=== PATIENT | female | born 1940 | race Caucasian/White ===

== ENCOUNTER 2022-12-03 09:06 | Outpatient (REF) | payer MEDICARE, SELFPAY ==
[2022-12-03 11:11] LABS: MANUAL DIFF FLAG NO
[2022-12-03 11:24] LABS: Basophils Absolute Auto 0.1 X10*3/uL (0.0-0.2); Basophils Percent Auto 0.6 % (0-2); Eosinophils Absolute Auto 0.3 X10*3/uL (0.0-0.4); Eosinophils Percent Auto 3.2 % (0-4); Hematocrit 42.7 % (37.0-47.0); Hemoglobin 14.6 g/dl (12.0-16.0); Imm Gran Abs Auto 0.03 X10*3/uL (0.00-0.03); Imm Gran Pct Auto 0.4 % (0.0-0.4); Lymphocytes Absolute Auto 2.6 X10*3/uL (1.2-4.9); Lymphocytes Percent Auto 30.4 % (20-40); Mean Corpuscular HGB Conc 34.2 g/dl (31.0-35.0); Mean Corpuscular Hemoglobin 33.6 pg (27.0-33.0); Mean Corpuscular Volume 98.2 fL (80.0-98.0); Mean Platelet Volume 11.5 fL (9.4-12.3); Monocytes Absolute Auto 0.9 X10*3/uL (0.1-1.2); NRBC Pct Auto 0.4 /100WBC (0.0-0.2); Neutrophils Absolute Auto 4.7 x10*3/uL (2.0-8.3); Neutrophils Percent Auto 55.4 % (45-73); Platelet Count 241 X10*3/uL (160-400); Red Blood Count 4.35 X10*6/uL (4.20-5.50); Red Cell Distribution Width 12.7 % (11.0-16.0); White Blood Count 8.5 X10*3/uL (4.8-10.8)
[2022-12-03 11:33] LABS: Estimated Average Glucose 91 mg/dL; Hemoglobin A1c % 4.8 %
[2022-12-03 11:43] LABS: Alanine Aminotransferase 23 U/L (0-31); Albumin Level 4.2 g/dL (3.5-5.0); Alkaline Phosphatase 76 U/L (39-117); Anion Gap 13 (12-20); Aspartate Amino Transferase 24 U/L (5-31); Bilirubin Total 0.9 mg/dL (0.0-1.0); Blood Urea Nitrogen 9 mg/dL (9-16); Calcium 9.7 mg/dL (8.4-10.2); Carbon Dioxide 29 mmol/L (22-29); Chloride 105 mmol/L (96-108); Cholesterol 187 mg/dL; Estimated Glomerular Filt Rate > 60; Glucose Random 94 mg/dL (60-115); HDL Cholesterol 58 mg/dL; LDL Cholesterol Calculated 105 mg/dl; Potassium 4.5 mmol/L (3.3-5.1); Sodium 142 mmol/L (135-145); Total Protein 6.9 g/dL (6.5-8.0); Triglycerides 123 mg/dL
== END 2022-12-03 09:07 | disposition home or self-care (01) ==
LOC: HO.MANLDS 09:06
PROVIDERS: Visit Provider Physician Assistant
DX: I10 Essential (primary) hypertension (principal)
CPT/HCPCS: 36415; 80053; 80061; 83036; 85025

== ENCOUNTER 2022-12-17 13:47 | Outpatient (REF) | payer MEDICARE, SELFPAY ==
--- NOTE | 2022-12-17 14:32 | HM_ITS ---
Conclusion: 1. Baseline rhythm predominantly is sinus rhythm with average heart of 73 beats per minute 2. No significant pauses noted 3. Intermittent episodes of paroxysmal atrial fibrillation, 3.52% total burden with longest episode lasting 5 minutes and 17 seconds 4. Total of 50,129 PACs accounting for 15.8% total beats account for very frequent PACs 5. Total of 8559 PVCs accounting for 2.7% total beats account for frequent PVCs 6. No significant pauses 7. No patient reported events MTDD
== END 2022-12-17 13:48 | disposition home or self-care (01) ==
LOC: HO.US 13:47
PROVIDERS: PCP Internal Medicine; Visit Provider Physician Assistant
DX: I48.91 Unspecified atrial fibrillation (principal)
CPT/HCPCS: 93242

== ENCOUNTER 2022-12-22 13:10 | Outpatient (REF) | payer MEDICARE, SELFPAY ==
--- NOTE | ~2022-12-22 | US_ITS ---
EXAMINATION: US PELVIS LIMITED (BLADDER) CLINICAL INFORMATION: History of swelling, new urinary changes. COMPARISON: None TECHNIQUE: Real-time imaging of the bladder. FINDINGS: BLADDER: Well distended and normal. Bilateral ureteral jets are demonstrated. Prevoid bladder volume is 147 mL. Postvoid bladder volume is 6 mL. US/US bladder IMPRESSION: Unremarkable urinary bladder.
== END 2022-12-22 13:11 | disposition home or self-care (01) ==
LOC: HO.US 13:10
PROVIDERS: PCP Internal Medicine; Visit Provider Physician Assistant
DX: R39.89 Other symptoms and signs involving the genitourinary system (principal)
CPT/HCPCS: 76857

== ENCOUNTER 2025-09-08 14:47 | Inpatient (IN) | payer MEDICARE, SELFPAY ==
[2025-09-08] VITALS (8 sets, daily range): BP systolic 90–156; BP diastolic 52–77; PULSE 77–123; RESP 11–21; TEMP 36.3–37.2; O2SAT 93–98; BMI 27.7
--- NOTE | ~2025-09-08 | CT_ITS ---
EXAMINATION: CT CERVICAL SPINE WITHOUT CONTRAST CLINICAL INFORMATION: Altered mental status. C-spine clearance. COMPARISON: None available. TECHNIQUE: Spiral CT imaging of the cervical spine performed in axial plane without contrast. Multiplanar reformatted images were constructed from the axial data set. This CT examination was performed using dose optimization techniques as appropriate, variously including the following: *Automated exposure control *Adjustment of mA and/or kV according to patient size (this includes techniques or standardized protocols for targeted exams where dose is matched to indication/reason for exam; i.e. extremities or head) *Use of iterative reconstruction technique FINDINGS: CORONAL ALIGNMENT: -Normal. SAGITTAL ALIGNMENT: -Normal lordosis. -There is a 2 mm degenerative retrolisthesis C3 on C4. -No additional subluxation. C1-C2 AND CRANIOCERVICAL JUNCTION: -Intact and normally aligned. There are mild to moderate degenerative changes in the anterior atlantoaxial joint. VERTEBRAL BODIES AND FACETS: -There are no fractures, compression deformities, or suspicious bone lesions. There is no evidence of traumatic malalignment. -Facets are normally aligned bilaterally with multilevel hypertrophic degenerative changes. DISCS: -Severe disc degeneration is present at C3-4 and C6-7. There is otherwise moderate disc degeneration. CENTRAL CANAL: -No evidence of high-grade central canal narrowing or large disc herniation allowing for modality limitations. -There may be moderate stenosis at C3-4, C4-5, and C5-6. PREVERTEBRAL AND PARAVERTEBRAL SOFT TISSUES: -There is no prevertebral or paravertebral soft tissue swelling or edema. No abnormal fluid collection. -Is mild carotid bulb calcification bilaterally. -Thyroid has a grossly normal appearance. LUNG APICES: -Clear bilaterally. No pneumothorax. CT/CT cervical spine wo IV con IMPRESSION: 1. No CT evidence of acute cervical spine fracture or injury. 2. Moderate to advanced multilevel cervical spondylosis. Electronically signed by: Alex Ochoa MD 09/08/2025 04:13 PM EDT
--- NOTE | ~2025-09-08 | CT_ITS ---
CLINICAL HISTORY: Sepsis CT abdomen and pelvis with contrast Comparison: None provided Findings: LIMITED CHEST: See separate CT chest. LIVER: No focal liver lesion. BILIARY: Cholelithiasis. PANCREAS: No mass or ductal dilatation. SPLEEN: No splenomegaly. KIDNEYS: No hydronephrosis or radiopaque stone. Small hypoattenuating lesions, too small to characterize however may represent cysts. ADRENALS: No nodule. VASCULAR: No aneurysm. RETROPERITONEUM: Mildly prominent retroperitoneal lymph nodes BOWEL/MESENTERY: No evidence of obstruction. No free fluid or air. Colonic diverticulosis. Normal appendix. ABDOMINAL WALL: No mass or significant abnormality. URINARY BLADDER: No focal wall thickening. PELVIC NODES: Enlarged right external iliac chain and right inguinal lymphadenopathy measuring up to 2.4 cm. PELVIC ORGANS: Hysterectomy. BONES: No acute fracture. Lucent lesion in the right femoral intertrochanteric region. OTHER: Negative. IMPRESSION: Enlarged right external iliac chain and inguinal lymphadenopathy measuring up to 2.4 cm. Correlate with any history of malignancy. Cholelithiasis without CT evidence of acute cholecystitis. This document has been electronically signed by: Chiquita Cm MD on 09/08/2025 20:26:28
--- NOTE | ~2025-09-08 | XR_ITS ---
EXAMINATION: XR CHEST CLINICAL INFORMATION: AMS COMPARISON: None available. TECHNIQUE: 2 views of the chest were obtained. FINDINGS: FINDINGS: Overlying monitoring leads The lungs are symmetrically expanded. Rotated positioning. Hazy opacity in the medial right lung base. No pulmonary edema. No pneumothorax. No pleural effusions. Cardiac size is within normal limits, evaluation limited by positioning. No acute osseous abnormalities. XR/XR chest 2V IMPRESSION: Right basilar hazy opacity could reflect atelectasis/infiltrate.. Electronically signed by: Mayito Avendaño MD 09/08/2025 03:50 PM EDT
--- NOTE | ~2025-09-08 | CT_ITS ---
EXAMINATION: CT HEAD WITHOUT CONTRAST CLINICAL INFORMATION: Altered mental status. COMPARISON: None available. TECHNIQUE: Contiguous axial imaging was performed from the skull base to vertex without intravenous administration of contrast. This CT examination was performed using dose optimization techniques as appropriate, variously including the following: *Automated exposure control *Adjustment of mA and/or kV according to patient size (this includes techniques or standardized protocols for targeted exams where dose is matched to indication/reason for exam; i.e. extremities or head) *Use of iterative reconstruction technique FINDINGS: There is no evidence of intracranial hemorrhage or extra-axial fluid collection. There is no mass effect, or edema. No CT evidence of acute territorial infarct. Ventricles, sulci, and cisterns are mildly diffusely prominent, in keeping with age appropriate involutional changes. No hydrocephalus. No midline shift. Negative hyperdense MCA sign. Negative insular ribbon sign. Patchy periventricular and deep white matter hypoattenuation is consistent with mild to moderate small vessel ischemic changes. 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 Partial empty sella. Atheromatous calcification of the bilateral carotid siphons and V4 segments vertebral arteries bilaterally. Globes and orbital contents image normally. No extracranial soft tissue abnormalities. There is cerumen impaction in both EACs. The paranasal sinuses, mastoid air cells, and tympanic cavities are normally aerated. No suspicious bony abnormalities. There are no acute fractures evident. Degenerative changes in the right greater than left TM joints. CT/CT head/brain wo IV con IMPRESSION: 1. No acute intracranial abnormality. 2. Chronic changes as described. 3. Cerumen impaction in both EACs. Electronically signed by: Alex Ochoa MD 09/08/2025 04:06 PM EDT
--- NOTE | ~2025-09-08 | US_ITS ---
EXAMINATION: US ABDOMEN LIMITED CLINICAL INFORMATION: Choledocholithiasis. COMPARISON: None available. TECHNIQUE: Real-time imaging of the gallbladder FINDINGS: GALLBLADDER: The gallbladder is physiologically distended. There is a stone in the gallbladder neck measuring 1.4 x 0.7 x 1.3 cm. The gallbladder wall does not appear thickened or edematous. No pericholecystic fluid. COMMON BILE DUCT: Not well visualized. The visualized common bile duct is normal in caliber measuring 0.5 cm in diameter. Common bile duct stone is appreciated. US/US abdomen limited IMPRESSION: Gallstone in the neck of the gallbladder. No gallbladder changes to suggest acute cholecystitis. The common bile duct is not well visualized but does not appear dilated. Electronically signed by: Lidia Calles MD 09/08/2025 05:32 PM EDT
--- NOTE | ~2025-09-08 | CT_ITS ---
CLINICAL HISTORY: Sepsis CT chest with contrast Comparison: None provided Findings: NECK BASE: Limited views of the thyroid are unremarkable. LUNGS/PLEURA: Mild bibasilar atelectasis. PULM VASCULAR: Small filling defect in the left anterior segmental pulmonary arterial branch (Series 8, image 54). MEDIASTINUM: No masses or lymphadenopathy. CARDIAC: No pericardial effusion. No cardiomegaly. AORTA: No aneurysm. CHEST WALL: No masses or axillary lymphadenopathy. LIMITED ABDOMEN: See separate CT abdomen pelvis. BONES: No acute fracture. Mild pectus excavatum deformity. IMPRESSION: 1. Small left segmental pulmonary arterial embolism. 2. No consolidation or pneumonia. This document has been electronically signed by: Chiquita Cm MD on 09/08/2025 20:31:56
--- NOTE | 2025-09-08 14:56 | ECG_ITS ---
Test Reason : ams Blood Pressure : */* mmHG Vent. Rate : 94 BPM Atrial Rate : 94 BPM P-R Int : 156 ms QRS Dur : 82 ms QT Int : 374 ms P-R-T Axes : 43 -19 98 degrees QTcB Int : 467 ms Sinus rhythm with occasional , and consecutive Premature ventricular complexes and Fusion complexes Left ventricular hypertrophy with repolarization abnormality ( R in aVL , Ankur product , Romhilt-Lara ) Abnormal ECG When compared with ECG of 15-Dec-2006 08:21, Fusion complexes are now Present Premature ventricular complexes are now Present QT has lengthened Referred By: Lai Pedersen Electronically Signed By: AUSTEN LEWIS MD
[2025-09-08 15:09] LABS: Glucose, Whole Blood 101 mg/dL (60-115)
--- NOTE | 2025-09-08 15:14 | ED.GENADULT ---
HPI - General Adult General Chief complaint: Altered Mental Status Stated complaint: AMS,HYPOTENSIVE 94/50,SEPSIS ALERT PER EMS Time Seen by Provider: 09/08/25 14:59 History of Present Illness ED Provider: Dr. Elam HPI narrative: 84 y/o F patient; PMH atrial fibrillation on Eliquis, anemia, GERD, dementia, thrombocytopenia, hx PE; presents from [facility] with report of altered mental status. The patient's son provides the history. Reportedly patient was found in the day room today bent over and reporting she was uncomfortable. Her blood pressure was low. Her son states at the end of Jul she was diagnosed with the atrial fibrillation and two small PEs started on Eliquis. At the time she was also diagnosed with what sounds like choledocholithiasis treated with ERCP. Cholecystectomy was deferred as repeat US showed improvement in patient's US imaging. Transport paperwork notes nausea and vomiting with uncontrolled pain . Pain was reported by patient as all over body . Confirms patient is DNR/DNI. Related Data Home Medications ?Medication ?Instructions ?Recorded ?Confirmed acetaminophen 325 mg tablet 650 mg PO Q6H PRN Fever Or Pain 09/08/25 09/08/25 apixaban 5 mg tablet (Eliquis) 5 mg PO BID 09/08/25 09/08/25 bisacodyl 10 mg rectal suppository 10 mg AZ DAILY PRN Constipation 09/08/25 09/08/25 diclofenac sodium 1 % topical gel 2 g topical TID 09/08/25 09/08/25 magnesium hydroxide 400 mg/5 mL 30 ml PO DAILY PRN Constipation 09/08/25 09/08/25 oral suspension (Milk of Magnesia) metoprolol succinate 25 mg 25 mg PO DAILY 09/08/25 09/08/25 tablet,extended release 24 hr nystatin 100,000 unit/mL oral 5 ml PO QID 09/08/25 09/08/25 suspension sennosides 8.6 mg tablet (senna) 17.2 mg PO BEDTIME 09/08/25 09/08/25 sodium phosphates 19 gram-7 118 ml [place] DAILY PRN Constipation 09/08/25 09/08/25 gram/118 mL enema (Fleet Enema) Allergies Allergy/AdvReac Type Severity Reaction Status Date / Time No Known Allergies Allergy Verified 09/08/25 14:54 Review of Systems Review of Systems: Yes Unobtainable due to mental status [facility] Past Medical History Attestation statement: The following information was validated with the patient. Source: old records reviewed Medical History (Updated 09/08/25 @ 20:31 by Macey Elam MD) Lactate blood increase Social History Social History Smoked in Last 30 Days: No Use of substances other than those prescribed or required for medical reasons: No Advance Directives: Yes Advance Directives Information Provided: No Advance Directives on File: No Do you have a plan to hurt others: No Plan Physical Exam ED Vital Signs: Vital Signs - 24 hr 09/08/25 14:49 09/08/25 14:58 09/08/25 17:09 Temperature 97.4 F Pulse Rate 89 89 114 H Respiratory Rate 18 18 12 Blood Pressure 111/52 L 111/52 L 148/71 H Pulse Oximetry 93 93 94 Oxygen Delivery Method Room Air Room Air Room Air 09/08/25 17:31 09/08/25 18:31 09/08/25 18:48 Temperature Pulse Rate 79 114 H 123 H Respiratory Rate 16 14 21 H Blood Pressure 142/63 H 139/71 132/63 Pulse Oximetry 96 93 93 Oxygen Delivery Method Room Air Room Air Room Air 09/08/25 19:52 Temperature 97.8 F Pulse Rate 114 H Respiratory Rate 11 L Blood Pressure 156/77 H Pulse Oximetry 94 Oxygen Delivery Method Room Air BMI result Body Mass Index 27.7 Patient is afebrile (rectally) and hemodynamically stable. Const General: cooperative and no acute distress [facility] Head: Yes normal to inspection and Yes atraumatic Eyes General: appearance normal, both eyes and all related structures Pupils: Equal, round and reactive pupils present EOM: EOMs intact bilaterally Neck Neck: Yes normal visual inspection, Yes full ROM, Yes supple and No tender Chest Chest palpation & inspection: normal inspection of the chest and normal palpation of entire chest wall Resp Effort & Inspection: normal respiratory effort, able to speak in complete sentences and no cough Auscultation: clear to auscultation bilaterally Cardio Rate: regular rate Rhythm: regular rhythm Peripheral pulses: Peripheral pulses 2+ throughout GI Inspection: Yes normal to inspection, No Abdominal wall edema and No distended Palpation (GI): Soft to palpation, not firm, nontender, no guarding and not rigid Auscultation: normal bowel sounds Back/Spine/Pelvis Back: No back tenderness Neuro Cranial nerves: Yes Equal, round and reactive pupils present Course Course Course Narrative: Patient is afebrile (rectally) and hemodynamically stable. Requested records from [facility] Hospital admission. Will start with screening EKG and labs. Will also obtain CXR, CT Head/Neck, and US RUQ. Provided 1L IVF. Reevaluation(s) Reevaluation #1: CXR with right basilar hazy opacity atelectasis versus infiltrate. Patient is without cough/congestion. No hypoxia. CT Head and Neck is negative for acute abnormalities. Labs reviewed. New leukocytosis 18.2. No significant anemia. Anion gap 21. Added 2nd L IVF for sepsis protocol. Ordered LA and blood cultures. Added Zosyn for intra-abdominal coverage. COVID/Flu/RSV negative. LA 5.9. US notable for gallstone in the neck of the gallbladder. I consulted surgery and GI. Surgery requested CT Abdomen/Pelvis which was ordered and pending. Added a CT Chest as well to better visualize right hazy opacity seen on CXR as suspicion for pneumonia is lower at this time. [facility] records reviewed. Patient actually had ascending cholangitis and ERCP with sphinecterotomy. UA reviewed. Obtained via purewick. WBC = squamous cells. No evidence of cystitis. Repeat LA 3.6. CT Abdomen/Pelvis with known cholelithiasis. CT Chest with known small left sided segmental PE. No pneumonia or focal infiltrate. Plan: Admit to hospital Condition: Stable Medications Administered Discontinued Medications Generic Name Dose Route Start Last Admin Trade Name Freq PRN Reason Stop Dose Admin Sodium Chloride 1,000 mls @ 999 mls/hr 09/08/25 15:30 09/08/25 18:25 Ns IV 09/08/25 16:30 Infused .Q1H1M KATHY Infusion Sodium Chloride 1,000 mls @ 999 mls/hr 09/08/25 16:30 09/08/25 18:25 Ns IV 09/08/25 17:30 Infused .Q1H1M KATHY Infusion Piperacillin Sod/Tazobactam 100 mls @ 200 mls/hr 09/08/25 16:27 09/08/25 17:37 Sod 4.5 gm/ Sodium Chloride IV 09/08/25 16:56 Infused ONCE ONE Infusion Iohexol 100 ml 09/08/25 19:12 09/08/25 19:12 Iohexol 350 Mg/Ml 100 Ml Infus..Btl IV 09/08/25 19:13 85 ml ONCE ONE Administration Medical Decision Making Lab Data 09/08/25 16:10 09/08/25 16:10 Labs: Lab Results 09/08/25 09/08/25 09/08/25 Range/Units 15:01 16:10 16:56 WBC 18.2 H (4.8-10.8) X10*3/uL RBC 3.42 L (4.20-5.50) X10*6/uL Hgb 12.1 (12.0-16.0) g/dl Hct 37.5 (37.0-47.0) % MCV 109.6 H (80.0-98.0) fL MCH 35.4 H (27.0-33.0) pg MCHC 32.3 (31.0-35.0) g/dl RDW 15.6 (11.0-16.0) % Plt Count 203 (160-400) X10*3/uL MPV 11.3 (9.4-12.3) fL Immature Gran % (Auto) 0.6 H (0.0-0.4) % Neut % (Auto) 72.9 (45-73) % Lymph % (Auto) 17.5 L (20-40) % [place] % (Auto) 8.8 (2-11) % Eos % (Auto) 0.0 (0-4) % Baso % (Auto) 0.2 (0-2) % Lymph # (Auto) 3.2 (1.2-4.9) X10*3/uL [place] # (Auto) 1.6 H (0.1-1.2) X10*3/uL Eos # (Auto) 0.0 (0.0-0.4) X10*3/uL Baso # (Auto) 0.0 (0.0-0.2) X10*3/uL Abs Immat Gran (auto) 0.11 H (0.00-0.03) X10*3/uL Absolute Neuts (auto) 13.3 H (2.0-8.3) x10*3/uL Absolute Nucleated RBC 0.020 H (0.0-0.012) X10*3/uL Nucleated RBC % (auto) 0.1 (0.0-0.2) /100WBC Smear Tech's Comments VERIFIED Sodium 145 (135-145) mmol/L Potassium 4.7 (3.3-5.1) mmol/L Chloride 110 H (96-108) mmol/L Carbon Dioxide 19 L (22-29) mmol/L Anion Gap 21 H (12-20) BUN 21 H (9-16) mg/dL Creatinine 0.87 (0.5-1.4) mg/dL Estim Creat Clear Calc 48.9 Estimated GFR > 60 POC Glucose 101 (60-115) mg/dL Random Glucose 115 (60-115) mg/dL Lactic Acid 5.9 H* (0.5-2.0) mmol/L Lactic Acid F/U @ 2Hr (0.5-2.0) mmol/L Calcium 9.1 D (8.4-10.2) mg/dL Total Bilirubin 2.0 H (0.0-1.0) mg/dL AST 59 H (5-31) U/L ALT 22 (0-31) U/L Alkaline Phosphatase 145 H (39-117) U/L Total Creatine Kinase 13 L (26-140) U/L Total Protein 6.6 (6.5-8.0) g/dL Albumin 3.3 L (3.5-5.0) g/dL Lipase 17 (8-78) U/L Urine Color Urine Appearance Urine pH (5.0-9.0) Ur Specific [place] (1.005-1.025) Urine Protein (Neg-Trace) mg/dL Urine Glucose (UA) (Negative) mg/dL Urine Ketones (Negative) mg/dL Urine Blood (Negative) Urine Nitrite (Negative) Ur Leukocyte Esterase (Negative) Urine RBC (0-2) /HPF Urine WBC (0-5) /HPF Ur Squamous Epith Cells (0-2) /HPF Other Crystals Urine Bacteria (None Seen) Hyaline Casts (0-2) /LPF Influenza Type A (PCR) NEGATIVE (Negative) Influenza Type B (PCR) NEGATIVE (Negative) RSV RNA Qual (PCR) NEGATIVE (Negative) SARS-CoV-2 RNA (RT-PCR) NEGATIVE (Negative) 09/08/25 09/08/25 Range/Units 18:40 19:28 WBC (4.8-10.8) X10*3/uL RBC (4.20-5.50) X10*6/uL Hgb (12.0-16.0) g/dl Hct (37.0-47.0) % MCV (80.0-98.0) fL MCH (27.0-33.0) pg MCHC (31.0-35.0) g/dl RDW (11.0-16.0) % Plt Count (160-400) X10*3/uL MPV (9.4-12.3) fL Immature Gran % (Auto) (0.0-0.4) % Neut % (Auto) (45-73) % Lymph % (Auto) (20-40) % [place] % (Auto) (2-11) % Eos % (Auto) (0-4) % Baso % (Auto) (0-2) % Lymph # (Auto) (1.2-4.9) X10*3/uL [place] # (Auto) (0.1-1.2) X10*3/uL Eos # (Auto) (0.0-0.4) X10*3/uL Baso # (Auto) (0.0-0.2) X10*3/uL Abs Immat Gran (auto) (0.00-0.03) X10*3/uL Absolute Neuts (auto) (2.0-8.3) x10*3/uL Absolute Nucleated RBC (0.0-0.012) X10*3/uL Nucleated RBC % (auto) (0.0-0.2) /100WBC Smear Tech's Comments Sodium (135-145) mmol/L Potassium (3.3-5.1) mmol/L Chloride (96-108) mmol/L Carbon Dioxide (22-29) mmol/L Anion Gap (12-20) BUN (9-16) mg/dL Creatinine (0.5-1.4) mg/dL Estim Creat Clear Calc Estimated GFR POC Glucose (60-115) mg/dL Random Glucose (60-115) mg/dL Lactic Acid (0.5-2.0) mmol/L Lactic Acid F/U @ 2Hr 3.6 H* (0.5-2.0) mmol/L Calcium (8.4-10.2) mg/dL Total Bilirubin (0.0-1.0) mg/dL AST (5-31) U/L ALT (0-31) U/L Alkaline Phosphatase (39-117) U/L Total Creatine Kinase (26-140) U/L Total Protein (6.5-8.0) g/dL Albumin (3.5-5.0) g/dL Lipase (8-78) U/L Urine Color Yellow Urine Appearance Clear Urine pH 6.5 (5.0-9.0) Ur Specific [place] 1.015 (1.005-1.025) Urine Protein Trace (Neg-Trace) mg/dL Urine Glucose (UA) Negative (Negative) mg/dL Urine Ketones Trace (Negative) mg/dL Urine Blood Trace H (Negative) Urine Nitrite Negative (Negative) Ur Leukocyte Esterase Moderate (2+) H (Negative) Urine RBC 3-5 H (0-2) /HPF Urine WBC 6-10 H (0-5) /HPF Ur Squamous Epith Cells 6-10 (0-2) /HPF Other Crystals Present Urine Bacteria 1+ (None Seen) Hyaline Casts 3-5 (0-2) /LPF Influenza Type A (PCR) (Negative) Influenza Type B (PCR) (Negative) RSV RNA Qual (PCR) (Negative) SARS-CoV-2 RNA (RT-PCR) (Negative) Independent Interpretation I performed an independent interpretation of an: EKG Interpretation: EKG independently interpreted by myself as NSR 94BPM with occasional PVCs. Radiology Impression Discussion of test interpretation with radiology: I have reviewed the radiologist's reading. Radiologist Impression: EXAMINATION: XR CHEST CLINICAL INFORMATION: AMS COMPARISON: None available. TECHNIQUE: 2 views of the chest were obtained. FINDINGS: FINDINGS: Overlying monitoring leads The lungs are symmetrically expanded. Rotated positioning. Hazy opacity in the medial right lung base. No pulmonary edema. No pneumothorax. No pleural effusions. Cardiac size is within normal limits, evaluation limited by positioning. No acute osseous abnormalities. XR/XR chest 2V IMPRESSION: Right basilar hazy opacity could reflect atelectasis/infiltrate.. Electronically signed by: Mayito Avendaño MD 09/08/2025 03:50 PM EDT RP EXAMINATION: CT HEAD WITHOUT CONTRAST CLINICAL INFORMATION: Altered mental status. COMPARISON: None available. TECHNIQUE: Contiguous axial imaging was performed from the skull base to vertex without intravenous administration of contrast. This CT examination was performed using dose optimization techniques as appropriate, variously including the following: *Automated exposure control *Adjustment of mA and/or kV according to patient size (this includes techniques or standardized protocols for targeted exams where dose is matched to indication/reason for exam; i.e. extremities or head) *Use of iterative reconstruction technique FINDINGS: There is no evidence of intracranial hemorrhage or extra-axial fluid collection. There is no mass effect, or edema. No CT evidence of acute territorial infarct. Ventricles, sulci, and cisterns are mildly diffusely prominent, in keeping with age appropriate involutional changes. No hydrocephalus. No midline shift. Negative hyperdense MCA sign. Negative insular ribbon sign. Patchy periventricular and deep white matter hypoattenuation is consistent with mild to moderate small vessel ischemic changes. 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 Partial empty sella. Atheromatous calcification of the bilateral carotid siphons and V4 segments vertebral arteries bilaterally. Globes and orbital contents image normally. No extracranial soft tissue abnormalities. There is cerumen impaction in both EACs. The paranasal sinuses, mastoid air cells, and tympanic cavities are normally aerated. No suspicious bony abnormalities. There are no acute fractures evident. Degenerative changes in the right greater than left TM joints. CT/CT head/brain wo IV con IMPRESSION: 1. No acute intracranial abnormality. 2. Chronic changes as described. 3. Cerumen impaction in both EACs. Electronically signed by: Alex Ochoa MD 09/08/2025 04:06 PM EDT EXAMINATION: CT CERVICAL SPINE WITHOUT CONTRAST CLINICAL INFORMATION: Altered mental status. C-spine clearance. COMPARISON: None available. TECHNIQUE: Spiral CT imaging of the cervical spine performed in axial plane without contrast. Multiplanar reformatted images were constructed from the axial data set. This CT examination was performed using dose optimization techniques as appropriate, variously including the following: *Automated exposure control *Adjustment of mA and/or kV according to patient size (this includes techniques or standardized protocols for targeted exams where dose is matched to indication/reason for exam; i.e. extremities or head) *Use of iterative reconstruction technique FINDINGS: CORONAL ALIGNMENT: -Normal. SAGITTAL ALIGNMENT: -Normal lordosis. -There is a 2 mm degenerative retrolisthesis C3 on C4. -No additional subluxation. C1-C2 AND CRANIOCERVICAL JUNCTION: -Intact and normally aligned. There are mild to moderate degenerative changes in the anterior atlantoaxial joint. VERTEBRAL BODIES AND FACETS: -There are no fractures, compression deformities, or suspicious bone lesions. There is no evidence of traumatic malalignment. -Facets are normally aligned bilaterally with multilevel hypertrophic degenerative changes. DISCS: -Severe disc degeneration is present at C3-4 and C6-7. There is otherwise moderate disc degeneration. CENTRAL CANAL: -No evidence of high-grade central canal narrowing or large disc herniation allowing for modality limitations. -There may be moderate stenosis at C3-4, C4-5, and C5-6. PREVERTEBRAL AND PARAVERTEBRAL SOFT TISSUES: -There is no prevertebral or paravertebral soft tissue swelling or edema. No abnormal fluid collection. -Is mild carotid bulb calcification bilaterally. -Thyroid has a grossly normal appearance. LUNG APICES: -Clear bilaterally. No pneumothorax. CT/CT cervical spine wo IV con IMPRESSION: 1. No CT evidence of acute cervical spine fracture or injury. 2. Moderate to advanced multilevel cervical spondylosis. Electronically signed by: Alex Ochoa MD 09/08/2025 04:13 PM EDT EXAMINATION: US ABDOMEN LIMITED CLINICAL INFORMATION: Choledocholithiasis. COMPARISON: None available. TECHNIQUE: Real-time imaging of the gallbladder FINDINGS: GALLBLADDER: The gallbladder is physiologically distended. There is a stone in the gallbladder neck measuring 1.4 x 0.7 x 1.3 cm. The gallbladder wall does not appear thickened or edematous. No pericholecystic fluid. COMMON BILE DUCT: Not well visualized. The visualized common bile duct is normal in caliber measuring 0.5 cm in diameter. Common bile duct stone is appreciated. US/US abdomen limited IMPRESSION: Gallstone in the neck of the gallbladder. No gallbladder changes to suggest acute cholecystitis. The common bile duct is not well visualized but does not appear dilated. Electronically signed by: Lidia Calles MD 09/08/2025 05:32 PM EDT RP CLINICAL HISTORY: Sepsis CT abdomen and pelvis with contrast Comparison: None provided Findings: LIMITED CHEST: See separate CT chest. LIVER: No focal liver lesion. BILIARY: Cholelithiasis. PANCREAS: No mass or ductal dilatation. SPLEEN: No splenomegaly. KIDNEYS: No hydronephrosis or radiopaque stone. Small hypoattenuating lesions, too small to characterize however may represent cysts. ADRENALS: No nodule. VASCULAR: No aneurysm. RETROPERITONEUM: Mildly prominent retroperitoneal lymph nodes BOWEL/MESENTERY: No evidence of obstruction. No free fluid or air. Colonic diverticulosis. Normal appendix. ABDOMINAL WALL: No mass or significant abnormality. URINARY BLADDER: No focal wall thickening. PELVIC NODES: Enlarged right external iliac chain and right inguinal lymphadenopathy measuring up to 2.4 cm. PELVIC ORGANS: Hysterectomy. BONES: No acute fracture. Lucent lesion in the right femoral intertrochanteric region. OTHER: Negative. IMPRESSION: Enlarged right external iliac chain and inguinal lymphadenopathy measuring up to 2.4 cm. Correlate with any history of malignancy. Cholelithiasis without CT evidence of acute cholecystitis. This document has been electronically signed by: Chiquita Cm MD on 09/08/2025 20:26:28 CLINICAL HISTORY: Sepsis CT chest with contrast Comparison: None provided Findings: NECK BASE: Limited views of the thyroid are unremarkable. LUNGS/PLEURA: Mild bibasilar atelectasis. PULM VASCULAR: Small filling defect in the left anterior segmental pulmonary arterial branch (Series 8, image 54). MEDIASTINUM: No masses or lymphadenopathy. CARDIAC: No pericardial effusion. No cardiomegaly. AORTA: No aneurysm. CHEST WALL: No masses or axillary lymphadenopathy. LIMITED ABDOMEN: See separate CT abdomen pelvis. BONES: No acute fracture. Mild pectus excavatum deformity. IMPRESSION: 1. Small left segmental pulmonary arterial embolism. 2. No consolidation or pneumonia. This document has been electronically signed by: Chiquita Cm MD on 09/08/2025 20:31:56 Discharge Plan Discharge Clinical Impression: Sepsis, Cholelithiasis, AMS (altered mental status) Patient Disposition: Admitted As Inpatient Print Language: [place]an
--- NOTE | 2025-09-08 15:31 | PC.NURSE ---
84 F from SNF via EMS for AMS, hypotension. Pt A+OX1 to self, confused. Pt was there for gall stones and infection. RR even and unlabored, denies CP or SOB. Pt is calm, cooperative. RR even and unlabored. Equal strength bilat. Pt responsive to verbal stimuli but confused to date/time/situation/location. Pt denies any pain.
[2025-09-08 16:16] LABS: Hematocrit 37.5 % (37.0-47.0); Hemoglobin 12.1 g/dl (12.0-16.0); Imm Gran Abs Auto 0.11 X10*3/uL (0.00-0.03); Imm Gran Pct Auto 0.6 % (0.0-0.4); Lymphocytes Absolute Auto 3.2 X10*3/uL (1.2-4.9); MANUAL DIFF FLAG SCAN; Mean Corpuscular HGB Conc 32.3 g/dl (31.0-35.0); Mean Corpuscular Hemoglobin 35.4 pg (27.0-33.0); Mean Corpuscular Volume 109.6 fL (80.0-98.0); NRBC Abs Auto 0.020 X10*3/uL (0.0-0.012); NRBC Pct Auto 0.1 /100WBC (0.0-0.2); Platelet Count 203 X10*3/uL (160-400); Red Blood Count 3.42 X10*6/uL (4.20-5.50); SCAN SMEAR FLAG 1; White Blood Count 18.2 X10*3/uL (4.8-10.8)
[2025-09-08 16:34] LABS: Lipase 17 U/L (8-78)
[2025-09-08 16:35] LABS: Alanine Aminotransferase 22 U/L (0-31); Albumin Level 3.3 g/dL (3.5-5.0); Anion Gap 21 (12-20); Aspartate Amino Transferase 59 U/L (5-31); Blood Urea Nitrogen 21 mg/dL (9-16); Calcium 9.1 mg/dL (8.4-10.2); Carbon Dioxide 19 mmol/L (22-29); Chloride 110 mmol/L (96-108); Creatinine Clr Calc Pharmacy 48.9; Estimated Glomerular Filt Rate > 60; Potassium 4.7 mmol/L (3.3-5.1); Sodium 145 mmol/L (135-145); Total Protein 6.6 g/dL (6.5-8.0)
--- NOTE | 2025-09-08 16:48 | PC.NURSE ---
tech getting 2nd set of cultures, waiting to start abx
[2025-09-08 16:52] LABS: Resp Syncy Virus RNA Qual PCR NEGATIVE (Negative); SARS COV2 PCR INHOUSE NEGATIVE (Negative)
--- NOTE | 2025-09-08 16:56 | PC.NURSE ---
tech unable to get 2nd set of cultures at this time, another tech is going to attempt 2nd blood culture draw.
[2025-09-08 17:32] LABS: Alkaline Phosphatase 145 U/L (39-117)
--- NOTE | 2025-09-08 18:24 | P.CONGS_ITS ---
History of Present Illness Consult details Consult date: 09/08/25 Narrative: [age] year old female with dementia, who was in [facility], brought to the ED today because of what the son described as low blood pressure and an overall sense of being ?uncomfortable She actually was in [facility] last July, because of what appeared to be common bile duct obstruction. She had an ERCP done at that time to clear the common bile duct. According to her son, Parminder, she was considered for cholecystectomy but she had multiple problems then including new onset atrial fibrillation as well as PEs. She was therefore started on anticoagulation. She was discharged to the rehab institution The son, Parminder, also says that the patient has worsening dementia. She seems to have had some excessive weakness as well. He says that the patient does not seem to have had good oral intake anymore even at the rehab institution. The son also says that the patient has not complained of any abdominal pain today. There is no reported vomiting or diarrhea. The patient seems to be able to walk very short distances with a walker although spends more time in bed or on a chair now. Review of Systems 2 Review of Systems: Source is the son Parminder; the patient has some dementia although answers simple questions Yes Unobtainable due to mental status Constitutional: Constitutional: Denies chills, Denies fever(s), Reports poor appetite and Reports weakness Cardiovascular: Cardiovascular: Denies chest pain Respiratory: Respiratory: Denies cough Gastrointestinal: Gastrointestinal: Denies abdominal pain and Denies vomiting Neurologic: Reports weakness Comments: Some dementia, seems to be progressive recently PMFSH Past Medical History Medical History Lactate blood increase Social History Social History Housing: Residential Do you presently have visiting nurse or other home services: Yes Patient Tobacco Use Status: Former Tobacco user Advance Directives Date on File: 09/09/25 service: No Meds Allergies Allergy/AdvReac Type Severity Reaction Status Date / Time No Known Allergies Allergy Verified 09/08/25 14:54 Home Medications ?Medication ?Instructions ?Recorded ?Confirmed ?Last Taken ?Type acetaminophen 325 mg tablet 650 mg PO Q6H PRN Fever Or Pain 09/08/25 09/08/25 Unknown History apixaban 5 mg tablet (Eliquis) 5 mg PO BID 09/08/25 Unknown History bisacodyl 10 mg rectal suppository 10 mg MN DAILY PRN Constipation 09/08/25 09/08/25 Unknown History diclofenac sodium 1 % topical gel 2 g topical TID 08/3009/08/25 Unknown History magnesium hydroxide 400 mg/5 mL 30 ml PO DAILY PRN Con stipation 09/08/25 09/08/25 Unknown History oral suspension (Milk of MagnRedLasso) metoprolol succinate 25 mg 25 mg PO DAILY 09/08/2509/23 Unknown History tablet,extended release 24 hr nystatin 100,000 unit/mL oral 5 ml PO QID 09/08/2509/23 Unknown History suspension sennosides 8.6 mg tablet (senna) 17.2 mg PO BEDTIME 09/08/25 Unknown History sodium phosphates 19 gram-7 118 ml MN DAILY PRN Consti pation 09/08/25 09/08/25 Unknown History gram/118 mL enema (Fleet Enema) Physical Exam 2 Vital Signs: Vital Signs: Last Vital Signs Temp 97.4 F 09/08/25 14:58 Pulse 79 09/08/25 17:31 Resp 16 09/08/25 17:31 BP 142/63 H 09/08/25 17:31 Pulse Ox 96 09/08/25 17:31 O2 Del Method Room Air 09/08/25 17:31 BMI result Body Mass Index 27.7 Const: Other: Answers simple questions, does not appear to be in any pain, frail looking General: comfortable and no acute distress Resp: Effort & Inspection: normal respiratory effort Cardio: Rate: regular rate GI: Other: No Overton's sign Inspection: No distended Palpation (GI): Soft to palpation, not firm, nontender and no guarding Extrem: General: Yes no calf tenderness Results Labs 09/12/25 06:41 09/12/25 06:41 Labs: Abnormal lab results 09/08/25 09/08/25 Range/Units 16:10 16:56 WBC 18.2 H (4.8-10.8) X10*3/uL RBC 3.42 L (4.20-5.50) X10*6/uL MCV 109.6 H (80.0-98.0) fL MCH 35.4 H (27.0-33.0) pg Immature Gran % (Auto) 0.6 H (0.0-0.4) % Lymph % (Auto) 17.5 L (20-40) % [place] # (Auto) 1.6 H (0.1-1.2) X10*3/uL Abs Immat Gran (auto) 0.11 H (0.00-0.03) X10*3/uL Absolute Neuts (auto) 13.3 H (2.0-8.3) x10*3/uL Absolute Nucleated RBC 0.020 H (0.0-0.012) X10*3/uL Chloride 110 H (96-108) mmol/L Carbon Dioxide 19 L (22-29) mmol/L Anion Gap 21 H (12-20) BUN 21 H (9-16) mg/dL Lactic Acid 5.9 H* (0.5-2.0) mmol/L Total Bilirubin 2.0 H (0.0-1.0) mg/dL AST 59 H (5-31) U/L Alkaline Phosphatase 145 H (39-117) U/L Total Creatine Kinase 13 L (26-140) U/L Albumin 3.3 L (3.5-5.0) g/dL Short CBC 09/08/25 Range/Units 16:10 WBC 18.2 H (4.8-10.8) X10*3/uL Hgb 12.1 (12.0-16.0) g/dl Hct 37.5 (37.0-47.0) % Plt Count 203 (160-400) X10*3/uL BMP 09/08/25 16:10 Sodium 145 Potassium 4.7 Chloride 110 H Carbon Dioxide 19 L BUN 21 H Creatinine 0.87 Calcium 9.1 D Cardiac Enzymes 09/08/25 Range/Units 16:10 Total Creatine Kinase 13 L (26-140) U/L Liver Function 09/08/25 Range/Units 16:10 Total Bilirubin 2.0 H (0.0-1.0) mg/dL AST 59 H (5-31) U/L ALT 22 (0-31) U/L Alkaline Phosphatase 145 H (39-117) U/L Albumin 3.3 L (3.5-5.0) g/dL All other labs normal. Assessment and Plan (1) Lactate blood increase: Status: Acute Plan The patient was brought to the ER from [facility] because of what was described as hypotension and some change in mental status. She has multiple medical problems including dementia, recently diagnosed atrial fibrillation, on anticoagulation, PEs. She had an elevated lactate on admission so an abdominal ultrasound was done which showed a gallstone on the neck the gallbladder. However, there is no suggestion of cholecystitis. Furthermore, the patient does not have any tenderness to examination. The son says that she did not complain of any abdominal pain today Her bilirubin is 2.0 although this seems to have been stable since she had ERCP for choledocholithiasis last month in [facility] I am uncertain as to the etiology of her elevated lactate but her imaging does not suggest cholecystitis. She should be aggressively hydrated as the son says that she has had poor oral intake for several weeks now. She is hemodynamically stable and despite her elevated lactate, appears comfortable and is not toxic looking. I agree with starting her on antibiotics for now. I have recommended a CAT scan of the abdomen and pelvis. We will follow along while she is in the hospital because of her gallstones. I have discussed the above with the ER physician, hospitalist service, as well the son at bedside. Procedures Date of Service Date of Service: 09/12/25
[2025-09-08 18:50] LABS: Appearance Urine Clear; Glucose Urine UA Negative (Negative); PH 6.5 (5.0-9.0); Specific Gravity - Urine 1.015 (1.005-1.025); UMIC TRIGGER UACC YES
[2025-09-08 18:58] LABS: Reflex Lactate? Lactic Acid Added
[2025-09-08 19:09] LABS: Other Crystals Urine Present; UACC Culture Trigger YES
[2025-09-08] MEDS: iohexoL 350 MG/ML 100 ML INFUS..BTL IV (19:12)
--- NOTE | 2025-09-08 19:13 | PHA.MEDREC ---
Addendum entered by Venkat Younger RPh 09/08/25 20:52: MED REC REVIEWED BY [facility] ED Original Note: Pharmacy Consult ? Medication Reconciliation Pharmacy has completed the medication reconciliation. Utilized list from Danyel Sahu to confirm med list.
--- NOTE | 2025-09-08 19:29 | PC.NURSE ---
this rn assumed care of pt, pt resting in stretcher, no acute distress noted. tech at bedside drawing labs. son at bedside
--- NOTE | 2025-09-08 19:44 | PC.NURSE ---
pt hard stick, multiple attempts made to obtain lactic lab. MD Elam aware
--- NOTE | 2025-09-08 19:44 | MHC.EDTECH ---
Previous shift tech attempted to draw blood,patient is a hard stick. This tech attempted again and was now able to obtained it. Will have another tech try to obtain blood sample.
[2025-09-08 20:16] LABS: ~Lactic Acid-LAB USE ONLY 3.6 mmol/L (0.5-2.0)
--- NOTE | 2025-09-08 21:16 | PM.IMHP ---
History of Present Illness Date of Service: 09/08/25 Attending physician on admission: Juvencio Izquierdo Chief Complaint: AMS, hypotension Patient is an 84-year-old female with a past medical history significant for paroxysmal AFib on Eliquis, anemia, GERD, dementia, thrombocytopenia and history of PE, who presented to the ED due to altered mental status and hypotension from an SNF. The patient is unable to provide a history due to altered mental status, she is can not provide a history but is alert and awake. It was reported that she was found in the room at the nursing facility bent over complaining of abdominal discomfort. The patient denies any abdominal pain initially but then does report suprapubic pain. She had also reported nausea and vomiting initially however now stating that she has intermittent nausea which is very mild and has not had any vomiting. It is reported that she has had poor p.o. intake. She was recently hospitalized at [facility] for ascending cholangitis with an ERCP and sphincterotomy. She was also diagnosed with new onset AFib and 2 small PEs. The patient was seen with a family member bedside who does not contribute any additional history. Patient was consulted by General surgery in the ED who reviewed abdominal imaging and suggested no acute cholecystitis at this time. LFTs are elevated however at baseline from recent hospitalization. A thorough workup was completed in the ED which showed a mildly positive UA, lactic acidosis which improved with IV fluids and enlarged right external iliac chain and inguinal lymphadenopathy, cholelithiasis without acute cholecystitis. Patient to be admitted to hospitalist service, IV antibiotics recommended by General surgery who will follow. REPLACED BY [facility] Medical History Lactate blood increase Social History Housing: Group Home Do you presently have visiting nurse or other home services: Yes Patient Tobacco Use Status: Former Tobacco user Smoked in Last 30 Days: No Use of substances other than those prescribed or required for medical reasons: No Have you been hit, kicked, punched, or otherwise hurt by someone within the past year? If so, by whom?: No Do you feel safe in your current relationship?: Yes Is there a partner from a previous relationship who is making you feel unsafe now?: No Advance Directives: Yes Advance Directives Information Provided: No Advance Directives on File: No Advance Directives Date on File: 09/09/25 Do you have a plan to hurt others: No Plan Recently lost weight without trying: Yes How much weight loss: 2-13 pounds Eating poorly because of decreased appetite: Yes Nutrition screen score: 4 Nutrition Risks: No Nutritional Risk Patient : No : No Poor oral hygiene: No Meds Allergies Allergy/AdvReac Type Severity Reaction Status Date / Time No Known Allergies Allergy Verified 09/08/25 14:54 Home Medications ?Medication ?Instructions ?Recorded ?Confirmed ?Last Taken ?Type acetaminophen 325 mg tablet 650 mg PO Q6H PRN Fever Or Pain 09/08/25 09/08/25 Unknown History apixaban 5 mg tablet (Eliquis) 5 mg PO BID 09/08/25 09/08/25 Unknown History bisacodyl 10 mg rectal suppository 10 mg WI DAILY PRN Constipation 09/08/25 09/08/25 Unknown History diclofenac sodium 1 % topical gel 2 g topical TID 09/08/25 09/08/25 Unknown History magnesium hydroxide 400 mg/5 mL 30 ml PO DAILY PRN Constipation 09/08/25 09/08/25 Unknown History oral suspension (Milk of Magnesia) metoprolol succinate 25 mg 25 mg PO DAILY 09/08/25 09/08/25 Unknown History tablet,extended release 24 hr nystatin 100,000 unit/mL oral 5 ml PO QID 09/08/25 09/08/25 Unknown History suspension sennosides 8.6 mg tablet (senna) 17.2 mg PO BEDTIME 09/08/25 09/08/25 Unknown History sodium phosphates 19 gram-7 118 ml WI DAILY PRN Constipation 09/08/25 09/08/25 Unknown History gram/118 mL enema (Fleet Enema) Physical Exam Vital Signs and Narrative: Vital Signs: Last Vital Signs Temp 97.8 F 09/08/25 19:52 Pulse 114 H 09/08/25 19:52 Resp 11 L 09/08/25 19:52 BP 156/77 H 09/08/25 19:52 Pulse Ox 94 09/08/25 19:52 O2 Del Method Room Air 09/08/25 19:52 BMI result Body Mass Index 27.7 General: Alert, oriented to person but not place or time, no acute distress Resp: CTA bilaterally CVS: Tachy, irregularly irregular GI: +BS, tender lower abdomen, suprapubic region, no distention Skin: Warm, dry. dry mucous membranes Neuro: Cranial nerves II-XII grossly intact bilaterally. Motor grossly intact bilaterally Extremities: No pitting edema Psych: Confused Results Labs 09/08/25 16:10 09/08/25 16:10 Labs: Laboratory Results - last 24 hr 09/08/25 09/08/25 09/08/25 15:01 16:10 16:56 MCV 109.6 H MCH 35.4 H MCHC 32.3 RDW 15.6 Plt Count 203 MPV 11.3 Immature Gran % (Auto) 0.6 H Neut % (Auto) 72.9 Lymph % (Auto) 17.5 L [place] % (Auto) 8.8 Eos % (Auto) 0.0 Baso % (Auto) 0.2 Lymph # (Auto) 3.2 [place] # (Auto) 1.6 H Eos # (Auto) 0.0 Baso # (Auto) 0.0 Abs Immat Gran (auto) 0.11 H Absolute Neuts (auto) 13.3 H Absolute Nucleated RBC 0.020 H Nucleated RBC % (auto) 0.1 Smear Tech's Comments VERIFIED Anion Gap 21 H Estim Creat Clear Calc 48.9 Estimated GFR > 60 POC Glucose 101 Random Glucose 115 Lactic Acid 5.9 H* Lactic Acid F/U @ 2Hr Calcium 9.1 D Total Bilirubin 2.0 H AST 59 H ALT 22 Alkaline Phosphatase 145 H Total Creatine Kinase 13 L Total Protein 6.6 Albumin 3.3 L Lipase 17 Urine Color Urine Appearance Urine pH Ur Specific [place] Urine Protein Urine Glucose (UA) Urine Ketones Urine Blood Urine Nitrite Ur Leukocyte Esterase Urine RBC Urine WBC Ur Squamous Epith Cells Other Crystals Urine Bacteria Hyaline Casts Influenza Type A (PCR) NEGATIVE Influenza Type B (PCR) NEGATIVE RSV RNA Qual (PCR) NEGATIVE SARS-CoV-2 RNA (RT-PCR) NEGATIVE 09/08/25 09/08/25 18:40 19:28 MCV MCH MCHC RDW Plt Count MPV Immature Gran % (Auto) Neut % (Auto) Lymph % (Auto) [place] % (Auto) Eos % (Auto) Baso % (Auto) Lymph # (Auto) [place] # (Auto) Eos # (Auto) Baso # (Auto) Abs Immat Gran (auto) Absolute Neuts (auto) Absolute Nucleated RBC Nucleated RBC % (auto) Smear Tech's Comments Anion Gap Estim Creat Clear Calc Estimated GFR POC Glucose Random Glucose Lactic Acid Lactic Acid F/U @ 2Hr 3.6 H* Calcium Total Bilirubin AST ALT Alkaline Phosphatase Total Creatine Kinase Total Protein Albumin Lipase Urine Color Yellow Urine Appearance Clear Urine pH 6.5 Ur Specific [place] 1.015 Urine Protein Trace Urine Glucose (UA) Negative Urine Ketones Trace Urine Blood Trace H Urine Nitrite Negative Ur Leukocyte Esterase Moderate (2+) H Urine RBC 3-5 H Urine WBC 6-10 H Ur Squamous Epith Cells 6-10 Other Crystals Present Urine Bacteria 1+ Hyaline Casts 3-5 Influenza Type A (PCR) Influenza Type B (PCR) RSV RNA Qual (PCR) SARS-CoV-2 RNA (RT-PCR) Imaging Radiologist's Impressions: Impressions Cervical Spine CT 09/08/25 15:39 IMPRESSION: 1. No CT evidence of acute cervical spine fracture or injury. 2. Moderate to advanced multilevel cervical spondylosis. Electronically signed by: Alex Ochoa MD 09/08/2025 04:[address] 09/08/25 15:39 IMPRESSION: 1. No acute intracranial abnormality. 2. Chronic changes as described. 3. Cerumen impaction in both EACs. Electronically signed by: Alex Ochoa MD 09/08/2025 04:06 PM EDT Chest X-Ray 09/08/25 15:40 IMPRESSION: Right basilar hazy opacity could reflect atelectasis/infiltrate.. Electronically signed by: Mayito Avendaño MD 09/08/2025 03:50 PM EDT Abdomen Ultrasound 09/08/25 16:25 IMPRESSION: Gallstone in the neck of the gallbladder. No gallbladder changes to suggest acute cholecystitis. The common bile duct is not well visualized but does not appear dilated. Electronically signed by: Lidia Calles MD 09/08/2025 05:32 PM EDT Assessment and Plan (1) Systemic inflammatory response syndrome (SIRS) associated with organ dysfunction: Status: Acute (2) AMS (altered mental status): Status: Acute (3) UTI (urinary tract infection): Status: Acute (4) Lactic acidosis: Status: Acute (5) Cholelithiasis: Status: Acute (6) Pulmonary embolism: Status: Acute Plan Patient is an 84-year-old female with a past medical history significant for paroxysmal AFib on Eliquis, anemia, GERD, dementia, thrombocytopenia and history of PE, who presented to the ED due to altered mental status and hypotension from an SNF. SIRS +, mildly positive UA, lymphadenopathy on A/P CT, general surgery following due to cholelithiasis and recent admission at [facility] for cholangitis. SIRS with associated organ dysfunction, AMS and UTI - zosyn pending urine culture - blood cultures pending - BP stable, follow lactic acid - monitor CBC and CMP acute lactic acidosis, likely from SIRS and lack of PO intake - IVF - trend lactic Cholelithiasis without acute cholecystitis, recent admission at [facility] for acute cholangitis s/p ERCP and sphincterotomy - general surgery following. GI consult - Zosyn - monitor LFTs, currently at baseline Hyperchloremic metabolic acidosis, dehydration likely contributing - IV fluids - monitor BMP known pulmonary embolism on CTA, not hypoxic - eliquis Paroxysmal AFib - Eliquis and metoprolol DNR/DNI, MOLST form reviewed with patient's son VTE prophylaxis: Eliquis Patient SIRS+ with associated organ dysfunction, altered mental status and UTI, requiring admission for at least 2 midnight stay for IV antibiotics, further evaluation and monitoring. Quality Stroke Does the patient have a stroke diagnosis?: No VTE Prior VTE?: No VTE Risk Level:: Medical - moderate - high VTE Device Contraindication: Treatment Not Indicated VTE Drug Contraindication: N/A - Med Ordered
[2025-09-08 21:57] LABS: Reflex Lactate? 2 Y
[2025-09-08 22:40] LABS: ~Lactic Acid-LAB USE ONLY 2.2 mmol/L (0.5-2.0)
[2025-09-08] MEDS: Lactated Ringers 1,000 ML 80 ML IVCONT (22:45)
--- NOTE | 2025-09-08 22:45 | PC.NURSE ---
pt medicated per mar,tolerated whole well with water. maintenance fluids administering at this time
[2025-09-08 22:48] LABS: Cancel Lactic Acid Canceled
[2025-09-09] VITALS (7 sets, daily range): BP systolic 106–155; BP diastolic 56–68; PULSE 69–137; RESP 16–18; TEMP 36.4–37.1; O2SAT 95–97; BMI 27.7
--- NOTE | 2025-09-09 00:06 | PC.NURSE ---
pt placed in hospital bed for comfort at this time
--- NOTE | 2025-09-09 05:59 | HO.SKINPHOTO ---
Location: Category: Stage: Length: Width: Depth: cm Location: Category: Stage: Length: Width: Depth: cm Location: Category: Stage: Length: Width: Depth: cm Location: Category: Stage: Length: Width: Depth: cm Location: Category: Stage: Length: Width: Depth: cm Location: Category: Stage: Length: Width: Depth: cm
[2025-09-09 08:46] LABS: MANUAL DIFF FLAG NO
[2025-09-09 08:53] LABS: Hematocrit 36.2 % (37.0-47.0); Hemoglobin 11.3 g/dl (12.0-16.0); Imm Gran Abs Auto 0.05 X10*3/uL (0.00-0.03); Imm Gran Pct Auto 0.4 % (0.0-0.4); Lymphocytes Absolute Auto 3.8 X10*3/uL (1.2-4.9); Mean Corpuscular HGB Conc 31.2 g/dl (31.0-35.0); Mean Corpuscular Hemoglobin 34.2 pg (27.0-33.0); Mean Corpuscular Volume 109.7 fL (80.0-98.0); NRBC Abs Auto 0.000 X10*3/uL (0.0-0.012); NRBC Pct Auto 0.0 /100WBC (0.0-0.2); Platelet Count 151 X10*3/uL (160-400); Red Blood Count 3.30 X10*6/uL (4.20-5.50); White Blood Count 11.6 X10*3/uL (4.8-10.8)
[2025-09-09] MEDS: 0.9 % Sodium Chloride Flush 3 ML SYRINGE IVFLUSH ×2 (09:06→20:46)
[2025-09-09] MEDS: Metoprolol Succinate ER 25 MG TAB.ER.24H PO (09:07)
[2025-09-09 09:16] LABS: Alanine Aminotransferase 20 U/L (0-31); Albumin Level 2.8 g/dL (3.5-5.0); Alkaline Phosphatase 122 U/L (39-117); Anion Gap 18 (12-20); Aspartate Amino Transferase 50 U/L (5-31); Blood Urea Nitrogen 17 mg/dL (9-16); Calcium 8.2 mg/dL (8.4-10.2); Carbon Dioxide 20 mmol/L (22-29); Chloride 111 mmol/L (96-108); Creatinine Clr Calc Pharmacy 73.4; Estimated Glomerular Filt Rate > 60; Potassium 3.8 mmol/L (3.3-5.1); Sodium 145 mmol/L (135-145); Total Protein 5.8 g/dL (6.5-8.0)
--- NOTE | 2025-09-09 09:29 | PM.PNGS ---
Subjective Subjective Date of Service: 09/10/25 Interval history: No events overnight Patient denies abdominal pain No nausea or vomiting or other GI complaints Physical Exam Vital Signs: Vital Signs: Last Vital Signs Temp 98.6 F 09/09/25 07:05 Pulse 71 09/09/25 07:05 Resp 18 09/09/25 07:05 BP 155/65 H 09/09/25 07:05 Pulse Ox 96 09/09/25 07:05 O2 Del Method Room Air 09/09/25 07:05 BMI result Body Mass Index 27.7 Const: Other: Answers simple questions General: comfortable and no acute distress Resp: Effort & Inspection: normal respiratory effort Cardio: Rate: regular rate GI: Palpation (GI): Soft to palpation, not firm, nontender and no guarding Objective Data Active Medications Acetaminophen (Acetaminophen 325 Mg Tablet) 650 mg PO Q6H PRN PRN Reason: Pain, Mild 1-3,fever,headache Apixaban (Apixaban 5 Mg Tablet) 5 mg PO BID [facility] Last Admin: 09/09/25 09:07 Dose: 5 mg Documented By: LEANDER Calcium Carbonate (Calcium Carbonate 750 Mg Tab.Chew) 750 mg PO Q4H PRN PRN Reason: Heartburn Lactated Ringer's (Lr) 1,000 mls @ 80 mls/hr IVCONT .[id number] [facility] Last Admin: 09/08/25 22:45 Dose: 80 mls/hr Documented By: COREY Magnesium Hydroxide (Milk Of Magnesia 30 Ml Oral.Susp) 30 ml PO DAILY PRN PRN Reason: Constipation Melatonin (Melatonin 3 Mg Tablet) 6 mg PO BEDTIME PRN PRN Reason: Insomnia Metoprolol Succinate (Metoprolol Succinate Er 25 Mg Tab.Er.24h) 25 mg PO DAILY [facility]; Protocol Last Admin: 09/09/25 09:07 Dose: 25 mg Documented By: LEANDER Ondansetron HCl (Ondansetron Hcl 4 Mg/2 Ml Vial) 4 mg IVPUSH Q8H PRN PRN Reason: Nausea and Vomiting Last Admin: 09/09/25 09:24 Dose: 4 mg Documented By: LEANDER Oxycodone HCl (Oxycodone Hcl Immed Release 5 Mg Tablet) 5 mg PO Q6H PRN PRN Reason: Pain, Severe (Pain Scale 7-10) Senna (Sennosides 8.6 Mg Tablet) 17.2 mg PO BEDTIME [facility] Last Admin: 09/08/25 22:44 Dose: 17.2 mg Documented By: COREY Sodium Biphosphate/Sodium Phosphate (Sodium Phosphate,[place]-Dibasic 133 Ml Enema) 118 ml [place] DAILY PRN PRN Reason: Constipation Sodium Chloride (0.9 % Sodium Chloride Flush 3 Ml Syringe) 3 ml IVFLUSH QSHIFT [facility] Last Admin: 09/09/25 09:06 Dose: 3 ml Documented By: LEANDER Tramadol HCl (Tramadol Hcl 50 Mg Tablet) 50 mg PO Q6H PRN PRN Reason: Pain, Moderate(Pain Scale 4-6) Labs 09/10/25 05:41 09/10/25 05:41 Labs: Laboratory Results - last 24 hr 09/08/25 09/08/25 09/08/25 15:01 16:10 16:56 MCV 109.6 H MCH 35.4 H MCHC 32.3 RDW 15.6 Plt Count 203 MPV 11.3 Immature Gran % (Auto) 0.6 H Neut % (Auto) 72.9 Lymph % (Auto) 17.5 L [place] % (Auto) 8.8 Eos % (Auto) 0.0 Baso % (Auto) 0.2 Lymph # (Auto) 3.2 [place] # (Auto) 1.6 H Eos # (Auto) 0.0 Baso # (Auto) 0.0 Abs Immat Gran (auto) 0.11 H Absolute Neuts (auto) 13.3 H Absolute Nucleated RBC 0.020 H Nucleated RBC % (auto) 0.1 Smear Tech's Comments VERIFIED Anion Gap 21 H Estim Creat Clear Calc 48.9 Estimated GFR > 60 POC Glucose 101 Random Glucose 115 Lactic Acid 5.9 H* Lactic Acid F/U @ 2Hr Lactic Acid F/U @ 4Hr Calcium 9.1 D Total Bilirubin 2.0 H AST 59 H ALT 22 Alkaline Phosphatase 145 H Total Creatine Kinase 13 L Total Protein 6.6 Albumin 3.3 L Lipase 17 Urine Color Urine Appearance Urine pH Ur Specific [place] Urine Protein Urine Glucose (UA) Urine Ketones Urine Blood Urine Nitrite Ur Leukocyte Esterase Urine RBC Urine WBC Ur Squamous Epith Cells Other Crystals Urine Bacteria Hyaline Casts Influenza Type A (PCR) NEGATIVE Influenza Type B (PCR) NEGATIVE RSV RNA Qual (PCR) NEGATIVE SARS-CoV-2 RNA (RT-PCR) NEGATIVE 09/08/25 09/08/25 09/08/25 18:40 19:28 22:12 MCV MCH MCHC RDW Plt Count MPV Immature Gran % (Auto) Neut % (Auto) Lymph % (Auto) [place] % (Auto) Eos % (Auto) Baso % (Auto) Lymph # (Auto) [place] # (Auto) Eos # (Auto) Baso # (Auto) Abs Immat Gran (auto) Absolute Neuts (auto) Absolute Nucleated RBC Nucleated RBC % (auto) Smear Tech's Comments Anion Gap Estim Creat Clear Calc Estimated GFR POC Glucose Random Glucose Lactic Acid Lactic Acid F/U @ 2Hr 3.6 H* Lactic Acid F/U @ 4Hr 2.2 H* Calcium Total Bilirubin AST ALT Alkaline Phosphatase Total Creatine Kinase Total Protein Albumin Lipase Urine Color Yellow Urine Appearance Clear Urine pH 6.5 Ur Specific [place] 1.015 Urine Protein Trace Urine Glucose (UA) Negative Urine Ketones Trace Urine Blood Trace H Urine Nitrite Negative Ur Leukocyte Esterase Moderate (2+) H Urine RBC 3-5 H Urine WBC 6-10 H Ur Squamous Epith Cells 6-10 Other Crystals Present Urine Bacteria 1+ Hyaline Casts 3-5 Influenza Type A (PCR) Influenza Type B (PCR) RSV RNA Qual (PCR) SARS-CoV-2 RNA (RT-PCR) 09/09/25 08:37 MCV 109.7 H MCH 34.2 H MCHC 31.2 RDW 15.6 Plt Count 151 L D MPV 11.3 Immature Gran % (Auto) 0.4 Neut % (Auto) 53.4 Lymph % (Auto) 32.6 [place] % (Auto) 12.9 H Eos % (Auto) 0.3 Baso % (Auto) 0.4 Lymph # (Auto) 3.8 [place] # (Auto) 1.5 H Eos # (Auto) 0.0 Baso # (Auto) 0.1 Abs Immat Gran (auto) 0.05 H Absolute Neuts (auto) 6.2 Absolute Nucleated RBC 0.000 Nucleated RBC % (auto) 0.0 Smear Tech's Comments Anion Gap 18 Estim Creat Clear Calc 73.4 Estimated GFR > 60 POC Glucose Random Glucose 73 Lactic Acid Lactic Acid F/U @ 2Hr Lactic Acid F/U @ 4Hr Calcium 8.2 L D Total Bilirubin 1.2 H AST 50 H ALT 20 Alkaline Phosphatase 122 H Total Creatine Kinase Total Protein 5.8 L Albumin 2.8 L Lipase Urine Color Urine Appearance Urine pH Ur Specific [place] Urine Protein Urine Glucose (UA) Urine Ketones Urine Blood Urine Nitrite Ur Leukocyte Esterase Urine RBC Urine WBC Ur Squamous Epith Cells Other Crystals Urine Bacteria Hyaline Casts Influenza Type A (PCR) Influenza Type B (PCR) RSV RNA Qual (PCR) SARS-CoV-2 RNA (RT-PCR) Procedures Date of Service Date of Service: 09/10/25 Progress Note: A&P Assessment and plan (1) Cholelithiasis: Status: Acute Assessment and Plan: No evidence of acute cholecystitis She denies any abdominal pain sign no tenderness or Overton's sign Being treated for UTI Has recent PE and AFib, on Eliquis Continue current medical care No surgical intervention planned at this time Time Spent With Patient Time: Total time managing care of this patient today ____ minutes. Quality Stroke Does the patient have a stroke diagnosis?: No VTE Prior VTE?: No VTE Risk Level:: Medical - moderate - high VTE Device Contraindication: Treatment Not Indicated VTE Drug Contraindication: N/A - Med Ordered
--- NOTE | 2025-09-09 10:54 | P.PNIM_ITS ---
Subjective Subjective Date of Service: 09/09/25 Interval History: abd discomfort Physical Exam 2 Exam: Exam: General: AO X 2, no acute distress Resp: CTA bilateral, no accessory muscles used CVS: S1,S2,RRR GI: soft, ?ruq mildly tender, non distended Neuro: motor grossly intact, alert Vital Signs: Vital Signs: Last Vital Signs Temp 98.6 F 09/09/25 07:05 Pulse 71 09/09/25 07:05 Resp 18 09/09/25 07:05 BP 155/65 H 09/09/25 07:05 Pulse Ox 96 09/09/25 07:05 O2 Del Method Room Air 09/09/25 07:05 BMI result Body Mass Index 27.7 Objective Data Active Medications Acetaminophen (Acetaminophen 325 Mg Tablet) 650 mg PO Q6H PRN PRN Reason: Pain, Mild 1-3,fever,headache Apixaban (Apixaban 5 Mg Tablet) 5 mg PO BID [facility] Last Admin: 09/09/25 09:07 Dose: 5 mg Documented By: LEANDER Calcium Carbonate (Calcium Carbonate 750 Mg Tab.Chew) 750 mg PO Q4H PRN PRN Reason: Heartburn Lactated Ringer's (Lr) 1,000 mls @ 80 mls/hr IVCONT .[id number] [facility] Last Admin: 09/08/25 22:45 Dose: 80 mls/hr Documented By: COREY Magnesium Hydroxide (Milk Of Magnesia 30 Ml Oral.Susp) 30 ml PO DAILY PRN PRN Reason: Constipation Melatonin (Melatonin 3 Mg Tablet) 6 mg PO BEDTIME PRN PRN Reason: Insomnia Metoprolol Succinate (Metoprolol Succinate Er 25 Mg Tab.Er.24h) 25 mg PO DAILY [facility]; Protocol Last Admin: 09/09/25 09:07 Dose: 25 mg Documented By: LEANDER Ondansetron HCl (Ondansetron Hcl 4 Mg/2 Ml Vial) 4 mg IVPUSH Q8H PRN PRN Reason: Nausea and Vomiting Last Admin: 09/09/25 09:24 Dose: 4 mg Documented By: LEANDER Oxycodone HCl (Oxycodone Hcl Immed Release 5 Mg Tablet) 5 mg PO Q6H PRN PRN Reason: Pain, Severe (Pain Scale 7-10) Senna (Sennosides 8.6 Mg Tablet) 17.2 mg PO BEDTIME [facility] Last Admin: 09/08/25 22:44 Dose: 17.2 mg Documented By: COREY Sodium Biphosphate/Sodium Phosphate (Sodium Phosphate,[place]-Dibasic 133 Ml Enema) 118 ml [place] DAILY PRN PRN Reason: Constipation Sodium Chloride (0.9 % Sodium Chloride Flush 3 Ml Syringe) 3 ml IVFLUSH QSHIFT [facility] Last Admin: 09/09/25 09:06 Dose: 3 ml Documented By: LEANDER Tramadol HCl (Tramadol Hcl 50 Mg Tablet) 50 mg PO Q6H PRN PRN Reason: Pain, Moderate(Pain Scale 4-6) Labs 09/09/25 08:37 09/09/25 08:37 Labs: Laboratory Results - last 24 hr 09/08/25 09/08/25 09/08/25 15:01 16:10 16:56 MCV 109.6 H MCH 35.4 H MCHC 32.3 RDW 15.6 Plt Count 203 MPV 11.3 Immature Gran % (Auto) 0.6 H Neut % (Auto) 72.9 Lymph % (Auto) 17.5 L [place] % (Auto) 8.8 Eos % (Auto) 0.0 Baso % (Auto) 0.2 Lymph # (Auto) 3.2 [place] # (Auto) 1.6 H Eos # (Auto) 0.0 Baso # (Auto) 0.0 Abs Immat Gran (auto) 0.11 H Absolute Neuts (auto) 13.3 H Absolute Nucleated RBC 0.020 H Nucleated RBC % (auto) 0.1 Smear Tech's Comments VERIFIED Anion Gap 21 H Estim Creat Clear Calc 48.9 Estimated GFR > 60 POC Glucose 101 Random Glucose 115 Lactic Acid 5.9 H* Lactic Acid F/U @ 2Hr Lactic Acid F/U @ 4Hr Calcium 9.1 D Total Bilirubin 2.0 H AST 59 H ALT 22 Alkaline Phosphatase 145 H Total Creatine Kinase 13 L Total Protein 6.6 Albumin 3.3 L Lipase 17 Urine Color Urine Appearance Urine pH Ur Specific [place] Urine Protein Urine Glucose (UA) Urine Ketones Urine Blood Urine Nitrite Ur Leukocyte Esterase Urine RBC Urine WBC Ur Squamous Epith Cells Other Crystals Urine Bacteria Hyaline Casts Influenza Type A (PCR) NEGATIVE Influenza Type B (PCR) NEGATIVE RSV RNA Qual (PCR) NEGATIVE SARS-CoV-2 RNA (RT-PCR) NEGATIVE 10/10/25 10/10/25 10/10/25 18:40 19:28 22:12 MCV MCH MCHC RDW Plt Count MPV Immature Gran % (Auto) Neut % (Auto) Lymph % (Auto) [place] % (Auto) Eos % (Auto) Baso % (Auto) Lymph # (Auto) [place] # (Auto) Eos # (Auto) Baso # (Auto) Abs Immat Gran (auto) Absolute Neuts (auto) Absolute Nucleated RBC Nucleated RBC % (auto) Smear Tech's Comments Anion Gap Estim Creat Clear Calc Estimated GFR POC Glucose Random Glucose Lactic Acid Lactic Acid F/U @ 2Hr 3.6 H* Lactic Acid F/U @ 4Hr 2.2 H* Calcium Total Bilirubin AST ALT Alkaline Phosphatase Total Creatine Kinase Total Protein Albumin Lipase Urine Color Yellow Urine Appearance Clear Urine pH 6.5 Ur Specific [place] 1.015 Urine Protein Trace Urine Glucose (UA) Negative Urine Ketones Trace Urine Blood Trace H Urine Nitrite Negative Ur Leukocyte Esterase Moderate (2+) H Urine RBC 3-5 H Urine WBC 6-10 H Ur Squamous Epith Cells 6-10 Other Crystals Present Urine Bacteria 1+ Hyaline Casts 3-5 Influenza Type A (PCR) Influenza Type B (PCR) RSV RNA Qual (PCR) SARS-CoV-2 RNA (RT-PCR) 09/09/25 08:37 MCV 109.7 H MCH 34.2 H MCHC 31.2 RDW 15.6 Plt Count 151 L D MPV 11.3 Immature Gran % (Auto) 0.4 Neut % (Auto) 53.4 Lymph % (Auto) 32.6 [place] % (Auto) 12.9 H Eos % (Auto) 0.3 Baso % (Auto) 0.4 Lymph # (Auto) 3.8 [place] # (Auto) 1.5 H Eos # (Auto) 0.0 Baso # (Auto) 0.1 Abs Immat Gran (auto) 0.05 H Absolute Neuts (auto) 6.2 Absolute Nucleated RBC 0.000 Nucleated RBC % (auto) 0.0 Smear Tech's Comments Anion Gap 18 Estim Creat Clear Calc 73.4 Estimated GFR > 60 POC Glucose Random Glucose 73 Lactic Acid Lactic Acid F/U @ 2Hr Lactic Acid F/U @ 4Hr Calcium 8.2 L D Total Bilirubin 1.2 H AST 50 H ALT 20 Alkaline Phosphatase 122 H Total Creatine Kinase Total Protein 5.8 L Albumin 2.8 L Lipase Urine Color Urine Appearance Urine pH Ur Specific [place] Urine Protein Urine Glucose (UA) Urine Ketones Urine Blood Urine Nitrite Ur Leukocyte Esterase Urine RBC Urine WBC Ur Squamous Epith Cells Other Crystals Urine Bacteria Hyaline Casts Influenza Type A (PCR) Influenza Type B (PCR) RSV RNA Qual (PCR) SARS-CoV-2 RNA (RT-PCR) Assessment and Plan (1) Lactic acidosis: Status: Acute Plan 84F PMH pafib, alzheimers dementia, history of PE, presented with hypotension SIRS and acute metabolic encephalopathy improving, continue empiric rocephin for possible uti biliary stones no obvious cholecystitis follow up gi acute lactic acidosis possibly due to above vs hypotension history of PE eliquis pafib eliquis, lopressor dnr/dni reason for continued hospitalization: abd pain, leukocystosis Quality Stroke Does the patient have a stroke diagnosis?: No VTE Prior VTE?: No VTE Risk Level:: Medical - moderate - high VTE Device Contraindication: Treatment Not Indicated VTE Drug Contraindication: N/A - Med Ordered
[2025-09-09] MEDS: Lactated Ringers 1,000 ML 80 ML IVCONT (14:48)
--- NOTE | 2025-09-09 16:22 | MHC.CM.PN ---
CM SPOKE TO PTS SON, DICK [phone] HE REPORTS THE PT LIVES WITH HIM AND HE ASSISTS HER WITH CARE PRN HE SAYS PT STILL OWNS HER OWN HOME, BUT HIS DAUGHTER AND FRIEND LIVE THERE CURRENTLY HE SAYS SHE USES A [employer], TRANSPORT CHAIR, MED ALERT, AND HE JUST BOUGHT A HOSPITAL BED COPY OF HCP REQUESTED PCP: JOSIE SIEGEL IMM DELIVERED DCP: PT WAS AT [facility] SHE WILL LIKELY NEED TO RETURN TO [facility] TRANSPORT
--- NOTE | 2025-09-09 21:32 | CONS_ITS ---
DATE OF SERVICE: 09/09/2025 REFERRING PHYSICIAN: ISAMAR Meza REASON FOR CONSULTATION: Gallstones. HISTORY OF PRESENT ILLNESS: The patient is a pleasant 84-year-old woman with a history of dementia who was admitted to the hospital on September 08. She has dementia and is unable to provide history. The history is obtained from the chart and her son who was present in the room with her. She reportedly has a history of gallstones and was hospitalized approximately 3 weeks ago with common bile duct stones, for which she underwent ERCP and sphincterotomy. Those records are not available, but will be obtained. During that hospitalization, there is a report of atrial fibrillation and pulmonary embolism and she did not undergo cholecystectomy. She was evaluated in the emergency department here yesterday from the [facility] has been staying with reports of abdominal pain and altered mental status. Evaluation in the emergency department included laboratory testing showing a white count of 18.2 with mild elevations of liver function tests that are reportedly close to her baseline. Abdominal ultrasound and CT scanning were obtained showing a gallstone in the neck of the gallbladder with no evidence of acute cholecystitis. Common bile duct was reportedly not dilated on ultrasound. CT scanning of the abdomen and pelvis showed cholelithiasis without any evidence of CT cholecystitis. The common bile duct was not commented on in the CT report. Today, the patient reports no abdominal pain. She is resting comfortably in bed. She has had some nausea. PAST MEDICAL HISTORY: 1. Gallstones as above. 2. Atrial fibrillation. 3. Anemia. 4. Gastroesophageal reflux disease. 5. Dementia. 6. Thrombocytopenia. CURRENT MEDICATIONS: List is reviewed in the chart. ALLERGIES: THERE ARE NONE REPORTED. FAMILY HISTORY: This is reviewed in the electronic medical record and is noncontributory. SOCIAL HISTORY: There is no reported tobacco, alcohol, or substance abuse. REVIEW OF SYSTEMS: Not obtainable due to the patient's underlying dementia. PHYSICAL EXAMINATION: GENERAL: Shows a pleasant female, lying comfortably in bed. VITAL SIGNS: Reviewed in the electronic medical record and are stable. SKIN: Anicteric. HEENT: Shows no scleral icterus. NECK: Without lymphadenopathy or thyromegaly. LUNGS: Clear. HEART: Shows regular rate and rhythm. S1, S2. No murmur. ABDOMEN: Soft without focal masses or tenderness. Bowel sounds are present. No organomegaly is noted. EXTREMITIES: Without edema. LABORATORY DATA AND IMAGING STUDIES: Reviewed. IMPRESSION: Gallstones. She has been seen in consultation by General Surgery. She does not appear to have any evidence of biliary obstruction based on the imaging today. We will obtain her records and review them. Thanks for asking me to see her. I will follow her in the hospital with you. MD JOSEPH Fung/RAFAEL / [phone]
[2025-09-10 03:24] VITALS: BP 101/58; PULSE 71; RESP 18; TEMP 36.6; O2SAT 95
[2025-09-10] MEDS: Lactated Ringers 1,000 ML 80 ML IVCONT ×2 (03:36→20:59)
[2025-09-10 05:57] LABS: Hematocrit 30.7 % (37.0-47.0); Hemoglobin 10.0 g/dl (12.0-16.0); Imm Gran Abs Auto 0.04 X10*3/uL (0.00-0.03); Imm Gran Pct Auto 0.5 % (0.0-0.4); Lymphocytes Absolute Auto 3.0 X10*3/uL (1.2-4.9); MANUAL DIFF FLAG SCAN; Mean Corpuscular HGB Conc 32.6 g/dl (31.0-35.0); Mean Corpuscular Hemoglobin 35.3 pg (27.0-33.0); Mean Corpuscular Volume 108.5 fL (80.0-98.0); NRBC Abs Auto 0.000 X10*3/uL (0.0-0.012); NRBC Pct Auto 0.0 /100WBC (0.0-0.2); Platelet Count 149 X10*3/uL (160-400); Red Blood Count 2.83 X10*6/uL (4.20-5.50); SCAN SMEAR FLAG 1; White Blood Count 8.1 X10*3/uL (4.8-10.8)
[2025-09-10 06:26] LABS: Alanine Aminotransferase 17 U/L (0-31); Albumin Level 2.6 g/dL (3.5-5.0); Alkaline Phosphatase 103 U/L (39-117); Anion Gap 14 (12-20); Aspartate Amino Transferase 45 U/L (5-31); Blood Urea Nitrogen 13 mg/dL (9-16); Calcium 8.0 mg/dL (8.4-10.2); Carbon Dioxide 23 mmol/L (22-29); Chloride 111 mmol/L (96-108); Creatinine Clr Calc Pharmacy 88.7; Estimated Glomerular Filt Rate > 60; Potassium 2.9 mmol/L (3.3-5.1); Sodium 145 mmol/L (135-145); Total Protein 5.1 g/dL (6.5-8.0)
[2025-09-10] MEDS: Potassium Chloride Packet 20 MEQ PACKET 40 MEQ PO (07:05)
[2025-09-10 07:11] VITALS: BP 106/59; PULSE 94; RESP 14; TEMP 36.6; O2SAT 95
[2025-09-10] MEDS: Potassium Chloride/H20 10 MEQ/100 ML PIGGYBACK 100 MEQ IV ×4 (08:16→20:58)
[2025-09-10] MEDS: Metoprolol Succinate ER 25 MG TAB.ER.24H PO (08:16)
--- NOTE | 2025-09-10 09:47 | P.PNIM_ITS ---
Subjective Subjective Date of Service: 09/10/25 Interval History: abd discomfort Physical Exam 2 Exam: Exam: General: AO X 2, no acute distress Resp: CTA bilateral, no accessory muscles used CVS: S1,S2,RRR GI: soft, ?ruq mildly tender, non distended Neuro: motor grossly intact, alert Vital Signs: Vital Signs: Last Vital Signs Temp 97.9 F 09/10/25 07:11 Pulse 94 09/10/25 07:11 Resp 14 09/10/25 07:11 BP 106/59 L 09/10/25 07:11 Pulse Ox 95 09/10/25 07:11 O2 Del Method Room Air 09/10/25 07:11 BMI result Body Mass Index 27.7 Objective Data Active Medications Acetaminophen (Acetaminophen 325 Mg Tablet) 650 mg PO Q6H PRN PRN Reason: Pain, Mild 1-3,fever,headache Apixaban (Apixaban 5 Mg Tablet) 5 mg PO BID [facility] Last Admin: 09/10/25 08:16 Dose: 5 mg Documented By: LEANDER Calcium Carbonate (Calcium Carbonate 750 Mg Tab.Chew) 750 mg PO Q4H PRN PRN Reason: Heartburn Ceftriaxone Sodium (Ceftriaxone Sodium 1 Gm Vial) 1 gm IVPUSH Q24H [facility] Last Admin: 09/09/25 14:47 Dose: 1 gm Documented By: LEANDER Lactated Ringer's (Lr) 1,000 mls @ 80 mls/hr IVCONT .[id number] [facility] Last Admin: 09/10/25 03:36 Dose: 80 mls/hr Documented By: JESSICA Potassium Chloride (Potassium Chloride/H20) 10 meq in 100 mls @ 100 mls/hr IV Q1H [facility] Stop: 09/10/25 11:44 Last Admin: 09/10/25 08:16 Dose: 100 mls/hr Documented By: LEANDER Magnesium Hydroxide (Milk Of Magnesia 30 Ml Oral.Susp) 30 ml PO DAILY PRN PRN Reason: Constipation Melatonin (Melatonin 3 Mg Tablet) 6 mg PO BEDTIME PRN PRN Reason: Insomnia Last Admin: 09/09/25 20:35 Dose: 6 mg Documented By: JESSICA Metoprolol Succinate (Metoprolol Succinate Er 25 Mg Tab.Er.24h) 25 mg PO DAILY [facility]; Protocol Last Admin: 09/10/25 08:16 Dose: 25 mg Documented By: LEANDER Ondansetron HCl (Ondansetron Hcl 4 Mg/2 Ml Vial) 4 mg IVPUSH Q8H PRN PRN Reason: Nausea and Vomiting Last Admin: 09/09/25 20:39 Dose: 4 mg Documented By: JESSICA Oxycodone HCl (Oxycodone Hcl Immed Release 5 Mg Tablet) 5 mg PO Q6H PRN PRN Reason: Pain, Severe (Pain Scale 7-10) Senna (Sennosides 8.6 Mg Tablet) 17.2 mg PO BEDTIME [facility] Last Admin: 09/09/25 20:39 Dose: 17.2 mg Documented By: JESSICA Sodium Biphosphate/Sodium Phosphate (Sodium Phosphate,[place]-Dibasic 133 Ml Enema) [address] DAILY PRN PRN Reason: Constipation Sodium Chloride (0.9 % Sodium Chloride Flush 3 Ml Syringe) 3 ml IVFLUSH QSHIFT [facility] Last Admin: 09/09/25 20:46 Dose: 3 ml Documented By: EJSSICA Tramadol HCl (Tramadol Hcl 50 Mg Tablet) 50 mg PO Q6H PRN PRN Reason: Pain, Moderate(Pain Scale 4-6) Labs 09/10/25 05:41 09/10/25 05:41 Labs: Laboratory Results - last 24 hr 09/10/25 05:41 MCV 108.5 H MCH 35.3 H MCHC 32.6 RDW 15.5 Plt Count 149 L MPV 10.9 Immature Gran % (Auto) 0.5 H Neut % (Auto) 48.1 Lymph % (Auto) 36.6 [place] % (Auto) 12.2 H Eos % (Auto) 2.0 Baso % (Auto) 0.6 Lymph # (Auto) 3.0 [place] # (Auto) 1.0 Eos # (Auto) 0.2 Baso # (Auto) 0.1 Abs Immat Gran (auto) 0.04 H Absolute Neuts (auto) 3.9 Absolute Nucleated RBC 0.000 Nucleated RBC % (auto) 0.0 Smear Tech's Comments VERIFIED Anion Gap 14 Estim Creat Clear Calc 88.7 Estimated GFR > 60 Random Glucose 77 Calcium 8.0 L Total Bilirubin 1.0 AST 45 H ALT 17 Alkaline Phosphatase 103 Total Protein 5.1 L Albumin 2.6 L Microbiology Microbiology Results: Microbiology 09/08/25 17:44 Blood Culture - Preliminary Blood - Venous No growth after 24 hours. 09/08/25 16:56 Blood Culture - Preliminary Blood - Venous No growth after 24 hours. 09/08/25 19:09 Urine Culture - Preliminary Urine clean catch - Clean Catch Midstream Culture too young to evaluate. 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
--- NOTE | 2025-09-10 10:05 | P.PNGS_ITS ---
Subjective Subjective Date of Service: 09/10/25 Interval history: Feels well this morning Denies any abdominal pain No nausea or vomiting No fever Physical Exam 2 Vital Signs: Vital Signs: Last Vital Signs Temp 97.9 F 09/10/25 07:11 Pulse 94 09/10/25 07:11 Resp 14 09/10/25 07:11 BP 106/59 L 09/10/25 07:11 Pulse Ox 95 09/10/25 07:11 O2 Del Method Room Air 09/10/25 07:11 BMI result Body Mass Index 27.7 Const: General: comfortable and no acute distress Resp: Effort & Inspection: normal respiratory effort Cardio: Rate: regular rate GI: Palpation (GI): Soft to palpation, not firm, nontender and no guarding Objective Data Active Medications Acetaminophen (Acetaminophen 325 Mg Tablet) 650 mg PO Q6H PRN PRN Reason: Pain, Mild 1-3,fever,headache Apixaban (Apixaban 5 Mg Tablet) 5 mg PO BID [facility] Last Admin: 09/10/25 08:16 Dose: 5 mg Documented By: LEANDER Calcium Carbonate (Calcium Carbonate 750 Mg Tab.Chew) 750 mg PO Q4H PRN PRN Reason: Heartburn Ceftriaxone Sodium (Ceftriaxone Sodium 1 Gm Vial) 1 gm IVPUSH Q24H [facility] Last Admin: 09/09/25 14:47 Dose: 1 gm Documented By: LEANDER Lactated Ringer's (Lr) 1,000 mls @ 80 mls/hr IVCONT .[id number] [facility] Last Admin: 09/10/25 03:36 Dose: 80 mls/hr Documented By: JESSICA Potassium Chloride (Potassium Chloride/H20) 10 meq in 100 mls @ 100 mls/hr IV Q1H [facility] Stop: 09/10/25 11:44 Last Admin: 09/10/25 09:56 Dose: 100 mls/hr Documented By: LEANDER Magnesium Hydroxide (Milk Of Magnesia 30 Ml Oral.Susp) 30 ml PO DAILY PRN PRN Reason: Constipation Melatonin (Melatonin 3 Mg Tablet) 6 mg PO BEDTIME PRN PRN Reason: Insomnia Last Admin: 09/09/25 20:35 Dose: 6 mg Documented By: JESSICA Metoprolol Succinate (Metoprolol Succinate Er 25 Mg Tab.Er.24h) 25 mg PO DAILY [facility]; Protocol Last Admin: 09/10/25 08:16 Dose: 25 mg Documented By: LEANDER Ondansetron HCl (Ondansetron Hcl 4 Mg/2 Ml Vial) 4 mg IVPUSH Q8H PRN PRN Reason: Nausea and Vomiting Last Admin: 09/09/25 20:39 Dose: 4 mg Documented By: JESSICA Oxycodone HCl (Oxycodone Hcl Immed Release 5 Mg Tablet) 5 mg PO Q6H PRN PRN Reason: Pain, Severe (Pain Scale 7-10) Senna (Sennosides 8.6 Mg Tablet) 17.2 mg PO BEDTIME [facility] Last Admin: 09/09/25 20:39 Dose: 17.2 mg Documented By: JESSICA Sodium Biphosphate/Sodium Phosphate (Sodium Phosphate,[place]-Dibasic 133 Ml Enema) 118 ml [place] DAILY PRN PRN Reason: Constipation Sodium Chloride (0.9 % Sodium Chloride Flush 3 Ml Syringe) 3 ml IVFLUSH QSHIFT [facility] Last Admin: 09/10/25 09:57 Dose: Not Given Documented By: LEANDER Non-Admin Reason: IV Running Tramadol HCl (Tramadol Hcl 50 Mg Tablet) 50 mg PO Q6H PRN PRN Reason: Pain, Moderate(Pain Scale 4-6) Labs 09/10/25 05:41 09/10/25 05:41 Labs: Laboratory Results - last 24 hr 09/10/25 05:41 MCV 108.5 H MCH 35.3 H MCHC 32.6 RDW 15.5 Plt Count 149 L MPV 10.9 Immature Gran % (Auto) 0.5 H Neut % (Auto) 48.1 Lymph % (Auto) 36.6 [place] % (Auto) 12.2 H Eos % (Auto) 2.0 Baso % (Auto) 0.6 Lymph # (Auto) 3.0 [place] # (Auto) 1.0 Eos # (Auto) 0.2 Baso # (Auto) 0.1 Abs Immat Gran (auto) 0.04 H Absolute Neuts (auto) 3.9 Absolute Nucleated RBC 0.000 Nucleated RBC % (auto) 0.0 Smear Tech's Comments VERIFIED Anion Gap 14 Estim Creat Clear Calc 88.7 Estimated GFR > 60 Random Glucose 77 Calcium 8.0 L Total Bilirubin 1.0 AST 45 H ALT 17 Alkaline Phosphatase 103 Total Protein 5.1 L Albumin 2.6 L Microbiology Microbiology Results: Microbiology 09/08/25 19:09 Urine Culture - Final Urine clean catch - Clean Catch Midstream 09/08/25 17:44 Blood Culture - Preliminary Blood - Venous No growth after 24 hours. 09/08/25 16:56 Blood Culture - Preliminary Blood - Venous No growth after 24 hours. Procedures Date of Service Date of Service: 09/10/25 Progress Note: A&P Assessment and plan (1) Lactic acidosis: Status: Acute Assessment and Plan: Patient does not have acute cholecystitis clinically and radiographically No signs of CBD obstruction According to son, patient did not complain of any abdominal pain Etiology of elevated lactate unlikely to be the gallbladder WBC normal Abdomen is soft, benign and nontender Okay to slowly advance diet as tolerated Rest of care as per the hospitalist service Patient with multiple medical problems including AFib and PE Time Spent With Patient Time: Total time managing care of this patient today ____ minutes. Quality Stroke Does the patient have a stroke diagnosis?: No VTE Prior VTE?: No VTE Risk Level:: Medical - moderate - high VTE Device Contraindication: Treatment Not Indicated VTE Drug Contraindication: N/A - Med Ordered
[2025-09-10 11:37] VITALS: BP 107/55; PULSE 80; RESP 14; TEMP 36.7; O2SAT 95
--- NOTE | 2025-09-10 13:11 | PC.NURSE ---
Bilateral IV's are not working at this time. ICU called to see if someone can put in an U/S IV, spoke with Zhen BARBER, he will attempt to find someone and let me know.
[2025-09-10 15:23] VITALS: BP 101/57; PULSE 94; RESP 14; TEMP 36.9; O2SAT 97
[2025-09-10 19:31] VITALS: BP 117/61; PULSE 117; RESP 18; TEMP 36; O2SAT 96
[2025-09-10] MEDS: 0.9 % Sodium Chloride Flush 3 ML SYRINGE IVFLUSH (20:59)
[2025-09-10 23:29] VITALS: BP 145/68; PULSE 77; RESP 18; TEMP 36; O2SAT 96
[2025-09-11 03:26] VITALS: BP 157/70; PULSE 82; RESP 18; TEMP 36.1; O2SAT 96
[2025-09-11 06:26] LABS: Hematocrit 33.2 % (37.0-47.0); Hemoglobin 10.4 g/dl (12.0-16.0); Imm Gran Abs Auto 0.09 X10*3/uL (0.00-0.03); Imm Gran Pct Auto 1.0 % (0.0-0.4); Lymphocytes Absolute Auto 3.3 X10*3/uL (1.2-4.9); MANUAL DIFF FLAG SCAN; Mean Corpuscular HGB Conc 31.3 g/dl (31.0-35.0); Mean Corpuscular Hemoglobin 34.9 pg (27.0-33.0); NRBC Abs Auto 0.020 X10*3/uL (0.0-0.012); NRBC Pct Auto 0.2 /100WBC (0.0-0.2); Platelet Count 162 X10*3/uL (160-400); Red Blood Count 2.98 X10*6/uL (4.20-5.50); SCAN SMEAR FLAG 1; White Blood Count 9.0 X10*3/uL (4.8-10.8)
[2025-09-11 06:27] LABS: Mean Corpuscular Volume 111.4 fL (80.0-98.0)
[2025-09-11 06:48] LABS: Alanine Aminotransferase 14 U/L (0-31); Albumin Level 2.6 g/dL (3.5-5.0); Alkaline Phosphatase 112 U/L (39-117); Anion Gap 14 (12-20); Aspartate Amino Transferase 42 U/L (5-31); Blood Urea Nitrogen 13 mg/dL (9-16); Calcium 8.1 mg/dL (8.4-10.2); Carbon Dioxide 23 mmol/L (22-29); Chloride 113 mmol/L (96-108); Creatinine Clr Calc Pharmacy 86.9; Estimated Glomerular Filt Rate > 60; Magnesium 1.5 mg/dL (1.6-2.6); Potassium 4.2 mmol/L (3.3-5.1); Sodium 146 mmol/L (135-145); Total Protein 5.3 g/dL (6.5-8.0)
[2025-09-11 07:08] VITALS: BP 145/66; PULSE 82; RESP 16; TEMP 36.3; O2SAT 97
[2025-09-11] MEDS: Magnesium Sulfate/H2O 2 GM/50 ML PIGGYBACK IV (08:25)
[2025-09-11] MEDS: 0.9 % Sodium Chloride Flush 3 ML SYRINGE IVFLUSH (10:12)
[2025-09-11 10:16] VITALS: BP 145/66; PULSE 82
[2025-09-11] MEDS: Metoprolol Succinate ER 25 MG TAB.ER.24H PO (10:16)
[2025-09-11] MEDS: Lactated Ringers 1,000 ML 80 ML IVCONT ×2 (10:17→20:58)
--- NOTE | 2025-09-11 10:18 | HO.PM.IMPN ---
Subjective Subjective Date of Service: 09/11/25 Interval History: abd discomfort, nausea Physical Exam Vital Signs: Vital Signs: Last Vital Signs Temp 97.4 F 09/11/25 07:08 Pulse 82 09/11/25 10:16 Resp 16 09/11/25 07:08 BP 145/66 H 09/11/25 10:16 Pulse Ox 97 09/11/25 07:08 O2 Del Method Room Air 09/11/25 07:08 BMI result Body Mass Index 27.7 Const: General: comfortable and no acute distress Resp: Effort & Inspection: normal respiratory effort Cardio: Rate: regular rate GI: Palpation (GI): Soft to palpation, not firm, nontender and no guarding Objective Data Active Medications Acetaminophen (Acetaminophen 325 Mg Tablet) 650 mg PO Q6H PRN PRN Reason: Pain, Mild 1-3,fever,headache Apixaban (Apixaban 5 Mg Tablet) 5 mg PO BID [facility] Last Admin: 09/11/25 10:12 Dose: 5 mg Documented By: SHAHEEN Calcium Carbonate (Calcium Carbonate 750 Mg Tab.Chew) 750 mg PO Q4H PRN PRN Reason: Heartburn Ceftriaxone Sodium (Ceftriaxone Sodium 1 Gm Vial) 1 gm IVPUSH Q24H [facility] Last Admin: 09/10/25 18:18 Dose: 1 gm Documented By: LEANDER Lactated Ringer's (Lr) 1,000 mls @ 80 mls/hr IVCONT .[id number] [facility] Last Admin: 09/11/25 10:17 Dose: 80 mls/hr Documented By: SHAHEEN Magnesium Hydroxide (Milk Of Magnesia 30 Ml Oral.Susp) 30 ml PO DAILY PRN PRN Reason: Constipation Melatonin (Melatonin 3 Mg Tablet) 6 mg PO BEDTIME PRN PRN Reason: Insomnia Last Admin: 09/09/25 20:35 Dose: 6 mg Documented By: JESSICA Metoprolol Succinate (Metoprolol Succinate Er 25 Mg Tab.Er.24h) 25 mg PO DAILY [facility]; Protocol Last Admin: 09/11/25 10:16 Dose: 25 mg Documented By: SHAHEEN Ondansetron HCl (Ondansetron Hcl 4 Mg/2 Ml Vial) 4 mg IVPUSH Q8H PRN PRN Reason: Nausea and Vomiting Last Admin: 09/09/25 20:39 Dose: 4 mg Documented By: JESSICA Oxycodone HCl (Oxycodone Hcl Immed Release 5 Mg Tablet) 5 mg PO Q6H PRN PRN Reason: Pain, Severe (Pain Scale 7-10) Senna (Sennosides 8.6 Mg Tablet) 17.2 mg PO BEDTIME [facility] Last Admin: 09/10/25 20:59 Dose: 17.2 mg Documented By: PAULA Sodium Biphosphate/Sodium Phosphate (Sodium Phosphate,[place]-Dibasic 133 Ml Enema) 118 ml [place] DAILY PRN PRN Reason: Constipation Sodium Chloride (0.9 % Sodium Chloride Flush 3 Ml Syringe) 3 ml IVFLUSH QSHIFT [facility] Last Admin: 09/11/25 10:12 Dose: 3 ml Documented By: SHAHEEN Tramadol HCl (Tramadol Hcl 50 Mg Tablet) 50 mg PO Q6H PRN PRN Reason: Pain, Moderate(Pain Scale 4-6) Labs 09/11/25 06:09 09/11/25 06:09 Labs: Laboratory Results - last 24 hr 09/11/25 06:09 MCV 111.4 H MCH 34.9 H MCHC 31.3 RDW 15.7 Plt Count 162 MPV 11.2 Immature Gran % (Auto) 1.0 H Neut % (Auto) 47.1 Lymph % (Auto) 36.3 [place] % (Auto) 11.6 H Eos % (Auto) 3.4 Baso % (Auto) 0.6 Lymph # (Auto) 3.3 [place] # (Auto) 1.0 Eos # (Auto) 0.3 Baso # (Auto) 0.1 Abs Immat Gran (auto) 0.09 H Absolute Neuts (auto) 4.2 Absolute Nucleated RBC 0.020 H Nucleated RBC % (auto) 0.2 Smear Tech's Comments VERIFIED Anion Gap 14 Estim Creat Clear Calc 86.9 Estimated GFR > 60 Random Glucose 78 Calcium 8.1 L Magnesium 1.5 L Total Bilirubin 1.1 H Direct Bilirubin 0.6 H AST 42 H ALT 14 Alkaline Phosphatase 112 Total Protein 5.3 L Albumin 2.6 L Microbiology Microbiology Results: Microbiology 09/08/25 17:44 Blood Culture - Preliminary Blood - Venous No growth after 48 hours. 09/08/25 16:56 Blood Culture - Preliminary Blood - Venous No growth after 48 hours. 09/08/25 19:09 Urine Culture - Final Urine clean catch - Clean Catch Midstream Assessment and Plan (1) Lactic acidosis: Status: Acute Plan 84F PMH pafib, alzheimers dementia, history of PE, presented with hypotension SIRS and acute metabolic encephalopathy improving, continue empiric rocephin for possible uti, urine culture mixed dorothy biliary stones, ?mirizzi no obvious cholecystitis, no current signs of obstruction surgery appreciated - conservative managment follow up gi dysphagia ic engineer eval acute lactic acidosis possibly due to above vs hypotension resolved history of PE eliquis pafib eliquis, lopressor dnr/dni reason for continued hospitalization: cultures, still with nasuea Quality Stroke Does the patient have a stroke diagnosis?: No VTE Prior VTE?: No VTE Risk Level:: Medical - moderate - high VTE Device Contraindication: Treatment Not Indicated VTE Drug Contraindication: N/A - Med Ordered
[2025-09-11 11:10] VITALS: BP 154/64; PULSE 76; RESP 18; TEMP 36.3; O2SAT 96
--- NOTE | 2025-09-11 13:10 | MHC.SL.SWA ---
Speech Pathologist Impression: WFL Dysphasia Diet Status:No Change Liquid Consistency and Strategies for Safe Swallow: Liquid Intake Recommendation: Thin Solid Food Consistency: Dietary Recommendations: Regular Oral Medication Intake: Whole with Liquid Please contact the pharmacy regarding appropriate crushable or liquid drug formulations that are available whenever modified delivery is recommended. Supervision While Eating and Drinking for Safe Swallow: Direct Supervision (1:1) Recommendation for Speech: Inpatient Speech Therapy Comment: CRADLE PLACER to f/u 1x to monitor tolerance. Frequency/Duration: Date Range for Service Req: Timeline to reassess: Restaurant Hospitality Manager Clinican/Clinical Fellow: No Supervisory Statement: I have reviewed and agree with the student/clinical fellow's documentation: N/A Speech Language Pathologist: Perri Pool M.A., CCC-CRADLE PLACER
[2025-09-11 13:53] VITALS: BMI 27.7
--- NOTE | 2025-09-11 13:58 | MHC.CLN ---
NUTRITION DIET RX: REGULAR. SKIN WITH MULTIPLE OPEN AREAS TO BUTTOCKS/COCCYX. ADDING ENSURE MAX BID TO PROMOTE WOUND HEALING. SUPPLEMENT PROVIDES 300 KCALS, 60 G PROTEIN. FOLLOW FOR PO INTAKE AND WOUND HEALING. SEE CLINICAL NUTRITION ASSESSMENT 09/11/25.
[2025-09-11 15:25] VITALS: BP 162/77; PULSE 74; RESP 14; TEMP 36.7; O2SAT 95
[2025-09-11 19:18] VITALS: BP 164/74; PULSE 79; RESP 16; TEMP 36.2; O2SAT 95
[2025-09-12] VITALS (9 sets, daily range): BP systolic 145–192; BP diastolic 61–89; PULSE 71–82; RESP 16–18; TEMP 36.1–36.8; O2SAT 93–97
[2025-09-12 07:36] LABS: Hematocrit 31.4 % (37.0-47.0); Hemoglobin 10.2 g/dl (12.0-16.0); Mean Corpuscular HGB Conc 32.5 g/dl (31.0-35.0); Mean Corpuscular Hemoglobin 34.8 pg (27.0-33.0); Mean Corpuscular Volume 107.2 fL (80.0-98.0); NRBC Abs Auto 0.020 X10*3/uL (0.0-0.012); NRBC Pct Auto 0.2 /100WBC (0.0-0.2); Platelet Count 153 X10*3/uL (160-400); Red Blood Count 2.93 X10*6/uL (4.20-5.50); White Blood Count 8.7 X10*3/uL (4.8-10.8)
[2025-09-12 07:53] LABS: Alanine Aminotransferase 12 U/L (0-31); Albumin Level 2.6 g/dL (3.5-5.0); Alkaline Phosphatase 105 U/L (39-117); Anion Gap 13 (12-20); Aspartate Amino Transferase 46 U/L (5-31); Blood Urea Nitrogen 10 mg/dL (9-16); Calcium 7.9 mg/dL (8.4-10.2); Carbon Dioxide 25 mmol/L (22-29); Chloride 109 mmol/L (96-108); Creatinine Clr Calc Pharmacy 112.0; Estimated Glomerular Filt Rate > 60; Magnesium 1.7 mg/dL (1.6-2.6); Potassium 3.4 mmol/L (3.3-5.1); Sodium 144 mmol/L (135-145); Total Protein 5.3 g/dL (6.5-8.0)
[2025-09-12] MEDS: Metoprolol Succinate ER 25 MG TAB.ER.24H PO (09:12)
[2025-09-12] MEDS: 0.9 % Sodium Chloride Flush 3 ML SYRINGE IVFLUSH ×3 (09:14→21:32)
--- NOTE | 2025-09-12 10:45 | P.PNIM_ITS ---
Subjective Subjective Date of Service: 09/12/25 Interval History: still nasuous, feeling ill with poor po intake Physical Exam 2 Exam: Exam: General: AO X 3, frail and ill-appearing Resp: CTA bilateral, no accessory muscles used CVS: S1,S2,RRR GI: soft, mildly tender to deep palpation, non distended Neuro: motor grossly intact, alert Psych: appropriate affect, appropriate insight Vital Signs: Vital Signs: Last Vital Signs Temp 97.8 F 09/12/25 07:50 Pulse 78 09/12/25 09:12 Resp 18 09/12/25 07:50 BP 158/76 H 09/12/25 09:19 Pulse Ox 94 09/12/25 07:50 O2 Del Method Room Air 09/12/25 07:50 BMI result Body Mass Index 27.7 Objective Data Active Medications Acetaminophen (Acetaminophen 325 Mg Tablet) 650 mg PO Q6H PRN PRN Reason: Pain, Mild 1-3,fever,headache Apixaban (Apixaban 5 Mg Tablet) 5 mg PO BID [facility] Last Admin: 09/12/25 09:14 Dose: 5 mg Documented By: JOSLYN Calcium Carbonate (Calcium Carbonate 750 Mg Tab.Chew) 750 mg PO Q4H PRN PRN Reason: Heartburn Ceftriaxone Sodium (Ceftriaxone Sodium 1 Gm Vial) 1 gm IVPUSH Q24H [facility] Last Admin: 09/11/25 11:56 Dose: 1 gm Documented By: SHAHEEN Magnesium Hydroxide (Milk Of Magnesia 30 Ml Oral.Susp) 30 ml PO DAILY PRN PRN Reason: Constipation Melatonin (Melatonin 3 Mg Tablet) 6 mg PO BEDTIME PRN PRN Reason: Insomnia Last Admin: 09/09/25 20:35 Dose: 6 mg Documented By: JESSICA Metoprolol Succinate (Metoprolol Succinate Er 25 Mg Tab.Er.24h) 25 mg PO DAILY [facility]; Protocol Last Admin: 09/12/25 09:12 Dose: 25 mg Documented By: JOSLYN Ondansetron HCl (Ondansetron Hcl 4 Mg/2 Ml Vial) 4 mg IVPUSH Q8H PRN PRN Reason: Nausea and Vomiting Last Admin: 09/09/25 20:39 Dose: 4 mg Documented By: JESSICA Oxycodone HCl (Oxycodone Hcl Immed Release 5 Mg Tablet) 5 mg PO Q6H PRN PRN Reason: Pain, Severe (Pain Scale 7-10) Senna (Sennosides 8.6 Mg Tablet) 17.2 mg PO BEDTIME [facility] Last Admin: 09/11/25 20:56 Dose: 17.2 mg Documented By: SHANIKA Sodium Biphosphate/Sodium Phosphate (Sodium Phosphate,[place]-Dibasic 133 Ml Enema) 118 ml [place] DAILY PRN PRN Reason: Constipation Sodium Chloride (0.9 % Sodium Chloride Flush 3 Ml Syringe) 3 ml IVFLUSH QSHIFT [facility] Last Admin: 09/12/25 09:14 Dose: 3 ml Documented By: JOSLYN Tramadol HCl (Tramadol Hcl 50 Mg Tablet) 50 mg PO Q6H PRN PRN Reason: Pain, Moderate(Pain Scale 4-6) Labs 09/12/25 06:41 09/12/25 06:41 Labs: Laboratory Results - last 24 hr 09/11/25 09/12/25 06:09 06:41 MCV 107.2 H MCH 34.8 H MCHC 32.5 RDW 15.3 Plt Count 153 L MPV 11.3 Absolute Nucleated RBC 0.020 H Nucleated RBC % (auto) 0.2 Smear Path Review SEE NOTE Anion Gap 13 Estim Creat Clear Calc 112.0 Estimated GFR > 60 Random Glucose 78 Calcium 7.9 L Magnesium 1.7 Total Bilirubin 1.1 H Direct Bilirubin 0.6 H AST 46 H ALT 12 Alkaline Phosphatase 105 Total Protein 5.3 L Albumin 2.6 L Assessment and Plan (1) Lactic acidosis: Status: Acute Plan 84F PMH pafib, alzheimers dementia, history of PE, presented with hypotension SIRS and acute metabolic encephalopathy Sirs resolved, encephalopathy resolved, continue empiric rocephin for possible uti, urine culture mixed dorothy biliary stones, ?mirizzi with moderate protein calorie malnutrition and failure to thrive no obvious cholecystitis, no current signs of obstruction surgery appreciated - conservative managment follow up gi dysphagia market researcher eval - regular with thins acute lactic acidosis possibly due to above vs hypotension resolved history of PE eliquis pafib eliquis, lopressor dnr/dni reason for continued hospitalization: still with nasuea not taking adequate p.o. Quality Stroke Does the patient have a stroke diagnosis?: No VTE Prior VTE?: No VTE Risk Level:: Medical - moderate - high VTE Device Contraindication: Treatment Not Indicated VTE Drug Contraindication: N/A - Med Ordered
--- NOTE | 2025-09-12 11:30 | MHC.CM.PN ---
PER PHYSICIAN ROUNDS, PATIENT NOT YET TOLERATING PO. PLAN IS FOR TRIAL AND DC TO [facility] ONCE STABLE [facility]. CM FOLLOWING.
--- NOTE | 2025-09-12 18:22 | MHC.SL.SWA ---
Speech Pathologist Impression: Risk of Aspiration Due to: Dysphasia Diet Status: Continue on Regular Diet with thin liquids, pills whole with liquid. Assist patient with making selections from this menu that will be better tolerated and more manageable. Patient requires assistance with tray set up and periodic check ins to assure she is progressing with her meal. Liquid Consistency and Strategies for Safe Swallow: Liquid Intake Recommendation: Thin Liquid Intake Strategies: Solid Food Consistency: Dietary Recommendations: Regular Additional Modifications to Solid Foods: Oral Medication Intake: Whole with Liquid Please contact the pharmacy regarding appropriate crushable or liquid drug formulations that are available whenever modified delivery is recommended. Compensatory Strategies and Precautions to be Taken for Safe Swallow: Supervision While Eating and Drinking for Safe Swallow: Direct Supervision (1:1) Foods to Avoid: Swallowing Recommended Treatments: Recommendation for Speech: Inpatient Speech Therapy Comment: Patient seen at lunch today. Patient had ordered for herself a chicken Golden Salad from the regular menu, which she was willing to try, initially. Patient had been checked at breakfast, at that time she had refused food and was nauseous. Patient needed some assistance with dressing the salad, then she had difficulty managing getting lettuce on fork and to her mouth. Patient, with small amount of lettuce consumed, then became nauseous, and spat the lettuce back up. COURT RECORDING MONITOR assisted by reducing the size of the salad, cutting chicken pieces to bite size, and reintroduced this smaller, manageable portion to patient. Patient then took one bite of the the chicken, managed this without nausea, but then stated she was too tired to eat more. Patient did accept eating some diced peaches which were also on tray. Patient was advised to select simpler, easier to manage foods, such as soups and pastas. Patient would benefit from GI consulting on appropriate foods for her. Patient requires assistance at meals, primarily tray set up, and periodic check ins to assure she is progressing with her meal. COURT RECORDING MONITOR to continue to assure patient has access and is managing the recommended regular diet and thin liquids. Frequency/Duration: Date Range for Service Req: Timeline to reassess: Switchboard Mechanic Clinican/Clinical Fellow: No Supervisory Statement: I have reviewed and agree with the student/clinical fellow's documentation: N/A Speech Language Pathologist: Madeline Simms M.A., CCC-COURT RECORDING MONITOR
[2025-09-13 02:59] VITALS: BP 141/67; PULSE 74; RESP 18; TEMP 36.8; O2SAT 95
[2025-09-13 07:28] LABS: Hematocrit 30.4 % (37.0-47.0); Hemoglobin 10.2 g/dl (12.0-16.0); Mean Corpuscular HGB Conc 33.6 g/dl (31.0-35.0); Mean Corpuscular Hemoglobin 34.5 pg (27.0-33.0); Mean Corpuscular Volume 102.7 fL (80.0-98.0); NRBC Abs Auto 0.020 X10*3/uL (0.0-0.012); NRBC Pct Auto 0.2 /100WBC (0.0-0.2); Platelet Count 160 X10*3/uL (160-400); Red Blood Count 2.96 X10*6/uL (4.20-5.50); White Blood Count 8.5 X10*3/uL (4.8-10.8)
[2025-09-13 07:48] VITALS: BP 134/61; PULSE 82; RESP 18; TEMP 36.5; O2SAT 94
[2025-09-13 07:54] LABS: Alanine Aminotransferase 16 U/L (0-31); Albumin Level 2.6 g/dL (3.5-5.0); Alkaline Phosphatase 104 U/L (39-117); Aspartate Amino Transferase 43 U/L (5-31); Blood Urea Nitrogen 6 mg/dL (9-16); Calcium 7.6 mg/dL (8.4-10.2); Creatinine Clr Calc Pharmacy 118.2; Estimated Glomerular Filt Rate > 60; Total Protein 5.0 g/dL (6.5-8.0)
[2025-09-13 08:03] LABS: Anion Gap 14 (12-20); Carbon Dioxide 25 mmol/L (22-29); Chloride 103 mmol/L (96-108); Magnesium 1.4 mg/dL (1.6-2.6); Potassium 2.7 mmol/L (3.3-5.1); Sodium 139 mmol/L (135-145)
--- NOTE | 2025-09-13 08:59 | MHC.CM.PN ---
[facility] UPD[facility] IN [facility]. IF PLAN TRANSITIONS TO LTC, THEY DO NOT HAVE ANY BEDS. CM FOLLOWING
--- NOTE | 2025-09-13 09:33 | MHC.CLN ---
F/U PO INTAKE 0% DIET RX: REGULAR RECEIVING ENSURE MAX BID TO PROMOTE WOUND HEALING SUPPLEMENT PROVIDES 300 KCALS, 60 G PROTEIN MD REQUESTING PPN REVIEWED LABS-PT AT RISK FOR RE-FEEDING RECOMMEND PPN AT 50ML/HR TO PROVIDE 612KCALS, 120G DEXTROSE, 51G PROTEIN REPLETE LYTES NEEDED
[2025-09-13] MEDS: 0.9 % Sodium Chloride Flush 3 ML SYRINGE IVFLUSH ×2 (09:51→19:56)
[2025-09-13] MEDS: Metoprolol Succinate ER 25 MG TAB.ER.24H PO (09:51)
[2025-09-13] MEDS: Potassium Chloride/H20 10 MEQ/100 ML PIGGYBACK 100 MEQ IV ×4 (09:59→14:08)
[2025-09-13 10:00] VITALS: BMI 27.7
[2025-09-13 10:04] LABS: Triglycerides 97 mg/dL (<150)
[2025-09-13] MEDS: Magnesium Sulfate/H2O 2 GM/50 ML PIGGYBACK IV (10:07)
[2025-09-13 11:47] VITALS: BP 137/65; PULSE 83; RESP 18; TEMP 36.4; O2SAT 93
[2025-09-13 16:00] VITALS: BP 122/69; PULSE 85; RESP 18; TEMP 36.5; O2SAT 96
--- NOTE | 2025-09-13 17:13 | P.PNIM_ITS ---
Subjective Subjective Date of Service: 09/13/25 Interval History: dec po inatke Review of Systems Review of Systems: Yes all other systems are reviewed and are negative Physical Exam 2 Exam: Exam: General: AO X 3, frail and ill-appearing Resp: CTA bilateral, no accessory muscles used CVS: S1,S2,RRR GI: soft, mildly tender to deep palpation, non distended Neuro: motor grossly intact, alert Psych: appropriate affect, appropriate insight Vital Signs: Vital Signs: Last Vital Signs Temp 97.7 F 09/13/25 16:00 Pulse 85 09/13/25 16:00 Resp 18 09/13/25 16:00 BP 122/69 09/13/25 16:00 Pulse Ox 96 09/13/25 16:00 O2 Del Method Room Air 09/13/25 16:00 BMI result Body Mass Index 27.7 Objective Data Active Medications Acetaminophen (Acetaminophen 325 Mg Tablet) 650 mg PO Q6H PRN PRN Reason: Pain, Mild 1-3,fever,headache Apixaban (Apixaban 5 Mg Tablet) 5 mg PO BID [facility] Last Admin: 09/13/25 09:51 Dose: 5 mg Documented By: JOSE FRANCISCO Calcium Carbonate (Calcium Carbonate 750 Mg Tab.Chew) 750 mg PO Q4H PRN PRN Reason: Heartburn Ceftriaxone Sodium (Ceftriaxone Sodium 1 Gm Vial) 1 gm IVPUSH Q24H [facility] Last Admin: 09/13/25 11:52 Dose: 1 gm Documented By: JOSE FRANCISCO Nutrition (Parenteral) (Parenteral Nutrition) 1,200 mls @ 50 mls/hr IV .Q24H [facility]; Protocol Stop: 09/14/25 20:59 Magnesium Hydroxide (Milk Of Magnesia 30 Ml Oral.Susp) 30 ml PO DAILY PRN PRN Reason: Constipation Melatonin (Melatonin 3 Mg Tablet) 6 mg PO BEDTIME PRN PRN Reason: Insomnia Last Admin: 09/09/25 20:35 Dose: 6 mg Documented By: JESSICA Metoprolol Succinate (Metoprolol Succinate Er 25 Mg Tab.Er.24h) 25 mg PO DAILY [facility]; Protocol Last Admin: 09/13/25 09:51 Dose: 25 mg Documented By: JOSE FRANCISCO Ondansetron HCl (Ondansetron Hcl 4 Mg/2 Ml Vial) 4 mg IVPUSH Q8H PRN PRN Reason: Nausea and Vomiting Last Admin: 09/09/25 20:39 Dose: 4 mg Documented By: JESSICA Oxycodone HCl (Oxycodone Hcl Immed Release 5 Mg Tablet) 5 mg PO Q6H PRN PRN Reason: Pain, Severe (Pain Scale 7-10) Pharmacy Consult (Consult Rx Parenteral Nutrition Ordering) 1 each [place] DAILY PRN PRN Reason: Consult order Senna (Sennosides 8.6 Mg Tablet) 17.2 mg PO BEDTIME [facility] Last Admin: 09/12/25 21:32 Dose: 17.2 mg Documented By: AURORA Sodium Biphosphate/Sodium Phosphate (Sodium Phosphate,[place]-Dibasic 133 Ml Enema) 118 ml [place] DAILY PRN PRN Reason: Constipation Sodium Chloride (0.9 % Sodium Chloride Flush 3 Ml Syringe) 3 ml IVFLUSH QSHIFT [facility] Last Admin: 09/13/25 15:11 Dose: Not Given Documented By: ANGEL Non-Admin Reason: IV Running Tramadol HCl (Tramadol Hcl 50 Mg Tablet) 50 mg PO Q6H PRN PRN Reason: Pain, Moderate(Pain Scale 4-6) Labs 09/13/25 07:07 09/13/25 07:07 Labs: Laboratory Results - last 24 hr 09/13/25 07:07 MCV 102.7 H MCH 34.5 H MCHC 33.6 RDW 14.8 Plt Count 160 MPV 10.7 Absolute Nucleated RBC 0.020 H Nucleated RBC % (auto) 0.2 Anion Gap 14 Estim Creat Clear Calc 118.2 Estimated GFR > 60 Random Glucose 76 Calcium 7.6 L Phosphorus 2.0 L Magnesium 1.4 L* Total Bilirubin 1.1 H Direct Bilirubin 0.6 H AST 43 H ALT 16 Alkaline Phosphatase 104 Total Protein 5.0 L Albumin 2.6 L Triglycerides 97 Assessment and Plan (1) Lactic acidosis: Status: Acute Plan 84F PMH pafib, alzheimers dementia, history of PE, presented with hypotension SIRS and acute metabolic encephalopathy Sirs resolved, encephalopathy resolved, continue empiric rocephin for possible uti, urine culture mixed dorothy biliary stones, ?mirizzi with moderate protein calorie malnutrition and failure to thrive no obvious cholecystitis, no current signs of obstruction surgery appreciated - conservative managment, will add ppn follow up gi- if unable to take po ,ma need alternative feeding dysphagia desk operator eval - regular with thins acute lactic acidosis possibly due to above vs hypotension resolved history of PE eliquis pafib eliquis, lopressor dnr/dni reason for continued hospitalization: still with nasuea not taking adequate p.o. Quality Stroke Does the patient have a stroke diagnosis?: No VTE Prior VTE?: No VTE Risk Level:: Medical - moderate - high VTE Device Contraindication: Treatment Not Indicated VTE Drug Contraindication: N/A - Med Ordered
[2025-09-13] MEDS: Parenteral Nutrition 1,200 ML 50 ML IV (19:48)
[2025-09-13 20:00] VITALS: BP 133/77; PULSE 78; RESP 18; TEMP 37.5; O2SAT 94
[2025-09-13 23:45] VITALS: BP 128/62; PULSE 73; RESP 16; TEMP 36.4; O2SAT 97
[2025-09-14 04:00] VITALS: BP 147/71; PULSE 68; RESP 16; TEMP 36.6; O2SAT 94
[2025-09-14 07:07] VITALS: BP 136/60; PULSE 69; RESP 18; TEMP 36.7; O2SAT 94
[2025-09-14 07:42] LABS: Magnesium 1.8 mg/dL (1.6-2.6)
[2025-09-14 10:22] LABS: Anion Gap 11 (12-20); Blood Urea Nitrogen 10 mg/dL (9-16); Calcium 7.9 mg/dL (8.4-10.2); Carbon Dioxide 26 mmol/L (22-29); Chloride 103 mmol/L (96-108); Creatinine Clr Calc Pharmacy 106.4; Estimated Glomerular Filt Rate > 60; Potassium 3.3 mmol/L (3.3-5.1); Sodium 137 mmol/L (135-145)
--- NOTE | 2025-09-14 11:09 | MHC.CLN ---
F/U PO INTAKE REMAINS 0% DIET RX: REGULAR RECEIVING ENSURE MAX BID TO PROMOTE WOUND HEALING SUPPLEMENT PROVIDES 300 KCALS, 60 G PROTEIN PPN STARTED YESTERDAY REVIEWED LABS-PT AT RISK FOR MILD RE-FEEDING DISCUSSED WITH PHARMACY RECOMMEND INCREASING PPN AT 60ML/HR TO PROVIDE 734KCALS, 144G DEXTROSE, 61G PROTEIN REPLETE LYTES NEEDED
[2025-09-14 11:15] VITALS: BP 147/68; PULSE 76; RESP 18; TEMP 36.9; O2SAT 96
[2025-09-14] MEDS: Metoprolol Succinate ER 25 MG TAB.ER.24H PO (11:15)
[2025-09-14] MEDS: 0.9 % Sodium Chloride Flush 3 ML SYRINGE IVFLUSH ×3 (11:18→20:16)
--- NOTE | 2025-09-14 12:29 | P.PNGI_ITS ---
Subjective Subjective Date of Service: 09/14/25 Interval History: no complaints of pain Critical Care Time (minutes): 0 Physical Exam 2 Vital Signs: Vital Signs: Last Vital Signs Temp 98.4 F 09/14/25 11:15 Pulse 76 09/14/25 11:15 Resp 18 09/14/25 11:15 BP 147/68 H 09/14/25 11:15 Pulse Ox 96 09/14/25 11:15 O2 Del Method Room Air 09/14/25 11:15 BMI result Body Mass Index 27.7 GI: Other: abdomen is soft and nontender Objective Data Labs 09/13/25 07:07 09/14/25 09:46 Labs: Laboratory Results - last 24 hr 09/14/25 09/14/25 09/14/25 07:06 09:46 09:50 Hold Purple Top SEE NOTE Sodium 137 Potassium 3.3 D Chloride 103 Carbon Dioxide 26 Anion Gap 11 L BUN 10 Creatinine 0.40 L Estim Creat Clear Calc 106.4 Estimated GFR > 60 Random Glucose 119 H Calcium 7.9 L Phosphorus 2.3 L Magnesium 1.8 Hold Yellow Top See Note Microbiology Microbiology Results: Microbiology 09/08/25 17:44 Blood - Venous Blood Culture - Final No growth after 5 days. 09/08/25 16:56 Blood - Venous Blood Culture - Final No growth after 5 days. 09/08/25 19:09 Urine clean catch - Clean Catch Midstream Urine Culture - Final Procedures Date of Service Date of Service: 09/14/25 Progress Note: A&P Assessment and plan (1) Cholelithiasis: Status: Acute Assessment and Plan: reviewed [facility] records and speech path recommendations discussed with family encouraged po intake. Time Spent With Patient Time: Total time managing care of this patient today ____ minutes. Quality Stroke Does the patient have a stroke diagnosis?: No VTE Prior VTE?: No VTE Risk Level:: Medical - moderate - high VTE Device Contraindication: Treatment Not Indicated VTE Drug Contraindication: N/A - Med Ordered
--- NOTE | 2025-09-14 14:13 | MHC.SL.SWA ---
Speech Pathologist Impression: Risk of Aspiration Due to: Dysphasia Diet Status: Continue on Regular Diet with thin liquids, pills whole with liquid. Patient needs assistance with the SET UP of tray, making sure patient has all items opened and available, meal is dressed with additional condiments or sauces, food is accessible (e.g. patient may need assistance cutting up larger pieces of meat). Patient also benefits from at least some initial supervision of meal to assure that she is progressing, not engaging in avoidance behaviors (e.g. using sick bag to spit out food), and has no additional needs. Liquid Consistency and Strategies for Safe Swallow: Liquid Intake Recommendation: Thin Liquid Intake Strategies: Unrestricted Solid Food Consistency: Dietary Recommendations: Regular Additional Modifications to Solid Foods: Oral Medication Intake: Whole with Liquid Please contact the pharmacy regarding appropriate crushable or liquid drug formulations that are available whenever modified delivery is recommended. Compensatory Strategies and Precautions to be Taken for Safe Swallow: Sitting Upright (90 deg) Liquids from Cup Liquids from Straw Small Bites and Sips Alternate Liquids/Solids Supervision While Eating and Drinking for Safe Swallow: Direct Supervision (1:1) Foods to Avoid: Elect simple, softer textures from the regular menu Swallowing Recommended Treatments: Compens. Strategy Educat. Recommendation for Speech: Inpatient Speech Therapy Comment: Patient seen at lunch for follow-up assessment, possible downgrade to diet with precut foods. GSR was present at onset setting up tray for patient. FIVE ROLL REFINER BATCH MIXER further set up tray, clearing various items from tray table, including sick bag, to leave only meal tray present. Patient noticed that I had removed sick bag and said Oh, you took that away, did you? Patient had ordered a ham sandwich, which she reported was a favorite lunch. Patient noted there was ample Ham on the sandwich, and removed a piece. After taking a bite, she reported It doesn't taste right FIVE ROLL REFINER BATCH MIXER offered to put mayonnaise on sandwich which came on tray. With this on, patient noted it tasted better. Patient then ate most of the sandwich, eating around the crusts, producing a normal swallow and managing the texture well, and well able to independently eat it. She expressed that she felt it was a lot , but did not complain of nausea during this meal. Patient also ate 2/3 of ice cream that came with meal, then stated she wanted to safe the rest to make chocolate milk. Patient motorically can manage this diet consistency with no difficulty. HOWEVER patient needs assistance with the SET UP of tray, making sure patient has all items opened and available, meal is dressed with additional condiments or sauces, food is accessible (e.g. patient may need assistance cutting up larger pieces of meat). Patient also benefits from at least some initial supervision of meal to assure that she is progressing, not engaging in avoidance behaviors (e.g. using sick bag to spit out food), and has no additional needs. With this level of support patient is likely to be more successful with her meals and food intake. Recommend continue on REGULAR diet with THIN liquids, pills whole with liquid, with accommodations as indicated above. FIVE ROLL REFINER BATCH MIXER to f/u X1 to assure patient's access and progress, and/or to assess for downgrade to a more restrictive diet for reason of accessibility. Frequency/Duration: Date Range for Service Req: Timeline to reassess: Electrode Cleaning Machine Operator Clinican/Clinical Fellow: No Supervisory Statement: I have reviewed and agree with the student/clinical fellow's documentation: N/A Speech Language Pathologist: Madeline Simms M.A., [facility]-[employer] REFIN[employer] BATCH MIXER
[2025-09-14] MEDS: Sodium,Potassium Phosphates POWD.PACK 1 PACKET PO ×3 (14:34→20:04)
[2025-09-14 15:30] VITALS: BP 100/50; PULSE 79; RESP 17; TEMP 36.7; O2SAT 96
--- NOTE | 2025-09-14 16:17 | P.PNIM_ITS ---
Subjective Subjective Date of Service: 09/14/25 Interval History: decpo inatke Review of Systems ate some food today no new symptoms Review of Systems: Yes all other systems are reviewed and are negative Physical Exam 2 Exam: Exam: General: AO X 3, frail and ill-appearing Resp: CTA bilateral, no accessory muscles used CVS: S1,S2,RRR GI: soft, mildly tender to deep palpation, non distended Neuro: motor grossly intact, alert Psych: appropriate affect, appropriate insight Vital Signs: Vital Signs: Last Vital Signs Temp 98.0 F 09/14/25 15:30 Pulse 79 09/14/25 15:30 Resp 17 09/14/25 15:30 BP 100/50 L 09/14/25 15:30 Pulse Ox 96 09/14/25 15:30 O2 Del Method Room Air 09/14/25 15:30 BMI result Body Mass Index 27.7 Objective Data Active Medications Acetaminophen (Acetaminophen 325 Mg Tablet) 650 mg PO Q6H PRN PRN Reason: Pain, Mild 1-3,fever,headache Apixaban (Apixaban 5 Mg Tablet) 5 mg PO BID KATHY Last Admin: 09/14/25 11:18 Dose: 5 mg Documented By: JACLYN Calcium Carbonate (Calcium Carbonate 750 Mg Tab.Chew) 750 mg PO Q4H PRN PRN Reason: Heartburn Ceftriaxone Sodium (Ceftriaxone Sodium 1 Gm Vial) 1 gm IVPUSH Q24H [facility] Last Admin: 09/14/25 11:18 Dose: 1 gm Documented By: JACLYN Nutrition (Parenteral) (Parenteral Nutrition) 1,200 mls @ 50 mls/hr IV .Q24H KATHY; Protocol Stop: 09/14/25 20:59 Last Admin: 09/13/25 19:48 Dose: 50 mls/hr Documented By: SULMA Nutrition (Parenteral) (Parenteral Nutrition) 1,440 mls @ 60 mls/hr IV .Q24H [facility]; Protocol Stop: 09/15/25 20:59 Magnesium Hydroxide (Milk Of Magnesia 30 Ml Oral.Susp) 30 ml PO DAILY PRN PRN Reason: Constipation Melatonin (Melatonin 3 Mg Tablet) 6 mg PO BEDTIME PRN PRN Reason: Insomnia Last Admin: 09/09/25 20:35 Dose: 6 mg Documented By: JESSICA Metoprolol Succinate (Metoprolol Succinate Er 25 Mg Tab.Er.24h) 25 mg PO DAILY [facility]; Protocol Last Admin: 09/14/25 11:15 Dose: 25 mg Documented By: JACLYN Ondansetron HCl (Ondansetron Hcl 4 Mg/2 Ml Vial) 4 mg IVPUSH Q8H PRN PRN Reason: Nausea and Vomiting Last Admin: 09/13/25 20:01 Dose: 4 mg Documented By: SULMA Pharmacy Consult (Consult Rx Parenteral Nutrition Ordering) 1 each MISCELLANE DAILY PRN PRN Reason: Consult order Potassium Phos/Sodium Phos (Sodium,Potassium Phosphates Powd.Pack) 1 packet PO QID [facility] Last Admin: 09/14/25 14:34 Dose: 1 packet Documented By: JACLYN Senna (Sennosides 8.6 Mg Tablet) 17.2 mg PO BEDTIME [facility] Last Admin: 09/13/25 19:52 Dose: 17.2 mg Documented By: SULMA Sodium Biphosphate/Sodium Phosphate (Sodium Phosphate,[place]-Dibasic 133 Ml Enema) 118 ml [place] DAILY PRN PRN Reason: Constipation Sodium Chloride (0.9 % Sodium Chloride Flush 3 Ml Syringe) 3 ml IVFLUSH QSHIFT [facility] Last Admin: 09/14/25 14:35 Dose: 3 ml Documented By: JACLYN Labs 09/13/25 07:07 09/14/25 09:46 Labs: Laboratory Results - last 24 hr 09/14/25 09/14/25 09/14/25 07:06 09:46 09:50 Hold Purple Top SEE NOTE Anion Gap 11 L Estim Creat Clear Calc 106.4 Estimated GFR > 60 Random Glucose 119 H Calcium 7.9 L Phosphorus 2.3 L Magnesium 1.8 Hold Yellow Top See Note Microbiology Microbiology Results: Microbiology 09/08/25 17:44 Blood Culture - Final Blood - Venous No growth after 5 days. 09/08/25 16:56 Blood Culture - Final Blood - Venous No growth after 5 days. Assessment and Plan (1) Lactic acidosis: Status: Acute Plan 84F PMH pafib, alzheimers dementia, history of PE, presented with hypotension SIRS and acute metabolic encephalopathy Sirs resolved, encephalopathy resolved, continue empiric rocephin for possible uti, urine culture mixed dorothy biliary stones, ?mirizzi with moderate protein calorie malnutrition and failure to thrive no obvious cholecystitis, no current signs of obstruction surgery appreciated - conservative managment, will add ppn follow up gi- if unable to take po ,ma need alternative feeding dysphagia nutritionist eval - 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 intake does not improve may need alternative means of feeding, also speech and swallow well. Quality Stroke Does the patient have a stroke diagnosis?: No VTE Prior VTE?: No VTE Risk Level:: Medical - moderate - high VTE Device Contraindication: Treatment Not Indicated VTE Drug Contraindication: N/A - Med Ordered
[2025-09-14 19:28] VITALS: BP 141/62; PULSE 78; RESP 18; TEMP 36.8; O2SAT 94
[2025-09-14] MEDS: Parenteral Nutrition 1,440 ML 60 ML IV (20:03)
[2025-09-15 03:39] VITALS: BP 119/57; PULSE 67; RESP 18; TEMP 36.3; O2SAT 95
[2025-09-15 05:56] LABS: Anion Gap 13 (12-20); Blood Urea Nitrogen 10 mg/dL (9-16); Calcium 8.0 mg/dL (8.4-10.2); Carbon Dioxide 25 mmol/L (22-29); Chloride 104 mmol/L (96-108); Creatinine Clr Calc Pharmacy 103.8; Estimated Glomerular Filt Rate > 60; Magnesium 1.7 mg/dL (1.6-2.6); Potassium 3.5 mmol/L (3.3-5.1); Sodium 138 mmol/L (135-145)
[2025-09-15 06:57] VITALS: BP 134/73; PULSE 72; RESP 17; TEMP 36.6; O2SAT 95
[2025-09-15] MEDS: Sodium,Potassium Phosphates POWD.PACK 1 PACKET PO ×4 (07:57→20:10)
[2025-09-15] MEDS: Metoprolol Succinate ER 25 MG TAB.ER.24H PO (07:57)
[2025-09-15] MEDS: 0.9 % Sodium Chloride Flush 3 ML SYRINGE IVFLUSH ×2 (08:03→23:30)
--- NOTE | 2025-09-15 09:24 | MHC.CLN ---
F/U PO INTAKE 25% AND 50% X 2 MEALS DIET RX: REGULAR-CONSULTING TECHNICAL MANAGER WORKING WITH PT (CONTINUES TO RECOMMEND REGULAR) RECEIVING ENSURE MAX BID TO PROMOTE WOUND HEALING SUPPLEMENT PROVIDES 300 KCALS, 60 G PROTEIN WITH 100% ACCEPTANCE REVIEWED LABS-UNREMARKABLE DISCUSSED WITH PHARMACY RECOMMEND INCREASING PPN TO MAX GOAL RATE TO 90ML/HR WITH 74G LIPIDS TO PROVIDE 1842 TOTAL KCALS (30KCALS/KG), 216G DEXTROSE, 92G PROTEIN (1.5G/KG-WILL PROMOTE WOUND HEALING) REPLETE LYTES NEEDED PT TO CONTINUE PPN AT MAX GOAL RATE THROUGH [address] RD CAN BE REACHED VIA TIGER CONNECT DURING OFF HOURS IF NEEDED CONTINUE TO MONITOR PO INTAKE CLOSELY; GOAL TO REDUCE PPN PO INTAKE IMPROVES
--- NOTE | 2025-09-15 12:34 | MHC.SL.SWA ---
Speech Pathologist Impression: Risk of Aspiration Dysphasia Diet Status: Patient stable on Regular Diet with thin liquids, pills whole with liquid. Patient w/ piece meal deglutition, but good clearing and no overt s/s of aspiration. Patient needs assistance with the SET UP of tray, making sure patient has all items opened and available, meal is dressed with additional condiments or sauces, food is accessible (e.g. patient may need assistance cutting up larger pieces of meat). Patient also benefits from at least some initial supervision of meal to assure that she is progressing, not engaging in avoidance behaviors (e.g. using sick bag to spit out food), and has no additional needs. Liquid Consistency and Strategies for Safe Swallow: Liquid Intake Recommendation: Thin Liquid Intake Strategies: Unrestricted Solid Food Consistency: Dietary Recommendations: Regular Additional Modifications to Solid Foods: Further ST intervention no longer indicated as patient is tolerating unmodified textures. Please re-refer with any changes or further concern. Oral Medication Intake: Whole with Liquid Please contact the pharmacy regarding appropriate crushable or liquid drug formulations that are available whenever modified delivery is recommended. Compensatory Strategies and Precautions to be Taken for Safe Swallow: Sitting Upright (90 deg) Liquids from Cup Liquids from Straw Small Bites and Sips Alternate Liquids/Solids Supervision While Eating and Drinking for Safe Swallow: Direct Supervision (1:1) Foods to Avoid: Elect simple, softer textures from the regular menu Swallowing Recommended Treatments: Compens. Strategy Educat. Recommendation for Speech: D/C Sports Director Clinican/Clinical Fellow: No Supervisory Statement: I have reviewed and agree with the student/clinical fellow's documentation: N/A Speech Language Pathologist: Perri Pool M.A., CCC-HE[employer] TRE[employer]
--- NOTE | 2025-09-15 12:55 | HO.WOUND ---
Wound Consult: Initial 84 yr old female admitted to [facility] [place] on 09/08/25 - See progress notes and H&P for detailed history. Wound consult placed for coccyx. Patient agreeable to assessment and photo documentation. Patient noted to have open wounds to coccyx and bilateral buttocks on admission with photo (see below), in admission photo, coccyx with full thickness wounding covered in yellow slough (unstageable pressure injury present on admission), bilateral buttocks with largely intact appearing purple skin (deep tissue pressure injury present on admission), buttocks now declaring left with partial thickness wounding moist pink bed (stage 2), and right buttock with cluster of wounds, full thickness with largely moist pink/red and scant yellow (stage 3) Coccyx/buttocks 09/09/25 Coccyx/buttocks Etiology: Coccyx unstageable pressure injury present on admission, continues unstageable. Left buttock DTI POA, now declared as stage 2 pressure injury, Right buttock with cluster of wounds, DTI on admission, now stage 3 pressure injury as is full thickness. Measurements: see flowsheets Wound Bed: coccyx- moist yellow adherent slough - left buttock moist pink partial thickness, right buttock full thickness moist pink/red and yellow. skin in between denuded red in the setting of MASD/IAD. Drainage / Odor: scant sanguineous no odor Edges: ? attached Juliano wound: ? No Induration, Fluctuance or Warmth noted Pain: mild with dressing change Goals of Treatment: ? triad to provide an occlusive dressing for autolytic debridment, to allow moist wound healing with absorption of mild exudate, to minimize contamination of urine/stool or bacteria, and to soothe and protect juliano wound skin. cover with foam. Recommendations: 1. Turn and Reposition every 2 hours and as needed for patient comfort. Use pillows or wedges to support off loading positions. 2. Off Load all bony prominences with use of pillows and heel boots if needed. Apply Preventative foams where needed. 3. Monitor for incontinence and moisture control, use barrier creams when needed for prevention and treatment. 4. Provide adequate and supplemental nutrition. 5. Order or Continue low air loss mattress. 6. When applicable maintain blood glucose levels per Providers order. Coccyx, bilateral buttocks: Off Load Pressure with Q2 hr turns and use of pillows - Cleanse with PH balance spray or wipes, pat dry. ?Apply thin layer of Triad to wound bed. Do not remove all of paste between applications as this may cause further skin damage.? Cover with foam dressing to aid in off loading and protection from friction. Change every other day and PRN. Re-consult wound care Nurse for wound deterioration or wound changes.
--- NOTE | 2025-09-15 14:27 | P.PNIM_ITS ---
Subjective Subjective Date of Service: 09/15/25 Interval History: dec po inatke Review of Systems ate some food today no new symptoms Review of Systems: Yes all other systems are reviewed and are negative Physical Exam 2 Exam: Exam: General: AO X 3, frail and ill-appearing Resp: CTA bilateral, no accessory muscles used CVS: S1,S2,RRR GI: soft, mildly tender to deep palpation, non distended Neuro: motor grossly intact, alert Psych: appropriate affect, appropriate insight Vital Signs: Vital Signs: Last Vital Signs Temp 98 F 09/15/25 06:57 Pulse 72 09/15/25 06:57 Resp 17 09/15/25 06:57 BP 134/73 09/15/25 06:57 Pulse Ox 95 09/15/25 06:57 O2 Del Method Room Air 09/15/25 06:57 BMI result Body Mass Index 27.7 Objective Data Active Medications Acetaminophen (Acetaminophen 325 Mg Tablet) 650 mg PO Q6H PRN PRN Reason: Pain, Mild 1-3,fever,headache Apixaban (Apixaban 5 Mg Tablet) 5 mg PO BID KATHY Last Admin: 09/15/25 07:57 Dose: 5 mg Documented By: HOLLY Calcium Carbonate (Calcium Carbonate 750 Mg Tab.Chew) 750 mg PO Q4H PRN PRN Reason: Heartburn Ceftriaxone Sodium (Ceftriaxone Sodium 1 Gm Vial) 1 gm IVPUSH Q24H KATHY Last Admin: 09/15/25 12:17 Dose: 1 gm Documented By: HOLLY Nutrition (Parenteral) (Parenteral Nutrition) 1,440 mls @ 60 mls/hr IV .Q24H KATHY; Protocol Stop: 09/15/25 20:59 Last Admin: 09/14/25 20:03 Dose: 60 mls/hr Documented By: SULMA Nutrition (Parenteral) (Parenteral Nutrition) 2,160 mls @ 90 mls/hr IV .Q24H KATHY; Protocol Stop: 09/16/25 20:59 Magnesium Hydroxide (Milk Of Magnesia 30 Ml Oral.Susp) 30 ml PO DAILY PRN PRN Reason: Constipation Melatonin (Melatonin 3 Mg Tablet) 6 mg PO BEDTIME PRN PRN Reason: Insomnia Last Admin: 09/09/25 20:35 Dose: 6 mg Documented By: JESSICA Metoprolol Succinate (Metoprolol Succinate Er 25 Mg Tab.Er.24h) 25 mg PO DAILY [facility]; Protocol Last Admin: 09/15/25 07:57 Dose: 25 mg Documented By: HOLLY Ondansetron HCl (Ondansetron Hcl 4 Mg/2 Ml Vial) 4 mg IVPUSH Q8H PRN PRN Reason: Nausea and Vomiting Last Admin: 09/13/25 20:01 Dose: 4 mg Documented By: SULMA Pharmacy Consult (Consult Rx Parenteral Nutrition Ordering) 1 each MISCELLANE DAILY PRN PRN Reason: Consult order Potassium Phos/Sodium Phos (Sodium,Potassium Phosphates Powd.Pack) 1 packet PO QID [facility] Last Admin: 09/15/25 12:17 Dose: 1 packet Documented By: HOLLY Senna (Sennosides 8.6 Mg Tablet) 17.2 mg PO BEDTIME [facility] Last Admin: 09/14/25 20:04 Dose: 17.2 mg Documented By: SULMA Sodium Biphosphate/Sodium Phosphate (Sodium Phosphate,[place]-Dibasic 133 Ml Enema) 118 ml [place] DAILY PRN PRN Reason: Constipation Sodium Chloride (0.9 % Sodium Chloride Flush 3 Ml Syringe) 3 ml IVFLUSH QSHIFT [facility] Last Admin: 09/15/25 08:03 Dose: 3 ml Documented By: HOLLY Labs 09/13/25 07:07 09/15/25 05:21 Labs: Laboratory Results - last 24 hr 09/15/25 09/15/25 05:20 05:21 Hold Purple Top SEE NOTE Anion Gap 13 Estim Creat Clear Calc 103.8 Estimated GFR > 60 Random Glucose 94 Calcium 8.0 L Phosphorus 3.4 Magnesium 1.7 Assessment and Plan (1) Lactic acidosis: Status: Acute Plan 84F PMH pafib, alzheimers dementia, history of PE, presented with hypotension SIRS and acute metabolic encephalopathy Sirs resolved, encephalopathy resolved, continue empiric rocephin for possible uti, urine culture mixed dorothy biliary stones, ?mirizzi with moderate protein calorie malnutrition and failure to thrive no obvious cholecystitis, no current signs of obstruction surgery appreciated - conservative managment, will add ppn follow up gi- if unable to take po ,ma need alternative feeding dysphagia paint preparer eval - 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 intake does not improve may need alternative means of feeding, also speech and swallow well. Quality Stroke Does the patient have a stroke diagnosis?: No VTE Prior VTE?: No VTE Risk Level:: Medical - moderate - high VTE Device Contraindication: Treatment Not Indicated VTE Drug Contraindication: N/A - Med Ordered
[2025-09-15 15:53] VITALS: BP 125/60; PULSE 80; RESP 19; TEMP 36.8; O2SAT 94
[2025-09-15 20:00] VITALS: BP 128/70; PULSE 91; RESP 19; TEMP 36.6; O2SAT 95
[2025-09-15] MEDS: Parenteral Nutrition 2,160 ML 90 ML IV (20:17)
[2025-09-16 03:14] VITALS: BP 129/59; PULSE 83; RESP 14; TEMP 36.5; O2SAT 95
[2025-09-16 06:19] LABS: Anion Gap 11 (12-20); Blood Urea Nitrogen 12 mg/dL (9-16); Calcium 8.2 mg/dL (8.4-10.2); Carbon Dioxide 25 mmol/L (22-29); Chloride 104 mmol/L (96-108); Creatinine Clr Calc Pharmacy 109.1; Estimated Glomerular Filt Rate > 60; Magnesium 1.8 mg/dL (1.6-2.6); Potassium 3.9 mmol/L (3.3-5.1); Sodium 136 mmol/L (135-145)
[2025-09-16 07:29] VITALS: BP 117/66; PULSE 97; RESP 16; TEMP 36.4; O2SAT 97
[2025-09-16] MEDS: 0.9 % Sodium Chloride Flush 3 ML SYRINGE IVFLUSH ×2 (08:24→16:40)
[2025-09-16] MEDS: Sodium,Potassium Phosphates POWD.PACK 1 PACKET PO ×4 (08:24→20:46)
[2025-09-16] MEDS: Metoprolol Succinate ER 25 MG TAB.ER.24H PO (08:24)
--- NOTE | 2025-09-16 12:51 | P.PNIM_ITS ---
Subjective Subjective Date of Service: 09/16/25 Interval History: po inatke low ,on tpn Review of Systems encourage for po intake. Review of Systems: Yes all other systems are reviewed and are negative Physical Exam 2 Exam: Exam: General: AO X 3, frail and ill-appearing Resp: CTA bilateral, no accessory muscles used CVS: S1,S2,RRR GI: soft, mildly tender to deep palpation, non distended Neuro: motor grossly intact, alert Psych: appropriate affect, appropriate insight Vital Signs: Vital Signs: Last Vital Signs Temp 97.6 F 09/16/25 07:29 Pulse 97 09/16/25 07:29 Resp 16 09/16/25 07:29 BP 117/66 09/16/25 07:29 Pulse Ox 97 09/16/25 07:29 O2 Del Method Room Air 09/16/25 07:29 BMI result Body Mass Index 27.7 Objective Data Active Medications Acetaminophen (Acetaminophen 325 Mg Tablet) 650 mg PO Q6H PRN PRN Reason: Pain, Mild 1-3,fever,headache Apixaban (Apixaban 5 Mg Tablet) 5 mg PO BID KATHY Last Admin: 09/16/25 08:24 Dose: 5 mg Documented By: TIMMY Calcium Carbonate (Calcium Carbonate 750 Mg Tab.Chew) 750 mg PO Q4H PRN PRN Reason: Heartburn Ceftriaxone Sodium (Ceftriaxone Sodium 1 Gm Vial) 1 gm IVPUSH Q24H [facility] Last Admin: 09/16/25 11:33 Dose: 1 gm Documented By: TIMMY Nutrition (Parenteral) (Parenteral Nutrition) 2,160 mls @ 90 mls/hr IV .Q24H KATHY; Protocol Stop: 09/16/25 20:59 Last Admin: 09/15/25 20:17 Dose: 90 mls/hr Documented By: URIAH Nutrition (Parenteral) (Parenteral Nutrition) 2,160 mls @ 90 mls/hr IV .Q24H [facility]; Protocol Stop: 09/17/25 20:59 Magnesium Hydroxide (Milk Of Magnesia 30 Ml Oral.Susp) 30 ml PO DAILY PRN PRN Reason: Constipation Melatonin (Melatonin 3 Mg Tablet) 6 mg PO BEDTIME PRN PRN Reason: Insomnia Last Admin: 09/15/25 20:12 Dose: 6 mg Documented By: URIAH Metoprolol Succinate (Metoprolol Succinate Er 25 Mg Tab.Er.24h) 25 mg PO DAILY [facility]; Protocol Last Admin: 09/16/25 08:24 Dose: 25 mg Documented By: TIMMY Ondansetron HCl (Ondansetron Hcl 4 Mg/2 Ml Vial) 4 mg IVPUSH Q8H PRN PRN Reason: Nausea and Vomiting Last Admin: 09/13/25 20:01 Dose: 4 mg Documented By: SULMA Pharmacy Consult (Consult Rx Parenteral Nutrition Ordering) 1 each MISCELLANE DAILY PRN PRN Reason: Consult order Potassium Phos/Sodium Phos (Sodium,Potassium Phosphates Powd.Pack) 1 packet PO QID [facility] Last Admin: 09/16/25 08:24 Dose: 1 packet Documented By: TIMMY Senna (Sennosides 8.6 Mg Tablet) 17.2 mg PO BEDTIME [facility] Last Admin: 09/15/25 20:13 Dose: 17.2 mg Documented By: URIAH Sodium Biphosphate/Sodium Phosphate (Sodium Phosphate,[place]-Dibasic 133 Ml Enema) 118 ml IN DAILY PRN PRN Reason: Constipation Sodium Chloride (0.9 % Sodium Chloride Flush 3 Ml Syringe) 3 ml IVFLUSH QSHIFT [facility] Last Admin: 09/16/25 08:24 Dose: 3 ml Documented By: TIMMY Labs 09/13/25 07:07 09/16/25 05:38 Labs: Laboratory Results - last 24 hr 09/16/25 09/16/25 05:37 05:38 Hold Purple Top SEE NOTE Anion Gap 11 L Estim Creat Clear Calc 109.1 Estimated GFR > 60 Random Glucose 100 Calcium 8.2 L Phosphorus 3.4 Magnesium 1.8 Assessment and Plan (1) Lactic acidosis: Status: Acute Plan 84F PMH pafib, alzheimers dementia, history of PE, presented with hypotension SIRS and acute metabolic encephalopathy Sirs resolved, encephalopathy resolved, continue empiric rocephin for possible uti, urine culture mixed dorothy biliary stones, ?mirizzi with moderate protein calorie malnutrition and failure to thrive no obvious cholecystitis, no current signs of obstruction surgery appreciated - conservative managment,on ppn follow up gi- if unable to take po ,ma need alternative feeding dysphagia parking regulation enforcement officer eval - 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 intake does not improve may need alternative means of feeding. Quality Stroke Does the patient have a stroke diagnosis?: No VTE Prior VTE?: No VTE Risk Level:: Medical - moderate - high VTE Device Contraindication: Treatment Not Indicated VTE Drug Contraindication: N/A - Med Ordered
[2025-09-16 15:31] VITALS: BP 117/58; PULSE 98; RESP 18; TEMP 36.1; O2SAT 96
--- NOTE | 2025-09-16 17:58 | PC.NURSE ---
intake improving with supervision and encouragement. Pt ate a yogurt for breakfast. A small bag of chips, 1/4 of a cookie and an ice cream for lunch, and 1/4 of a ham sandwich and a small bag of chips for dinner.
[2025-09-16 20:00] VITALS: BP 126/56; PULSE 102; RESP 16; TEMP 36.4; O2SAT 97
[2025-09-16] MEDS: Parenteral Nutrition 2,160 ML 90 ML IV (20:45)
[2025-09-17 03:26] VITALS: BP 109/76; PULSE 93; RESP 18; TEMP 36.2; O2SAT 97
[2025-09-17 07:33] VITALS: BP 120/61; PULSE 85; RESP 20; TEMP 36.1; O2SAT 96
--- NOTE | 2025-09-17 07:49 | P.PNIM_ITS ---
Subjective Subjective Date of Service: 09/17/25 Interval History: dec po intake Review of Systems still po intake is in 25-50% on tpn Review of Systems: Yes all other systems are reviewed and are negative Physical Exam 2 Exam: Exam: General:calm, frail and ill-appearing Resp: CTA bilateral, no accessory muscles used CVS: S1,S2,RRR GI: soft, mildly tender to deep palpation, non distended Neuro: motor grossly intact, alert Psych: appropriate affect, appropriate insight Vital Signs: Vital Signs: Last Vital Signs Temp 97.0 F 09/17/25 07:33 Pulse 85 09/17/25 07:33 Resp 20 09/17/25 07:33 BP 120/61 09/17/25 07:33 Pulse Ox 96 09/17/25 07:33 O2 Del Method Room Air 09/17/25 07:33 BMI result Body Mass Index 27.7 Objective Data Active Medications Acetaminophen (Acetaminophen 325 Mg Tablet) 650 mg PO Q6H PRN PRN Reason: Pain, Mild 1-3,fever,headache Last Admin: 09/16/25 20:46 Dose: 650 mg Documented By: JEWELS Apixaban (Apixaban 5 Mg Tablet) 5 mg PO BID [facility] Last Admin: 09/16/25 20:46 Dose: 5 mg Documented By: JEWELS Calcium Carbonate (Calcium Carbonate 750 Mg Tab.Chew) 750 mg PO Q4H PRN PRN Reason: Heartburn Ceftriaxone Sodium (Ceftriaxone Sodium 1 Gm Vial) 1 gm IVPUSH Q24H [facility] [place] Last Admin: 09/16/25 11:33 Dose: 1 gm Documented By: LUCIAME Nutrition (Parenteral) (Parenteral Nutrition) 2,160 mls @ 90 mls/hr IV .Q24H [facility]; Protocol Stop: 09/17/25 20:59 Last Admin: 09/16/25 20:45 Dose: 90 mls/hr Documented By: JEWELS Magnesium Hydroxide (Milk Of Magnesia 30 Ml Oral.Susp) 30 ml PO DAILY PRN PRN Reason: Constipation Melatonin (Melatonin 3 Mg Tablet) 6 mg PO BEDTIME PRN PRN Reason: Insomnia Last Admin: 09/16/25 20:46 Dose: 6 mg Documented By: JEWELS Metoprolol Succinate (Metoprolol Succinate Er 25 Mg Tab.Er.24h) 25 mg PO DAILY [facility]; Protocol Last Admin: 09/16/25 08:24 Dose: 25 mg Documented By: TIMMY Ondansetron HCl (Ondansetron Hcl 4 Mg/2 Ml Vial) 4 mg IVPUSH Q8H PRN PRN Reason: Nausea and Vomiting Last Admin: 09/13/25 20:01 Dose: 4 mg Documented By: SULMA Pharmacy Consult (Consult Rx Parenteral Nutrition Ordering) 1 each MISCELLANE DAILY PRN PRN Reason: Consult order Potassium Phos/Sodium Phos (Sodium,Potassium Phosphates Powd.Pack) 1 packet PO QID [facility] Last Admin: 09/16/25 20:46 Dose: 1 packet Documented By: JEWELS Senna (Sennosides 8.6 Mg Tablet) 17.2 mg PO BEDTIME [facility] Last Admin: 09/16/25 20:46 Dose: 17.2 mg Documented By: JEWELS Sodium Biphosphate/Sodium Phosphate (Sodium Phosphate,[place]-Dibasic 133 Ml Enema) 118 ml [place] DAILY PRN PRN Reason: Constipation Sodium Chloride (0.9 % Sodium Chloride Flush 3 Ml Syringe) 3 ml IVFLUSH QSHIFT [facility] Last Admin: 09/16/25 22:28 Dose: Not Given Documented By: JEWELS Non-Admin Reason: Previously Administered Labs 09/13/25 07:07 09/17/25 08:53 Assessment and Plan (1) Lactic acidosis: Status: Acute Plan 84F PMH pafib, alzheimers dementia, history of PE, presented with hypotension SIRS and acute metabolic encephalopathy Sirs resolved, encephalopathy resolved, continue empiric rocephin for possible uti, urine culture mixed dorothy biliary stones, ?mirizzi with moderate protein calorie malnutrition and failure to thrive no obvious cholecystitis, no current signs of obstruction surgery appreciated - conservative managment, completed antibiotics ,on ppn follow up gi- if unable to take po ,ma need alternative feeding 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 intake does not improve may need alternative means of feeding. Quality Stroke Does the patient have a stroke diagnosis?: No VTE Prior VTE?: No VTE Risk Level:: Medical - moderate - high VTE Device Contraindication: Treatment Not Indicated VTE Drug Contraindication: N/A - Med Ordered
[2025-09-17] MEDS: 0.9 % Sodium Chloride Flush 3 ML SYRINGE IVFLUSH ×2 (09:08→16:32)
[2025-09-17] MEDS: Sodium,Potassium Phosphates POWD.PACK 1 PACKET PO ×4 (09:08→20:11)
[2025-09-17] MEDS: Metoprolol Succinate ER 25 MG TAB.ER.24H PO (09:08)
[2025-09-17 10:11] LABS: Anion Gap 13 (12-20); Blood Urea Nitrogen 12 mg/dL (9-16); Calcium 8.6 mg/dL (8.4-10.2); Carbon Dioxide 24 mmol/L (22-29); Chloride 106 mmol/L (96-108); Creatinine Clr Calc Pharmacy 112.0; Estimated Glomerular Filt Rate > 60; Magnesium 2.0 mg/dL (1.6-2.6); Potassium 4.6 mmol/L (3.3-5.1); Sodium 138 mmol/L (135-145)
[2025-09-17 16:12] VITALS: BP 107/51; PULSE 92; RESP 18; TEMP 36.3; O2SAT 96
--- NOTE | 2025-09-17 18:01 | PC.NURSE ---
Pt is still struggling with intake. She refused breakfast and dinner but ate 25% at lunch.
[2025-09-17 20:00] VITALS: BP 128/74; PULSE 59; RESP 19; TEMP 36.2; O2SAT 96
[2025-09-17] MEDS: Parenteral Nutrition 2,160 ML 90 ML IV (21:51)
[2025-09-18 03:32] VITALS: BP 122/57; PULSE 80; RESP 18; TEMP 36.8; O2SAT 94
[2025-09-18 06:12] LABS: Anion Gap 13 (12-20); Blood Urea Nitrogen 16 mg/dL (9-16); Calcium 8.6 mg/dL (8.4-10.2); Carbon Dioxide 21 mmol/L (22-29); Chloride 106 mmol/L (96-108); Creatinine Clr Calc Pharmacy 98.9; Estimated Glomerular Filt Rate > 60; Magnesium 2.1 mg/dL (1.6-2.6); Potassium 5.5 mmol/L (3.3-5.1); Sodium 134 mmol/L (135-145)
[2025-09-18 07:50] VITALS: BP 109/55; PULSE 91; RESP 18; TEMP 36.7; O2SAT 95
[2025-09-18] MEDS: 0.9 % Sodium Chloride Flush 3 ML SYRINGE IVFLUSH (08:38)
[2025-09-18 08:41] VITALS: BP 99/56; PULSE 98
--- NOTE | 2025-09-18 10:08 | MHC.CLN ---
F/U PO INTAKE VARIABLE WITH AVERAGE INTAKE APPROX 25%. DIET RX: REGULAR. RECEIVING ENSURE MAX BID TO PROMOTE WOUND HEALING. SUPPLEMENT PROVIDES 300 KCALS, 60 G PROTEIN WITH 100% ACCEPTANCE. SKIN WITH STAGE 2 AND STAGE 3 CLUSTER OF WOUNDS TO COCCYX. REVIEWED LABS. COMMUNICATED WITH PHARMACY. RECOMMEND PPN AT 90ML/HR WITH 35G LIPIDS TO PROVIDE 1452 TOTAL KCALS (23.6KCALS/KG CMW), 216G DEXTROSE, 92G PROTEIN (1.5G/KG CMW-TO PROMOTE WOUND HEALING). REPLETE LYTES NEEDED. TOTAL CALORIES DECREASED TO REFLECT PO INTAKE. CONTINUE TO MONITOR PO INTAKE CLOSELY; GOAL TO REDUCE PPN PO INTAKE IMPROVES.
--- NOTE | 2025-09-18 13:12 | P.PNIM_ITS ---
Subjective Subjective Date of Service: 09/18/25 Interval History: dec po intake Review of Systems hyperkalemia po intake is still between 25-50% ppn Review of Systems: Yes all other systems are reviewed and are negative Physical Exam 2 Exam: Exam: General:calm, frail and ill-appearing Resp: CTA bilateral, no accessory muscles used CVS: S1,S2,RRR GI: soft, mildly tender to deep palpation, non distended Neuro: motor grossly intact, alert Psych: appropriate affect, appropriate insigh Vital Signs: Vital Signs: Last Vital Signs Temp 98.1 F 09/18/25 07:50 Pulse 98 09/18/25 08:41 Resp 18 09/18/25 07:50 BP 99/56 L 09/18/25 08:41 Pulse Ox 95 09/18/25 07:50 O2 Del Method Room Air 09/18/25 07:50 BMI result Body Mass Index 27.7 Objective Data Active Medications Acetaminophen (Acetaminophen 325 Mg Tablet) 650 mg PO Q6H PRN PRN Reason: Pain, Mild 1-3,fever,headache Last Admin: 09/17/25 09:29 Dose: 650 mg Documented By: TIMMY Apixaban (Apixaban 5 Mg Tablet) 5 mg PO BID [facility] Last Admin: 09/18/25 08:36 Dose: 5 mg Documented By: TIM Calcium Carbonate (Calcium Carbonate 750 Mg Tab.Chew) 750 mg PO Q4H PRN PRN Reason: Heartburn Nutrition (Parenteral) (Parenteral Nutrition) 2,160 mls @ 90 mls/hr IV .Q24H [facility]ATHY; Protocol Stop: 09/18/25 20:59 Last Admin: 09/17/25 21:51 Dose: 90 mls/hr Documented By: RAQUELRISM Nutrition (Parenteral) (Parenteral Nutrition) 2,160 mls @ 90 mls/hr IV .Q24H [facility]; Protocol Stop: 09/19/25 20:59 Magnesium Hydroxide (Milk Of Magnesia 30 Ml Oral.Susp) 30 ml PO DAILY PRN PRN Reason: Constipation Melatonin (Melatonin 3 Mg Tablet) 6 mg PO BEDTIME PRN PRN Reason: Insomnia Last Admin: 09/16/25 20:46 Dose: 6 mg Documented By: JEWELS Metoprolol Succinate (Metoprolol Succinate Er 25 Mg Tab.Er.24h) 25 mg PO DAILY [facility]; Protocol Last Admin: 09/18/25 08:46 Dose: Not Given Documented By: TIM Non-Admin Reason: BP Soft- Dr. Amador duval. Ondansetron HCl (Ondansetron Hcl 4 Mg/2 Ml Vial) 4 mg IVPUSH Q8H PRN PRN Reason: Nausea and Vomiting Last Admin: 09/13/25 20:01 Dose: 4 mg Documented By: SULMA Pharmacy Consult (Consult Rx Parenteral Nutrition Ordering) 1 each MISCELLANE DAILY PRN PRN Reason: Consult order Senna (Sennosides 8.6 Mg Tablet) 17.2 mg PO BEDTIME [facility]ATHY Last Admin: 09/17/25 20:14 Dose: Not Given Documented By: GREGG Non-Admin Reason: loose stools Sodium Biphosphate/Sodium Phosphate (Sodium Phosphate,[place]-Dibasic 133 Ml Enema) 118 ml [place] DAILY PRN PRN Reason: Constipation Sodium Chloride (0.9 % Sodium Chloride Flush 3 Ml Syringe) 3 ml IVFLUSH QSHIFT [facility] Last Admin: 09/18/25 08:38 Dose: 3 ml Documented By: TIM Labs 09/13/25 07:07 09/18/25 05:20 Labs: Laboratory Results - last 24 hr 09/18/25 05:20 Hold Purple Top SEE NOTE Anion Gap 13 Estim Creat Clear Calc 98.9 Estimated GFR > 60 Random Glucose 90 Calcium 8.6 Phosphorus 3.6 Magnesium 2.1 Assessment and Plan (1) Lactic acidosis: Status: Acute Plan 84F PMH pafib, alzheimers dementia, history of PE, presented with hypotension SIRS and acute metabolic encephalopathy Sirs resolved, encephalopathy resolved, continue empiric rocephin for possible uti, urine culture mixed dorothy biliary stones, ?mirizzi with moderate protein calorie malnutrition and failure to thrive no obvious cholecystitis, no current signs of obstruction surgery appreciated - conservative managment, completed antibiotics ,on ppn hyperkalemia -given po loklema follow up gi- if unable to take po ,ma need alternative feeding 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
[2025-09-18 16:26] VITALS: BP 126/60; PULSE 90; RESP 18; TEMP 36.7; O2SAT 95
--- NOTE | 2025-09-18 16:30 | MHC.CM.PN ---
PER MD ROUNDS, PT PO INTAKE IS STILL LOW, MD TO DISCUSS OPTIONS WITH FAMILY DCP IS CURRENTLY TO RETURN TO [facility]
--- NOTE | 2025-09-18 18:36 | HO.WOUND ---
Wound Consult: Follow up 84 yr old female admitted to [facility] [place] on 09/08/25 - See progress notes and H&P for detailed history. Wound consult follow up for coccyx. Patient agreeable to assessment. At the time of my assessment Triad and Foam dressing recently applied and unable to fully observe wound beds. Given recent assessment and appropriate topical treatment defer assessment at this time. Discussed with direct care nurse - no new concerns noted at this time. Chart review and discussion with staff reveals HUONG in place, Q2 hr turns in process and heels elevated. No new topical recommendations needed at this time. 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 Left buttock DTI POA, now declared as stage 2 pressure injury, Right buttock with cluster of wounds, DTI on admission, now stage 3 pressure injury as is full thickness. Goals of Treatment: ? triad to provide an occlusive dressing for autolytic debridment, to allow moist wound healing with absorption of mild exudate, to minimize contamination of urine/stool or bacteria, and to soothe and protect juliano wound skin. cover with foam. Recommendations: 1. Turn and Reposition every 2 hours and as needed for patient comfort. Use pillows or wedges to support off loading positions. 2. Off Load all bony prominences with use of pillows and heel boots if needed. Apply Preventative foams where needed. 3. Monitor for incontinence and moisture control, use barrier creams when needed for prevention and treatment. 4. Provide adequate and supplemental nutrition. 5. Order or Continue low air loss mattress. 6. When applicable maintain blood glucose levels per Providers order. Coccyx, bilateral buttocks: Off Load Pressure with Q2 hr turns and use of pillows - Cleanse with PH balance spray or wipes, pat dry. ?Apply thin layer of Triad to wound bed. Do not remove all of paste between applications as this may cause further skin damage.? Cover with foam dressing to aid in off loading and protection from friction. Change every other day and PRN. Re-consult wound care Nurse for wound deterioration or wound changes.
[2025-09-18 20:00] VITALS: BP 121/58; PULSE 98; RESP 18; TEMP 36.7; O2SAT 96
--- NOTE | 2025-09-18 20:30 | P.PNGI_ITS ---
Subjective Subjective Date of Service: 09/18/25 Interval History: Mrs Page has no complaints Critical Care Time (minutes): 0 Physical Exam 2 Vital Signs: Vital Signs: Last Vital Signs Temp 98.1 F 09/18/25 20:00 Pulse 98 09/18/25 20:00 Resp 18 09/18/25 20:00 BP 121/58 L 09/18/25 20:00 Pulse Ox 96 09/18/25 20:00 O2 Del Method Room Air 09/18/25 20:00 BMI result Body Mass Index 27.7 GI: Other: abdomen is soft and nontender Objective Data Labs 09/13/25 07:07 09/18/25 05:20 Labs: Laboratory Results - last 24 hr 09/18/25 05:20 Hold Purple Top SEE NOTE Sodium 134 L Potassium 5.5 H Chloride 106 Carbon Dioxide 21 L Anion Gap 13 BUN 16 Creatinine 0.43 L Estim Creat Clear Calc 98.9 Estimated GFR > 60 Random Glucose 90 Calcium 8.6 Phosphorus 3.6 Magnesium 2.1 Microbiology Microbiology Results: Microbiology 09/08/25 17:44 Blood - Venous Blood Culture - Final No growth after 5 days. 09/08/25 16:56 Blood - Venous Blood Culture - Final No growth after 5 days. 09/08/25 19:09 Urine clean catch - Clean Catch Midstream Urine Culture - Final Procedures Date of Service Date of Service: 09/18/25 Progress Note: A&P Assessment and plan (1) AMS (altered mental status): Status: Acute Assessment and Plan: g tube Plan g tube placement has been requested by Dr English I discussed this with the pateient and her son,, and they wish to proceed. She will need to be off DOAC meds for 48 hours prior to the procedure. Time Spent With Patient Time: Total time managing care of this patient today ____ minutes. Quality Stroke Does the patient have a stroke diagnosis?: No VTE Prior VTE?: No VTE Risk Level:: Medical - moderate - high VTE Device Contraindication: Treatment Not Indicated VTE Drug Contraindication: N/A - Med Ordered
[2025-09-18] MEDS: Parenteral Nutrition 2,160 ML 90 ML IV (21:34)
[2025-09-19 04:00] VITALS: BP 122/58; PULSE 90; RESP 18; TEMP 36.2; O2SAT 94
[2025-09-19 05:55] LABS: Anion Gap 10 (12-20); Blood Urea Nitrogen 15 mg/dL (9-16); Calcium 8.8 mg/dL (8.4-10.2); Carbon Dioxide 25 mmol/L (22-29); Chloride 106 mmol/L (96-108); Creatinine Clr Calc Pharmacy 112.0; Estimated Glomerular Filt Rate > 60; Magnesium 2.0 mg/dL (1.6-2.6); Potassium 4.3 mmol/L (3.3-5.1); Sodium 137 mmol/L (135-145)
[2025-09-19 07:57] VITALS: BP 136/64; PULSE 95; RESP 17; TEMP 36.1; O2SAT 95
[2025-09-19] MEDS: Metoprolol Succinate ER 25 MG TAB.ER.24H PO (08:07)
--- NOTE | 2025-09-19 09:41 | P.CONAN_ITS ---
Documented by User: Jenelle Otero NP 09/19/25 12:05 HPI - Anesthesia Eval Consult details Narrative: 84 yr old female for upper endoscopy, PEG insertion *DNR/DNI Here from [facility] [place], was admitted to rehab after admission at [facility] 07/2025; per son pt had ERCP while at [facility], no trouble with anesthesia. Afib & PE: per ED/hospitalist notes during current admission, pt diagnosed with afib & PE 07/2025; started on eliquis (currently on hold); chest CT 09/08 showing Small left segmental pulmonary arterial embolism. Spoke to son Parminder 09/19, no known cardiac hx prior to 07/2025 [facility] admission, does not believe pt had echo, not established with cardiology; has not followed up with PCP since [facility] admission due to being at rehab facility. Alzheimer's dementia: pt's son Parminder provides med hx. [facility] Active Problems Active Problems: All Active Problems Pulmonary embolism (Acute) UTI (urinary tract infection) (Acute) Lactic acidosis (Acute) Systemic inflammatory response syndrome (SIRS) associated with organ dysfunction (Acute) AMS (altered mental status) (Acute) Cholelithiasis (Acute) Sepsis (Acute) Lactate blood increase (Acute) Past Medical History Medical History Failure to thrive in adult Lactate blood increase Social History Social History Housing: Residential Do you presently have visiting nurse or other home services: Yes Patient Tobacco Use Status: Former Tobacco user Advance Directives Date on File: 09/09/25 service: No Meds Allergies Allergy/AdvReac Type Severity Reaction Status Date / Time No Known Allergies Allergy Verified 09/08/25 14:54 Active Medications: Current Medications Acetaminophen (Acetaminophen 325 Mg Tablet) 650 mg PO Q6H PRN PRN Reason: Pain, Mild 1-3,fever,headache Last Admin: 09/17/25 09:29 Dose: 650 mg Apixaban (Apixaban 5 Mg Tablet) 5 mg PO BID KATHY On Hold: 09/18/25 15:22 Last Admin: 09/18/25 08:36 Dose: 5 mg Calcium Carbonate (Calcium Carbonate 750 Mg Tab.Chew) 750 mg PO Q4H PRN PRN Reason: Heartburn Nutrition (Parenteral) (Parenteral Nutrition) 2,160 mls @ 90 mls/hr IV .Q24H [facility]; Protocol Stop: 09/19/25 20:59 Last Admin: 09/18/25 21:34 Dose: 90 mls/hr Nutrition (Parenteral) (Parenteral Nutrition) 2,160 mls @ 90 mls/hr IV .Q24H KATHY; Protocol Stop: 09/20/25 20:59 Magnesium Hydroxide (Milk Of Magnesia 30 Ml Oral.Susp) 30 ml PO DAILY PRN PRN Reason: Constipation Melatonin (Melatonin 3 Mg Tablet) 6 mg PO BEDTIME PRN PRN Reason: Insomnia Last Admin: 09/16/25 20:46 Dose: 6 mg Metoprolol Succinate (Metoprolol Succinate Er 25 Mg Tab.Er.24h) 25 mg PO DAILY [facility]; Protocol Last Admin: 09/19/25 08:07 Dose: 25 mg Ondansetron HCl (Ondansetron Hcl 4 Mg/2 Ml Vial) 4 mg IVPUSH Q8H PRN PRN Reason: Nausea and Vomiting Last Admin: 09/13/25 20:01 Dose: 4 mg Pharmacy Consult (Consult Rx Parenteral Nutrition Ordering) 1 each MISCELLANE DAILY PRN PRN Reason: Consult order Senna (Sennosides 8.6 Mg Tablet) 17.2 mg PO BEDTIME [facility] Last Admin: 09/18/25 21:45 Dose: Not Given Sodium Biphosphate/Sodium Phosphate (Sodium Phosphate,[place]-Dibasic 133 Ml Enema) 118 ml NC DAILY PRN PRN Reason: Constipation Sodium Chloride (0.9 % Sodium Chloride Flush 3 Ml Syringe) 3 ml IVFLUSH QSHIFT [facility] Last Admin: 09/19/25 08:06 Dose: Not Given Home Medications ?Medication ?Instructions ?Recorded ?Confirmed ?Last Taken ?Type acetaminophen 325 mg tablet 650 mg PO Q6H PRN Fever Or Pain 09/08/25 09/08/25 Unknown History apixaban 5 mg tablet (Eliquis) 5 mg PO BID 09/08/25 Unknown History bisacodyl 10 mg rectal suppository 10 mg NC DAILY PRN Constipation 09/08/25 09/08/25 Unknown History diclofenac sodium 1 % topical gel 2 g topical TID 08/3009/08/25 Unknown History magnesium hydroxide 400 mg/5 mL 30 ml PO DAILY PRN Con stipation 09/08/25 09/08/25 Unknown History oral suspension (Milk of Magnesia) metoprolol succinate 25 mg 25 mg PO DAILY 09/08/2509/23 Unknown History tablet,extended release 24 hr nystatin 100,000 unit/mL oral 5 ml PO QID 09/08/2509/23 Unknown History suspension sennosides 8.6 mg tablet (senna) 17.2 mg PO BEDTIME 09/08/25 Unknown History sodium phosphates 19 gram-7 118 ml NC DAILY PRN Consti pation 09/08/25 09/08/25 Unknown History gram/118 mL enema (Fleet Enema) Exam Height,Weight and Vital Signs: Height 5 ft 5 in Weight 75.5 kg Last Vital Signs Temp 97.0 F 09/19/25 07:57 Pulse 95 09/19/25 07:57 Resp 17 09/19/25 07:57 BP 136/64 09/19/25 07:57 Pulse Ox 95 09/19/25 07:57 O2 Del Method Room Air 09/19/25 07:57 Pertinent Lab Results Pertinent Lab Results: Laboratory Tests 09/08/25 09/08/25 09/08/25 15:01 16:10 16:56 WBC 18.2 H RBC 3.42 L Hgb 12.1 Hct 37.5 MCV 109.6 H MCH 35.4 H MCHC 32.3 RDW 15.6 Plt Count 203 MPV 11.3 Immature Gran % (Auto) 0.6 H Neut % (Auto) 72.9 Lymph % (Auto) 17.5 L [place] % (Auto) 8.8 Eos % (Auto) 0.0 Baso % (Auto) 0.2 Lymph # (Auto) 3.2 [place] # (Auto) 1.6 H Eos # (Auto) 0.0 Baso # (Auto) 0.0 Abs Immat Gran (auto) 0.11 H Absolute Neuts (auto) 13.3 H Absolute Nucleated RBC 0.020 H Nucleated RBC % (auto) 0.1 Smear Tech's Comments VERIFIED Smear Path Review Hold Purple Top Sodium 145 Potassium 4.7 Chloride 110 H Carbon Dioxide 19 L Anion Gap 21 H BUN 21 H Creatinine 0.87 Estim Creat Clear Calc 48.9 Estimated GFR > 60 POC Glucose 101 Random Glucose 115 Lactic Acid 5.9 H* Lactic Acid F/U @ 2Hr Lactic Acid F/U @ 4Hr Calcium 9.1 D Phosphorus Magnesium Total Bilirubin 2.0 H Direct Bilirubin AST 59 H ALT 22 Alkaline Phosphatase 145 H Total Creatine Kinase 13 L Total Protein 6.6 Albumin 3.3 L Triglycerides Lipase 17 Hold Yellow Top Urine Color Urine Appearance Urine pH Ur Specific [place] Urine Protein Urine Glucose (UA) Urine Ketones Urine Blood Urine Nitrite Ur Leukocyte Esterase Urine RBC Urine WBC Ur Squamous Epith Cells Other Crystals Urine Bacteria Hyaline Casts Influenza Type A (PCR) NEGATIVE Influenza Type B (PCR) NEGATIVE RSV RNA Qual (PCR) NEGATIVE SARS-CoV-2 RNA (RT-PCR) NEGATIVE 09/08/25 09/08/25 09/08/25 18:40 19:28 22:12 WBC RBC Hgb Hct MCV MCH MCHC RDW Plt Count MPV Immature Gran % (Auto) Neut % (Auto) Lymph % (Auto) [place] % (Auto) Eos % (Auto) Baso % (Auto) Lymph # (Auto) [place] # (Auto) Eos # (Auto) Baso # (Auto) Abs Immat Gran (auto) Absolute Neuts (auto) Absolute Nucleated RBC Nucleated RBC % (auto) Smear Tech's Comments Smear Path Review Hold Purple Top Sodium Potassium Chloride Carbon Dioxide Anion Gap BUN Creatinine Estim Creat Clear Calc Estimated GFR POC Glucose Random Glucose Lactic Acid Lactic Acid F/U @ 2Hr 3.6 H* Lactic Acid F/U @ 4Hr 2.2 H* Calcium Phosphorus Magnesium Total Bilirubin Direct Bilirubin AST ALT Alkaline Phosphatase Total Creatine Kinase Total Protein Albumin Triglycerides Lipase Hold Yellow Top Urine Color Yellow Urine Appearance Clear Urine pH 6.5 Ur Specific [place] 1.015 Urine Protein Trace Urine Glucose (UA) Negative Urine Ketones Trace Urine Blood Trace H Urine Nitrite Negative Ur Leukocyte Esterase Moderate (2+) H Urine RBC 3-5 H Urine WBC 6-10 H Ur Squamous Epith Cells 6-10 Other Crystals Present Urine Bacteria 1+ Hyaline Casts 3-5 Influenza Type A (PCR) Influenza Type B (PCR) RSV RNA Qual (PCR) SARS-CoV-2 RNA (RT-PCR) 09/09/25 09/10/25 09/11/25 08:37 05:41 06:09 WBC 11.6 H 8.1 9.0 RBC 3.30 L 2.83 L 2.98 L Hgb 11.3 L 10.0 L 10.4 L Hct 36.2 L 30.7 L 33.2 L MCV 109.7 H 108.5 H 111.4 H MCH 34.2 H 35.3 H 34.9 H MCHC 31.2 32.6 31.3 RDW 15.6 15.5 15.7 Plt Count 151 L D 149 L 162 MPV 11.3 10.9 11.2 Immature Gran % (Auto) 0.4 0.5 H 1.0 H Neut % (Auto) 53.4 48.1 47.1 Lymph % (Auto) 32.6 36.6 36.3 [place] % (Auto) 12.9 H 12.2 H 11.6 H Eos % (Auto) 0.3 2.0 3.4 Baso % (Auto) 0.4 0.6 0.6 Lymph # (Auto) 3.8 3.0 3.3 [place] # (Auto) 1.5 H 1.0 1.0 Eos # (Auto) 0.0 0.2 0.3 Baso # (Auto) 0.1 0.1 0.1 Abs Immat Gran (auto) 0.05 H 0.04 H 0.09 H Absolute Neuts (auto) 6.2 3.9 4.2 Absolute Nucleated RBC 0.000 0.000 0.020 H Nucleated RBC % (auto) 0.0 0.0 0.2 Smear Tech's Comments VERIFIED VERIFIED Smear Path Review SEE NOTE Hold Purple Top Sodium 145 145 146 H Potassium 3.8 2.9 L* D 4.2 D Chloride 111 H 111 H 113 H Carbon Dioxide 20 L 23 23 Anion Gap 18 14 14 BUN 17 H 13 13 Creatinine 0.58 0.48 L 0.49 L Estim Creat Clear Calc 73.4 88.7 86.9 Estimated GFR > 60 > 60 > 60 POC Glucose Random Glucose 73 77 78 Lactic Acid Lactic Acid F/U @ 2Hr Lactic Acid F/U @ 4Hr Calcium 8.2 L D 8.0 L 8.1 L Phosphorus Magnesium 1.5 L Total Bilirubin 1.2 H 1.0 1.1 H Direct Bilirubin 0.6 H AST 50 H 45 H 42 H ALT 20 17 14 Alkaline Phosphatase 122 H 103 112 Total Creatine Kinase Total Protein 5.8 L 5.1 L 5.3 L Albumin 2.8 L 2.6 L 2.6 L Triglycerides Lipase Hold Yellow Top Urine Color Urine Appearance Urine pH Ur Specific [place] Urine Protein Urine Glucose (UA) Urine Ketones Urine Blood Urine Nitrite Ur Leukocyte Esterase Urine RBC Urine WBC Ur Squamous Epith Cells Other Crystals Urine Bacteria Hyaline Casts Influenza Type A (PCR) Influenza Type B (PCR) RSV RNA Qual (PCR) SARS-CoV-2 RNA (RT-PCR) 09/12/25 09/13/25 09/14/25 06:41 07:07 07:06 WBC 8.7 8.5 RBC 2.93 L 2.96 L Hgb 10.2 L 10.2 L Hct 31.4 L 30.4 L MCV 107.2 H 102.7 H MCH 34.8 H 34.5 H MCHC 32.5 33.6 RDW 15.3 14.8 Plt Count 153 L 160 MPV 11.3 10.7 Immature Gran % (Auto) Neut % (Auto) Lymph % (Auto) [place] % (Auto) Eos % (Auto) Baso % (Auto) Lymph # (Auto) [place] # (Auto) Eos # (Auto) Baso # (Auto) Abs Immat Gran (auto) Absolute Neuts (auto) Absolute Nucleated RBC 0.020 H 0.020 H Nucleated RBC % (auto) 0.2 0.2 Smear Tech's Comments Smear Path Review Hold Purple Top Sodium 144 139 Potassium 3.4 2.7 L* D Chloride 109 H 103 Carbon Dioxide 25 25 Anion Gap 13 14 BUN 10 6 L Creatinine 0.38 L 0.36 L Estim Creat Clear Calc 112.0 118.2 Estimated GFR > 60 > 60 POC Glucose Random Glucose 78 76 Lactic Acid Lactic Acid F/U @ 2Hr Lactic Acid F/U @ 4Hr Calcium 7.9 L 7.6 L Phosphorus 2.0 L 2.3 L Magnesium 1.7 1.4 L* 1.8 Total Bilirubin 1.1 H 1.1 H Direct Bilirubin 0.6 H 0.6 H AST 46 H 43 H ALT 12 16 Alkaline Phosphatase 105 104 Total Creatine Kinase Total Protein 5.3 L 5.0 L Albumin 2.6 L 2.6 L Triglycerides 97 Lipase Hold Yellow Top Urine Color Urine Appearance Urine pH Ur Specific [place] Urine Protein Urine Glucose (UA) Urine Ketones Urine Blood Urine Nitrite Ur Leukocyte Esterase Urine RBC Urine WBC Ur Squamous Epith Cells Other Crystals Urine Bacteria Hyaline Casts Influenza Type A (PCR) Influenza Type B (PCR) RSV RNA Qual (PCR) SARS-CoV-2 RNA (RT-PCR) 09/14/25 09/14/25 09/15/25 09:46 09:50 05:20 WBC RBC Hgb Hct MCV MCH MCHC RDW Plt Count MPV Immature Gran % (Auto) Neut % (Auto) Lymph % (Auto) [place] % (Auto) Eos % (Auto) Baso % (Auto) Lymph # (Auto) [place] # (Auto) Eos # (Auto) Baso # (Auto) Abs Immat Gran (auto) Absolute Neuts (auto) Absolute Nucleated RBC Nucleated RBC % (auto) Smear Tech's Comments Smear Path Review Hold Purple Top SEE NOTE SEE NOTE Sodium 137 Potassium 3.3 D Chloride 103 Carbon Dioxide 26 Anion Gap 11 L BUN 10 Creatinine 0.40 L Estim Creat Clear Calc 106.4 Estimated GFR > 60 POC Glucose Random Glucose 119 H Lactic Acid Lactic Acid F/U @ 2Hr Lactic Acid F/U @ 4Hr Calcium 7.9 L Phosphorus Magnesium Total Bilirubin Direct Bilirubin AST ALT Alkaline Phosphatase Total Creatine Kinase Total Protein Albumin Triglycerides Lipase Hold Yellow Top See Note Urine Color Urine Appearance Urine pH Ur Specific [place] Urine Protein Urine Glucose (UA) Urine Ketones Urine Blood Urine Nitrite Ur Leukocyte Esterase Urine RBC Urine WBC Ur Squamous Epith Cells Other Crystals Urine Bacteria Hyaline Casts Influenza Type A (PCR) Influenza Type B (PCR) RSV RNA Qual (PCR) SARS-CoV-2 RNA (RT-PCR) 09/15/25 09/16/25 09/16/25 05:21 05:37 05:38 WBC RBC Hgb Hct MCV MCH MCHC RDW Plt Count MPV Immature Gran % (Auto) Neut % (Auto) Lymph % (Auto) [place] % (Auto) Eos % (Auto) Baso % (Auto) Lymph # (Auto) [place] # (Auto) Eos # (Auto) Baso # (Auto) Abs Immat Gran (auto) Absolute Neuts (auto) Absolute Nucleated RBC Nucleated RBC % (auto) Smear Tech's Comments Smear Path Review Hold Purple Top SEE NOTE Sodium 138 136 Potassium 3.5 3.9 Chloride 104 104 Carbon Dioxide 25 25 Anion Gap 13 11 L BUN 10 12 Creatinine 0.41 L 0.39 L Estim Creat Clear Calc 103.8 109.1 Estimated GFR > 60 > 60 POC Glucose Random Glucose 94 100 Lactic Acid Lactic Acid F/U @ 2Hr Lactic Acid F/U @ 4Hr Calcium 8.0 L 8.2 L Phosphorus 3.4 3.4 Magnesium 1.7 1.8 Total Bilirubin Direct Bilirubin AST ALT Alkaline Phosphatase Total Creatine Kinase Total Protein Albumin Triglycerides Lipase Hold Yellow Top Urine Color Urine Appearance Urine pH Ur Specific [place] Urine Protein Urine Glucose (UA) Urine Ketones Urine Blood Urine Nitrite Ur Leukocyte Esterase Urine RBC Urine WBC Ur Squamous Epith Cells Other Crystals Urine Bacteria Hyaline Casts Influenza Type A (PCR) Influenza Type B (PCR) RSV RNA Qual (PCR) SARS-CoV-2 RNA (RT-PCR) 09/17/25 09/17/25 09/18/25 08:53 08:54 05:20 WBC RBC Hgb Hct MCV MCH MCHC RDW Plt Count MPV Immature Gran % (Auto) Neut % (Auto) Lymph % (Auto) [place] % (Auto) Eos % (Auto) Baso % (Auto) Lymph # (Auto) [place] # (Auto) Eos # (Auto) Baso # (Auto) Abs Immat Gran (auto) Absolute Neuts (auto) Absolute Nucleated RBC Nucleated RBC % (auto) Smear Tech's Comments Smear Path Review Hold Purple Top SEE NOTE SEE NOTE Sodium 138 134 L Potassium 4.6 5.5 H Chloride 106 106 Carbon Dioxide 24 21 L Anion Gap 13 13 BUN 12 16 Creatinine 0.38 L 0.43 L Estim Creat Clear Calc 112.0 98.9 Estimated GFR > 60 > 60 POC Glucose Random Glucose 87 90 Lactic Acid Lactic Acid F/U @ 2Hr Lactic Acid F/U @ 4Hr Calcium 8.6 8.6 Phosphorus 3.7 3.6 Magnesium 2.0 2.1 Total Bilirubin Direct Bilirubin AST ALT Alkaline Phosphatase Total Creatine Kinase Total Protein Albumin Triglycerides Lipase Hold Yellow Top Urine Color Urine Appearance Urine pH Ur Specific [place] Urine Protein Urine Glucose (UA) Urine Ketones Urine Blood Urine Nitrite Ur Leukocyte Esterase Urine RBC Urine WBC Ur Squamous Epith Cells Other Crystals Urine Bacteria Hyaline Casts Influenza Type A (PCR) Influenza Type B (PCR) RSV RNA Qual (PCR) SARS-CoV-2 RNA (RT-PCR) 09/19/25 05:05 WBC RBC Hgb Hct MCV MCH MCHC RDW Plt Count MPV Immature Gran % (Auto) Neut % (Auto) Lymph % (Auto) [place] % (Auto) Eos % (Auto) Baso % (Auto) Lymph # (Auto) [place] # (Auto) Eos # (Auto) Baso # (Auto) Abs Immat Gran (auto) Absolute Neuts (auto) Absolute Nucleated RBC Nucleated RBC % (auto) Smear Tech's Comments Smear Path Review Hold Purple Top SEE NOTE Sodium 137 Potassium 4.3 D Chloride 106 Carbon Dioxide 25 Anion Gap 10 L BUN 15 Creatinine 0.38 L Estim Creat Clear Calc 112.0 Estimated GFR > 60 POC Glucose Random Glucose 93 Lactic Acid Lactic Acid F/U @ 2Hr Lactic Acid F/U @ 4Hr Calcium 8.8 Phosphorus 3.5 Magnesium 2.0 Total Bilirubin Direct Bilirubin AST ALT Alkaline Phosphatase Total Creatine Kinase Total Protein Albumin Triglycerides Lipase Hold Yellow Top Urine Color Urine Appearance Urine pH Ur Specific [place] Urine Protein Urine Glucose (UA) Urine Ketones Urine Blood Urine Nitrite Ur Leukocyte Esterase Urine RBC Urine WBC Ur Squamous Epith Cells Other Crystals Urine Bacteria Hyaline Casts Influenza Type A (PCR) Influenza Type B (PCR) RSV RNA Qual (PCR) SARS-CoV-2 RNA (RT-PCR) Narrative Narrative: EKG 09/08/25 Vent. Rate : 94 BPM Atrial Rate : 94 BPM P-R Int : 156 ms QRS Dur : 82 ms QT Int : 374 ms P-R-T Axes : 43 -19 98 degrees QTcB Int : 467 ms Sinus rhythm with occasional , and consecutive Premature ventricular complexes and Fusion complexes Left ventricular hypertrophy with repolarization abnormality ( R in aVL , [place] product , Romhilt-Lara ) Abnormal ECG When compared with ECG of 15-Dec-2006 08:21, Fusion complexes are now Present Premature ventricular complexes are now Present QT has lengthened Documented by User: Miriam Shah MD 09/20/25 12:34 [facility] Past Medical History Medical History Failure to thrive in adult Lactate blood increase Family History Family history of problems with anesthesia: No Surgical History History of Problems with Anesthesia: No Social History Social History Housing: Residential Do you presently have visiting nurse or other home services: Yes Patient Tobacco Use Status: Former Tobacco user Advance Directives Date on File: 09/09/25 service: No Meds Allergies Allergy/AdvReac Type Severity Reaction Status Date / Time No Known Allergies Allergy Verified 09/08/25 14:54 Home Medications ?Medication ?Instructions ?Recorded ?Confirmed ?Last Taken ?Type acetaminophen 325 mg tablet 650 mg PO Q6H PRN Fever Or Pain 09/08/25 09/08/25 Unknown History apixaban 5 mg tablet (Eliquis) 5 mg PO BID 09/08/25 Unknown History bisacodyl 10 mg rectal suppository 10 mg NC DAILY PRN Constipation 09/08/25 09/08/25 Unknown History diclofenac sodium 1 % topical gel 2 g topical TID 08/3009/08/25 Unknown History magnesium hydroxide 400 mg/5 mL 30 ml PO DAILY PRN Con stipation 09/08/25 09/08/25 Unknown History oral suspension (Milk of Magnesia) metoprolol succinate 25 mg 25 mg PO DAILY 09/08/2509/23 Unknown History tablet,extended release 24 hr nystatin 100,000 unit/mL oral 5 ml PO QID 09/08/2509/23 Unknown History suspension sennosides 8.6 mg tablet (senna) 17.2 mg PO BEDTIME 09/08/25 Unknown History sodium phosphates 19 gram-7 118 ml NC DAILY PRN Consti pation 09/08/25 09/08/25 Unknown History gram/118 mL enema (Fleet Enema) Exam Airway TM Dist: >3cm Neck ROM: Full Heart: rrr Lungs: cta Assessment and Plan Assessment Anesthesia Assessment: Anesthesia Plan Discussed and Chart Reviewed Final Anesthetic Review Family History of Problems with Anesthesia: No History of Problems with Anesthesia: No NPO: Yes ASA Class: III Final Preanesthetic Review: No Changes in Pt Med Stat, Meds/Allgs Chart Reviewed, Consent Obtained/Reviewed and Anes Risks/Benef Reviewed Patient Risk: Intermediate Procedure Risk: Low Anesthetic Plan Anesthetic Plan: MAC: and Agree w/ Assess. and Plan Disposition: Standard PACU
--- NOTE | 2025-09-19 10:53 | MHC.CLN ---
F/U PO INTAKE 25% DIET RX: REGULAR RECEIVING ENSURE MAX BID TO PROMOTE WOUND HEALING SUPPLEMENT PROVIDES 300 KCALS, 60 G PROTEIN WITH 100% ACCEPTANCE PT'S WOUNDS HAVE PROGRESSED AND PENDING PEG TUBE PLACEMENT PER MD REVIEWED LABS COMMUNICATED WITH PHARMACY RECOMMEND PPN AT 90ML/HR WITH 74G LIPIDS TO PROVIDE 1842TOTAL KCALS (30KCALS/KG CMW), 216G DEXTROSE, 92G PROTEIN (1.5G/KG CMW-TO PROMOTE WOUND HEALING) REPLETE LYTES NEEDED CONTINUE TO MONITOR PO INTAKE GOAL TO SWITCH TO TUBE FEEDING ONCE PEG IS PLACED
--- NOTE | 2025-09-19 14:22 | P.PNIM_ITS ---
Subjective Subjective Date of Service: 09/19/25 Interval History: Decreased p.o. intake Review of Systems No new event Review of Systems: Yes all other systems are reviewed and are negative Physical Exam 2 Exam: Exam: General:calm, frail and ill-appearing Resp: CTA bilateral, no accessory muscles used CVS: S1,S2,RRR GI: soft, mildly tender to deep palpation, non distended Neuro: motor grossly intact, alert Vital Signs: Vital Signs: Last Vital Signs Temp 97.0 F 09/19/25 07:57 Pulse 95 09/19/25 07:57 Resp 17 09/19/25 07:57 BP 136/64 09/19/25 07:57 Pulse Ox 95 09/19/25 07:57 O2 Del Method Room Air 09/19/25 07:57 BMI result Body Mass Index 27.7 Objective Data Active Medications Acetaminophen (Acetaminophen 325 Mg Tablet) 650 mg PO Q6H PRN PRN Reason: Pain, Mild 1-3,fever,headache Last Admin: 09/17/25 09:29 Dose: 650 mg Documented By: TIMMY Apixaban (Apixaban 5 Mg Tablet) 5 mg PO BID KATHY On Hold: 09/18/25 15:22 Last Admin: 09/18/25 08:36 Dose: 5 mg Documented By: TIM Calcium Carbonate (Calcium Carbonate 750 Mg Tab.Chew) 750 mg PO Q4H PRN PRN Reason: Heartburn Nutrition (Parenteral) (Parenteral Nutrition) 2,160 mls @ 90 mls/hr IV .Q24H KATHY; Protocol Stop: 09/19/25 20:59 Last Admin: 09/18/25 21:34 Dose: 90 mls/hr Documented By: RAQUELRISKonstantin Nutrition (Parenteral) (Parenteral Nutrition) 2,160 mls @ 90 mls/hr IV .Q24H KATHY; Protocol Stop: 09/20/25 20:59 Magnesium Hydroxide (Milk Of Magnesia 30 Ml Oral.Susp) 30 ml PO DAILY PRN PRN Reason: Constipation Melatonin (Melatonin 3 Mg Tablet) 6 mg PO BEDTIME PRN PRN Reason: Insomnia Last Admin: 09/16/25 20:46 Dose: 6 mg Documented By: JEWELS Metoprolol Succinate (Metoprolol Succinate Er 25 Mg Tab.Er.24h) 25 mg PO DAILY KATHY; Protocol Last Admin: 09/19/25 08:07 Dose: 25 mg Documented By: DEWEY Ondansetron HCl (Ondansetron Hcl 4 Mg/2 Ml Vial) 4 mg IVPUSH Q8H PRN PRN Reason: Nausea and Vomiting Last Admin: 09/13/25 20:01 Dose: 4 mg Documented By: SULMA Pharmacy Consult (Consult Rx Parenteral Nutrition Ordering) 1 each MISCELLANE DAILY PRN PRN Reason: Consult order Senna (Sennosides 8.6 Mg Tablet) 17.2 mg PO BEDTIME [facility]END[facility] TO [facility] Last Admin: 09/18/25 21:45 Dose: Not Given Documented By: RAQUELRISKonstantin Non-Admin Reason: loose stools today Sodium Biphosphate/Sodium Phosphate (Sodium Phosphate,[place]-Dibasic 133 Ml Enema) 118 ml MI DAILY PRN PRN Reason: Constipation Sodium Chloride (0.9 % Sodium Chloride Flush 3 Ml Syringe) 3 ml IVFLUSH QSHIFT PENDING S[facility] TO [facility] Last Admin: 09/19/25 08:06 Dose: Not Given Documented By: DEWEY Non-Admin Reason: IV Running Labs 09/13/25 07:07 09/19/25 05:05 Labs: Laboratory Results - last 24 hr 09/19/25 05:05 Hold Purple Top SEE NOTE Anion Gap 10 L Estim Creat Clear Calc 112.0 Estimated GFR > 60 Random Glucose 93 Calcium 8.8 Phosphorus 3.5 Magnesium 2.0 Assessment and Plan (1) Lactic acidosis: Status: Acute Plan 84F PMH pafib, alzheimers dementia, history of PE, presented with hypotension SIRS and acute metabolic encephalopathy Sirs resolved, encephalopathy resolved, continue empiric rocephin for possible uti, urine culture mixed dorothy biliary stones, ?mirizzi with moderate protein calorie malnutrition and failure to thrive no obvious cholecystitis, no current signs of obstruction surgery appreciated - conservative managment, completed antibiotics ,on ppn,po intake max in 25-50% npo past midnight ,possible peg placement in am, hyperkalemia -given po loklema-resolved . 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
--- NOTE | 2025-09-19 15:19 | P.PNGS_ITS ---
Subjective Subjective Date of Service: 09/19/25 Interval history: Patient with poor oral intake Does not want to eat Peg tube requested therefore Physical Exam 2 Vital Signs: Vital Signs: Last Vital Signs Temp 97.0 F 09/19/25 07:57 Pulse 95 09/19/25 07:57 Resp 17 09/19/25 07:57 BP 136/64 09/19/25 07:57 Pulse Ox 95 09/19/25 07:57 O2 Del Method Room Air 09/19/25 07:57 BMI result Body Mass Index 27.7 Const: General: comfortable and no acute distress Resp: Effort & Inspection: normal respiratory effort Cardio: Rate: regular rate GI: Other: No visible surgical scars Palpation (GI): Soft to palpation, not firm, nontender and no guarding Objective Data Active Medications Acetaminophen (Acetaminophen 325 Mg Tablet) 650 mg PO Q6H PRN PRN Reason: Pain, Mild 1-3,fever,headache Last Admin: 09/17/25 09:29 Dose: 650 mg Documented By: TIMMY Apixaban (Apixaban 5 Mg Tablet) 5 mg PO BID KATHY On Hold: 09/18/25 15:22 Last Admin: 09/18/25 08:36 Dose: 5 mg Documented By: TIM Calcium Carbonate (Calcium Carbonate 750 Mg Tab.Chew) 750 mg PO Q4H PRN PRN Reason: Heartburn Nutrition (Parenteral) (Parenteral Nutrition) 2,160 mls @ 90 mls/hr IV .Q24H KATHY; Protocol Stop: 09/19/25 20:59 Last Admin: 09/18/25 21:34 Dose: 90 mls/hr Documented By: ODRISM Nutrition (Parenteral) (Parenteral Nutrition) 2,160 mls @ 90 mls/hr IV .Q24H KATHY; Protocol Stop: 09/20/25 20:59 Magnesium Hydroxide (Milk Of Magnesia 30 Ml Oral.Susp) 30 ml PO DAILY PRN PRN Reason: Constipation Melatonin (Melatonin 3 Mg Tablet) 6 mg PO BEDTIME PRN PRN Reason: Insomnia Last Admin: 09/16/25 20:46 Dose: 6 mg Documented By: JEWELS Metoprolol Succinate (Metoprolol Succinate Er 25 Mg Tab.Er.24h) 25 mg PO DAILY KATHY; Protocol Last Admin: 09/19/25 08:07 Dose: 25 mg Documented By: DEWEY Ondansetron HCl (Ondansetron Hcl 4 Mg/2 Ml Vial) 4 mg IVPUSH Q8H PRN PRN Reason: Nausea and Vomiting Last Admin: 09/13/25 20:01 Dose: 4 mg Documented By: SULMA Pharmacy Consult (Consult Rx Parenteral Nutrition Ordering) 1 each MISCE[place] DAILY PRN PRN Reason: Consult order Senna (Sennosides 8.6 Mg Tablet) 17.2 mg PO BEDTIME [facility] Last Admin: 09/18/25 21:45 Dose: Not Given Documented By: RAQUELRISKonstantin Non-Admin Reason: loose stools today Sodium Biphosphate/Sodium Phosphate (Sodium Phosphate,[place]-Dibasic 133 Ml Enema) 118 ml [place] DAILY PRN PRN Reason: Constipation Sodium Chloride (0.9 % Sodium Chloride Flush 3 Ml Syringe) 3 ml IVFLUSH QSHIFT [facility] Last Admin: 09/19/25 08:06 Dose: Not Given Documented By: DEWEY Non-Admin Reason: IV Running Labs 09/13/25 07:07 09/19/25 05:05 Labs: Laboratory Results - last 24 hr 09/19/25 05:05 Hold Purple Top SEE NOTE Anion Gap 10 L Estim Creat Clear Calc 112.0 Estimated GFR > 60 Random Glucose 93 Calcium 8.8 Phosphorus 3.5 Magnesium 2.0 Procedures Date of Service Date of Service: 09/19/25 Progress Note: A&P Assessment and plan (1) Failure to thrive in adult: Status: Acute Assessment and Plan: I have been requested to place a PEG tube in view of the patient's poor oral intake and fairly thrive I explained the technique of this procedure to the son Parminder I discussed the risks including but not limited to bleeding, infection, injury to bowel or other organs, tube leak, loss of airway, tube dislodgement, as well as the benefits and alternatives I explained to him what to expect postoperatively He understands this has given verbal consent Patient tentatively on the schedule for tomorrow Hold anticoagulation Time Spent With Patient Time: Total time managing care of this patient today ____ minutes. Quality Stroke Does the patient have a stroke diagnosis?: No VTE Prior VTE?: No VTE Risk Level:: Medical - moderate - high VTE Device Contraindication: Treatment Not Indicated VTE Drug Contraindication: N/A - Med Ordered
[2025-09-19 15:40] VITALS: BP 108/56; PULSE 100; RESP 20; TEMP 36; O2SAT 97
[2025-09-19 19:22] VITALS: BP 105/56; PULSE 98; RESP 14; TEMP 36.4; O2SAT 94
[2025-09-19] MEDS: Parenteral Nutrition 2,160 ML 90 ML IV (21:48)
[2025-09-19] MEDS: 0.9 % Sodium Chloride Flush 3 ML SYRINGE IVFLUSH (21:55)
[2025-09-20] VITALS (7 sets, daily range): BP systolic 98–149; BP diastolic 47–67; PULSE 77–99; RESP 14–20; TEMP 36.3–37.2; O2SAT 93–99
[2025-09-20 05:52] LABS: Hematocrit 29.3 % (37.0-47.0); Hemoglobin 9.6 g/dl (12.0-16.0); Mean Corpuscular HGB Conc 32.8 g/dl (31.0-35.0); Mean Corpuscular Hemoglobin 34.9 pg (27.0-33.0); Mean Corpuscular Volume 106.5 fL (80.0-98.0); NRBC Abs Auto 0.000 X10*3/uL (0.0-0.012); NRBC Pct Auto 0.0 /100WBC (0.0-0.2); Platelet Count 149 X10*3/uL (160-400); Red Blood Count 2.75 X10*6/uL (4.20-5.50); White Blood Count 10.6 X10*3/uL (4.8-10.8)
[2025-09-20 06:04] LABS: Anion Gap 12 (12-20); Blood Urea Nitrogen 20 mg/dL (9-16); Calcium 8.8 mg/dL (8.4-10.2); Carbon Dioxide 24 mmol/L (22-29); Chloride 105 mmol/L (96-108); Creatinine Clr Calc Pharmacy 92.5; Estimated Glomerular Filt Rate > 60; Magnesium 2.0 mg/dL (1.6-2.6); Potassium 4.8 mmol/L (3.3-5.1); Sodium 136 mmol/L (135-145)
--- NOTE | 2025-09-20 08:00 | PM.PNGS ---
Subjective Subjective Date of Service: 09/20/25 Interval history: No new complaints No events overnight Has had poor oral intake Physical Exam Vital Signs: Vital Signs: Last Vital Signs Temp 98.7 F 09/20/25 07:45 Pulse 99 09/20/25 07:45 Resp 18 09/20/25 07:45 BP 135/62 09/20/25 07:45 Pulse Ox 93 09/20/25 07:45 O2 Del Method Room Air 09/20/25 07:45 BMI result Body Mass Index 27.7 Const: General: comfortable and no acute distress Resp: Effort & Inspection: normal respiratory effort GI: Other: No of surgical scars Palpation (GI): Soft to palpation, not firm, nontender and no guarding Objective Data Active Medications Acetaminophen (Acetaminophen 325 Mg Tablet) 650 mg PO Q6H PRN PRN Reason: Pain, Mild 1-3,fever,headache Last Admin: 09/17/25 09:29 Dose: 650 mg Documented By: TIMMY Apixaban (Apixaban 5 Mg Tablet) 5 mg PO BID KATHY On Hold: 09/18/25 15:22 Last Admin: 09/18/25 08:36 Dose: 5 mg Documented By: TIM Calcium Carbonate (Calcium Carbonate 750 Mg Tab.Chew) 750 mg PO Q4H PRN PRN Reason: Heartburn Nutrition (Parenteral) (Parenteral Nutrition) 2,160 mls @ 90 mls/hr IV .Q24H KATHY; Protocol Stop: 09/20/25 20:59 Last Admin: 09/19/25 21:48 Dose: 90 mls/hr Documented By: JOSE Magnesium Hydroxide (Milk Of Magnesia 30 Ml Oral.Susp) 30 ml PO DAILY PRN PRN Reason: Constipation Melatonin (Melatonin 3 Mg Tablet) 6 mg PO BEDTIME PRN PRN Reason: Insomnia Last Admin: 09/16/25 20:46 Dose: 6 mg Documented By: JEWELS Metoprolol Succinate (Metoprolol Succinate Er 25 Mg Tab.Er.24h) 25 mg PO DAILY [facility]; Protocol Last Admin: 09/19/25 08:07 Dose: 25 mg Documented By: DEWEY Ondansetron HCl (Ondansetron Hcl 4 Mg/2 Ml Vial) 4 mg IVPUSH Q8H PRN PRN Reason: Nausea and Vomiting Last Admin: 09/13/25 20:01 Dose: 4 mg Documented By: SULMA Pharmacy Consult (Consult Rx Parenteral Nutrition Ordering) 1 each [place] DAILY PRN PRN Reason: Consult order Senna (Sennosides 8.6 Mg Tablet) 17.2 mg PO BEDTIME [facility] Last Admin: 09/19/25 21:47 Dose: 17.2 mg Documented By: JOSE Sodium Biphosphate/Sodium Phosphate (Sodium Phosphate,[place]-Dibasic 133 Ml Enema) 118 ml [place] DAILY PRN PRN Reason: Constipation Sodium Chloride (0.9 % Sodium Chloride Flush 3 Ml Syringe) 3 ml IVFLUSH QSHIFT [facility] Last Admin: 09/19/25 21:55 Dose: 3 ml Documented By: JOSE Labs 09/20/25 05:12 09/20/25 05:12 Labs: Laboratory Results - last 24 hr 09/20/25 05:12 MCV 106.5 H MCH 34.9 H MCHC 32.8 RDW 16.4 H Plt Count 149 L MPV 12.2 Absolute Nucleated RBC 0.000 Nucleated RBC % (auto) 0.0 Anion Gap 12 Estim Creat Clear Calc 92.5 Estimated GFR > 60 Random Glucose 93 Calcium 8.8 Phosphorus 3.4 Magnesium 2.0 Procedures Date of Service Date of Service: 09/20/25 Progress Note: A&P Assessment and plan (1) Failure to thrive in adult: Status: Acute Assessment and Plan: For PEG tube today Deric has been on hold since Thursday I have reviewed the technique of this procedure with son and explained the risks, benefits, and alternatives He has given consent Time Spent With Patient Time: Total time managing care of this patient today ____ minutes. Quality Stroke Does the patient have a stroke diagnosis?: No VTE Prior VTE?: No VTE Risk Level:: Medical - moderate - high VTE Device Contraindication: Treatment Not Indicated VTE Drug Contraindication: N/A - Med Ordered
[2025-09-20] MEDS: Metoprolol Succinate ER 25 MG TAB.ER.24H PO (08:22)
[2025-09-20] MEDS: 0.9 % Sodium Chloride Flush 3 ML SYRINGE IVFLUSH ×2 (08:24→16:14)
--- NOTE | 2025-09-20 09:38 | P.PNIM_ITS ---
Subjective Subjective Date of Service: 09/20/25 Interval History: Decreased p.o. intake Review of Systems No new event Review of Systems: Yes all other systems are reviewed and are negative Physical Exam 2 Vital Signs: Vital Signs: Last Vital Signs Temp 98.7 F 09/20/25 07:45 Pulse 99 09/20/25 07:45 Resp 18 09/20/25 07:45 BP 135/62 09/20/25 07:45 Pulse Ox 93 09/20/25 07:45 O2 Del Method Room Air 09/20/25 07:45 BMI result Body Mass Index 27.7 Const: General: comfortable and no acute distress Resp: Effort & Inspection: normal respiratory effort GI: Other: No of surgical scars Palpation (GI): Soft to palpation, not firm, nontender and no guarding Objective Data Active Medications Acetaminophen (Acetaminophen 325 Mg Tablet) 650 mg PO Q6H PRN PRN Reason: Pain, Mild 1-3,fever,headache Last Admin: 09/17/25 09:29 Dose: 650 mg Documented By: TIMMY Apixaban (Apixaban 5 Mg Tablet) 5 mg PO BID KATHY On Hold: 09/18/25 15:22 Last Admin: 09/18/25 08:36 Dose: 5 mg Documented By: TIM Calcium Carbonate (Calcium Carbonate 750 Mg Tab.Chew) 750 mg PO Q4H PRN PRN Reason: Heartburn Nutrition (Parenteral) (Parenteral Nutrition) 2,160 mls @ 90 mls/hr IV .Q24H KATHY; Protocol Stop: 09/20/25 20:59 Last Admin: 09/19/25 21:48 Dose: 90 mls/hr Documented By: JOSE Nutrition (Parenteral) (Parenteral Nutrition) 2,160 mls @ 90 mls/hr IV .Q24H KATHY; Protocol Stop: 09/21/25 20:59 Magnesium Hydroxide (Milk Of Magnesia 30 Ml Oral.Susp) 30 ml PO DAILY PRN PRN Reason: Constipation Melatonin (Melatonin 3 Mg Tablet) 6 mg PO BEDTIME PRN PRN Reason: Insomnia Last Admin: 09/16/25 20:46 Dose: 6 mg Documented By: JEWELS Metoprolol Succinate (Metoprolol Succinate Er 25 Mg Tab.Er.24h) 25 mg PO DAILY KATHY; Protocol Last Admin: 09/20/25 08:22 Dose: 25 mg Documented By: MALIHA Ondansetron HCl (Ondansetron Hcl 4 Mg/2 Ml Vial) 4 mg IVPUSH Q8H PRN PRN Reason: Nausea and Vomiting Last Admin: 09/13/25 20:01 Dose: 4 mg Documented By: SULMA Pharmacy Consult (Consult Rx Parenteral Nutrition Ordering) 1 each [place] DAILY PRN PRN Reason: Consult order Senna (Sennosides 8.6 Mg Tablet) 17.2 mg PO BEDTIME [facility] Last Admin: 09/19/25 21:47 Dose: 17.2 mg Documented By: JOSE Sodium Biphosphate/Sodium Phosphate (Sodium Phosphate,[place]-Dibasic 133 Ml Enema) 118 ml [place] DAILY PRN PRN Reason: Constipation Sodium Chloride (0.9 % Sodium Chloride Flush 3 Ml Syringe) 3 ml IVFLUSH QSHIFT [facility] Last Admin: 09/20/25 08:24 Dose: 3 ml Documented By: MALIHA Labs 09/20/25 05:12 09/20/25 05:12 Labs: Laboratory Results - last 24 hr 09/20/25 05:12 MCV 106.5 H MCH 34.9 H MCHC 32.8 RDW 16.4 H Plt Count 149 L MPV 12.2 Absolute Nucleated RBC 0.000 Nucleated RBC % (auto) 0.0 Anion Gap 12 Estim Creat Clear Calc 92.5 Estimated GFR > 60 Random Glucose 93 Calcium 8.8 Phosphorus 3.4 Magnesium 2.0 Assessment and Plan (1) Lactic acidosis: Status: Acute Plan 84F PMH pafib, alzheimers dementia, history of PE, presented with hypotension SIRS and acute metabolic encephalopathy Sirs resolved, encephalopathy resolved, continue empiric rocephin for possible uti, urine culture mixed dorothy moderate protein calorie malnutrition and failure to thrive no obvious cholecystitis, no current signs of obstruction surgery appreciated - conservative managment, completed antibiotics ,on ppn, plan for Gtube today hyperkalemia -given po loklema-resolved . dysphagia cook sauce eval - regular with thins acute lactic acidosis possibly due to above vs hypotension resolved history of PE eliquis (on hold for gtube) pafib eliquis (on hold for gtube), lopressor dnr/dni dvt prophylaxis - resume eliquis postop reason for continued hospitalization: waiting for peg Quality Stroke Does the patient have a stroke diagnosis?: No VTE Prior VTE?: No VTE Risk Level:: Medical - moderate - high VTE Device Contraindication: Treatment Not Indicated VTE Drug Contraindication: N/A - Med Ordered
--- NOTE | 2025-09-20 09:47 | MHC.CLN ---
F/U PATIENT IS NPO FOR UPPER ENDOSCOPY AND PEG PLACEMENT TODAY. NO NEW ORDER FOR PPN, ON HOLD PER PROVIDER. PATIENT WITH INCREASED NUTRITION NEEDS DUE TO WOUNDS. RD FOLLOWING FOR TUBE FEEDING.
--- NOTE | 2025-09-20 13:50 | MHC.CLN ---
NUTRITION PATIENT TO RECEIVE PEG TUBE TODAY. WHEN ABLE, RECOMMEND MAX GOAL RATE TUBE FEEDING JEVITY 1.2 AT 65 ML PER HOUR, FREE WATER FLUSHES 120 ML Q 4 HOURS. PROVIDES 1560 ML FORMULA, 1872 KCALS (30.5 KCALS/KG CMW), 87 G PROTEIN (1.4 G/KG CMW), 1979 ML TOTAL FREE WATER FROM FORMULA AND FLUSH (32.2 ML/KG CMW). START TUBE FEED AT 20 ML PER HOUR, INCREASE 10 ML EVERY 4 HOURS UNTIL MAX GOAL RATE 65 ML PER HOUR IS ACHIEVED. FOLLOW FOR TUBE FEED TOLERANCE AND DIET ADVANCEMENT/PO INTAKE.
--- NOTE | 2025-09-20 15:01 | W.PM.OPN ---
Operative Note Operative Note Date of Service: 09/20/25 Narrative: Preop diagnosis: Failure to thrive, poor oral intake Postop diagnosis: The same Procedure: PEG tube placement Surgeon: Gaston Castelan MD nursing home assistant administrator: ISAMAR Devries The patient is a 84 year old female referred to me for PEG tube placement in view of failure to thrive with poor oral intake. She does have known dementia The consent was given by her son Parminder Mendez. He understood the technique of the planned procedure as well as the risks, benefits, and alternatives. The patient is brought to the operating room and placed in a reclining position on the hospital bed. She was in monitored anesthesia care. A surgical time-out was done. A bite block was in position. The patient received cefazolin 2 g IV preoperatively I inserted the scope through the bite block and advanced this into the oropharynx. The vocal cords were visualized. The esophageal slit was seen posterior to this. The esophageal slit was intubated. The scope was gently advanced with the entire length of the esophagus in the stomach. The stomach was insufflated. Transillumination of the epigastric area was easily seen. Furthermore, indentation on the anterior stomach wall was also easily seen when the index finger was placed on the abdominal wall This area on the epigastric region was prepped and draped. Lidocaine 1% was used for local anesthesia. A small stab incision was made with a blade 11. The bore needle along with the outer plastic sheath was inserted and was visualized in the lumen. The needle was removed. The guidewire was inserted through the cannula . The guidewire was caught with a snare from the scope.. The guidewire was pulled with the scope all the way out of the oral cavity. The PEG tube was looped onto the guidewire. The guidewire was pulled back in from the abdominal wall along with the peg tube until the inner bolster seemed snug on the stomach wall. The scope was reinserted all the way to the stomach. The inner bolster was seen and appeared to be in good position. There was no bleeding The scope was then withdrawn completely . The outer bolster was attached to make this snug on the skin. The procedure was completed The patient tolerated procedure well. There were no immediate complications The patient was then transferred with the recovery room with stable vital signs.
--- NOTE | 2025-09-20 15:59 | MHC.CM.PN ---
PER ROUNDS PT TO HAVE FEEDING TUBE TODAY DC PLAN REMAINS SNF PLACEMENT
[2025-09-21 03:27] VITALS: BP 116/58; PULSE 88; RESP 18; TEMP 36.6; O2SAT 94
[2025-09-21 06:59] LABS: Hematocrit 29.0 % (37.0-47.0); Hemoglobin 9.9 g/dl (12.0-16.0); Mean Corpuscular HGB Conc 34.1 g/dl (31.0-35.0); Mean Corpuscular Hemoglobin 35.7 pg (27.0-33.0); Mean Corpuscular Volume 104.7 fL (80.0-98.0); NRBC Abs Auto 0.000 X10*3/uL (0.0-0.012); NRBC Pct Auto 0.0 /100WBC (0.0-0.2); Platelet Count 147 X10*3/uL (160-400); Red Blood Count 2.77 X10*6/uL (4.20-5.50); White Blood Count 10.9 X10*3/uL (4.8-10.8)
[2025-09-21 07:38] LABS: Alanine Aminotransferase 59 U/L (0-31); Albumin Level 2.7 g/dL (3.5-5.0); Alkaline Phosphatase 202 U/L (39-117); Anion Gap 13 (12-20); Aspartate Amino Transferase 112 U/L (5-31); Blood Urea Nitrogen 16 mg/dL (9-16); Calcium 8.3 mg/dL (8.4-10.2); Carbon Dioxide 22 mmol/L (22-29); Chloride 107 mmol/L (96-108); Creatinine Clr Calc Pharmacy 106.4; Estimated Glomerular Filt Rate > 60; Magnesium 1.8 mg/dL (1.6-2.6); Potassium 4.2 mmol/L (3.3-5.1); Sodium 138 mmol/L (135-145); Total Protein 5.4 g/dL (6.5-8.0)
[2025-09-21 08:00] VITALS: BP 136/64; PULSE 88; RESP 16; TEMP 36.3; O2SAT 94
--- NOTE | 2025-09-21 08:18 | HO.POSTANES ---
Post Anesthesia Evaluation Post Anesthesia Evaluation Date of Service: 09/21/25 Vital Signs: Vital Signs Temp Pulse Resp BP Pulse Ox O2 Del Method O2 Flow Rate 09/21/25 08:00 97.4 F 88 16 136/64 94 Nasal Cannula 2 09/21/25 03:27 97.9 F 88 18 116/58 L 94 Room Air Anesthesia: Monitored Mental Status: Awake Pain Control: Satisfactory Nausea/Vomiting: None Hydration: Adequate Anesthesia-Related Issues: No Anes. Related Issues
--- NOTE | 2025-09-21 09:11 | P.PNIM_ITS ---
Subjective Subjective Date of Service: 09/21/25 Interval History: no complaints Physical Exam 2 Vital Signs: Vital Signs: Last Vital Signs Temp 97.4 F 09/21/25 08:00 Pulse 88 09/21/25 08:00 Resp 16 09/21/25 08:00 BP 136/64 09/21/25 08:00 Pulse Ox 94 09/21/25 08:00 O2 Del Method Room Air 09/21/25 08:00 BMI result Body Mass Index 27.7 Const: General: comfortable and no acute distress Resp: Effort & Inspection: normal respiratory effort GI: Other: No of surgical scars Palpation (GI): Soft to palpation, not firm, nontender and no guarding Objective Data Active Medications Acetaminophen (Acetaminophen 325 Mg Tablet) 650 mg PO Q6H PRN PRN Reason: Pain, Mild 1-3,fever,headache Last Admin: 09/17/25 09:29 Dose: 650 mg Documented By: TIMMY Apixaban (Apixaban 5 Mg Tablet) 5 mg PO BID [facility] Last Admin: 09/18/25 08:36 Dose: 5 mg Documented By: TIM Calcium Carbonate (Calcium Carbonate 750 Mg Tab.Chew) 750 mg PO Q4H PRN PRN Reason: Heartburn Magnesium Hydroxide (Milk Of Magnesia 30 Ml Oral.Susp) 30 ml PO DAILY PRN PRN Reason: Constipation Melatonin (Melatonin 3 Mg Tablet) 6 mg PO BEDTIME PRN PRN Reason: Insomnia Last Admin: 09/16/25 20:46 Dose: 6 mg Documented By: JEWELS Metoprolol Succinate (Metoprolol Succinate Er 25 Mg Tab.Er.24h) 25 mg PO DAILY [facility]; Protocol Last Admin: 09/20/25 08:22 Dose: 25 mg Documented By: MALIHA Morphine Sulfate (Morphine Sulfate 4 Mg/Ml Cartridge) 2 mg IVPUSH Q4H PRN; Protocol PRN Reason: Pain, Severe (Pain Scale 7-10) Ondansetron HCl (Ondansetron Hcl 4 Mg/2 Ml Vial) 4 mg IVPUSH Q8H PRN PRN Reason: Nausea and Vomiting Last Admin: 09/13/25 20:01 Dose: 4 mg Documented By: SULMA Pharmacy Consult (Consult Rx Parenteral Nutrition Ordering) 1 each [place] DAILY PRN PRN Reason: Consult order Senna (Sennosides 8.6 Mg Tablet) 17.2 mg PO BEDTIME [facility] Last Admin: 09/20/25 22:14 Dose: Not Given Documented By: NICOLLE Non-Admin Reason: Patient Refused Sodium Biphosphate/Sodium Phosphate (Sodium Phosphate,[place]-Dibasic 133 Ml Enema) 118 ml [place] DAILY PRN PRN Reason: Constipation Sodium Chloride (0.9 % Sodium Chloride Flush 3 Ml Syringe) 3 ml IVFLUSH QSHIFT [facility] Last Admin: 09/20/25 22:15 Dose: Not Given Documented By: NICOLLE Non-Admin Reason: IV Running Labs 09/21/25 05:52 09/21/25 05:52 Labs: Laboratory Results - last 24 hr 09/21/25 05:52 MCV 104.7 H MCH 35.7 H MCHC 34.1 RDW 16.4 H Plt Count 147 L MPV 11.5 Absolute Nucleated RBC 0.000 Nucleated RBC % (auto) 0.0 Anion Gap 13 Estim Creat Clear Calc 106.4 Estimated GFR > 60 Random Glucose 72 Calcium 8.3 L Phosphorus 2.7 Magnesium 1.8 Total Bilirubin 1.5 H Direct Bilirubin 0.8 H AST 112 H ALT 59 H Alkaline Phosphatase 202 H Total Protein 5.4 L Albumin 2.7 L Assessment and Plan (1) Lactic acidosis: Status: Acute Plan 84F PMH pafib, alzheimers dementia, history of PE, presented with hypotension SIRS and acute metabolic encephalopathy Sirs resolved, encephalopathy resolved, completed empiric rocephin for possible uti, urine culture mixed dorothy moderate protein calorie malnutrition and failure to thrive no obvious cholecystitis, no current signs of obstruction surgery appreciated - conservative managment, completed antibiotics POD 1 gtube 09/20/25 for better nutrition start feeds hyperkalemia -given po loklema-resolved . dysphagia veterinary manager eval - regular with thins acute lactic acidosis possibly due to above vs hypotension resolved history of PE eliquis pafib eliquis , lopressor dnr/dni dvt prophylaxis - eliquis reason for continued hospitalization: starting peg feeds Quality Stroke Does the patient have a stroke diagnosis?: No VTE Prior VTE?: No VTE Risk Level:: Medical - moderate - high VTE Device Contraindication: Treatment Not Indicated VTE Drug Contraindication: N/A - Med Ordered
--- NOTE | 2025-09-21 09:14 | PM.PNGS ---
Subjective Subjective Date of Service: 09/21/25 Interval history: Underwent uneventful PEG tube placement yesterday No events overnight No changes in mental status Physical Exam Vital Signs: Vital Signs: Last Vital Signs Temp 97.4 F 09/21/25 08:00 Pulse 88 09/21/25 08:00 Resp 16 09/21/25 08:00 BP 136/64 09/21/25 08:00 Pulse Ox 94 09/21/25 08:00 O2 Del Method Room Air 09/21/25 08:00 BMI result Body Mass Index 27.7 Const: General: comfortable and no acute distress Resp: Effort & Inspection: normal respiratory effort GI: Other: Peg tube in place Palpation (GI): Soft to palpation, not firm, nontender and no guarding Objective Data Active Medications Acetaminophen (Acetaminophen 325 Mg Tablet) 650 mg PO Q6H PRN PRN Reason: Pain, Mild 1-3,fever,headache Last Admin: 09/17/25 09:29 Dose: 650 mg Documented By: TIMMY Apixaban (Apixaban 5 Mg Tablet) 5 mg PO BID [facility] Last Admin: 09/18/25 08:36 Dose: 5 mg Documented By: TIM Calcium Carbonate (Calcium Carbonate 750 Mg Tab.Chew) 750 mg PO Q4H PRN PRN Reason: Heartburn Magnesium Hydroxide (Milk Of Magnesia 30 Ml Oral.Susp) 30 ml PO DAILY PRN PRN Reason: Constipation Melatonin (Melatonin 3 Mg Tablet) 6 mg PO BEDTIME PRN PRN Reason: Insomnia Last Admin: 09/16/25 20:46 Dose: 6 mg Documented By: JEWELS Metoprolol Succinate (Metoprolol Succinate Er 25 Mg Tab.Er.24h) 25 mg PO DAILY [facility]; Protocol Last Admin: 09/20/25 08:22 Dose: 25 mg Documented By: MALIHA Morphine Sulfate (Morphine Sulfate 4 Mg/Ml Cartridge) 2 mg IVPUSH Q4H PRN; Protocol PRN Reason: Pain, Severe (Pain Scale 7-10) Ondansetron HCl (Ondansetron Hcl 4 Mg/2 Ml Vial) 4 mg IVPUSH Q8H PRN PRN Reason: Nausea and Vomiting Last Admin: 09/13/25 20:01 Dose: 4 mg Documented By: SULMA Pharmacy Consult (Consult Rx Parenteral Nutrition Ordering) 1 each MISCELLANE DAILY PRN PRN Reason: Consult order Senna (Sennosides 8.6 Mg Tablet) 17.2 mg PO BEDTIME [facility] Last Admin: 09/20/25 22:14 Dose: Not Given Documented By: NICOLLE Non-Admin Reason: Patient Refused Sodium Biphosphate/Sodium Phosphate (Sodium Phosphate,[place]-Dibasic 133 Ml Enema) 118 ml [place] DAILY PRN PRN Reason: Constipation Sodium Chloride (0.9 % Sodium Chloride Flush 3 Ml Syringe) 3 ml IVFLUSH QSHIFT [facility] Last Admin: 09/20/25 22:15 Dose: Not Given Documented By: NICOLLE Non-Admin Reason: IV Running Labs 09/21/25 05:52 09/21/25 05:52 Labs: Laboratory Results - last 24 hr 09/21/25 05:52 MCV 104.7 H MCH 35.7 H MCHC 34.1 RDW 16.4 H Plt Count 147 L MPV 11.5 Absolute Nucleated RBC 0.000 Nucleated RBC % (auto) 0.0 Anion Gap 13 Estim Creat Clear Calc 106.4 Estimated GFR > 60 Random Glucose 72 Calcium 8.3 L Phosphorus 2.7 Magnesium 1.8 Total Bilirubin 1.5 H Direct Bilirubin 0.8 H AST 112 H ALT 59 H Alkaline Phosphatase 202 H Total Protein 5.4 L Albumin 2.7 L Procedures Date of Service Date of Service: 09/21/25 Progress Note: A&P Assessment and plan (1) Failure to thrive in adult: Status: Acute Assessment and Plan: Status post PEG tube placement Abdomen is soft and benign Okay to start tube feeds today Keep external bolster snug on abdominal wall Time Spent With Patient Time: Total time managing care of this patient today ____ minutes. Quality Stroke Does the patient have a stroke diagnosis?: No VTE Prior VTE?: No VTE Risk Level:: Medical - moderate - high VTE Device Contraindication: Treatment Not Indicated VTE Drug Contraindication: N/A - Med Ordered
[2025-09-21] MEDS: 0.9 % Sodium Chloride Flush 3 ML SYRINGE IVFLUSH ×3 (09:22→23:36)
--- NOTE | 2025-09-21 09:23 | MHC.CLN ---
F/U PATIENT RECEIVED PEG TUBE 09/20. START TUBE FEEDING TODAY. RECOMMEND MAX GOAL RATE TUBE FEEDING JEVITY 1.2 AT 65 ML PER HOUR, FREE WATER FLUSHES 120 ML Q 4 HOURS. PROVIDES 1560 ML FORMULA, 1872 KCALS (30.5 KCALS/KG CMW), 87 G PROTEIN (1.4 G/KG CMW), 1979 ML TOTAL FREE WATER FROM FORMULA AND FLUSH (32.2 ML/KG CMW). START TUBE FEED AT 20 ML PER HOUR, INCREASE 10 ML EVERY 4 HOURS UNTIL MAX GOAL RATE 65 ML PER HOUR IS ACHIEVED. FOLLOW FOR TUBE FEED TOLERANCE AND DIET ADVANCEMENT/PO INTAKE.
[2025-09-21 09:24] VITALS: BP 135/61; PULSE 88
[2025-09-21] MEDS: Metoprolol Succinate ER 25 MG TAB.ER.24H PO (09:24)
[2025-09-21 16:00] VITALS: BP 120/55; PULSE 87; RESP 20; TEMP 36.5; O2SAT 96
[2025-09-21 20:00] VITALS: BP 112/59; PULSE 94; RESP 18; TEMP 36.7; O2SAT 95
[2025-09-22 03:44] VITALS: BP 129/59; PULSE 105; RESP 18; TEMP 36.9; O2SAT 94
[2025-09-22 05:48] LABS: Hematocrit 28.6 % (37.0-47.0); Hemoglobin 9.7 g/dl (12.0-16.0); Mean Corpuscular HGB Conc 33.9 g/dl (31.0-35.0); Mean Corpuscular Hemoglobin 35.5 pg (27.0-33.0); Mean Corpuscular Volume 104.8 fL (80.0-98.0); NRBC Abs Auto 0.000 X10*3/uL (0.0-0.012); NRBC Pct Auto 0.0 /100WBC (0.0-0.2); Platelet Count 156 X10*3/uL (160-400); Red Blood Count 2.73 X10*6/uL (4.20-5.50); White Blood Count 10.2 X10*3/uL (4.8-10.8)
[2025-09-22 06:10] LABS: Anion Gap 11 (12-20); Blood Urea Nitrogen 14 mg/dL (9-16); Calcium 8.3 mg/dL (8.4-10.2); Carbon Dioxide 22 mmol/L (22-29); Chloride 110 mmol/L (96-108); Creatinine Clr Calc Pharmacy 98.9; Estimated Glomerular Filt Rate > 60; Magnesium 1.8 mg/dL (1.6-2.6); Potassium 4.1 mmol/L (3.3-5.1); Sodium 139 mmol/L (135-145)
[2025-09-22 06:42] LABS: Folate 4.8 ng/mL (> or = 4.0); Vitamin B12 751 pg/mL (200-900)
[2025-09-22 07:42] VITALS: BP 112/57; PULSE 88; RESP 18; TEMP 36.3; O2SAT 94
[2025-09-22] MEDS: 0.9 % Sodium Chloride Flush 3 ML SYRINGE IVFLUSH (08:36)
[2025-09-22] MEDS: Metoprolol Succinate ER 25 MG TAB.ER.24H PO (08:36)
--- NOTE | 2025-09-22 10:16 | PM.DS ---
DS: Providers Provider Date of Service: 09/22/25 Date of admission: 09/08/25 21:08 Date of discharge: 09/22/25 Primary care physician: Anoop Panchal MD Consults: 09/08/25 22:33 Consult to General Surgery Routine Consulting Provider: [facility] General Surgeons Reason for consultation: Cholelithiasis, gallbladder neck stone, recent cholangitis 09/09/25 06:59 Consult to Gastroenterology Routine Consulting Provider: Jun Wilburn Reason for consultation: gallbladder neck stone Has provider been notified: Yes 09/15/25 08:06 Consult to Wound Care Routine Reason for consultation: Redness/we open sites (st2) to coccyx 09/16/25 01:04 Consult to Wound Care Routine Reason for consultation: pressure injuries to Coccyx DS: Diagnosis Discharge Diagnosis (1) Failure to thrive in adult: Status: Acute DS: Summary Hospital Course Hospital Course: from initial hpi: 84-year-old female with a past medical history significant for paroxysmal AFib on Eliquis, anemia, GERD, dementia, thrombocytopenia and history of PE, who presented to the ED due to altered mental status and hypotension from an SNF. The patient is unable to provide a history due to altered mental status, she is can not provide a history but is alert and awake. It was reported that she was found in the room at the nursing facility bent over complaining of abdominal discomfort. The patient denies any abdominal pain initially but then does report suprapubic pain. She had also reported nausea and vomiting initially however now stating that she has intermittent nausea which is very mild and has not had any vomiting. It is reported that she has had poor p.o. intake. She was recently hospitalized at [facility] for ascending cholangitis with an ERCP and sphincterotomy. She was also diagnosed with new onset AFib and 2 small PEs. The patient was seen with a family member bedside who does not contribute any additional history. Patient was consulted by General surgery in the ED who reviewed abdominal imaging and suggested no acute cholecystitis at this time. LFTs are elevated however at baseline from recent hospitalization. A thorough workup was completed in the ED which showed a mildly positive UA, lactic acidosis which improved with IV fluids and enlarged right external iliac chain and inguinal lymphadenopathy, cholelithiasis without acute cholecystitis. Patient to be admitted to hospitalist service, IV antibiotics recommended by General surgery who will follow. hospital course: Patient was admitted for SIRS and acute metabolic encephalopathy which resolved by time of discharge. Was treated empirically with ceftriaxone for possible UTI though urine culture grew mixed dorothy. For moderate protein calorie malnutrition and failure to thrive there was no obvious cholecystitis but did have gallstones on imaging. Surgery felt we should continue with conservative management. Due to poor p.o. intake G-tube inserted was started on feeds and tolerating well. For acute hypokalemia received low, and resolved. For acute lactic acidosis which was due to hypotension resolved. For history of PE was continued on Eliquis. For paroxysmal AFib was continued on Eliquis and Lopressor. Patient will be [facility] to jail facility she is expected require less than 30 days. Time Attestation Discharge Coordination Time (in mins): 38 Quality: Safe Use of Opioids Does Pt have an Active Cancer Diagnosis on the Problem List?: No Quality: Stroke Does the patient have a stroke diagnosis?: No Physical Exam Vital Signs: Vital Signs: Last Vital Signs Temp 97.3 F 09/22/25 07:42 Pulse 88 09/22/25 07:42 Resp 18 09/22/25 07:42 BP 112/57 L 09/22/25 07:42 Pulse Ox 94 09/22/25 07:42 O2 Del Method Room Air 09/22/25 07:42 BMI result Body Mass Index 27.7 Const: General: comfortable and no acute distress Resp: Effort & Inspection: normal respiratory effort GI: Other: Peg tube in place Palpation (GI): Soft to palpation, not firm, nontender and no guarding DS: Data Data Completed and Pending Labs on day of discharge: Laboratory Results - last 24 hr 09/22/25 05:22 WBC 10.2 RBC 2.73 L Hgb 9.7 L Hct 28.6 L MCV 104.8 H MCH 35.5 H MCHC 33.9 RDW 16.4 H Plt Count 156 L MPV 11.4 Absolute Nucleated RBC 0.000 Nucleated RBC % (auto) 0.0 Sodium 139 Potassium 4.1 Chloride 110 H Carbon Dioxide 22 Anion Gap 11 L BUN 14 Creatinine 0.43 L Estim Creat Clear Calc 98.9 Estimated GFR > 60 Random Glucose 96 Calcium 8.3 L Phosphorus 2.8 Magnesium 1.8 Vitamin B12 751 Folate 4.8 Discharge Plan Discharge Anticipated Discharge Date/Time: 09/22/25 10:12 Patient Disposition: Xfer SNF Discharge Diagnosis: ftt Referrals: Anoop Panchal MD [Primary Care Provider, Internal Medicine] - 1 Week Discharge Medications: Continued sennosides [senna] 8.6 mg Tablet 17.2 mg PO BEDTIME Rx Instructions: Hold for loose stool nystatin 100,000 unit/mL Suspension 5 ml PO QID Rx Instructions: swish and swallow END 09/10/25 acetaminophen 325 mg Tablet 650 mg PO Q6H PRN (Reason: Fever Or Pain) magnesium hydroxide [Milk of Magnesia] 400 mg/5 mL Suspension 30 ml PO DAILY PRN (Reason: Constipation) Rx Instructions: If no BM in 3 days bisacodyl 10 mg Suppository 10 mg W[place] DAILY PRN (Reason: Constipation) Rx Instructions: If no result from M.O.M Fleet Enema 19-7 gram/118 mL Enema 118 ml W[place] DAILY PRN (Reason: Constipation) Rx Instructions: If no result from Bisacodyl supp. metoprolol succinate 25 mg Tablet Extended Release 24 Hr 25 mg PO DAILY diclofenac sodium 1 % Gel 2 g TOPICAL TID Rx Instructions: apply to single elbow, wrist or hand; for hand includes palm/fingers/back of hand Eliquis 5 mg Tablet 5 mg PO BID Discharge Orders: Discharge Order (Routine); Ordered 09/22/25 Ordered By: Lai Pedersen Diet: tube feeds + po Activity on Discharge: As tolerated Stand Alone Forms: Patient Portal Discharge page Print Language: Bulgarian Care Plan Goals: recovery Health Concerns: ftt Plan of Treatment: tube feeds plus po Assessment: see above
--- NOTE | 2025-09-22 11:29 | MHC.CM.PN ---
PT GPING TO DEB [facility]CHO[facility]
--- NOTE | 2025-09-22 14:02 | MHC.CLN ---
F/U VISITED PATIENT WHILE FINISHING LUNCH MEAL. ATE 1/2 OF GRILLED CHEESE AND APPROX 25% OF DESSERT. CONTINUES TUBE FEEDING PLUS REGULAR DIET. WILL REDUCE TUBE FEED RATE IN CONSIDERATION OF PO INTAKE. RECOMMEND TUBE FEEDING JEVITY 1.2 AT 50 ML PER HOUR, FREE WATER FLUSHES 120 ML Q 4 HOURS. PROVIDES 1200 ML FORMULA, 1440 KCALS (23.5 KCALS/KG CMW), 67 G PROTEIN (1.1 G/KG CMW), 1688 ML TOTAL FREE WATER FROM FORMULA AND FLUSH (27.5 ML/KG CMW). FOLLOW FOR TUBE FEED TOLERANCE AND PO INTAKE. CONTINUE TO COORDINATE PO INTAKE AND TUBE FEED NEEDS.
[2025-09-22 14:53] VITALS: BP 126/58; PULSE 83; RESP 16; TEMP 37.7; O2SAT 94
[2025-09-22 15:35] VITALS: BP 147/79; PULSE 69; RESP 16; TEMP 36.4; O2SAT 93
== END 2025-09-22 15:36 | disposition skilled nursing facility (03) | DRG 640 ==
LOC: HO.ED 20:31 → HO.EDOVER 21:11 → HO.IMC 09-09 04:04 → HO.S3 09-14 19:35
PROVIDERS: Internal Medicine; Surgery; Admitting Provider Physician Assistant; Emergency Provider Emergency Medicine; PCP Internal Medicine; Visit Provider Internal Medicine
PROC: 0DJ08ZZ Inspection of Upper Intestinal Tract, Via Natural or Artificial Opening Endoscopic (ICD-10-PCS; CPT 43235; principal; 2025-09-20 14:40)
PROC: 0DH63UZ Insertion of Feeding Device into Stomach, Percutaneous Approach (ICD-10-PCS; CPT 43246; 2025-09-20 14:40)
DX: R62.7 Adult failure to thrive (principal); G93.41 Metabolic encephalopathy; E44.0 Moderate protein-calorie malnutrition; E87.21 Acute metabolic acidosis; N39.0 Urinary tract infection, site not specified; K80.20 Calculus of gallbladder without cholecystitis without obstruction; I95.9 Hypotension, unspecified; I48.0 Paroxysmal atrial fibrillation; E87.5 Hyperkalemia; R13.10 Dysphagia, unspecified; Z66 Do not resuscitate; G30.9 Alzheimer's disease, unspecified; F02.80 Dementia in other diseases classified elsewhere, unspecified severity, without behavioral disturbance, psychotic disturbance, mood disturbance, and anxiety; E86.0 Dehydration; Z20.822 Contact with and (suspected) exposure to COVID-19; Z68.27 Body mass index [BMI] 27.0-27.9, adult; Z86.711 Personal history of pulmonary embolism; Z87.891 Personal history of nicotine dependence; Z79.01 Long term (current) use of anticoagulants; Z79.899 Other long term (current) drug therapy
CPT/HCPCS: 36415; 70450; 71046; 71260; 72125; 74177; 76705; 80048; 80053; 80076; 81001; 82248; 82550; 82607; 82746; 82947; 83605; 83690; 83735; 84100; 84478; 85025; 85027; 87040; 87086; 87637; 92526; 92610; 93005; 97162; 97530; 99285; J0616; J0690; J0696; J2003; J2250; J2405; J2543; J3010; J3475; J3480; J7120; Q9967

== ENCOUNTER → 2025-09-08 14:56 | Outpatient (BNV) | payer MEDICARE, SELFPAY | PROVIDERS: Admitting Provider Physician Assistant; Emergency Provider Emergency Medicine; PCP Internal Medicine; Visit Provider Internal Medicine Cardiovascular Disease | DX: I49.3 Ventricular premature depolarization (principal); I51.7 Cardiomegaly | CPT/HCPCS: 93010 ==

== ENCOUNTER → 2025-09-08 15:20 | Outpatient (BNV) | payer MEDICARE, SELFPAY | PROVIDERS: Emergency Provider Emergency Medicine; PCP Internal Medicine; Visit Provider Radiology Diagnostic Ultrasound | DX: R41.82 Altered mental status, unspecified (principal); K80.20 Calculus of gallbladder without cholecystitis without obstruction | CPT/HCPCS: 70450; 72125; 76705 ==

== ENCOUNTER → 2025-09-08 21:08 | Outpatient (BNV) | payer MEDICARE, SELFPAY | PROVIDERS: Admitting Provider Physician Assistant; Emergency Provider Emergency Medicine; PCP Internal Medicine; Visit Provider Surgery | DX: K80.20 Calculus of gallbladder without cholecystitis without obstruction (principal); E87.20 Acidosis, unspecified | CPT/HCPCS: 99232 ==

== ENCOUNTER → 2025-09-08 21:08 | Outpatient (BNV) | payer MEDICARE, SELFPAY | PROVIDERS: Admitting Provider Physician Assistant; Emergency Provider Emergency Medicine; PCP Internal Medicine; Visit Provider Internal Medicine | DX: E87.20 Acidosis, unspecified (principal) | CPT/HCPCS: 99231; 99232 ==

== ENCOUNTER 2025-10-02 11:32 | Outpatient (AMB) | payer MEDICARE, SELFPAY ==
--- NOTE | 2025-10-02 11:34 | A.OFFVIS_ITS ---
Vital Signs 10/02/25 11:39 BMI Reason not done Patient refused/unable BP not taken reason Medical Reason Comment Pt on stretcher Intake Visit Reasons: Cholelithiasis, recent cholangitis *Inpatient ffup Intake Note: This patient presents for [facility] inpatient follow-up for Cholelithiasis, recent cholangitis. Pt's son c/o; this morning pt's nurse told Parminder that she was able to tolerate 25% of her breakfast. DI: 09/08/25: Abd US 09/08/25: Abd/pelvis CT 09/08/25: Chest CT Wood Fence Erector Required: No Accompanied by: Family/Other Allergies No Known Allergies Allergy (Verified 10/02/25 11:40) HPI HPI Cholelithiasis, recent cholangitis *Inpatient ffup: Details: She is here for follow-up after peg tube placement last September 20. She was admitted to the hospital last September 07, 2025 because of hypotension from the alf, along with a an overall sense of discomfort. She underwent workup because of elevated lactate. She had abdominal CAT scan showing a gallstone without cholecystitis. She did not have any significant tenderness She had failure to thrive with poor oral intake so he was referred to me for PEG tube placement which was done last September 20. She is currently in a detention facility.. According to her son Parminder, she is now able to take about 50% of her nutritional requirements by mouth. They are still using her PEG tube and she is tolerating this well. [facility] Medical History (Updated 10/02/25 @ 11:55 by Gaston Castelan MD) Gallstones Failure to thrive in adult Lactate blood increase Social History Housing: Half-Way Do you presently have visiting nurse or other home services: Yes Patient Tobacco Use Status: Former Tobacco user Advance Directives Date on File: 09/09/25 service: No Assessment & Plan Assessment & Plan (1) Failure to thrive in adult: Code(s): R62.7 - Adult failure to thrive Category: Medical Plan: She has a PEG tube in place and she is tolerating PEG tube feeds. She is also has better intake now. I cleaned the area of the PEG tube because of some presence of dried blood and feeds. I did explain to the son that if at some point, the PEG tube is not needed anymore, we can also was pulled this out in the office (2) Gallstones: Code(s): K80.20 - Calculus of gallbladder without cholecystitis without obstruction Category: Medical Plan: She does not have any abdominal pain or tenderness. He has a DNR DNI in effect as well so no surgical intervention is being planned for her gallbladder. The son Supa is in agreement with this. Coding Level of Care Code Est Pt Level 3 (82809) Diagnoses Failure to thrive in adult R62.7 Gallstones K80.20
--- OUTSIDE RECORDS SUMMARY | 2025-10-02 14:41 | XMS_ITS | Encounter Summary ---
Author Organization [facility] Address [address] [place] [address] Phone Care Team Providers Care On Air Talent Name Role Phone Dara Sellers Primary Care Provider [phone]- [phone] Encounter Details Date Type Department Care Team ([facility] st Contact Info) Description 08/16/2025 Procedure Pass [facility] Admitting Dept Virtual Department [address] [place] [address] Social History Tobacco Use Types Packs/Day Years Used Date Smoking Tobacco: Unknown Alcohol Use Standard Drinks/Week Comments Not Currently 0 (1 standard drink = 0.6 oz pur e alcohol) Education Answer Date Recorded Are you interested in more education? Not on kenan e 05/15/2025 Are you concerned about learning? Not on file 05/15/2025 No 05/15/2025 No 05/15/2025 Food Answer Date Recorded Within the past 6 months we worried whether our food would run out before we got money to buy more. Never True 08/16/2025 Within the past 6 months the food we bought just didn't last and we didn't have enough money to get more. Never True Residential Stability Answer Date Recor ded What is your housing situation today? I have rowena sing 08/16/2025 How many times have you move d in the past 12 months? Zero (I did not move) 08/16/2025 Paying for Meds Answer Date Recorded Do you have trouble paying for medicines? No 08/16/2025 Paying Utility Bills Answer Date Record ed Do you have trouble paying your heating or elect ricity bill? No 08/16/2025 Transportation Answer Date Recorded Has the lack of transportati on kept you from medical appointments or from getting medications? No 08/16/2025 Digital Access Answer Date Recorded No 08/16/2025 Yes 08/16/2025 Do you have reliable internet access at home? Ye s 08/16/2025 Do you have a device (e.g., phone, tablet, computer) with a working camera? Yes 08/16/2025 Intimate Partner Violence Answer Date R ecorded Are you denied basic needs s uch as food, clothing, or medical care? No 08/16/2025 In the past 12 months have y ou been in a relationship with a person who hurts, threatens, or tries to control you? No 08/16/2025 Are you denied basic needs s uch as food, clothing, or medical care? No 08/16/2025 In the past 12 months have y ou been in a relationship with a person who hurts, threatens, or tries to control you? No 08/16/2025 Comments Unknown Sex and Gender Information Value Date Recorded Sex Assigned at Not on file Legal Sex Female 11:15 AM EDT Gender Identity Not on file Sexual Orientation Not on file documented as of this encounter Functional Status * Calculated C-SSRS Risk Score (Lifetime/Recent) Answer Date of Assessment Author No Risk Indicated 08/16/2025 5:00 PM EDT Reyna Arce RN * [place] Suicide Severity Rating Scale (Screener/Recent Self-Report) Question Answer Date of Assessment Author 1. Wish to be (Past 1 Month) No 08/16/2025 5:00 PM LANET Carolin Estrada RN 2. Non-Specific Active Suicidal Thoughts (Past 1 Month) No 08/16/2025 5:00 PM LANET Carolin Estrada RN 6. Suicidal Behavior (Lifetime) No 08/16/2025 5:00 PM Carolin Melendez RN documented as of this encounter Plan of Treatment Upcoming Encounters Date Type Department Care Team (Late st Contact Info) Description 10/03/2025 2:15 PM EST Office Visit [facility] General Surgical Care [address] [place] [address] Marlys Riley MD [address] [place] [address], 2nd [place] [address] [email or web address] documented as of this encounter Visit Diagnoses Not on filedocumented in this encounter Care Teams On Air Talent Relationship Specialty Start Date End Date Dara Sellers PA [address] [place] [id number] PCP - General Physician Hot Saw Operator 05/15/25 documented as of this encounter Additional Source Comments The information contained in this document represents components of the legal health record. It is not the complete legal health record.[facility]
--- OUTSIDE RECORDS SUMMARY | 2025-10-02 14:41 | XMS_ITS | Encounter Summary ---
Author Organization [facility] Address [address] [place] [address] Phone Care Team Providers Care Networking Technician Name Role Phone Dara Sellers Primary Care Provider [phone]- [phone] Encounter Details Date Type Department Care Team (Late st Contact Info) Description 08/16/2025 Procedure Pass [facility], Ct Scan - [facility] [address] [place] [address] Social History Tobacco Use Types Packs/Day Years [...] 5:00 PM EDT Reyna Arce RN * [place] Suicide Severity Rating Scale (Screener/Recent Self-Report) Question Answer Date of Assessment Author 1. Wish to be (Past 1 Month) No 08/16/2025 5:00 PM LANET Carolin Estrada RN 2. Non-Specific Active Suicidal Thoughts (Past 1 Month) No 08/16/2025 5:00 PM LANET Carolin Estrada RN 6. Suicidal Behavior (Lifetime) No 08/16/2025 5:00 PM LANET Carolin Estrada RN documented as of this encounter Plan of Treatment Upcoming Encounters Date Type Department Care Team (Late st Contact Info) Description 10/03/2025 2:15 PM EST Office Visit [facility] General Surgical Care [address] [place] [address] Marlys Dodge MD [address] [place] [address], 2nd [place] [address] [email or web address] documented as of this encounter Visit Diagnoses Not on filedocumented in this encounter Care Teams Networking Technician Relationship Specialty Start Date End Date Dara Sellers PA [address] [place] [id number] PCP - General Physician Hands Parter 05/15/25 documented as of this encounter Additional Source Comments The information contained in this document represents components of the legal health record. It is not the complete legal health record.[facility]
--- OUTSIDE RECORDS SUMMARY | 2025-10-02 14:41 | XMS_ITS | Encounter Summary ---
Author Organization [facility] Address [address] [place] [address] Phone Care Team Providers Care Primary Care Nurse Practitioner Name Role Phone Dara Sellers Primary Care Provider [phone]- [phone] Encounter Details Date Type Department Care Team (Late st Contact Info) Description 08/16/2025 Procedure Pass [facility], Ct Scan - [facility] [address] [place] [address] Social History Tobacco Use Types Packs/Day Years [...] 5:00 PM EDT Reyna Arce RN * [place] Suicide Severity Rating Scale (Screener/Recent Self-Report) Question [...] Description 10/03/2025 2:15 PM EST Office Visit [facility] General Surgical Care [address] [place] [address] Marlys Dodge MD [address] [place] [address], 2nd [place] [address] [email or web address] documented as of this encounter Visit Diagnoses Not on filedocumented in this encounter Care Teams Primary Care Nurse Practitioner Relationship Specialty Start Date End Date Dara Sellers PA [address] [place] [id number] PCP - General Physician Skewer Up 05/15/25 documented as of this encounter Additional Source Comments The information contained in this document represents components of the legal health record. It is not the complete legal health record.[facility]
--- OUTSIDE RECORDS SUMMARY | 2025-10-02 14:41 | XMS_ITS | Encounter Summary ---
Author Organization [facility] Address [address] [place] [address] Phone Care Team Providers Care Rice Milling Supervisor Name Role Phone Dara Sellers Primary Care Provider [phone]- [phone] Encounter Details Date Type Department Care Team (Late st Contact Info) Description 08/16/2025 Procedure Pass [facility], Ct Scan - [facility] [address] [place] [address] Social History Tobacco Use Types Packs/Day Years [...] 5:00 PM EDT Reyna Arce RN * [place] Suicide Severity Rating Scale (Screener/Recent Self-Report) Question [...] Description 10/03/2025 2:15 PM EST Office Visit [facility] General Surgical Care [address] [place] [address] Marlys Dodge MD [address] [place] [address], 2nd [place] [address] [email or web address] documented as of this encounter Visit Diagnoses Not on filedocumented in this encounter Care Teams Rice Milling Supervisor Relationship Specialty Start Date End Date Dara Sellers PA [address] [place] [id number] PCP - General Physician Business Development Coordinator 05/15/25 documented as of this encounter Additional Source Comments The information contained in this document represents components of the legal health record. It is not the complete legal health record.[facility]
--- OUTSIDE RECORDS SUMMARY | 2025-10-02 14:41 | XMS_ITS | Encounter Summary ---
Author Organization [facility] Address [address] [place] [address] Phone Care Team Providers Care Charge Operator Name Role Phone Dara Sellers Primary Care Provider Encounter Details Date Type Department Care Team (Latest Contact Info) Description 05/15/2025 Transcribe Orders [address] [address] Dara Sellers PA [address] [place] [address] [address] [place] [address] Hypertension, essential (Primary Dx) Social History Tobacco Use Types Packs/Day Years Used Date Smoking Tobacco: Never Assessed Education Answer Date Recorded Are you interested in more education? Not on kenan e 05/15/2025 Are you concerned about learning? Not on file 05/15/2025 No 05/15/2025 No 05/15/2025 Digital Access Answer Date Recorded No 05/15/2025 No 05/15/2025 Reliable internet access at home? Not on file 05/15/2025 Device with a working camera? Not on file Comments Unknown Sex and Gender Information Value Date Recorded Sex Assigned at Not on file Legal Sex Female 11:15 AM EDT Gender Identity Not on file Sexual Orientation Not on file documented as of this encounter Plan of Treatment Upcoming Encounters Date Type Department Care Team (Late st Contact Info) Description 10/03/2025 2:15 PM EST Office Visit [facility] [place] [facility] General Surgical Care [address] [place] [address] Marlys Dodge MD [address] [facility], 2nd [place] [address] [email or web address] documented as of this encounter Results * Hemoglobin A1c (05/15/2025 11:30 AM EDT) HEMOGLOBIN A1C 4.9 4.3 - 5.8 % [facility] Blood 05/15/2025 11:3 0 AM EDT 05/15/2025 11:31 AM EDT us Dara [facility] BLOOD BKR ORDERABLES Fi nal Result [facility] [address] [place] [address] * (ABNORMAL) CBC and differential (05/15/2025 11:30 AM EDT) WBC 8.13 4.00 - 11.00 K/uL [facility] RBC 4.53 4.00 - 5.20 M/uL [facility] HGB 14.5 12.0 - 16.0 g/dL [facility] HCT 45.0 36.0 - 46.0 % [facility] PLT 256 150 - 450 K/uL [facility] MCV 99.3 80.0 - 100.0 fL [facility] MCH 32.0(H) 27.0 - 31.0 pg [facility] MCHC 32.2 32.0 - 36.0 g/dL [facility] RDW 13.2 11.5 - 14.5 % [facility] MPV 10.6 8.4 - 12.0 fL [facility] NRBC 0.00 0.00 /100 WBCs [facility] ABSOLUTE NRBC 0.00 0.00 K/uL [facility] DIFF METHOD Auto [facility] NEUTS 64.7 48.0 - 76.0 % [facility] LYMPHS 20.5 18.0 - 41.0 % [facility] MONOS 11.7(H) 4.0 - 11.0 % [facility] EOS 2.1 0.0 - 5.0 % [facility] BASOS 0.6 0.0 - 1.5 % [facility] Granulocytes, immature (%) 0.4 0.0 - 0.9 % [facility] ABSOLUTE NEUTS 5.26 1.92 - 7.60 K/uL [facility] ABSOLUTE LYMPHS 1.67 0.72 - 4.10 K/uL [facility] ABSOLUTE MONOS 0.95 0.16 - 1.10 K/uL [facility] ABSOLUTE EOS 0.17 0.00 - 0.50 K/uL [facility] ABSOLUTE BASOS 0.05 0.00 - 0.15 K/uL [facility] Granulocytes, immature 0.03 0.00 - 0.09 K/uL [facility] Blood 05/15/2025 11:3 0 AM EDT 05/15/2025 11:32 AM EDT us Dara [facility] BLOOD BKR ORDERABLES Fi nal Result [facility] [address] [place] [address] * (ABNORMAL) Lipid panel (05/15/2025 11:30 AM EDT) HDL 62 mg/dL [facility] Comment: Interpretation <40 mg/dL: Low HDL cholesterol (major risk factor for CHD) Greater than or equal to 60 mg/dL: High HDL cholesterol ( negative risk factor for CHD) HDL - cholesterol is affected by a number of factors, e.g. smoking, excerise, hormones, sex and age. CHOLESTEROL 160 0 - 240 mg/dL [facility] TRIGLYCERIDES 85 30 - 160 mg/dL [facility] LDL 81 50 - 129 mg/dL [facility] Comment: LDL levels in terms of risk for coronary heart disease: <100 mg/dL: Optimal 100-129 mg/dL: Near or above optimal 130-159 mg/dL: Borderline high 160-189 mg/dL: High >190 mg/dL: Very High CARDIAC RISK RATIO 2.6(L) 3.3 - 4.4 C [facility] Blood 05/15/2025 11:3 0 AM EDT 05/15/2025 11:31 AM EDT us Dara [facility] BLOOD BKR ORDERABLES Fi nal Result [address] [address] * (ABNORMAL) Comprehensive metabolic panel (05/15/2025 11:30 AM EDT) SODIUM 144 133 - 146 mmol/L [facility] POTASSIUM 4.4 3.3 - 5.1 mmol/L [facility] CHLORIDE 107 96 - 108 mmol/L [facility] CO2 28 21 - 35 mmol/L [facility] BUN 16 6 - 19 mg/dL [facility] CREATININE 0.60 0.5 - 1.5 mg/dL [facility] GLUCOSE 104(H) 70 - 99 mg/dL [facility] ALBUMIN 4.0 3.9 - 4.8 g/dL [facility] TOTAL PROTEIN 7.3 6.5 - 8.0 g/dL [facility] CALCIUM 9.1 8.4 - 10.3 mg/dL [facility] ALKALINE PHOSPHATASE 91 39 - 117 U/L [facility] TOTAL BILIRUBIN 0.3 0.0 - 1.2 mg/dL [facility] AST 25 0 - 37 U/L [facility] ALT 20 0 - 40 U/L [facility] GLOBULIN 3.3 1 - 4.8 g/dL [facility] EGFR 88 >59 mL/min/1.7 3m2 [facility] Comment:Estimated glomerular filtration rate calculated using the CKD-EPI refit equation. ANION GAP 13 10 - 20 mmol/L [facility] Blood 05/15/2025 11:3 0 AM EDT 05/15/2025 11:32 AM EDT us Dara [facility] BLOOD BKR ORDERABLES Fi nal Result Performing Organization Address City/[facility]/ZIP Co de Phone Number [address] [address] documented in this encounter Visit Diagnoses Diagnosis Hypertension, essential- Primary Unspecified essential hypertension Choledocholithiasis with acute cholecystitis with obstruction- Primary Elevated LFTs Other abnormal blood chemistry Macrocytic anemia History of pulmonary embolism Personal history of venous thrombosis and embolism Essential hypertension Unspecified essential hypertension documented in this encounter Care Teams Charge Operator Relationship Specialty Start Date End Date Dara Sellers PA [address] [place] [id number] PCP - General Physician Quantitative Manager 05/15/25 documented as of this encounter Additional Source Comments The information contained in this document represents components of the legal health record. It is not the complete legal health record.[facility]
--- OUTSIDE RECORDS SUMMARY | 2025-10-02 14:41 | XMS_ITS | Encounter Summary ---
Author Organization [facility] Address [address] [place] [address] Phone Care Team Providers Care Body Team Member Name Role Phone Dara Sellers Primary Care Provider [phone] Encounter Details Date Type Department Care Team ([facility] st Contact Info) Description 08/16/2025 Procedure Pass [facility] [address] [place] [address] Social History Tobacco Use Types Packs/Day Years Used Date Smoking Tobacco: Unknown Alcohol Use Standard Drinks/Week Comments Not Currently 0 (1 standard drink = 0.6 oz pur e alcohol) Education Answer Date Recorded Are you interested in more education? Not on kenna e 05/15/2025 Are you concerned about learning? [...] 5:00 PM EDT Reyna Arce RN * [place] Suicide Severity Rating Scale (Screener/Recent Self-Report) Question Answer Date of Assessment Author 1. Wish to be (Past 1 Month) No 08/16/2025 5:00 PM EDT Carolin Estrada RN 2. Non-Specific Active Suicidal Thoughts (Past 1 Month) No 08/16/2025 5:00 PM LANET Carolin Estrada RN 6. Suicidal Behavior (Lifetime) No 08/16/2025 5:00 PM LANET Carolin Estrada RN documented as of this encounter Plan of Treatment Upcoming Encounters Date Type Department Care Team (Late st Contact Info) Description 10/03/2025 2:15 PM EST Office Visit [facility] General Surgical Care [address] [place] [address] Marlys Dodge MD [address], [address] [place] [phone] [email or web address] documented as of this encounter Visit Diagnoses Not on filedocumented in this encounter Care Teams Body Team Member Relationship Specialty Start Date End Date Dara Sellers PA [address] [place] [phone] PCP - General Physician Career Advisor 05/15/25 documented as of this encounter Additional Source Comments The information contained in this document represents components of the legal health record. It is not the complete legal health record.[facility]
--- OUTSIDE RECORDS SUMMARY | 2025-10-02 14:41 | XMS_ITS | Encounter Summary ---
Author Organization [facility] Address [address] [place] [address] Phone Care Team Providers Care Drapery Rod Assembler Name Role Phone Dara Sellers Primary Care Provider [phone]- [phone] Encounter Details Date Type Department Care Team (Late st Contact Info) Description 08/16/2025 Procedure Pass [facility] - [facility] [address] [place] [address] Social History Tobacco Use Types Packs/Day Years [...] 5:00 PM EDT Reyna Arce RN * [place] Suicide Severity Rating Scale (Screener/Recent Self-Report) Question [...] Description 10/03/2025 2:15 PM EST Office Visit [facility] General Surgical Care [address] [place] [address] Marlys Dodge MD [address] [place] [address], 2nd [place] [address] [email or web address] documented as of this encounter Visit Diagnoses Not on filedocumented in this encounter Care Teams Drapery Rod Assembler Relationship Specialty Start Date End Date Dara Sellers PA [address] [place] [phone] PCP - General Physician Outpatient Therapist 05/15/25 documented as of this encounter Additional Source Comments The information contained in this document represents components of the legal health record. It is not the complete legal health record.[facility]
--- OUTSIDE RECORDS SUMMARY | 2025-10-02 14:41 | XMS_ITS | Clinical Summary ---
Author Organization [facility] Address [address] [place] [address] Phone Care Team Providers Care Export Packer Name Role Phone Dara Sellers Primary Care Provider [phone] Allergies No known active allergies Medications metoprolol succinate (TOPROL-XL) 25 MG 24 hr tablet Take 25 mg by mouth daily. Active acetaminophen (TYLENOL) 325 mg tablet Take 2 tablets (650 mg total) by mouth every 6 (six) hours as needed for pain (specific location in comments). 08/19/2025 Active apixaban (ELIQUIS) 5 mg tablet Take 2 tablets (10 mg total) by mouth 2 (two) times a day for 6 days, THEN 1 tablet (5 mg total) 2 (two) times a day. 08/19/2025 11/23/20 Active Active Problems Problem Noted Date Diagnosed Date Long-term memory impairment 08/17/2025 Macrocytic anemia 08/17/2025 Acute pulmonary embolism 08/17/2025 Choledocholithiasis with acu te cholecystitis with obstruction 08/17/2025 Abnormal LFTs (liver function tests) 08/17/2025 Thrombocytopenia 08/17/2025 Ascending cholangitis 08/16/2025 Assessment & Plan (08/17/2025 11:32 AM EDT): This is an 84-year-old female with a past medical history of A-fib (no anticoagulation) admitted for cholangitis, multiple PEs with heart strain seen and examined at bedside. Given multiple PEs with heart strain, need for anticoagulation, we would defer operative intervention at this point and recommend IR percutaneous cholecystotomy tube which is now pending. She will need outpatient surgery once improved. General surgery will be available for any questions while inpatient. In total, chart review, exam, discussion with patient and attending physician Dr. Dodge took approximately 35 minutes. Elevated troponin 08/16/2025 Atrial fibrillation with RVR 11/27/2022 Essential hypertension 11/27/2022 Encounters Date Type Department Care Team Description 5 Orders Only [facility] [address] [place] [phone] [facility], Chavo Espinoza MD 5 9:40 PM EDT Ancillary Procedure [address] [address] Alex Conway NP 5 7:08 PM EDT - 5 8:10 PM EDT Surgery [facility] Cardiovascular And Interventional Radiology [address] [place] [address] John Gonsales MD ABDOMINAL LIMITED WITH ULTRASOUND IR 5 Procedure Pass [facility] Cardiovascular [facility] Interventional Radiology [address] [place] [id number] 5 10:15 PM EDT Ancillary Procedure [address] [address] Sofia Cohen PA-C 5 3:16 PM EDT Anesthesia Event [facility] Endoscopy Admitting Dept Virtual Department [address] [place] [address] Nova Ortega MD Strebel, Joseph S, MD 5 1:59 PM EDT - 5 2:59 PM EDT Surgery [facility] Endoscopy Admitting Dept Virtual Department [address] [place] [id number] Dick Eckert MD ENDOSCOPIC RETROGRADE CHOLANGIOPANCREATOGRAPHY 5 8:31 AM EDT - 5 4:30 PM EDT Hospital Encounter [facility] [address] [place] [address] Martinez Shrestha MD Steinberg, MD Clif Frederick, MD Mireille Yo, Marti Mae MD Discharge Disposition: Detention Facility 5 Procedure Pass [facility] Echo Lab [address] [place] [id number] 5 Procedure Pass [address] [address] 5 Procedure Pass [facility] Endoscopy Admitting Dept Virtual Department [address] [place] [id number] 5 Procedure Pass [address] [address] 5 Procedure Pass [address] [address] 5 Procedure Pass [address] [address] 5 Orders Only [facility] [address] [place] [phone] Homehealth, Interface ProviderMD from Last 3 Months Immunizations Immunization Administration Dates Next Due Influenza High-Dose Trivalent Preservative Free IM 08/19/2025 Social History Tobacco Use Types Packs/Day Years Used Date Smoking Tobacco: Unknown Tobacco Cessation:Counseling Given: Not Answered Alcohol Use Standard Drinks/Week Comments Not Currently [...] your housing situation today? I have rowena sepulveda 08/16/2025 How many times have you move [...] on file Sexual Orientation Not on file Last Filed Vital Signs Vital Sign Reading Time Taken Comments Blood Pressure 140/53 08/19/2025 1:21 PM EDT Pulse 85 08/19/2025 1:21 PM EDT Temperature 36.8 C (98.2 F) 08/19/2025 1:21 PM EDT Respiratory Rate 16 08/19/2025 1:21 PM EDT Oxygen Saturation 95% 08/19/2025 1:21 PM EDT Inhaled Oxygen Concentration - - Weight 84.7 kg (186 lb 11.7 oz) 08/19/2025 6:00 AM EDT Height 165.1 cm (5' 5 ) 08/16/2025 4:41 PM EDT Body Mass Index 31.07 08/16/2025 4:41 PM EDT Plan of Treatment Upcoming Encounters Date Type Department Care Team (Late st Contact Info) Description 10/03/2025 2:15 PM EST Office Visit [facility] General Surgical Care [address] [place] [address] Marlys Dodge MD [address] [facility], 2nd [place] [address] [email or web address] Health Maintenance Due Date Last Done Comments Adult Td,Tdap Booster 1940 BLOOD PRESSURE 1940 DEPRESSION SCREENING 1952 PNEUMOCOCCAL VACCINES (50+ years) (1 of 1 - PCV) 1990 ZOSTER VACCINES (1 of 2) 1990 OSTEOPOROSIS SCREENING INITIAL (ONE-TIME) 2005 RSV VACCINE (1 - 1-dose 75+ series) 2015 COVID-19 VACCINE ( - season) 2025 CREATININE LEVEL 08/19/2026 08/19/2025, , 08/17/2025, Additional history exists INFLUENZA VACCINE Completed 08/19/2025 HEPATITIS A VACCINES Aged Out No long er eligible based on patient's age to complete this topic HIB VACCINES Aged Out No longer eligi ble based on patient's age to complete this topic MENINGOCOCCAL VACCINES (ACWY) Aged Out No longer eligible based on patient's age to complete this topic MENINGOCOCCAL VACCINES (B) Aged Out N o longer eligible based on patient's age to complete this topic Medical Devices Not on file Procedures Procedure Name Priority Date/Time Associated Diagnosis Comments IONIZED CALCIUM Routine 08/19/2025 4:54 AM EDT PHOSPHORUS Routine 08/19/2025 4:54 AM EDT MAGNESIUM Routine 08/19/2025 4:54 AM EDT CBC AND DIFFERENTIAL Routine 08/19/2025 4:54 AM EDT COMPREHENSIVE METABOLIC PANE L (CMP) Routine 08/19/2025 4:54 AM EDT C-REACTIVE PROTEIN (CRP) Routine 025 5:35 AM EDT LFTS (HEPATIC PANEL) Routine 08/18/2025 5:35 AM EDT PHOSPHORUS Routine 08/18/2025 5:35 AM EDT MAGNESIUM Routine 08/18/2025 5:35 AM EDT CBC AND DIFFERENTIAL Routine 08/18/2025 5:35 AM EDT BASIC METABOLIC PANEL (BMP) Routine 07/31 5:35 AM EDT US BEDSIDE Routine 08/17/2025 9:38 PM EDT Ascending cholangitis INSERT PERIPHERAL IV Routine 08/17/2025 9:37 PM EDT Ascending cholangitis ABDOMINAL LIMITED WITH ULTRASOUND (IR) Routine 08/17/2025 6:57 PM EDT Choledocholithiasi s with acute cholecystitis with obstruction US LOWER EXTREMITY VEINS DUPLEX COMPLETE (BILATERAL) Routine 08/17/2025 4:00 PM EDT Swelling, limb HC BLOOD TYPING SEROLOGIC ABO Routine 1:54 PM EDT PROCALCITONIN Timed 08/17/2025 1:54 PM EDT LACTIC ACID (LACTATE) Timed 08/17/2025 1:54 PM EDT TROPONIN Timed 08/17/2025 1:54 PM EDT MAGNESIUM Timed 08/17/2025 1:54 PM EDT BASIC METABOLIC PANEL (BMP) Timed 07/31 1:54 PM EDT TTE COMPREHENSIVE Routine 08/17/2025 8:28 AM EDT Acute pulmonary embolism, unspecified pulmonary embolism type, unspecified whether acute cor pulmonale present ABO2F - 2ND TYPE (NEW SAMPLE) Routine 4:51 AM EDT NT-PROBNP Routine 08/17/2025 4:51 AM EDT C-REACTIVE PROTEIN (CRP) Routine 025 4:51 AM EDT PHOSPHORUS Routine 08/17/2025 4:51 AM EDT MAGNESIUM Routine 08/17/2025 4:51 AM EDT COMPREHENSIVE METABOLIC PANE L (CMP) Routine 08/17/2025 4:51 AM EDT CBC AND DIFFERENTIAL Routine 08/17/2025 4:51 AM EDT INSERT PERIPHERAL IV STAT 08/16/2025 10:40 PM EDT Ascending cholangitis US BEDSIDE Routine 08/16/2025 10:12 PM EDT Ascending cholangitis TROPONIN Timed 08/16/2025 9:09 PM EDT PHOSPHORUS Timed 08/16/2025 9:09 PM EDT MAGNESIUM Timed 08/16/2025 9:09 PM EDT BASIC METABOLIC PANEL (BMP) Timed 07/31 9:09 PM EDT CBC AND DIFFERENTIAL Timed 08/16/2025 9:[address] CHEST PULMONARY ANGIOGRAM (ACUTE) Routine 08/16/2025 9:00 PM EDT MRSA PCR SCREEN Routine 08/16/2025 6:48 PM EDT FL FLUOROSCOPY Routine 08/16/2025 4:18 PM EDT AIRWAY PLACEMENT Routine 08/16/2025 3:23 PM EDT ENDOSCOPIC RETROGRADE CHOLANGIOPANCREATOGRAPHY 08/16/2025 3:18 PM EDT ERCP ENDOSCOPY PROCEDURE 08/16/2025 2:44 PM EDT ECG 12-LEAD STAT 08/16/2025 1:47 PM EDT LACTIC ACID (LACTATE) STAT 08/16/2025 12:[address] ABDOMEN/PELVIS WITH CONTRAST Routine 08/16/2025 12:17 PM EDT LACTIC ACID (LACTATE) STAT 08/16/2025 11:22 AM EDT TROPONIN Routine 08/16/2025 10:36 AM EDT NT-PROBNP Routine 08/16/2025 10:36 AM EDT PATHOLOGY REVIEW Routine 08/16/2025 10:36 AM EDT PT-INR STAT 08/16/2025 10:36 AM EDT LACTIC ACID (LACTATE) STAT 08/16/2025 10:36 AM EDT LIPASE STAT 08/16/2025 10:36 AM EDT LFTS (HEPATIC PANEL) STAT 08/16/2025 10:36 AM EDT MAGNESIUM STAT 08/16/2025 10:36 AM EDT BASIC METABOLIC PANEL (BMP) STAT 07/31 10:36 AM EDT CBC AND DIFFERENTIAL STAT 08/16/2025 10:36 AM EDT BLOOD CULTURE, ROUTINE STAT 5 10:36 AM EDT BLOOD CULTURE, ROUTINE STAT 5 10:[address] CERVICAL SPINE WITHOUT CONTRAST Routine 08/16/2025 9:[address] HEAD WITHOUT CONTRAST Routine 025 9:33 AM EDT XR CHEST PORTABLE STAT 08/16/2025 9:07 AM EDT URINE SEDIMENT STAT 08/16/2025 9:04 AM EDT URINALYSIS WITH REFLEX TO URINE CULTURE STAT 08/16/2025 9:04 AM EDT ECG 12-LEAD STAT 08/16/2025 8:48 AM EDT from Last 3 Months Results * (ABNORMAL) Comprehensive metabolic panel (08/19/2025 4:54 AM EDT) Only the most recent of2 resultswithin the time period is included. SODIUM 143 133 - 146 mmol/L [facility] POTASSIUM 3.7 3.3 - 5.1 mmol/L [facility] CHLORIDE 112(H) 96 - 108 mmol/L [facility] CO2 22 21 - 35 mmol/L [facility] BUN 10 6 - 19 mg/dL [facility] CREATININE 0.30(L) 0.5 - 1.5 mg/dL [facility] GLUCOSE 80 70 - 99 mg/dL [facility] ALBUMIN 2.6(L) 3.9 - 4.8 g/dL [facility] TOTAL PROTEIN 5.3(L) 6.5 - 8.0 g/dL [facility] CALCIUM 7.9(L) 8.4 - 10.3 mg/dL [facility] ALKALINE PHOSPHATASE 253(H) 39 - 117 U/L [facility] TOTAL BILIRUBIN 3.0(H) 0.0 - 1.2 mg/dL [facility] AST 35 0 - 37 U/L [facility] ALT 33 0 - 40 U/L [facility] GLOBULIN 2.7 1 - 4.8 g/dL [facility] EGFR 105 >59 mL/min/1.7 3m2 [facility] Comment:Estimated glomerular filtration rate calculated using the CKD-EPI refit equation. ANION GAP 13 10 - 20 mmol/L [facility] Blood 08/19/2025 4:54 AM EDT 08/19/2025 5:21 AM EDT us Sancho Asher [facility] LAB BLOOD BKR ORDERABLES Final Result [address] [address] * (ABNORMAL) CBC and differential (08/19/2025 4:54 AM EDT) Only the most recent of5 resultswithin the time period is included. WBC 10.53 4.00 - 11.00 K/uL [facility] RBC 2.76(L) 4.00 - 5.20 M/uL [facility] HGB 9.5(L) 12.0 - 16.0 g/dL [facility] HCT 29.7(L) 36.0 - 46.0 % [facility] PLT 147(L) 150 - 450 K/uL [facility] MCV 107.6(H) 80.0 - 100.0 [facility] MCH 34.4(H) 27.0 - 31.0 pg [facility] MCHC 32.0 32.0 - 36.0 g/dL [facility] RDW 19.8(H) 11.5 - 14.5 % [facility] MPV 11.8 8.4 - 12.0 [facility] NRBC 0.00 0.00 /100 WBCs [facility] ABSOLUTE NRBC 0.00 0.00 K/uL [facility] DIFF METHOD Auto [facility] NEUTS 55.1 48.0 - 76.0 % [facility] LYMPHS 29.2 18.0 - 41.0 % [facility] Comment: Few Atypical Lymphs MONOS 12.2(H) 4.0 - 11.0 % [facility] EOS 2.5 0.0 - 5.0 % [facility] BASOS 0.3 0.0 - 1.5 % [facility] Granulocytes, immature (%) 0.7 0.0 - 0.9 % [facility] ABSOLUTE NEUTS 5.81 1.92 - 7.60 K/uL [facility] ABSOLUTE LYMPHS 3.08 0.72 - 4.10 K/uL [facility] ABSOLUTE MONOS 1.28(H) 0.16 - 1.10 K/uL [facility] ABSOLUTE EOS 0.26 0.00 - 0.50 K/uL [facility] ABSOLUTE BASOS 0.03 0.00 - 0.15 K/uL [facility] Granulocytes, immature 0.07 0.00 - 0.09 K/uL [facility] Blood 08/19/2025 4:54 AM EDT 08/19/2025 5:21 AM EDT Sancho Asher [facility] LAB BLOOD BKR ORDERABLES Final Result [address] [address] * (ABNORMAL) Phosphorus (08/19/2025 4:54 AM EDT) Only the most recent of4 resultswithin the time period is included. PHOSPHORUS 1.8(L) 2.7 - 4.5 mg/dL [facility] Blood 08/19/2025 4:54 AM EDT 08/19/2025 5:21 AM EDT Sancho Asher [facility] LAB BLOOD BKR ORDERABLES Final Result Performing Organization Address City/[facility]/ZIP Co de Phone Number [address] [address] * Magnesium (08/19/2025 4:54 AM EDT) Only the most recent of6 resultswithin the time period is included. MAGNESIUM 1.7 1.6 - 2.6 mg/dL [facility] Blood 08/19/2025 4:54 AM EDT 08/19/2025 5:21 AM EDT Sancho Moisés Asher [facility] LAB BLOOD BKR ORDERABLES Final Result [address] [address] * (ABNORMAL) Ionized calcium (08/19/2025 4:54 AM EDT) IONIZED CALCIUM 1.11(L) 1.14 - 1.37 mmol/L [facility] Blood 08/19/2025 4:54 AM EDT 08/19/2025 5:21 AM EDT Sancho Asher [facility] LAB BLOOD BKR ORDERABLES Final Result Performing Organization Address City/[facility] Co de Phone Number [address] [address] * (ABNORMAL) LFTs (hepatic panel) (08/18/2025 5:35 AM EDT) Only the most recent of2 resultswithin the time period is included. ALKALINE PHOSPHATASE 290(H) 39 - 117 U/L [facility] TOTAL BILIRUBIN 3.6(H) 0.0 - 1.2 mg/dL [facility] DIRECT BILIRUBIN 2.5(H) 0.0 - 0.2 mg/dL [facility] Bilirubin (Indirect) 1.1 0 - 1.5 mg/dL [facility] AST 62(H) 0 - 37 U/L [facility] ALT 44(H) 0 - 40 U/L [facility] TOTAL PROTEIN 5.5(L) 6.5 - 8.0 g/dL [facility] ALBUMIN 2.6(L) 3.9 - 4.8 g/dL [facility] GLOBULIN 2.9 1 - 4.8 g/dL [facility] A/G Ratio 0.90(L) 1.00 - 4.80 RATIO [facility] Blood 08/18/2025 5:35 AM EDT 08/18/2025 5:49 AM EDT us Jesus Menezes MD LAB BLOOD BKR ORDERABL ES Final Result Performing Organization Address City/[facility] Co de Phone Number [address] [address] * (ABNORMAL) C-Reactive Protein (08/18/2025 5:35 AM EDT) Only the most recent of2 resultswithin the time period is included. Pathologist [facility] C REACTIVE PROTEIN 65.0(H) 0.0 - 4.0 mg/L [facility] Blood 08/18/2025 5:35 AM EDT 08/18/2025 5:49 AM EDT us Jesus Menezes MD LAB BLOOD BKR ORDERABL ES Final Result Performing Organization Address [facility] de Phone Number [address] [address] * (ABNORMAL) Basic metabolic panel (08/18/2025 5:35 AM EDT) Only the most recent of4 resultswithin the time period is included. SODIUM 143 133 - 146 mmol/L [facility] CHLORIDE 110(H) 96 - 108 mmol/L [facility] POTASSIUM 3.4 3.3 - 5.1 mmol/L [facility] CO2 21 21 - 35 mmol/L [facility] BUN 10 6 - 19 mg/dL [facility] CREATININE 0.50 0.5 - 1.5 mg/dL [facility] GLUCOSE 77 70 - 99 mg/dL [facility] CALCIUM 8.0(L) 8.4 - 10.3 mg/dL [facility] EGFR 92 >59 mL/min/1.7 3m2 [facility] Comment:Estimated glomerular filtration rate calculated using the CKD-EPI refit equation. ANION GAP 15 10 - 20 mmol/L [facility] Blood 08/18/2025 5:35 AM EDT 08/18/2025 5:49 AM EDT us Jesus Menezes MD LAB BLOOD BKR ORDERABL ES Final Result [address] [address] * US BEDSIDE (08/17/2025 9:38 PM EDT) Anatomical Region Laterality Modality Ultrasound Narrative 08/17/2025 9:38 PM EDT Alex Conway NP 08/17/2025 9:38 PM Bedside Ultrasound Date/Time: 08/17/2025 9:38 PM Performed by: Alex Conway NP Authorized by: Alex Conway NP Exam Type: Procedural Guidance Procedural Guidance: Indication: Procedural Guidance Bedside Ultrasound was used to perform Peripheral IV Placement. Please see separately documented procedure note to see details of procedure. Accession Number: [id number] us Alex Conway NP IMG POINT OF CARE EXAMS Final Re sult * Insert Peripheral IV Under US Guidance (08/17/2025 9:37 PM EDT) Only the most recent of2 resultswithin the time period is included. Narrative Alex Conway NP - 08/17/2025 9:37 PM EDT Alex Conway NP 08/17/2025 9:38 PM Insert Peripheral IV Under US Guidance Date/Time: 08/17/2025 9:37 PM Performed by: Alex Conway NP Authorized by: Alex Conway NP Indications: Indications: Vascular access Local anesthesia used?: No Procedure details: Preparation: Skin prepped with ChloraPrep Skin prep agent dried: Skin prep agent completely dried prior to procedure Location: Right upper extremity IV size: 20 Ultrasound guidance: dynamic Number of attempts: 1 Successful placement: Yes Post-procedure: Post-procedure: Dressing applied Assessment: Blood return Patient tolerance: Patient tolerated the procedure well with no immediate complications Routine venipuncture: No. Physician/QHP Skill Required: Yes. Rationale: Previous unsuccessful attempts at routine venipuncture. Images: Images saved: Yes us Alex Conway NP IV THERAPY ORDERABLES Final Resu lt * ABDOMINAL LIMITED WITH ULTRASOUND (IR) (08/17/2025 6:57 PM EDT) Anatomical Region Laterality Modality X-Ray Angiograph y Narrative 08/17/2025 7:09 PM EDT History: Sepsis. Choledocholithiasis. Biliary dilation and gallbladder distention. Recent ERCP with sphincterotomy and biliary stenting. White count remains elevated albeit has at least moderately improved. Placement of percutaneous cholecystostomy tube requested. Procedure: Right upper quadrant (Limited abdominal) ultrasound Findings: Ultrasound assessment of the right upper quadrant performed. Gallbladder distention noted to have markedly improved since previous abdominal CT from 08/16/2025. Gallbladder now measures 2.2 cm AP diameter. Echogenic focus within gallbladder at least in part is in keeping with reflux of air. Additionally there is suggestion of a mobile gallstone within the fundus of the gallbladder. Impression: Improved gallbladder distention. Given this, cholecystostomy tube placement not performed. us Sancho Asher SOUND ENGINEER AUDIO CONTROL IMG IR Final Res ult * US Lower Extremity Veins Duplex Complete (Bilateral) (08/17/2025 4:00 PM EDT) [facility] IMG PATENT PROSECUTION PARALEGAL COMMENT Occlusive deep venous thrombosis of one of the paired right posterior tibial vein's at the ankle, and left popliteal vein. [facility] Anatomical Region Laterality Modality Ultrasound 08/17/2025 4:14 PM EDT Impressions 08/17/2025 4:26 PM EDT * Occlusive deep venous thrombosis of one of the paired right posterior tibial vein's at the ankle, and left popliteal vein. A clinically significant result was initiated on 08/17/2025 4:23 PM, Message ID [id number]. Narrative 08/17/2025 4:26 PM EDT US LOWER EXTREMITY VEINS DUPLEX COMPLETE (BILATERAL) Referring clinician's provided indication for this examination in Epic: Swelling of Limb TECHNIQUE: Lower extremity venous ultrasound with color and spectral Doppler. COMPARISON: None FINDINGS: Exam Quality: Technically difficult exam demonstrates: Right lower extremity: Common femoral vein: Normal compressibility and flow characteristics. Femoral vein: Normal compressibility and flow characteristics. Proximal profunda femoral vein: Normal compressibility. Popliteal vein: Normal compressibility and flow characteristics. Posterior tibial veins: One of the paired vein's at the ankle shows no color uptake. Peroneal veins: Normal compressibility. Great saphenous vein: Normal compressibility at the saphenofemoral junction. Left lower extremity: Common femoral vein: Normal compressibility and flow characteristics. Femoral vein: Normal compressibility and flow characteristics. Proximal profunda femoral vein: Normal compressibility. Popliteal vein: Non compressible. Posterior tibial veins: Not visualized Peroneal veins: Not visualized Great saphenous vein: Normal compressibility at the saphenofemoral junction. Procedure Note Nathan Perdomo, AIMEE / System, Provider Not In, PhD - 08/17/2025 US LOWER EXTREMITY VEINS DUPLEX COMPLETE (BILATERAL) Referring clinician's provided indication for this examination in [facility]:Swelling of Limb TECHNIQUE: Lower extremity venous ultrasound with color and spectralDoppler. COMPARISON: None FINDINGS: Exam Quality: Technically difficult exam demonstrates: Right lower extremity: Common femoral vein: Normal compressibility and flow characteristics. Femoral vein: Normal compressibility and flow characteristics. Proximal profunda femoral vein: Normal compressibility. Popliteal vein: Normal compressibility and flow characteristics. Posterior tibial veins: One of the paired vein's at the ankle shows nocolor uptake. Peroneal veins: Normal compressibility. Great saphenous vein: Normal compressibility at the saphenofemoraljunction. Left lower extremity: Common femoral vein: Normal compressibility and flow characteristics. Femoral vein: Normal compressibility and flow characteristics. Proximal profunda femoral vein: Normal compressibility. Popliteal vein: Non compressible. Posterior tibial veins: Not visualized Peroneal veins: Not visualized Great saphenous vein: Normal compressibility at the saphenofemoraljunction. IMPRESSION: * Occlusive deep venous thrombosis of one of the paired right posteriortibial vein's at the ankle, and left popliteal vein. A clinically significant result was initiated on 08/17/2025 4:23 PM,Message ID [id number]. us Sofia Cohen PA-C CV US VASCULAR Edited Result - Final * (ABNORMAL) Procalcitonin (08/17/2025 1:54 PM EDT) Procalcitonin 0.91(H) 0.00 - 0.25 ng/mL [facility] Comment: <=0.25 ng/mL: Bacterial pneumonia is unlikely. <0.5 ng/mL: Low likelihood of systemic bacterial infection / sepsis. Localized infection is possible. 0.5-2.0 ng/mL: Systemic bacterial infection / sepsis is possible, but other conditions can induce PCT levels in this range as well (e.g., pancreatitis,severe trauma, circulatory shock, surgery, dumont, inhalation injury.) >2.0 ng/mL: Systemic bacterial infection / sepsis is likely. Additional information can be found in the [facility] Procalcitonin Guidelines, available at http://handbook.mgb.org/3817/Content/4-138-251 Blood 08/17/2025 1:54 PM EDT 08/17/2025 2:09 PM EDT us Jesus Menezes MD LAB BLOOD BKR ORDERABL ES Final Result [address] [address] * Type and Screen (ABO,Rh,Antibody Screen) (08/17/2025 1:54 PM EDT) ABO/Rh B Positive [facility] Antibody Screen Negative [facility] Expiration Date of Sample 08/20/2025,2 359 [facility] Resulting Agency [facility] Blood 08/17/2025 1:54 PM EDT 08/17/2025 2:09 PM EDT Jesus Menezes MD LAB BLOOD BANK TEST OR DERABLES Final Result Performing Organization Address [facility] de Phone Number [address] [address] * (ABNORMAL) Troponin (08/17/2025 1:54 PM EDT) Only the most recent of3 resultswithin the time period is included. Troponin-T, HS Gen5 56(H) 0 - 9 ng/L [facility] Blood 08/17/2025 1:54 PM EDT 08/17/2025 2:10 PM EDT us Jesus Menezes MD LAB BLOOD BKR ORDERABL ES Final Result Performing Organization Address [facility] Co de Phone Number [address] [address] * Lactate (08/17/2025 1:54 PM EDT) Only the most recent of4 resultswithin the time period is included. [facility] LACTATE 1.80 0.50 - 2.20 mmol/L [facility] Blood 08/17/2025 1:54 PM EDT 08/17/2025 2:08 PM EDT us Jesus Menezes MD LAB BLOOD BKR ORDERABL ES Final Result Performing Organization Address [facility] de Phone Number [address] [address] * TTE COMPREHENSIVE (08/17/2025 8:28 AM EDT) Body Surface Area 1.91 m2 Height 165 cm Weight 83 kg Left Atrium Dimension Anterior-Posterior 40 15 - 40 mm Aortic Valve Mean Gradient 7 mmHg Aortic Valve Time Velocity Integral 328.0 mm Aortic Valve Peak Velocity 1.8 m/s Aortic Valve Peak Gradient 13 mmHg Aortic Sinus Diameter 35 <40 mm Ascending Aorta Diameter 34 <36 mm Inferior Vena Cava Diameter 21 <21 mm Interventricular Septum Thickness 16 6 - 11 mm Left Ventricle Internal Diameter End Diastole 45 37 - 52 mm Left Ventricle Internal Diameter End Systole 26 <35 mm Left Ventricular Outflow Tract Diameter 21.0 mm LVOT VTI REST 230.0 mm Left Ventricular Outflow Tract Velocity 1.1 m/s Left Ventricular Outflow Tract Gradient at Rest 5 mmHg Left Ventricular Posterior Wall Thickness 15 6 - 11 mm Left Ventricle Ea Lateral Wave Speed 13.0 cm/s Left Ventricle Ea Septal Wave Speed 4.3 cm/s Ejection Fraction 74 50 - 75 Percent Left Ventricle A Wave Speed 54.4 cm/s Left Ventricle E Wave Speed 59.6 cm/s Pulmonary Valve Peak Velocity 1.1 m/s Pulmonary Valve Peak Gradient 4 mmHg Right Ventricle Basal Diameter 32 25 - 41 mm Tricuspid Valve Peak Velocity 3.7 m/s Raw LV EF% 67 % MV E/E' Tissue Velocity Lateral 4.58 Relative Wall Thickness 0.67 0.22 - 0.42 Left Ventricle indexed to BSA 151.8 g/m2 MV E/A ratio 1.1 MV E/e' septal 13.86 Left Ventricle E/e' Average 9.2 Aortic Valve Prosthetic Peak Gradient 13 mmHg Aortic Valve Prosthetic Mean Gradient 7 mmHg Aortic Valve Sinus Index by BSA 18 mm/m2 Aorta Sinus Index by Height 2.12 cm/m Aorta Sinus CSA index by Height 5.83 cm2/m Ascending Aorta Index 18 mm/m2 Asc Aorta CSA Index by Height 5.50 cm2/m Right Ventricle to Right Atrium Pressure Gradient 55 mmHg Right Ventricle Peak Systolic Pressure (Assuming RAP 10) 65 mmHg MGB CV ECHO TV RVSP (ASSUMING RAP OF 5) 60 mmHg RVSP (Exclusive of RAP) 55 mmHg Pulmonic Valve Prosthetic Peak Gradient 4 mmHg MGB CV AV DIMENSIONLESS INDEX (PEAK) - STRESS ECHO DOBUT - REST 0.61 Ascending Aorta Index 18 mm Aortic Sinus Index 18 mm Ascending Aorta Diameter 18 mm Aortic Valve Sinus Index 1 18 19 - 27 mm AO ASC DIAM BSA INDEX 17.80 Echo E/Ea 13.86 Left Atrial Volume Index 53 16 - 34 mL/m2 Right Ventricle Peak Systolic Pressure 63 mmHg Right Ventricle TAPSE 20 >=17 mm Right Ventricle Pulse Doppler S Wave 16.0 >=9.5 cm/s Left Atrial Volume 101 mL Left Atrial Volume Index by Height 61 mL/m Right Atrium Pressure Estimated 8 mmHg Anatomical Region Laterality Modality Heart Ultrasound Narrative 08/17/2025 2:49 PM EDT Images from the original result were not included. Moderate LVH with dynamic LV systolic function EF 65%. LV looks even thicker towards the apex could be an apical variant of hypertrophic cardiomyopathy. Mild left atrial enlargement. Mild central mitral regurgitation Normal diastolic function for age. There is evidence of mild LVOT obstruction. Peak velocity was 2.3 m/s mean gradient only 6 mmHg however. Normal RV size and function. Moderate tricuspid regurgitation. Severe pulmonary hypertension estimated at 63 mmHg. Left Ventricle The left ventricle is normal in size. There is moderate concentric hypertrophy. The LV ejection fraction is 74% (calculated via the single dimension method). There are no wall motion abnormalities. The E/A ratio is 1.1. The e' septal wave velocity is 4.3 cm/s. The e' lateral wave velocity is 13.0 cm/s. The average E/e' ratio is 9.2. Right Ventricle The right ventricle is normal in size. The RV basal dimension is 32 mm. There is normal right ventricular systolic function. TAPSE is 20 mm. RV S' wave is 16.0 cm/s. Left Atrium The left atrium is dilated. The left atrial volume index by BSA is 53 mL/m2. Right Atrium The right atrium is normal in size. The IVC is dilated with normal inspiratory collapse. The IVC diameter is 21 mm. Mitral Valve The mitral valve appears normal. There is no mitral stenosis. There is mild mitral regurgitation. Tricuspid Valve The tricuspid valve appears normal. There is no tricuspid stenosis. There is moderate tricuspid regurgitation. The RV systolic pressure was calculated at 63 mmHg (using TR peak velocity of 3.7 m/s and assuming an RA pressure of 8 mmHg). Aortic Valve The aortic valve is tricuspid. There is no aortic stenosis. There is no aortic regurgitation. The visualized portions of the thoracic aorta appear normal in size. Pulmonic Valve The pulmonic valve appears normal. There is no pulmonic stenosis. There is trace pulmonic regurgitation. Pericardium The pericardium appears normal. General Findings The image quality was adequate. Technique(s) used in the evaluation: Color flow Doppler and Spectral Doppler. The predominant rhythm during the study was sinus. Comparison Findings There are no prior studies for comparison. IAS/IVS The interatrial septum appears normal. There is no evidence of patent foramen ovale (PFO). us Sofia Cohen PA-C CV ECHO ORDERABLES Katie l Result * 2nd Type (New Sample) (08/17/2025 4:51 AM EDT) ABO/Rh B Positive [facility] Resulting Agency [facility] 08/17/2025 4:51 AM EDT 08/17/2025 2:12 PM EDT us Jesus Menezes MD LAB BLOOD BANK TEST OR DERABLES Final Result Performing Organization Address City/[facility]/ZIP Co de Phone Number [address] [address] * (ABNORMAL) NT-proBNP (08/17/2025 4:51 AM EDT) Only the most recent of2 resultswithin the time period is included. NT-PROBNP 10,900(H) 0 - 450 pg/mL [facility] 08/17/2025 4:51 AM EDT 08/17/2025 5:11 AM EDT us Sofia Cohen PA-C LAB BLOOD BKR ORDERABLE S Final Result Performing Organization Address [facility]/ZIP Co de Phone Number [address] [address] * US BEDSIDE (08/16/2025 10:12 PM EDT) Anatomical Region Laterality Modality Ultrasound Narrative 08/16/2025 10:12 PM EDT Sofia Cohen PA-C 08/16/2025 10:40 PM Bedside Ultrasound Date/Time: 08/16/2025 10:12 PM Performed by: Sofia Cohen PA-C Authorized by: Sofia Cohen PA-C Exam Type: Procedural Guidance Procedural Guidance: Bedside Ultrasound was used to perform Peripheral IV Placement. Please see separately documented procedure note to see details of procedure. Accession Number: [id number] us Sofia Cohen PA-C IM POINT OF CARE EXAMS Final Result * CT CHEST PULMONARY ANGIOGRAM (ACUTE) (08/16/2025 9:00 PM EDT) Anatomical Region Laterality Modality Chest, Thoracic Vasculature Comp uted Tomography 08/16/2025 9:13 PM EDT Impressions 08/16/2025 9:46 PM EDT 1. Bilateral pulmonary emboli. The most central filling defect is in the distal right main pulmonary artery, branching into the right upper lobar artery and the interlobar artery. Flattening of the interventricular septum and borderline elevated RV: LV ratio raise suspicion for right heart strain. Suggest correlation with echocardiogram. 2. Mosaic attenuation in the upper lobes and middle lobe can be from abnormal perfusion in the setting of pulmonary emboli or from air trapping. 3. A 2 mm left upper lobe pulmonary nodule. 4. Small hiatal hernia. I discussed the critical result with Sofia Cohen today at 21:45. Narrative 08/16/2025 9:[address] CHEST PULMONARY ANGIOGRAM (ACUTE) INDICATION: Pulmonary artery filling defect seen on abdomen and pelvis CT. TECHNIQUE: Multidetector CT pulmonary angiography was performed after administration of intravenous contrast using tailored dose modulation techniques. 3D angiographic postprocessing techniques were acquired in the form of axial maximum intensity projection images (MIPS). COMPARISON: CT abdomen and pelvis from earlier today. Chest radiograph from today. FINDINGS: Pulmonary Angiogram: Contrast opacification of the pulmonary arteries is excellent. There is moderate respiratory motion artifact. There are multiple pulmonary embolism filling defects. On the right, there is a branching filling defect of the distal right main pulmonary artery extending into the right upper lobar artery and the interlobar artery. There is filling defect in the right middle lobar artery. There are additional segmental and subsegmental pulmonary emboli. On the left, the most central filling defect is in the left upper lobe segmental branches. There are subsegmental pulmonary emboli in the left upper and left lower lobes. There is flattening of the interventricular septum. The RV: LV ratio is 1.0. Devices/Tubes/Lines: None. Lungs: There is mosaic attenuation in the upper lobes and middle lobe, which can be from abnormal perfusion in the setting of pulmonary emboli or from air trapping. There is a 2 mm left upper lobe solid nodule (11:382). There is atelectasis in the lower lobes. Pleura: No effusion. No pneumothorax. Mediastinum: There are coronary artery calcifications. There is no pericardial effusion. There is a small hiatal hernia. Lymph Nodes: No bulky adenopathy. Upper Abdomen: New pneumobilia after today's ERCP. Chest Wall: No contusion or mass. Bones: No suspicious focal bone lesion. Procedure Note Ja Gay MD - 08/16/2025 CT CHEST PULMONARY ANGIOGRAM (ACUTE) INDICATION: Pulmonary artery filling defect seen on abdomen and pelvisCT. TECHNIQUE: Multidetector CT pulmonary angiography was performed afteradministration of intravenous contrast using tailored dose modulationtechniques. 3D angiographic postprocessing techniques were acquired in theform of axial maximum intensity projection images (MIPS). COMPARISON: CT abdomen and pelvis from earlier today. Chest radiographfrom today. FINDINGS: Pulmonary Angiogram: Contrast opacification of the pulmonary arteries isexcellent. There is moderate respiratory motion artifact. There aremultiple pulmonary embolism filling defects. On the right, there is a branching filling defect of the distal right mainpulmonary artery extending into the right upper lobar artery and theinterlobar artery. There is filling defect in the right middle lobarartery. There are additional segmental and subsegmental pulmonaryemboli. On the left, the most central filling defect is in the left upper lobesegmental branches. There are subsegmental pulmonary emboli in the leftupper and left lower lobes. There is flattening of the interventricular septum. The RV: LV ratio is1.0. Devices/Tubes/Lines: None. Lungs: There is mosaic attenuation in the upper lobes and middle lobe,which can be from abnormal perfusion in the setting of pulmonary emboli orfrom air trapping. There is a 2 mm left upper lobe solid nodule (11:382).There is atelectasis in the lower lobes. Pleura: No effusion. No pneumothorax. Mediastinum: There are coronary artery calcifications. There is nopericardial effusion. There is a small hiatal hernia. Lymph Nodes: No bulky adenopathy. Upper Abdomen: New pneumobilia after today's ERCP. Chest Wall: No contusion or mass. Bones: No suspicious focal bone lesion. IMPRESSION: 1. Bilateral pulmonary emboli. The most central filling defect is in thedistal right main pulmonary artery, branching into the right upper lobarartery and the interlobar artery. Flattening of the interventricularseptum and borderline elevated RV: LV ratio raise suspicion for rightheart strain. Suggest correlation with echocardiogram. 2. Mosaic attenuation in the upper lobes and middle lobe can be fromabnormal perfusion in the setting of pulmonary emboli or from airtrapping. 3. A 2 mm left upper lobe pulmonary nodule. 4. Small hiatal hernia. I discussed the critical result with Sofia Cohen today at 21:45. us Martinez Shrestha MD IMG CT CHEST Final Result * MRSA PCR SCREEN (08/16/2025 6:48 PM EDT) [facility] MRSA PCR SCREEN Negative Negative [facility] Comment:The Xpert MRSA Assay is intended to aid in the prevention and control of MRSA infections in healthcare settings. The assay is not intended to diagnose nor to guide or monitor treatment for MRSA infections. Other (Nasal) 08/16/2025 6:4 8 PM EDT 08/16/2025 7:01 PM EDT us Jesus Menezes MD LAB GENERAL ORDERABLES Final Result [address] [address] * [place] Fluoroscopy (08/16/2025 4:18 PM EDT) Narrative SYSTEMGENERATED, DOCUMENTATION - 08/16/2025 4:20 PM EDT Fluoroscopy was provided during this procedure. us Dikc Eckert MD IMG FL MISC Final Result * ANES ETT DOUBLE LUMEN - AIRWAY LDA (08/16/2025 3:23 PM EDT) Narrative Nova Ortega MD - 08/16/2025 3:23 PM EDT Nova Ortega MD 08/16/2025 3:42 PM Airway Placement Procedure Note: Patient was not difficult to intubate. Procedure performed by: fellow/resident/[employer] Anesthesiologist: Nova Ortega MD Fellow/Resident/[employer]: Marybeth Almanzar CRNA Airway procedure initiated at:08/16/2025 3:23 PM and ended at. Mask Ventilation: Quality: easy Airway Placement: Technique: direct laryngoscopy Details: Blade type: Shaikh Blade size: 3 Direct view: grade 1 Airway manipulation: laryngeal manipulation Number of attempts: 1 ETT type: cuffed ETT size: 7.0 ETT depth at teeth: 21 Tube position confirmed by: bilateral breath sounds and EtCO2 (cta bl) Outcomes: Evidence of dental injury? no Complications observed? no us Nova Ortega MD [facility] Final Result * ENDOSCOPY PROCEDURE (08/16/2025 2:44 PM EDT) Narrative Transcriptions Dick Eckert MD - 08/16/2025 2:44 PM EDT [facility] Patient Name: Yara Andrea Attending MD:: DICK ECKERT MD, Procedure Date: 08/16/2025 2:44 PM Date of : 1940 Age: 84 Admit Type: Emergency Department Gender: Female Room: [facility] 04 Referring MD: Dara Sellers Exam Type: ERCP Indications: Bile duct stone(s), Abdominal pain of suspected biliary origin, Biliary dilation on ComputedTomogram Scan, Bile duct stone on Computed Tomogram Scan, Evaluation and possible treatment of bile duct stone(s), Suspected ascending cholangitis,Jaundice Medications: General Anesthesia Procedure: After obtaining informed consent, the scope waspassed under direct vision. Throughout the procedure, the patient's blood pressure, pulse, and oxygen saturations were monitored continuously. The Duodenoscope was introduced through the mouth, and advanced to the duodenum and used to injectcontrast into the bile duct and ventral pancreatic duct. The ERCP was accomplished without difficulty. Thepatient tolerated the procedure fairly well. Complications: No immediate complications. Estimated blood loss: Minimal. Findings: The passenger service representative film was normal. The esophagus was successfully intubated under direct vision without detailed examination of the pharynx, larynx, and associated structures. A standard esophagogastroduodenoscopy scope was used for the examination of the upper gastrointestinal tract.The scope was passed under direct vision through theupper GI tract. Hematin (altered blood/xcyywn-zbocds-rtvk material) was found in the gastric body and in the gastric antrum. The major papilla was bulging. The major papilla was prominent. Sludge was emergingfrom the major papilla. Pus was emerging from the major papilla. A 0.035 inch x 260 cm straight HydraJagwire was passed into the pancreatic duct initially witha second 0.035 inch x 260 cm straight Hydra Jagwire biliary tree. The Hydratome sphincterotome waspassed over the guidewire and the bile duct was thendeeply cannulated. Contrast was injected. I personally interpreted the bile duct images. Ductal flow of contrast was adequate. Image quality was adequate. Contrast extended to the main bile duct. Contrast extended to the bifurcation. Contrast extended tothe hepatic ducts. The middle third of the main bileduct contained two stones, the largest of which was 11mm in diameter. A 9 mm biliary sphincterotomy was made with a Hydratome sphincterotome using ERBE electrocautery. There was no post-sphincterotomy bleeding. The biliary tree was swept with a 15 mm balloon starting at the bifurcation. Sludge wasswept from the duct. Two stones were removed. No stones remained. Additional balloon occlusioncholangiogram at bifurcation eventually filled the right intrahepatic ducts. Multiple balloon sweeps yieldedno further debris with excellent biliary drainage.Note the cystic duct and gallbladder did not opacify c/w cholecystitis. Impression: - Hematin (altered blood/lmijjs-girclf-bhkrrlabsiiz) in the gastric body and in the gastric antrum. - The major papilla appeared to be bulging. - The major papilla appeared to be prominent. - Sludge was seen in the major papilla. - Pus was seen in the major papilla. - Choledocholithiasis was found. Complete removalwas accomplished by biliary sphincterotomy and balloon extraction. - A biliary sphincterotomy was performed. - The biliary tree was swept. - Note the cystic duct and gallbladder did notopacify c/w cholecystitis. Recommendation: - Observe patient's clinical course following today's ERCP with therapeutic intervention. - Use broad spectrum antibiotics for 2 days. - Refer to a surgeon for interval cholecystectomy. - Dr. Colmenares to follow inpatient. DICK ECKERT MD 08/16/2025 4:15:41 PM This report has been signed electronically. Number of Addenda: 0 Note Initiated On: 08/16/2025 2:44 PM Procedure Code(s): --- Professional --- 84480, Endoscopic retrograde cholangiopancreatography (ERCP); with removal of calculi/debris from biliary/pancreatic duct(s) 36910, Endoscopic retrograde cholangiopancreatography (ERCP); with sphincterotomy/papillotomy 55633, Endoscopic catheterization of the biliary ductal system, radiological supervision and interpretation --- Technical --- 70382, Endoscopic retrograde cholangiopancreatography (ERCP); with removal of calculi/debris from biliary/pancreatic duct(s) 95934, Endoscopic retrograde cholangiopancreatography (ERCP); with sphincterotomy/papillotomy 55416, Endoscopic catheterization of the biliary ductal system, radiological supervision and interpretation Diagnosis Code(s): --- Professional --- K92.2, Gastrointestinal hemorrhage, unspecified K83.8, Other specified diseases of biliary tract K80.50, Calculus of bile duct without cholangitisor cholecystitis without obstruction R10.9, Unspecified abdominal pain R17, Unspecified jaundice --- Technical --- K92.2, Gastrointestinal hemorrhage, unspecified K83.8, Other specified diseases of biliary tract K80.50, Calculus of bile duct without cholangitisor cholecystitis without obstruction R10.9, Unspecified abdominal pain R17, Unspecified jaundice CPT copyright 2021 [employer]. All rights reserved. The codes documented in this report are preliminary and upon formula room worker reviewmay be revised to meet current compliance requirements. Procedure Date: 08/16/2025 2:44:[address] [place] [address] [id number] us Dara [facility] PROCEDURE ORDERABLES Fin al Result * ECG 12-LEAD (08/16/2025 1:47 PM EDT) Only the most recent of2 resultswithin the time period is included. Ventricular Rate EKG/MIN 120 BPM [facility] Atrial Rate 119 BPM [facility] QRS Duration 86 ms [facility] QT Interval 290 ms [facility] QTC Interval 409 ms [facility] R Wave [place] -24 degrees [facility] T Wave [place] 145 degrees [facility] 08/16/2025 1:47 PM EDT 08/16/2025 2:45 PM EDT Narrative [facility] - 08/16/2025 2:45 PM EDT Atrial fibrillation with rapid ventricular response Voltage criteria for left ventricular hypertrophy ST & T wave abnormality, consider lateral ischemia Abnormal ECG When compared with ECG of 16-Aug-2025 08:48, Atrial fibrillation has replaced Sinus rhythm Confirmed by Sixto Hernandez ([id number]) on 08/16/2025 2:45:40 PM us Martinez Shrestha MD ECG ORDERABLES Final Result [facility] * CT ABDOMEN/PELVIS WITH CONTRAST (08/16/2025 12:17 PM EDT) Anatomical Region Laterality Modality Abdomen, Pelvis Computed Tomogra phy 08/16/2025 12:4 8 PM EDT Impressions 08/16/2025 1:13 PM EDT 1. Several obstructing stones in the common bile duct measuring up to 10 mm resulting in mild to moderate biliary ductal dilation.. 2. Apparent filling defects within the segmental pulmonary arterial branches in the right middle lobe, which may represent pulmonary emboli or be secondary to motion artifact and contrast mixing. Further evaluation with CTA chest is recommended. 3. Enlarged right inguinal, right external iliac, right common iliac and retroperitoneal lymph nodes, which are indeterminate. Differential diagnosis includes reactive lymphadenopathy from lower extremity cellulitis or lymphedema, metastatic disease or lymphoma. 4. Cholelithiasis. Distended gallbladder with mild wall thickening, which is likely secondary to choledocholithiasis Findings and impressions were discussed with Dr. Shrestha by Dr. Angela over the phone on 08/16/2025 1:10 PM. Narrative 08/16/2025 1:[address] ABDOMEN/PELVIS WITH CONTRAST Referring clinician's provided indication for this examination in Epic: Abdominal pain, fever; Painless jaundice TECHNIQUE: Multidetector-row CT of the abdomen and pelvis was performed after administration of intravenous contrast using tailored dose modulation techniques. Images were reconstructed in the axial, coronal, and sagittal planes. COMPARISON: None. FINDINGS: Study is limited by motion artifact. Lower Chest: No consolidation or pleural effusions. Mild amount of coronary artery calcifications. Apparent filling defects within the segmental pulmonary arterial branches in the right middle lobe (3:7). Liver: No focal lesion. Biliary: Several filling defects within the common bile duct measuring up to 10 mm, which likely represent choledocholithiasis. Dilation of the common bile duct measuring up to 16 mm and mild intrahepatic biliary ductal dilation. Cholelithiasis. Distended gallbladder with mild wall thickening, which is likely secondary to choledocholithiasis. Spleen: Borderline splenomegaly measuring 13.0 cm in greatest axial dimension. No focal lesion. Pancreas: Atrophic pancreas. No mass, pancreatic ductal dilation or peripancreatic fat stranding. Adrenal Glands: No nodules. Kidneys/Ureters/Bladder: Left renal cyst. No solid mass, stone or hydronephrosis. Normal bladder. Bowel: Small hiatal hernia. No bowel wall thickening. No bowel obstruction. Colonic diverticulosis without evidence of diverticulitis. Normal appendix. Peritoneum/Retroperitoneum: No pneumoperitoneum or free fluid. Lymph Nodes: Enlarged right inguinal lymph nodes measuring up to 2.4 cm, right external iliac lymph nodes measuring up to 1.3 cm right common iliac lymph nodes measuring up to 1.1 cm, left periaortic lymph nodes measuring up to 1.1 cm. Pelvic Organs: Hysterectomy. No adnexal mass. Vessels: Mild atherosclerotic disease. No abdominal aortic aneurysm. Ulcerated plaque along the proximal right common iliac artery. Bones/Soft Tissues: Osseous mineralization. No acute fracture or suspicious osseous lesion. Chronic healed right rib fractures. Dextroscoliosis of the lumbar spine with moderate multilevel degenerative changes. Mild retrolisthesis at L1-2 through L4-5, likely secondary to degenerative changes. Procedure Note Kadeem Angela MD - 08/16/2025 CT ABDOMEN/PELVIS WITH CONTRAST Referring clinician's provided indication for this examination in Epic:Abdominal pain, fever; Painless jaundice TECHNIQUE: Multidetector-row CT of the abdomen and pelvis was performedafter administration of intravenous contrast using tailored dosemodulation techniques. Images were reconstructed in the axial, coronal,and sagittal planes. COMPARISON: None. FINDINGS: Study is limited by motion artifact. Lower Chest: No consolidation or pleural effusions. Mild amount ofcoronary artery calcifications. Apparent filling defects within thesegmental pulmonary arterial branches in the right middle lobe (3:7). Liver: No focal lesion. Biliary: Several filling defects within the common bile duct measuring upto 10 mm, which likely represent choledocholithiasis. Dilation of thecommon bile duct measuring up to 16 mm and mild intrahepatic biliaryductal dilation. Cholelithiasis. Distended gallbladder with mild wallthickening, which is likely secondary to choledocholithiasis. Spleen: Borderline splenomegaly measuring 13.0 cm in greatest axialdimension. No focal lesion. Pancreas: Atrophic pancreas. No mass, pancreatic ductal dilation orperipancreatic fat stranding. Adrenal Glands: No nodules. Kidneys/Ureters/Bladder: Left renal cyst. No solid mass, stone orhydronephrosis. Normal bladder. Bowel: Small hiatal hernia. No bowel wall thickening. No bowelobstruction. Colonic diverticulosis without evidence of diverticulitis.Normal appendix. Peritoneum/Retroperitoneum: No pneumoperitoneum or free fluid. Lymph Nodes: Enlarged right inguinal lymph nodes measuring up to 2.4 cm,right external iliac lymph nodes measuring up to 1.3 cm right common iliaclymph nodes measuring up to 1.1 cm, left periaortic lymph nodes measuringup to 1.1 cm. Pelvic Organs: Hysterectomy. No adnexal mass. Vessels: Mild atherosclerotic disease. No abdominal aortic aneurysm.Ulcerated plaque along the proximal right common iliac artery. Bones/Soft Tissues: Osseous mineralization. No acute fracture orsuspicious osseous lesion. Chronic healed right rib fractures.Dextroscoliosis of the lumbar spine with moderate multilevel degenerativechanges. Mild retrolisthesis at L1-2 through L4- 5, likely secondary todegenerative changes. IMPRESSION: 1. Several obstructing stones in the common bile duct measuring up to 10mm resulting in mild to moderate biliary ductal dilation.. 2. Apparent filling defects within the segmental pulmonary arterialbranches in the right middle lobe, which may represent pulmonary emboli russell secondary to motion artifact and contrast mixing. Further evaluationwith CTA chest is recommended. 3. Enlarged right inguinal, right external iliac, right common iliac andretroperitoneal lymph nodes, which are indeterminate. Differentialdiagnosis includes reactive lymphadenopathy from lower extremitycellulitis or lymphedema, metastatic disease or lymphoma. 4. Cholelithiasis. Distended gallbladder with mild wall thickening, whichis likely secondary to choledocholithiasis Findings and impressions were discussed with Dr. Shrestha by Dr. Angela overthe phone on 08/16/2025 1:10 PM. Martinez Shrestha MD IMG CT ABD/PELVIS Final Result * Pathology review (08/16/2025 10:36 AM EDT) PATH REVIEW FINAL [facility] Comment: Other cells are rare blast and immature granulocytes. Leukocytosis with neutrophilia. No morphologic abnormalities and early left shift, favor reactive. Reviewed by Zoila Arreola MD Corrected on 08/17 AT 0747: previously reported as FINAL Other cells are rare blasts and immature granulocytes. Leukocytosis with neutrophilia. No morphologic abnormalities and early left shift, favor reactive. Reviewed by Zoila Arreola MD 08/16/2025 10:3 6 AM EDT 08/16/2025 10:48 AM EDT us Vernell Reeves PA-C LAB BLOOD BKR ORDERABLES Ed ited Result - Final Performing Organization Address [facility]/ZIP Co de Phone Number [address] [address] * Blood Culture, Routine (08/16/2025 10:36 AM EDT) Only the most recent of2 resultswithin the time period is included. Special Requests None 08/16/2025 8:53 AM EDT [facility] BLOOD CULTURE NO GROWTH 5 DAYS 08/21/2025 11:00 AM EDT [facility] Blood (Blood) 08/16/2025 10: 36 AM EDT 08/16/2025 10:49 AM EDT us Vernell Reeves PA-C LAB MICROBIOLOGY CULTURE OR DERABLES Final Result Performing Organization Address [facility] Co de Phone Number [address] [address] * (ABNORMAL) PT-INR (08/16/2025 10:36 AM EDT) PT 17.5(H) 10.2 - 12.9 sec [facility] INR 1.4(H) 0.9 - 1.1 [facility] Comment:Therapeutic range fo r oral Vitamin K antagonists: 2.0-3.5 Blood 08/16/2025 10:3 6 AM EDT 08/16/2025 10:48 AM EDT us Vernell Reeves PA-C LAB BLOOD BKR ORDERABLES Fi nal Result Performing Organization Address City/[facility]/ZIP Co de Phone Number [address] [address] * Lipase (08/16/2025 10:36 AM EDT) LIPASE 18 16 - 63 U/L [facility] Blood 08/16/2025 10:3 6 AM EDT 08/16/2025 10:48 AM EDT us Vernell Reeves PA-C LAB BLOOD BKR ORDERABLES Fi nal Result [address] [address] * CT CERVICAL SPINE WITHOUT CONTRAST (08/16/2025 9:33 AM EDT) Anatomical Region Laterality Modality C-spine Computed Tomogra phy 08/16/2025 9:43 AM EDT Impressions 08/16/2025 9:57 AM EDT 1. No acute intracranial findings. 2. No acute fracture or traumatic malalignment of the cervical spine. Narrative 08/16/2025 9:[address] HEAD WITHOUT CONTRAST, CT CERVICAL SPINE WITHOUT CONTRAST Referring clinician's provided indication for this examination in [facility]: * Head trauma, minor (Age >= 65y) TECHNIQUE: CTs of the head and cervical spine were performed without intravenous contrast using tailored dose modulation techniques. Images were reconstructed in the axial, coronal, and sagittal planes. COMPARISON: None FINDINGS: HEAD: Brain Parenchyma: No midline shift, mass effect, parenchymal hemorrhage, or evidence of acute territorial infarct. Hypodensities in the periventricular white matter, likely a manifestation of chronic small vessel disease. Ventricular System and Extra-Axial Spaces: Normal. No extra-axial fluid collections. Basal cisterns are patent. No hydrocephalus. Osseous and Extracranial Structures: No calvarial fracture or significant soft tissue hematoma. No significant paranasal sinus disease. No orbital abnormality. CERVICAL SPINE: Alignment and Vertebrae: Alignment is normal. Vertebral bodies and posterior elements are intact. Discs and Endplates: Multilevel degenerative changes. Other Findings: None. Procedure Note Alta Hancock MD - 08/16/2025 CT HEAD WITHOUT CONTRAST, CT CERVICAL SPINE WITHOUT CONTRAST Referring clinician's provided indication for this examination in [facility]: *Head trauma, minor (Age >= 65y) TECHNIQUE: CTs of the head and cervical spine were performed withoutintravenous contrast using tailored dose modulation techniques. Imageswere reconstructed in the axial, coronal, and sagittal planes. COMPARISON: None FINDINGS: HEAD: Brain Parenchyma: No midline shift, mass effect, parenchymal hemorrhage,or evidence of acute territorial infarct. Hypodensities in theperiventricular white matter, likely a manifestation of chronic smallvessel disease. Ventricular System and Extra-Axial Spaces: Normal. No extra-axial fluidcollections. Basal cisterns are patent. No hydrocephalus. Osseous and Extracranial Structures: No calvarial fracture or significantsoft tissue hematoma. No significant paranasal sinus disease. No orbitalabnormality. CERVICAL SPINE: Alignment and Vertebrae: Alignment is normal. Vertebral bodies andposterior elements are intact. Discs and Endplates: Multilevel degenerative changes. Other Findings: None. IMPRESSION: 1. No acute intracranial findings. 2. No acute fracture or traumatic malalignment of the cervical spine. Martinez Shrestha MD IMG CT XSPECIALTY ORDERABLES Fi nal Result * CT HEAD WITHOUT CONTRAST (08/16/2025 9:33 AM EDT) Anatomical Region Laterality Modality Head Computed Tomogra phy 08/16/2025 9:43 AM EDT Impressions 08/16/2025 9:57 AM EDT 1. No acute intracranial findings. 2. No acute fracture or traumatic malalignment of the cervical spine. Narrative 08/16/2025 9:[address] HEAD WITHOUT CONTRAST, CT CERVICAL SPINE WITHOUT CONTRAST Referring clinician's provided indication for this examination in Epic: * Head trauma, minor (Age >= 65y) TECHNIQUE: CTs of the head and cervical spine were performed without intravenous contrast using tailored dose modulation techniques. Images were reconstructed in the axial, coronal, and sagittal planes. COMPARISON: None FINDINGS: HEAD: Brain Parenchyma: No midline shift, mass effect, parenchymal hemorrhage, or evidence of acute territorial infarct. Hypodensities in the periventricular white matter, likely a manifestation of chronic small vessel disease. Ventricular System and Extra-Axial Spaces: Normal. No extra-axial fluid collections. Basal cisterns are patent. No hydrocephalus. Osseous and Extracranial Structures: No calvarial fracture or significant soft tissue hematoma. No significant paranasal sinus disease. No orbital abnormality. CERVICAL SPINE: Alignment and Vertebrae: Alignment is normal. Vertebral bodies and posterior elements are intact. Discs and Endplates: Multilevel degenerative changes. Other Findings: None. Procedure Note Alta Hancock MD - 08/16/2025 CT HEAD WITHOUT CONTRAST, CT CERVICAL SPINE WITHOUT CONTRAST Referring clinician's provided indication for this examination in Epic: *Head trauma, minor (Age >= 65y) TECHNIQUE: CTs of the head and cervical spine were performed withoutintravenous contrast using tailored dose modulation techniques. Imageswere reconstructed in the axial, coronal, and sagittal planes. COMPARISON: None FINDINGS: HEAD: Brain Parenchyma: No midline shift, mass effect, parenchymal hemorrhage,or evidence of acute territorial infarct. Hypodensities in theperiventricular white matter, likely a manifestation of chronic smallvessel disease. Ventricular System and Extra-Axial Spaces: Normal. No extra-axial fluidcollections. Basal cisterns are patent. No hydrocephalus. Osseous and Extracranial Structures: No calvarial fracture or significantsoft tissue hematoma. No significant paranasal sinus disease. No orbitalabnormality. CERVICAL SPINE: Alignment and Vertebrae: Alignment is normal. Vertebral bodies andposterior elements are intact. Discs and Endplates: Multilevel degenerative changes. Other Findings: None. IMPRESSION: 1. No acute intracranial findings. 2. No acute fracture or traumatic malalignment of the cervical spine. us Martinez Shrestha MD IM CT HEAD/NECK Final Result * XR Chest Portable (08/16/2025 9:07 AM EDT) Anatomical Region Laterality Modality Chest Computed Radiogr aphy 08/16/2025 9:09 AM EDT Impressions 08/16/2025 9:22 AM EDT No acute abnormality. ATTESTATION: I, Alvin Moran as teaching physician, have reviewed the images for this case and if necessary edited the report originally created by John Ford MD. Narrative 08/16/2025 9:22 AM EDT XR CHEST PORTABLE Referring clinician's provided indication for this examination in Epic: Fatigue COMPARISON: None available. FINDINGS: Devices/Tubes/Lines: None. Lungs: Rotated. No focal consolidation or pulmonary edema. Pleura: No pleural effusion or pneumothorax. Heart/Mediastinum: The heart and mediastinum are likely within normal limits when rotation is considered. Bones/Soft Tissues: No significant abnormality. Procedure Note Grant Moran MD, MPH - 08/16/2025 XR CHEST PORTABLE Referring clinician's provided indication for this examination in Epic:Fatigue COMPARISON: None available. FINDINGS: Devices/Tubes/Lines: None. Lungs: Rotated. No focal consolidation or pulmonary edema. Pleura: No pleural effusion or pneumothorax. Heart/Mediastinum: The heart and mediastinum are likely within normallimits when rotation is considered. Bones/Soft Tissues: No significant abnormality. IMPRESSION: No acute abnormality. ATTESTATION: I, Alvin Moran as teaching physician, have reviewed theimages for this case and if necessary edited the report originally createdby John Ford MD. us Vernell Reeves PA-C IMG XR CHEST Final Resul t * (ABNORMAL) Urinalysis w/reflex Urine Culture (08/16/2025 9:04 AM EDT) COLOR NICK(A) Yellow [facility] CLARITY Clear [facility] GLUCOSE Trace(A) Negative [facility] BILI 3+(A) Negative [facility] KETONES 1+(A) Negative [facility] SPECIFIC GRAVITY 1.025 1.005 - 1.030 [facility] BLOOD Negative Negative [facility] PH 5.5 5.0 - 8.0 [facility] Protein-UA Trace(A) Negative [facility] NITRITE Positive(A) Negative [facility] Leukocyte esterase, ur Negative Negative [facility] Urine (Urine) 08/16/2025 9:0 4 AM EDT 08/16/2025 11:15 AM EDT us Vernell Reeves PA-C LAB URINE ORDERABLES Final Result Performing Organization Address [facility]/ZIP Co de Phone Number [address] [address] * (ABNORMAL) Urine sediment (08/16/2025 9:04 AM EDT) WBC 0-4(A) NONE SEEN /hpf [facility] RBC 0-2(A) NONE SEEN /hpf [facility] URINE EPITHELIAL 5-10(A) NONE SEEN [facility] MUCUS NONE SEEN NONE SEEN /hpf [facility] BACTERIA 3+(A) NONE SEEN /hpf [facility] CAST 3-5 [facility] Comment:HYALINE CAST 08/16/2025 9:04 AM EDT 08/16/2025 11:15 AM EDT us Vernell Reeves PA-C LAB URINE ORDERABLES Final Result Performing Organization Address [facility] Co de Phone Number [address] [address] from Last 3 Months Insurance [place] [id number] [facility] MEDICARE SUPPLEMENT MEDICARE PART A & B Member Subscriber Plan / Payer (Ef fective 2018-) Name:Yara Mendez Member ID:[id number] Relation to Subscriber:Self Name:Yara Mendez Subscriber ID:[id number] Payer ID:[id number] Group ID:Not on file Type:Medicare Address: [facility] [employer] [facility] [address] [place] [phone] [facility] MEDICARE SUPPLEMENT MEDICARE PART A & B [facility] MEDICARE SUPPLEMENT MEDICARE PART A & B [facility] MEDICARE SUPPLEMENT MEDICARE PART A & B [facility] MEDICARE SUPPLEMENT MEDICARE PART A & B [facility] MEDICARE SUPPLEMENT Advance Directives For more information, please contact: [phone] (9AM - 5PM [facility], Thursday-Thursday) Documents on File Type Date Recorded 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 It is not the complete legal health record.[facility]
--- OUTSIDE RECORDS SUMMARY | 2025-10-02 14:42 | XMS_ITS | Encounter Summary ---
Author Organization [facility] Address [address] [place] [address] Phone Care Team Providers Care Human Capital Analyst Name Role Phone Dara Sellers Primary Care Provider [phone] Encounter Details Date Type Department Care Team ([facility] st Contact Info) Description 08/17/2025 Procedure Pass [facility]iology [address] [place] [address] Social History Tobacco Use Types Packs/Day Years [...] Description 10/03/2025 2:15 PM EST Office Visit [facility] [address] [place] [address] Marlys Dodge MD 15 [facility], [address] [place] [id number] documented as of this encounter Visit Diagnoses Not on filedocumented in this encounter Care Teams Human Capital Analyst Relationship Specialty Start Date End Date Dara Sellers PA [address] [place] [id number] PCP - General Physician Biostatistics Teacher 05/15/25 documented as of this encounter Additional Source Comments The information contained in this document represents components of the legal health record. It is not the complete legal health record.[facility]
== END 2025-10-02 11:53 | disposition home or self-care (01) ==
LOC: HO.HGS 11:33
PROVIDERS: PCP Internal Medicine; Visit Provider Surgery
DX: R62.7 Adult failure to thrive (principal); K80.20 Calculus of gallbladder without cholecystitis without obstruction
CPT/HCPCS: 99213

== ENCOUNTER 2025-10-03 12:36 | Inpatient (IN) | payer MEDICARE, SELFPAY ==
[2025-10-03] VITALS (16 sets, daily range): BP systolic 77–130; BP diastolic 32–68; PULSE 83–146; RESP 13–26; TEMP 36.3–37.3; O2SAT 96–99; BMI 27.7
--- NOTE | ~2025-10-03 | XR_ITS ---
EXAMINATION: XR ABDOMEN KUB CLINICAL INDICATION: PEG tube reinserted COMPARISON: None available. TECHNIQUE: AP view of the abdomen following injection of G-tube with 50 mL of Gastrografin. FINDINGS: G-tube projects over the mid stomach. There is oral contrast seen in the stomach and proximal small bowel. No gastric dilatation or dilated loops of bowel. No free air. No oral contrast extravasation. Lung bases are clear. Degenerative changes of the spine and hips. XR/XR KUB IMPRESSION: G-tube appears to be in the mid stomach. No evidence of obstruction, contrast extravasation or free air. Electronically signed by: Lidia Calles MD 10/05/2025 04:19 PM ALE
--- NOTE | ~2025-10-03 | XR_ITS ---
EXAMINATION: XR CHEST CLINICAL INFORMATION: Elevated WBC count COMPARISON: Previous chest x-ray most recent August 2025 TECHNIQUE: Frontal view of the chest was obtained. FINDINGS: Slightly elevated right hemidiaphragm. Subsegmental atelectasis in the right midlung and subsegmental atelectasis or small infiltrate at the left lung base. Cardiac and mediastinal contours are stable. No pleural effusion or pneumothorax. Degenerative changes of the spine. XR/XR chest 1V IMPRESSION: Low lung volumes. Subsegmental atelectasis in the right midlung and subsegmental atelectasis or small infiltrate at the left lung base. Electronically signed by: Lidia Calles MD 10/03/2025 02:21 PM ALE
--- NOTE | ~2025-10-03 | US_ITS ---
EXAMINATION: US ABDOMEN LIMITED CLINICAL INFORMATION: Elevated white blood cell count.. COMPARISON: September 08, 2025. Correlated to CT dated September 08, 2025. TECHNIQUE: Real-time ultrasound right upper quadrant abdomen using grayscale technique. FINDINGS: PANCREAS: No pericholecystic fluid collection. LIVER: Liver measures 20 cm. Increased echotexture. Heterogeneous parenchyma. No nodular surface. No gross solid or cystic lesion. GALLBLADDER: Multiple intraluminal hyperechoic lesions, mobile in the dependent portion with prostatic or shadowing. Pericholecystic fluid collection in the gallbladder wall thickening (8 mm). COMMON BILE DUCT: 3 mm. RIGHT KIDNEY: 11 cm. Normal echotexture. Renal cortical thickness is normal. No hydronephrosis. No solid or cystic lesion. No hydronephrosis.. FREE FLUID: None. US/US abdomen limited IMPRESSION: Hepatomegaly and heterogeneous parenchyma suggesting hepatocellular disease versus hepatitis among other etiologies. Cholelithiasis and gallbladder wall thickening which could be related to hepatocellular disease/hepatitis. Calculus cholecystitis cannot be excluded. No ascites. No hydronephrosis. No choledocholithiasis. Electronically signed by: Albert Brunner MD 10/03/2025 02:25 PM EST
--- NOTE | 2025-10-03 12:39 | ECG_ITS ---
Test Reason : sepsis Blood Pressure : */* mmHG Vent. Rate : 142 BPM Atrial Rate : * BPM P-R Int : * ms QRS Dur : 78 ms QT Int : 318 ms P-R-T Axes : * -22 165 degrees QTcB Int : 489 ms Atrial fibrillation with rapid ventricular response Moderate voltage criteria for LVH, may be normal variant ( R in aVL , Ankur product ) Septal infarct , age undetermined ST & T wave abnormality, consider lateral ischemia Abnormal ECG When compared with ECG of 08-Sep-2025 14:56, Atrial fibrillation has replaced Sinus rhythm Vent. rate has increased by 48 bpm Septal infarct is now Present T wave inversion more evident in Lateral leads Referred By: Lorena Elias Electronically Signed By: Brady Rucker
--- NOTE | 2025-10-03 12:46 | ED.GENADULT ---
HPI - General Adult General Chief complaint: General Medical Stated complaint: COMING FROM SNF, ABNORMAL LABS Source: patient, EMS and old records reviewed Mode of arrival: EMS Limitations: other (Dementia) History of Present Illness ED Provider: ZABRINA RIGGINS narrative: 84-year-old female with past medical history of PE on Eliquis, dementia, hypertension, recent admission ( September 08 September 22) for altered mental status was found to have cholelithiasis and treated with IV antibiotics deferred surgery who presents from facility today with really unknown reason. The patient states she is fine but she admits to not feeling great and has some abdominal pain. She was found to be in AFib with RVR and also had an elevated WBC count to 19 on outpatient labs today. When EMS went to pick her up the nurse who had her states she did not know her well and really could not tell him much, she did not know when her last known well was. Given tachycardia and elevated WBC count sepsis protocol started on arrival. Patient has a signed MOLST states DNR DNI and do not use NIPPV MD complaint: Abnormal labs Onset (ago): day(s) (1) Severity: moderate Relieving factors: none Exacerbating factors: none Associated symptoms: malaise and weakness Treatments prior to arrival: none Related Data Home Medications ?Medication ?Instructions ?Recorded ?Confirmed acetaminophen 325 mg tablet 650 mg PO Q6H PRN Fever Or Pain 09/08/25 09/08/25 apixaban 5 mg tablet (Eliquis) 5 mg PO BID 09/08/25 09/08/25 bisacodyl 10 mg rectal suppository 10 mg [place] DAILY PRN Constipation 09/08/25 09/08/25 diclofenac sodium 1 % topical gel 2 g topical TID 09/08/25 09/08/25 magnesium hydroxide 400 mg/5 mL 30 ml PO DAILY PRN Constipation 09/08/25 09/08/25 oral suspension (Milk of Magnesia) metoprolol succinate 25 mg 25 mg PO DAILY 09/08/25 09/08/25 tablet,extended release 24 hr nystatin 100,000 unit/mL oral 5 ml PO QID 09/08/25 09/08/25 suspension sennosides 8.6 mg tablet (senna) 17.2 mg PO BEDTIME 09/08/25 09/08/25 sodium phosphates 19 gram-7 118 ml [place] DAILY PRN Constipation 09/08/25 09/08/25 gram/118 mL enema (Fleet Enema) Allergies Allergy/AdvReac Type Severity Reaction Status Date / Time No Known Allergies Allergy Verified 10/03/25 13:04 Review of Systems Review of Systems: ROS unable to be obtained due to altered mental status [facility] Past Medical History Attestation statement: The following information was validated with the patient. Source: old records reviewed Medical History Gallstones Failure to thrive in adult Lactate blood increase Social History Social History Housing: [facility] Do you presently have visiting nurse or other home services: Yes Patient Tobacco Use Status: Former Tobacco user Advance Directives: Yes Advance Directives on File: Yes Advance Directives Date on File: 09/09/25 service: No Physical Exam ED Vital Signs: Vital Signs - 24 hr 10/03/25 12:55 10/03/25 13:34 10/03/25 13:37 Temperature 99.1 F Pulse Rate 146 H 83 111 H Respiratory Rate 26 H 25 H 21 H Blood Pressure 100/54 L 82/35 L 77/32 L Pulse Oximetry 96 99 99 Oxygen Delivery Method Room Air Room Air Room Air 10/03/25 13:43 Temperature Pulse Rate 102 H Respiratory Rate 13 Blood Pressure 103/61 Pulse Oximetry 98 Oxygen Delivery Method Room Air BMI result Body Mass Index 27.7 Appearance: Alert. Confused, moderate acute distress. Eyes: Pupils equal, round and reactive to light. ENT: Pharynx dry mucous Neck: Normal inspection. Neck supple. CVS: Tachycardic and irregular heart rate and rhythm. Pulses normal. Respiratory: No respiratory distress. Breath sounds right base diminished Abdomen: She grimaces and yells when you palpate the right upper quadrant Skin: Skin warm and dry. Pale skin color. Poor skin turgor. Extremities: No lower extremity edema. No calf ttp Neuro: Oriented X to self she is upset and angry with any questioning, states why do not you tell me why I am here, I don't know Course Course Course Narrative: Lorena Elias DO 10/03/25 [id number] I spoke to the son who is very reasonable he is to be at intermediate EMT he is aware of her hypotension and rapid AFib - he was given 2 options to either cardiovert alert to try fluids and low-dose Lopressor in hopes that it shows a heart rate down enough to increase her blood pressure, he states he is DNR DNI and he wants to try fluids and Lopressor 1st Reevaluation(s) Reevaluation #1: Lorena Elias, DO 10/03/25 1352 Patient's blood pressure has increase in heart rate down to low 100s after 2 doses of IV Lopressor 2.5 mg we will continue treat and monitor She was ordered 2500 of LR given her hypotension her 30 cc/kilos bolus would have been 2,265 Lorena Elias, DO 10/03/25 1504 I had a discussion with the son who is at bedside and asked him if he would want any intervention such as surgery, he notes given her medical issues and medication instead surgery has made it clear she is not a good candidate. I did ask him in the middle of the night if she was to further decompensate what his goals of care would be and he discussed that he would just prefer comfort measures only if she is to worsen. The current plan is IV fluids and antibiotics Medications Administered Discontinued Medications Generic Name Dose Route Start Last Admin Trade Name Freq PRN Reason Stop Dose Admin Ceftriaxone Sodium 1 gm/ 50 mls @ 100 mls/hr 10/03/25 12:41 10/03/25 13:28 Sodium Chloride IV 10/03/25 13:10 Infused ONCE ONE Infusion Lactated Ringer's 1,000 mls @ 999 mls/hr 10/03/25 12:46 10/03/25 13:14 Lr IV 10/03/25 13:46 999 mls/hr .Q1H1M ONE Administration Acetaminophen 1,000 mg in 100 mls @ 400 mls/hr 10/03/25 12:46 10/03/25 13:36 Ofirmev IV 10/03/25 13:00 Infused ONCE ONE Infusion Lactated Ringer's 1,000 mls @ 999 mls/hr 10/03/25 13:00 10/03/25 13:14 Lr IV 10/03/25 14:00 999 mls/hr .Q1H1M ONE Administration Lactated Ringer's 500 mls @ 999 mls/hr 10/03/25 13:15 10/03/25 13:44 Lr IV 10/03/25 13:45 999 mls/hr .Q31M KATHY Administration Metoprolol Tartrate 2.5 mg 10/03/25 13:12 10/03/25 13:18 Metoprolol Tartrate 5 Mg/5 Ml Vial IVPUSH 10/03/25 13:13 2.5 mg ONCE ONE Administration Protocol Metoprolol Tartrate 2.5 mg 10/03/25 13:31 10/03/25 13:33 Metoprolol Tartrate 5 Mg/5 Ml Vial IVPUSH 10/03/25 13:32 2.5 mg ONCE ONE Administration Protocol Medical Decision Making Medical Decision Making MDM Narrative: 84-year-old female with past medical history of PE on Eliquis, dementia, hypertension, recent admission ( September 08 September 22) for altered mental status was found to have cholelithiasis who now presents and new onset AFib though she is on Eliquis 5 mg already she really has no complaints but when you palpate her abdomen she states it hurts and states she has not been eating or drinking, she appears dry on exam at this time I am going to resuscitate her with 2 L of IV fluids. She will need chest x-ray, ultrasound of gallbladder, I am going to start her on empiric ceftriaxone. I am going to resuscitate her 1st and if necessary will give a low dose Lopressor to treat her elevated heart rate. Differential Diagnosis Differential Diagnoses: The differential diagnosis associated with the presentation includes Cholecystitis, cholangitis, dehydration, IVAN, sepsis, pneumonia, NSTEMI Admission/Observation Consideration of admission/observation: Escalation of care including admission/observation considered Lab Data [facility] Lab Attestation statement: I reviewed the patient's lab results. 10/03/25 13:02 10/03/25 13:02 Labs: Lab Results 10/03/25 10/03/25 10/03/25 Range/Units 13:02 13:08 14:38 WBC 18.0 H (4.8-10.8) X10*3/uL RBC 2.84 L (4.20-5.50) X10*6/uL Hgb 10.1 L (12.0-16.0) g/dl Hct 30.5 L (37.0-47.0) % MCV 107.4 H (80.0-98.0) fL MCH 35.6 H (27.0-33.0) pg MCHC 33.1 (31.0-35.0) g/dl RDW 19.8 H (11.0-16.0) % Plt Count 222 (160-400) X10*3/uL MPV 11.9 (9.4-12.3) fL Immature Gran % (Auto) Cancelled Neut % (Auto) Cancelled Lymph % (Auto) Cancelled [place] % (Auto) Cancelled Eos % (Auto) Cancelled Baso % (Auto) Cancelled Lymph # (Auto) Cancelled [place] # (Auto) Cancelled Eos # (Auto) Cancelled Baso # (Auto) Cancelled Abs Immat Gran (auto) Cancelled Absolute Neuts (auto) Cancelled Absolute Nucleated RBC 0.040 H (0.0-0.012) X10*3/uL Nucleated RBC % (auto) 0.2 (0.0-0.2) /100WBC Neutrophils % (Manual) 51 (45-73) % Band Neutrophils % 1 L (3-5) % Lymphocytes % (Manual) 11 L (20-40) % Atypical Lymphs % (Man) 21 H (0-6) % Monocytes % (Manual) 12 H (2-11) % Eosinophils % (Manual) 2 (0-4) % Metamyelocytes % 1 % Plasma Cell % (Manual) 1 % Abs Neuts (Manual) 9.4 H (2.0-8.3) X10*3/uL Lymphocytes # (Manual) 2.0 (1.2-4.9) X10*3/uL Atyp Lymphs # (Manual) 3.8 x10*3/uL Monocytes # (Manual) 2.2 H (0.1-1.2) X10*3/uL Eosinophils # (Manual) 0.4 (0.0-0.4) X10*3/uL Metamyelocytes # 0.2 X10*3/uL Plasma Cell # (Manual) 0.2 X10*3/uL Smudge Cells PRESENT Platelet Estimate NORMAL (NORMAL) Large Platelets PRESENT Plt Morphology Comment NOTED RBC Morphology NOTED Polychromasia 1+ (0-2) /OIF Macrocytosis 1+ (5-14) /OIF Target Cells 1+ (5-14) /OIF PT 33.2 H (10.9-12.4) SEC INR 2.9 H (0.9-1.1) Hold Blue Top SEE NOTE Sodium 139 (135-145) mmol/L Potassium 4.9 (3.3-5.1) mmol/L Chloride 107 (96-108) mmol/L Carbon Dioxide 20 L (22-29) mmol/L Anion Gap 17 (12-20) BUN 49 H (9-16) mg/dL Creatinine 0.64 (0.5-1.4) mg/dL Estim Creat Clear Calc 66.5 Estimated GFR > 60 Random Glucose 85 (60-115) mg/dL Lactic Acid 7.1 H* (0.5-2.0) mmol/L Calcium 8.4 (8.4-10.2) mg/dL Magnesium 2.2 (1.6-2.6) mg/dL Total Bilirubin 2.4 H (0.0-1.0) mg/dL Direct Bilirubin 1.4 H (0.0-0.5) mg/dL AST 104 H (5-31) U/L ALT 75 H (0-31) U/L Alkaline Phosphatase 309 H (39-117) U/L Troponin I High Sens 68.1 H* (<3.5-17.0) ng/L C-Reactive Protein 7.31 H (< or = 0.50) mg/dL Total Protein 5.6 L (6.5-8.0) g/dL Albumin 2.5 L (3.5-5.0) g/dL Lipase 32 (8-78) U/L Procalcitonin 0.30 ng/mL Urine Color Yellow Urine Appearance Clear Urine pH 6.0 (5.0-9.0) Ur Specific [place] 1.015 (1.005-1.025) Urine Protein Negative (Neg-Trace) mg/dL Urine Glucose (UA) Negative (Negative) mg/dL Urine Ketones Negative (Negative) mg/dL Urine Blood Negative (Negative) Urine Nitrite Negative (Negative) Ur Leukocyte Esterase Negative (Negative) COVID-19 (JONNY) Negative (Negative) COVID-19 Clin Com See Note Independent Interpretation I performed an independent interpretation of an: EKG, Plain X-Ray and Ultrasound Interpretation: Rate: 142 Rhythm: Atrial fibrillation Bradley: Left with LVH and strain pattern and 1 and aVL Normal QRS complex. ST T wave : Inverted T-waves in 1 and aVL as well as V 5 and V6 qTC: 489 prior studies: New onset AFib and T-wave inversions in V5 and V6 are new The study has been interpreted contemporaneously by me. . Radiology Impression Discussion of test interpretation with radiology: I have reviewed the radiologist's reading. Critical Care Time Critical Care Time Critical Care Time: Yes Total Critical Care Time: 70 Attestation: Time is exclusive of separately billable procedures. Time includes: direct patient care, patient reassessment, coordination of patient care, interpretation of data (laboratory data, pulse oximetry, ultrasound chest xrays), review of patient's medical records, medical consultation and documentation of patient care. sepsis protocol, IVF x 30 cc/kg bolus, IV lopressor x 2 for unstable AFib. Procedures excluded from critical care time: electrocardiography. I attest to this time spent taking care of the patient Discharge Plan Discharge Clinical Impression: Acidosis, lactic, Abnormal LFTs (liver function tests), Elevated troponin, Atrial fibrillation with rapid ventricular response, Acute hypotension Elevated WBC count Qualifiers: Leukocytosis type: unspecified Qualified Code(s): D72.829 - Elevated white blood cell count, unspecified Cholelithiasis Qualifiers: Cholelithiasis location: gallbladder Cholecystitis presence: with cholecystitis Cholecystitis acuity: acute and chronic Biliary obstruction: without biliary obstruction Qualified Code(s): K80.12 - Calculus of gallbladder with acute and chronic cholecystitis without obstruction Patient Disposition: Admitted As Inpatient Print Language: Belgian
[2025-10-03 13:09] LABS: Hematocrit 30.5 % (37.0-47.0); Hemoglobin 10.1 g/dl (12.0-16.0); Mean Corpuscular HGB Conc 33.1 g/dl (31.0-35.0); Mean Corpuscular Hemoglobin 35.6 pg (27.0-33.0); Mean Corpuscular Volume 107.4 fL (80.0-98.0); NRBC Abs Auto 0.040 X10*3/uL (0.0-0.012); NRBC Pct Auto 0.2 /100WBC (0.0-0.2); Platelet Count 222 X10*3/uL (160-400); Red Blood Count 2.84 X10*6/uL (4.20-5.50)
[2025-10-03 13:11] LABS: WBC ABN SCTR FOR CBC 1
[2025-10-03] MEDS: Lactated Ringers 1,000 ML 999 ML IV ×3 (13:14→20:07)
[2025-10-03 13:25] LABS: Alanine Aminotransferase 75 U/L (0-31); Albumin Level 2.5 g/dL (3.5-5.0); Alkaline Phosphatase 309 U/L (39-117); Anion Gap 17 (12-20); Aspartate Amino Transferase 104 U/L (5-31); Blood Urea Nitrogen 49 mg/dL (9-16); Calcium 8.4 mg/dL (8.4-10.2); Carbon Dioxide 20 mmol/L (22-29); Chloride 107 mmol/L (96-108); Creatinine Clr Calc Pharmacy 66.5; Estimated Glomerular Filt Rate > 60; Lipase 32 U/L (8-78); Magnesium 2.2 mg/dL (1.6-2.6); Potassium 4.9 mmol/L (3.3-5.1); Sodium 139 mmol/L (135-145); Total Protein 5.6 g/dL (6.5-8.0)
[2025-10-03 13:33] LABS: INTERNATIONAL NORM RATIO 2.9 (0.9-1.1); Prothrombin Time 33.2 SEC (10.9-12.4)
[2025-10-03 13:33] LABS: COVID-19 Test Negative (Negative); IDNOW Serial# 55D5AD1C
[2025-10-03] MEDS: Lactated Ringers 500 ML 999 ML IV (13:44)
[2025-10-03 13:47] LABS: Atypical Lymphs Percent Manual 21 % (0-6); Band Neutrophils Percent 1 % (3-5); Eosinophils Percent Manual 2 % (0-4); Lymphocytes Percent Manual 11 % (20-40); Metamyelocytes Percent 1 %; Monocytes Percent Manual 12 % (2-11); Neutrophils Percent Manual 51 % (45-73)
[2025-10-03 13:52] LABS: Macrocytosis 1+ (5-14) /OIF; RBC Morphology NOTED
[2025-10-03 13:53] LABS: Large Platelet PRESENT; Polychromasia 1+ (0-2) /OIF; Smudge Cells PRESENT; Target Cells 1+ (5-14) /OIF
[2025-10-03 13:54] LABS: Atypical Lymph Absolute Manual 3.8 x10*3/uL; Eosinophils Absolute Manual 0.4 X10*3/uL (0.0-0.4); Lymphocytes Absolute Manual 2.0 X10*3/uL (1.2-4.9); Metamyelocytes Absolute 0.2 X10*3/uL; Monocytes Absolute Manual 2.2 X10*3/uL (0.1-1.2); Neutrophils Absolute Manual 9.4 X10*3/uL (2.0-8.3); Plasma Cells Absolute Manual 0.2 X10*3/uL; White Blood Count 18.0 X10*3/uL (4.8-10.8)
[2025-10-03 13:57] LABS: Procalcitonin 0.30 ng/mL
[2025-10-03 14:47] LABS: Appearance Urine Clear; Glucose Urine UA Negative (Negative); PH 6.0 (5.0-9.0); Specific Gravity - Urine 1.015 (1.005-1.025)
[2025-10-03 15:03] LABS: Reflex Lactate? Lactic Acid Added
[2025-10-03 15:18] LABS: Troponin-I High Sensitivity 68.1 ng/L (<3.5-17.0)
[2025-10-03 16:04] LABS: ~Lactic Acid-LAB USE ONLY 7.6 mmol/L (0.5-2.0)
--- NOTE | 2025-10-03 16:26 | PM.IMHP ---
History of Present Illness Date of Service: 10/03/25 Chief Complaint: Hypotension 84-year-old female with past medical history of PE on Eliquis, dementia, hypertension, recent admission ( September 08 September 22) for altered mental status was found to have SIRS with gallbladder as possible sourc e was treated with IV Abx. Her nutritional was poor at that time also and had Gtube for supllmentatal nutriotion and DC to SNF. According to son, she had routine lab work today and notd to have elevated WBC, no other detail available and was brought to the ED wher4e she's found to have WBC of 18, LA of 7, CRP 7.31, Troponin 68.1 , Tprotein 5.6, Albumin 2.5, AST 104 and ALT 75, ALK P 309. Given IV fluid per sepsis protocol, IV Ceftriaxone. She was also noted to be in AFIB with RVR and give IV Lopressor wth imprved HR. US of abdomen, hepato cellular disease, ? cholecystitis d/t gallstone. a Review of Systems Review of Systems: Gen: no fever Resp: no sob, no cough CV: no chest, no BENZ, no leg edema GI: No n/v, no abd pain Neuro: No confusion [facility] Medical History Gallstones Failure to thrive in adult Lactate blood increase Social History Household Members: Other Housing: Care Home Housing Other:: [facility] Do you presently have visiting nurse or other home services: Yes Patient Tobacco Use Status: Former Tobacco user Smoked in Last 30 Days: No Use of substances other than those prescribed or required for medical reasons: No Currently Displaying Signs/Symptoms of Drug Intoxication Withdrawal: No Advance Directives: Yes Advance Directives on File: Yes Advance Directives Date on File: 09/09/25 Do you have a plan to hurt others: No Plan Nutrition Risks: No Nutritional Risk Patient : No service: No Meds Allergies Allergy/AdvReac Type Severity Reaction Status Date / Time No Known Allergies Allergy Verified 10/03/25 13:04 Active Medications: Current Medications Acetaminophen (Acetaminophen 325 Mg Tablet) 650 mg PO Q6H PRN PRN Reason: Pain, Mild 1-3,fever,headache Calcium Carbonate (Calcium Carbonate 750 Mg Tab.Chew) 750 mg PO Q4H PRN PRN Reason: Heartburn Magnesium Hydroxide (Milk Of Magnesia 30 Ml Oral.Susp) 30 ml PO DAILY PRN PRN Reason: Constipation Melatonin (Melatonin 3 Mg Tablet) 6 mg PO BEDTIME PRN PRN Reason: Insomnia Sodium Chloride (0.9 % Sodium Chloride Flush 3 Ml Syringe) [facility] Medications ?Medication ?Instructions ?Recorded ?Confirmed ?Last Taken ?Type acetaminophen 325 mg tablet 650 mg PO Q6H PRN Fever Or Pain 09/08/25 10/03/25 Unknown History apixaban 5 mg tablet (Eliquis) 5 mg PO BID 09/08/25 10/03/25 Unknown History bisacodyl 10 mg rectal suppository 10 mg MD DAILY PRN Constipation 09/08/25 10/03/25 Unknown History diclofenac sodium 1 % topical gel 2 g topical TID 09/08/25 10/03/25 Unknown History magnesium hydroxide 400 mg/5 mL 30 ml PO DAILY PRN Constipation 09/08/25 10/03/25 Unknown History oral suspension (Milk of Magnesia) metoprolol succinate 25 mg 25 mg PO DAILY 09/08/25 10/03/25 Unknown History tablet,extended release 24 hr nystatin 100,000 unit/mL oral 5 ml PO QID 09/08/25 10/03/25 Unknown History suspension sennosides 8.6 mg tablet (senna) 17.2 mg PO BEDTIME 09/08/25 10/03/25 Unknown History sodium phosphates 19 gram-7 118 ml MD DAILY PRN Constipation 09/08/25 10/03/25 Unknown History gram/118 mL enema (Fleet Enema) ascorbic acid (vitamin C) 500 mg 500 mg PO DAILY 10/03/25 10/03/25 Unknown History tablet (Vitamin C) lactulose 10 gram/15 mL oral 30 ml PO DAILY 10/03/25 10/03/25 Unknown History solution (Enulose) mirtazapine 7.5 mg tablet 7.5 mg PO BEDTIME 10/03/25 10/03/25 Unknown History multivitamin with minerals 1 tab PO DAILY 10/03/25 10/03/25 Unknown History simethicone 125 mg tablet 125 mg PO Q8H PRN Gastrointestinal 10/03/25 10/03/25 Unknown History Spasms Or Cramping zinc sulfate 50 mg zinc (220 mg) 50 mg PO BID 10/03/25 10/03/25 Unknown History tablet Physical Exam Vital Signs and Narrative: Vital Signs: Last Vital Signs Temp 97.9 F 10/03/25 15:09 Pulse 104 H 10/03/25 15:09 Resp 19 10/03/25 15:09 BP 90/47 L 10/03/25 15:09 Pulse Ox 96 10/03/25 15:09 O2 Del Method Room Air 10/03/25 15:09 BMI result Body Mass Index 27.7 Const: Other: Constitutional: Alert, in no distress, confused Mental Status: Oriented to persib. Eyes: Pupils are equal, round and reactive to light. Ear, Nose and Throat: Oropharynx clear, mucous membranes moist. Ears and nose without eformities. Trachea midline. Respiratory: Clear to auscultation. No wheezing, rales or rhonchi. Cardiovascular: S1 S2 regular. No murmurs, rubs or gallops. Gastrointestinal: Abdomen soft, non-tender, non-distended. Normal bowel sounds.? Neurologic: Cranial nerves II-XII grossly intact. No focal neurological deficits. Moves all extremities spontaneously.? Skin: No rashes or lesions.? Musculoskeletal: No cyanosis or clubbing. Psychiatric: Normal mood and affect? Sepsis focus exam completed and unremarkable Results Labs 10/04/25 05:17 10/04/25 05:17 Labs: Laboratory Results - last 24 hr 10/03/25 10/03/25 10/03/25 13:02 13:08 14:38 MCV 107.4 H MCH 35.6 H MCHC 33.1 RDW 19.8 H Plt Count 222 MPV 11.9 Immature Gran % (Auto) Cancelled Neut % (Auto) Cancelled Lymph % (Auto) Cancelled [place] % (Auto) Cancelled Eos % (Auto) Cancelled Baso % (Auto) Cancelled Lymph # (Auto) Cancelled [place] # (Auto) Cancelled Eos # (Auto) Cancelled Baso # (Auto) Cancelled Abs Immat Gran (auto) Cancelled Absolute Neuts (auto) Cancelled Absolute Nucleated RBC 0.040 H Nucleated RBC % (auto) 0.2 Neutrophils % (Manual) 51 Band Neutrophils % 1 L Lymphocytes % (Manual) 11 L Atypical Lymphs % (Man) 21 H Monocytes % (Manual) 12 H Eosinophils % (Manual) 2 Metamyelocytes % 1 Plasma Cell % (Manual) 1 Abs Neuts (Manual) 9.4 H Lymphocytes # (Manual) 2.0 Atyp Lymphs # (Manual) 3.8 Monocytes # (Manual) 2.2 H Eosinophils # (Manual) 0.4 Metamyelocytes # 0.2 Plasma Cell # (Manual) 0.2 Smudge Cells PRESENT Platelet Estimate NORMAL Large Platelets PRESENT Plt Morphology Comment NOTED RBC Morphology NOTED Polychromasia 1+ (0-2) Macrocytosis 1+ (5-14) Target Cells 1+ (5-14) PT 33.2 H INR 2.9 H Hold Blue Top SEE NOTE Anion Gap 17 Estim Creat Clear Calc 66.5 Estimated GFR > 60 Random Glucose 85 Lactic Acid 7.1 H* Lactic Acid F/U @ 2Hr Calcium 8.4 Magnesium 2.2 Total Bilirubin 2.4 H Direct Bilirubin 1.4 H AST 104 H ALT 75 H Alkaline Phosphatase 309 H Troponin I High Sens 68.1 H* C-Reactive Protein 7.31 H Total Protein 5.6 L Albumin 2.5 L Lipase 32 Procalcitonin 0.30 Urine Color Yellow Urine Appearance Clear Urine pH 6.0 Ur Specific [place] 1.015 Urine Protein Negative Urine Glucose (UA) Negative Urine Ketones Negative Urine Blood Negative Urine Nitrite Negative Ur Leukocyte Esterase Negative COVID-19 (JONNY) Negative COVID-19 Clin Com See Note 10/03/25 15:39 MCV MCH MCHC RDW Plt Count MPV Immature Gran % (Auto) Neut % (Auto) Lymph % (Auto) [place] % (Auto) Eos % (Auto) Baso % (Auto) Lymph # (Auto) [place] # (Auto) Eos # (Auto) Baso # (Auto) Abs Immat Gran (auto) Absolute Neuts (auto) Absolute Nucleated RBC Nucleated RBC % (auto) Neutrophils % (Manual) Band Neutrophils % Lymphocytes % (Manual) Atypical Lymphs % (Man) Monocytes % (Manual) Eosinophils % (Manual) Metamyelocytes % Plasma Cell % (Manual) Abs Neuts (Manual) Lymphocytes # (Manual) Atyp Lymphs # (Manual) Monocytes # (Manual) Eosinophils # (Manual) Metamyelocytes # Plasma Cell # (Manual) Smudge Cells Platelet Estimate Large Platelets Plt Morphology Comment RBC Morphology Polychromasia Macrocytosis Target Cells PT INR Hold Blue Top Anion Gap Estim Creat Clear Calc Estimated GFR Random Glucose Lactic Acid Lactic Acid F/U @ 2Hr 7.6 H* Calcium Magnesium Total Bilirubin Direct Bilirubin AST ALT Alkaline Phosphatase Troponin I High Sens C-Reactive Protein Total Protein Albumin Lipase Procalcitonin Urine Color Urine Appearance Urine pH Ur Specific [place] Urine Protein Urine Glucose (UA) Urine Ketones Urine Blood Urine Nitrite Ur Leukocyte Esterase COVID-19 (JONNY) COVID-19 Clin Com Imaging Radiologist's Impressions: Impressions Abdomen Ultrasound 10/03/25 13:45 IMPRESSION: Hepatomegaly and heterogeneous parenchyma suggesting hepatocellular disease versus hepatitis among other etiologies. Cholelithiasis and gallbladder wall thickening which could be related to hepatocellular disease/hepatitis. Calculus cholecystitis cannot be excluded. No ascites. No hydronephrosis. No choledocholithiasis. Electronically signed by: Albert Brunner MD 10/03/2025 02:25 PM EST RP Chest X-Ray 10/03/25 14:07 IMPRESSION: Low lung volumes. Subsegmental atelectasis in the right midlung and subsegmental atelectasis or small infiltrate at the left lung base. Electronically signed by: Lidia Calles MD 10/03/2025 02:21 PM EST RP Assessment and Plan (1) Septic shock: Status: Acute (2) Atrial fibrillation with rapid ventricular response: Status: Acute (3) Acute hypotension: Status: Acute (4) Elevated troponin: Status: Acute Plan 84F PMH pafib, alzheimers dementia, history of PE, present with AF w/ RVR, and found to have septic navid with marked lactic acidosis, some confusio Severe Sepsis d/t acute on chronic cholecystitis, previously deemed non-operative candidate, sepsis focus exam performed given Ceftriaxone in ED, continue on Zosyn Given Sepsis bolus in the ED IVF, and BP becomes profoundly low, consider ICU for vasop pressor, in the meantime can try midodrine AF with RVR, given Lopressor IV in the ED Management challenge d/t IVF, HR is better but if becomes an issue again, try digoxin Eliquis on hold tonight, in case a procedure is needed Toxic metabolic encephalopathy d/t Spsis Treat underlying infection acute lactic acidosis d/t sepsis and Hypotension IVF as above and trend level History of PE eliquis DNR/DNI dvt prophylaxis - eliquis Quality Stroke Does the patient have a stroke diagnosis?: No VTE Prior VTE?: No VTE Risk Level:: Medical - moderate - high VTE Device Contraindication: Treatment Not Indicated VTE Drug Contraindication: N/A - Med Ordered
--- NOTE | 2025-10-03 16:29 | PHA.MEDREC ---
Pharmacy Consult ? Medication Reconciliation Pharmacy has completed the medication reconciliation. Utilized list from [facility]
--- OUTSIDE RECORDS SUMMARY | 2025-10-03 16:41 | XMS_ITS ---
Author Organization [facility] & [facility] Care Team Providers Care Shelver Name Role Phone Anya Jiménez Unavailable Unavailable Alta Farris Unavailable Unavailable Kristi River Unavailable Unavailable Kane Santacruz Unavailable Unavailable Jose L Balderas Unavailable Unavailable Allergies and adverse reactions No Known Allergies Care Team Name Role Address Phone Organization Dates Jose L Andrey PCP [address] [place] [address], [facility] (Office): : [facility] 09/22/2025 - present Anya Jiménez [address] [address], [facility] (Office): : [facility] 09/22/2025 - present Alta Farris [address] [address], [facility] (Office): : [facility] 09/22/2025 - present Kristi River [address] [place] [address], [facility] (Office): : [facility] 09/22/2025 - present Kane Santacruz [address] [place] [address], [facility] (Office): : [facility] 09/22/2025 - present Encounters Encounter Type Code Code System Description Performer Discharge Disposition Service Delivery Location Date Ambulatory Encounter CPT Code = [id number] Alzheimer''s disease [facility]va Vel[facility] Address: [address] [place] [address]. 09/22 Ambulatory Encounter CPT Code = [id number] Adult failure to thrive syndrome [facility] Address: [address] [place] [address]. 09/22 Ambulatory Encounter CPT Code = [id number] Attention to gastrostomy [facility]va [facility] Address: [address] [place] [address]. 09/22 Ambulatory Encounter CPT Code = [id number] Atrial fibrillation [facility] Address: [address] [place] [address]. 09/22 Ambulatory Encounter CPT Code = [id number] Thrombocytopenic disorder [facility] Address: [address] [place] [address]. 09/22 Ambulatory Encounter CPT Code = [id number] Anemia [facility] Address: [address] [place] [address]. 09/22 Ambulatory Encounter CPT Code = [id number] Minimal cognitive impairment [facility] Address: [address] [place] [address]. 09/22 Ambulatory Encounter CPT Code = [id number] Bile duct calculus with acute cholecystitis and obstruction [facility] Address: [address] [place] [id number]. 09/22 Ambulatory Encounter CPT Code = [id number] Undernutrition [facility] Address: [address] [place] [address]. 09/22 Ambulatory Encounter CPT Code = [id number] Pulmonary embolism Ava Montaño [facility] Address: [address] [place] [address]. 09/22 Ambulatory Encounter CPT Code = [id number] Fall [facility] Address: [address] [place] [address]. 09/22 Ambulatory Encounter CPT Code = [id number] Gastroesophageal reflux disease without esophagitis [facility] Address: [address] [place] [address]. 09/22 Ambulatory Encounter CPT Code = 74707 M62.59 ICD 10 MUSCLE WASTING AND ATROPHY, NOT ELSEWHERE CLASSIFIED, MULTIPLE SITES [facility] Address: [address] [place] [address]. 09/22 Ambulatory Encounter CPT Code = [id number] Sepsis [facility] Address: [address] [place] [address]. 09/22 Ambulatory Encounter CPT Code = [id number] Atrial fibrillation Adriana Burrell [facility] Address: [address] [place] [id number]. 08/19 Ambulatory Encounter CPT Code = [id number] Thrombocytopenic disorder Adriana Burrell [facility] Address: [address] [place], [place] [address]. 08/19 Ambulatory Encounter CPT Code = [id number] Anemia Adriana Burrell [facility] Address: [address] [place] [address]. 08/19 Ambulatory Encounter CPT Code = [id number] Minimal cognitive impairment Adriana Burrell [facility] Address: [address] [place] [address]. 08/19 Ambulatory Encounter CPT Code = [id number] Bile duct calculus with acute cholecystitis and obstruction Adriana Burrell [facility] Address: [address] [place] [address]. 08/19 Ambulatory Encounter CPT Code = [id number] Undernutrition Adriana Burrell [facility] Address: [address] [place] [address]. 08/19 Ambulatory Encounter CPT Code = [id number] Pulmonary embolism Adriana Burrell [facility] Address: [address] [place] [address]. 08/19 Ambulatory Encounter CPT Code = [id number] Fall Adriana Burrell [facility] Address: [address] [place] [address]. 08/19 Ambulatory Encounter CPT Code = [id number] Gastroesophageal reflux disease without esophagitis Adriana Burrell [facility] Address: [address] [place] [address]. 08/19 Ambulatory Encounter CPT Code = 34427 M62.59 ICD 10 MUSCLE WASTING AND ATROPHY, NOT ELSEWHERE CLASSIFIED, MULTIPLE SITES Adriana Burrell [facility] Address: [address] [place] [address]. 08/19 Ambulatory Encounter CPT Code = [id number] Muscle weakness Adriana Burrell [facility] Address: [address] [place] [address]. 08/19 Ambulatory Encounter CPT Code = [id number] Dyspnea Adriana Burrell [facility] Address: [address] [facility], [place], [address], [place]. 08/19 Ambulatory Encounter CPT Code = [id number] Sepsis Adriana Sahu [facility] Address: [address] [facility] [address] [address], [place], [address], [facility]. 08/19 Goals Section Goals Description Status Target Date I plan to discharge to: To C ommunity with Family, Pending outcome of therapy sessions, clinical medical stability progress reviewed weekly. Active 11/27/2025 I will attend/participate in activities of choice 1-2 times weekly) by next review date. Active 11/27/2025 I will be able to communicat e effectively and with dignity with my care team, and to have my needs met through the review Active 11/27/2025 I will be at reduced risk fo r adverse drug reactions through the review date. Active 11/27/2025 I will be at reduced risk fo r complications of self care performance deficit and impaired mobility daily through the review date. Active 11/27/2025 I will be at reduced risk fo r new or worsened impaired skin integrity daily through the review date. Active 11/27/2025 I will be at reduced risk fo r skin breakdown daily through the review date. Active 11/27/2025 I will be free from discomfo rt or adverse side effects of antibiotic therapy through the review date. Active 11/27/2025 I will be free from discomfo rt or adverse side effects of anticoagulant therapy through the review date. Active 025 I will be free from s/sx of dehydration through next review date. Active 11/27/2025 I will be free of fall relat ed injury through the next review date. Active 11/27/2025 I will maintain adequate nut ritional status as evidenced by maintaining weight within +/-5% of CBW, no s/sx of malnutrition, intakes to meet >90% enteral feeding provision daily through review date. Active 11/27/2025 I will maintain current leve l of cognitive function through the review date. Active 11/27/2025 I will maintain involvement in cognitive stimulation, social activities as desired through next review date. Active 2024 I will maintain or improve m y independence and mobility through review date. Active 11/27/2025 I will not have complication s related to anemia through the review date. Active 11/27/2025 I will not have skin breakdo wn due to incontinence through the review date. Active 11/27/2025 I will not have skin breakdo wn due to incontinence through the review date. Active 11/27/2025 I will remain free from comp lications related to enteral tubes [such as aspiration, dehydration, refeeding syndrome, malnutrition] through the review date. Active 11/27/2025 I will remain free from disc omfort and complications related to gastro-esophageal reflux through the review date. Active 10/31 I will remain free from disc omfort, complications or s/sx related to gastrointestinal alterations through review date. Active I will remain free from sign s/ symptoms of hypertension complications through review date. Active 11/27/2025 I will verbalize adequate re lief of pain or ability to cope with incompletely relieved pain through the review date. Active My risk for dumont will be mitigated through revi ew date. Active 11/27/2025 My risk for respiratory comp lications and infections will be mitigated through the review date. Active 11/27/2025 My skin integrity will be im proved or maintained by next review date. Active 11/27/2025 The resident will have intac t skin, free of redness, blisters, or discoloration through review date. Active 11/27/2025 The resident's advance direc tives are in effect and their wishes will be carried out through the next review. Active Functional Status Code Name Recorded Time Value Entered By Eating 10/03/2025 Supervision or t ouching assistance [email or web address] Lying to sitting on side of bed 10/03/2025 Partial/moderate assistance [email or web address] Oral hygiene 10/03/2025 Partial/moderate assistance [email or web address] Personal hygiene 10/03/2025 Partial/moderate assista nce eandino1 Shower/bathe self 10/03/2025 Partial/moderate assist ance eandino1 Sit to lying 10/03/2025 Partial/moderate assistance [email or web address] Toilet transfer 10/03/2025 Partial/moderate assistan ce eandino1 Toileting hygiene 10/03/2025 Partial/moderate assist ance eandino1 Immunizations Immunization Status Vaccine Details Vaccine Code CodeSystem Date Notes TB 1 Step Mantoux (PPD) completed tuberculin skin test; unspecified formulation lotNumber: [id number] expiry: 11/30/2027 Given 0.1 ml Left Forearm intradermally 98 CVX created date: 09/01/2025 consent date: 08/31/2025 administer ed date: 08/31/2025 Educated by on 08/31/2025 Influenza (high dose) completed Influenza, high-dose, split virus, trivalent, injectable, preservative free lotNumber: [id number] Mfg: [employer] Given 0.5 intramuscularly 135 CVX created date: 08/20/2025 administer ed date: 08/19/2025 doseUOMNonc ray:mL Medications Section Medication Name Status Code CodeSystem Dose Route Frequency Admin Type Sig Text Start Date End Date Indication Metoprolol Succinate ER Tablet Extended Release 24 Hour 25 MG aborted 31465 7 RXNORM 25 mg Oral one time a day Routin e Give 25 mg by mouth one time a day for HTN 09/16 HTN Eliquis Oral Tablet 5 MG aborted 33679 47 RXNORM 10 mg Oral two times a day Routin e Give 10 mg by mouth two times a day for Afib for 6 Days AND Give 5 mg by mouth two times a day for Afib 09/16 Afib 38583 47 RXNORM 5 mg Oral two times a day Routin e Give 10 mg by mouth two times a day for Afib for 6 Days AND Give 5 mg by mouth two times a day for Afib 09/16 Afib Acetaminoph en Oral Tablet 325 MG aborted 53932 2 RXNORM 2 table t Oral as needed PRN Give 2 table t by mouth every 6 hours as neede d for Pain Total Dose 650mg * *DO NOT EXCEE D 3 grams in 24 hours AND Give 2 table t by mouth every 6 hours as neede d for [place] ratur e great er than 101.F Total Dose 650mg * *DO NOT EXCEE D 3 grams in 24 hours 09/16 Pain 97781 2 RXNORM 2 table t Oral as needed PRN Give 2 table t by mouth every 6 hours as neede d for Pain Total Dose 650mg * *DO NOT EXCEE D 3 grams in 24 hours AND Give 2 table t by mouth every 6 hours as neede d for [place] ratur e great er than 101.F Total Dose 650mg * *DO NOT EXCEE D 3 grams in 24 hours 09/16 Temperature greater than 101.F Milk of Magnesia Oral Suspension 400 MG/5ML aborted 04058 7 RXNORM 30 ml Oral as needed PRN Give 30 ml by mouth every 24 hours as neede d for Const ipati on Give 30ml by mouth if no bowel movem ent in 3 days (9 Shift s). 09/16 Constipatio n Bisacodyl Rectal Suppository 10 MG aborted 9 RXNORM 1 suppo sitor y Rectal as needed PRN Inser t 1 suppo sitor y recta lly every 24 hours as neede d for Const ipati on Give 1 Suppo sitor y (10mg ) via rectu m if no resul ts from Milk of Magne lico after 24 hours . 09/16 Constipatio n Fleet Enema Rectal Enema 7-19 GM/118ML aborted 17727 5 RXNORM 1 appli cator Rectal as needed PRN Inser t 1 appli cator recta lly as neede d for Const ipati on Give 1 appli cator full (118 ml)if no resul ts from Bisac odyl suppo sitor y. 09/16 Constipatio n Diclofenac Sodium External Gel 1 % aborted 90956 3 RXNORM n/a n/a Topica l three times a day Routin e Apply to Bilat eral Knees topic ally three times a day for Pain 09/16 Pain Senna Oral Tablet 8.6 MG aborted 2 table t Oral at bedtime Routin e Give 2 table t by mouth at bedti me for Const ipati on Hold For Loose Stool s 09/165 Constipatio n Potassium Chloride ER Tablet Extended Release 20 [place] [address] 6 RXNORM 2 table t Oral one time a day Routin e Give 2 table t by mouth one time a day for HypoK for 2 Days 09/04 HypoK Fluad Intramuscul ar Suspension Prefilled Syringe 0.5 [place] [address] 50 RXNORM 0.5 ml Intram uscula r one time only One Time Only Injec t 0.5 ml intra muscu larly one time only for Immun izati on relat ed to SEVER E SEPSI S WITHO UT SEPTI C SHOCK (R65. 20) for 2 Days 09/06 Immunizatio n Nystatin Suspension 551652 UNIT/ML aborted 26067 5 RXNORM 5 ml Oral four times a day Routin e Give 5 ml by mouth four times a day for Thrus h for 5 Days swiguy and swnataliia ow 09/04 Thrush Nystatin Suspension 117099 UNIT/[place] [address] 5 RXNORM 5 ml Oral four times a day Routin e Give 5 ml by mouth four times a day for Thrus h for 5 Days crystal and swnataliia ow 09/10 Thrush Acetaminoph en Oral Tablet 325 MG active 82531 2 RXNORM 2 table t Oral as needed PRN Give 2 table t by mouth every 6 hours as neede d for Pain Total Dose 650mg * *DO NOT EXCEE D 3 grams in 24 hours AND Give 2 table t by mouth every 6 hours as neede d for [place] ratur e great er than 101.F Total Dose 650mg * *DO NOT EXCEE D 3 grams in 24 hours 2024 - Pain 62445 2 RXNORM 2 table t Oral as needed PRN Give 2 table t by mouth every 6 hours as neede d for Pain Total Dose 650mg * *DO NOT EXCEE D 3 grams in 24 hours AND Give 2 table t by mouth every 6 hours as neede d for [place] ratur e great er than 101.F Total Dose 650mg * *DO NOT EXCEE D 3 grams in 24 hours 2024 - Temperature greater than 101.F Milk of Magnesia Oral Suspension 400 MG/5ML active 88736 7 RXNORM 30 ml Oral as needed PRN Give 30 ml by mouth every 24 hours as neede d for Const ipati on Give 30ml by mouth if no bowel movem ent in 3 days (9 Shift s). 2024 - Constipatio n Bisacodyl Rectal Suppository 10 MG active 9 RXNORM 1 suppo sitor y Rectal as needed PRN Inser t 1 suppo sitor y recta lly every 24 hours as neede d for Const ipati on Give 1 Suppo sitor y (10mg ) via rectu m if no resul ts from Milk of Magne lico after 24 hours . 2024 - Constipatio n Fleet Enema Rectal Enema 7-19 GM/118ML active 63422 5 RXNORM 1 appli cator Rectal as needed PRN Inser t 1 appli cator recta lly as neede d for Const ipati on Give 1 appli cator full (118 ml)if no resul ts from Bisac odyl suppo sitor y. 2024 - Constipatio n Diclofenac Sodium External Gel 1 % active 79313 3 RXNORM n/a n/a Topica l three times a day Routin e Apply to hands topic ally three times a day for pain 2024 - pain Eliquis Oral Tablet 5 MG active 50599 47 RXNORM 5 mg Oral two times a day Routin e Give 5 mg by mouth two times a day relat ed to UNSPE CIFIE D ATRIA L FIBRI LLATI ON (I48. 91) 2024 - - Metoprolol Succinate ER Oral Tablet Extended Release 24 Hour 25 MG active 82428 7 RXNORM 25 mg Oral in the morning Routin e Give 25 mg by mouth in the morni ng for htn 2024 - htn Nystatin Mouth/Throa t Suspension 191776 UNIT/ML active 91478 5 RXNORM 5 ml Oral with meals Routin e Give 5 ml by mouth with meals for thrus h 2024 - thrush Senna Oral Tablet 8.6 MG active 1 table t Oral at bedtime Routin e Give 1 table t by mouth at bedti me for const ipati on 2024 - constipatio n Tubersol Solution 5 UNIT/0.1[place] [address] 5 RXNORM 0.1 vita liter Intrad ermal one time only One Time Only Injec t 0.1 vita liter intra derma lly one time only for 1st PPD test until 09/23 23:59 Admin ister withi n 24 hours of admis [place]. Recor d site. Read site resul ts in 48 hours . AND Injec t 0.1 vita liter intra derma lly one time only for 2nd PPD test until 10/02 23:59 Admin ister 2nd step PPD 7 days after the 1st step PPD. Recor d site. Read site resul ts in 48 hours . 09/24 1st PPD test 90268 5 RXNORM 0.1 vita liter Intrad ermal one time only One Time Only Injec t 0.1 vita liter intra derma lly one time only for 1st PPD test until 09/23 23:59 Admin ister withi n 24 hours of admis [place]. Recor d site. Read site resul ts in 48 hours . AND Injec t 0.1 vita liter intra derma lly one time only for 2nd PPD test until 10/02 23:59 Admin ister 2nd step PPD 7 days after the 1st step PPD. Recor d site. Read site resul ts in 48 hours . 10/03 2nd PPD test Senna Oral Tablet active 2 table t Oral as needed PRN Give 2 table t by mouth as neede d for QHS for const ipati on 2024 - QHS for constipatio n Enulose Solution 10 GM/15ML active 86583 0 RXNORM 30 ml Oral one time a day Routin e Give 30 ml by mouth one time a day for const ipati on 2024 - constipatio n Simethicone Capsule 125 MG active 47159 2 RXNORM 1 table t Oral as needed PRN Give 1 table t by mouth every 8 hours as neede d for gas pain/ bloat ing 2024 - gas pain/bloati ng Mirtazapine Tablet 7.5 MG active 83699 9 RXNORM 1 table t Oral at bedtime Routin e Give 1 table t by mouth at bedti me for Depre ssion /Lack of appet ite 2024 - Depression/ Lack of appetite Ascorbic Acid Tablet 500 MG active 13820 2 RXNORM 1 table t Oral one time a day Routin e Give 1 table t by mouth one time a day for wound heali ng 2024 - wound healing Zinc Sulfate Oral Tablet 220 (50 Zn) MG active 72428 4 RXNORM 1 table t Oral one time a day Routin e Give 1 table t by mouth one time a day for wound heali ng for 14 Days 10/17 wound healing Multivitami n-Minerals Oral Tablet active 1 table t Oral one time a day Routin e Give 1 table t by mouth one time a day for wound heali ng/va riabl e PO intak e 2024 - wound healing/sandro iable PO intake Mental Status Section Date Assessment Total Score Description 09/08/2025 CAM 0 No delirium ind icated 08/25/2025 BIMS 12 moderate cognit briana impairment CAM 0 No delirium ind icated PHQ-9 00 Insurance Providers Plan of Treatment Section Interventions Intervention Code Code System Display Name Proposed D ate Problems Problem # Description Date of onset Resolved Date Code CodeSystem Concern Status 1 ADULT FAILURE TO THRIVE 09/22/[address] active 2 ALZHEIMER'S DISEASE, UNSPECIFIED 09/22/[address] active 3 ENCOUNTER FOR ATTENTION TO GASTROSTOMY 09/22/[address] active 4 UNSPECIFIED ATRIAL FIBRILLATION 08/20/[address] active 5 ANEMIA, UNSPECIFIED 08/19/[address] active 6 CALCULUS OF BILE DUCT WITH ACUTE CHOLECYSTITIS WITH OBSTRUCTION 08/19/[address] active 7 GASTRO-ESOPHAGEAL REFLUX DISEASE WITHOUT ESOPHAGITIS 08/19/[address] active 8 HISTORY OF FALLING 08/19/[address] active 9 MILD COGNITIVE IMPAIRMENT OF UNCERTAIN OR UNKNOWN ETIOLOGY 08/19/[address] active 10 MUSCLE WEAKNESS (GENERALIZED) 08/19/2025 09/22/[address] completed 11 OTHER CHOLELITHIASIS WITH OBSTRUCTION 08/19/2025 08/19/[address] completed 12 OTHER PULMONARY EMBOLISM WITHOUT ACUTE COR PULMONALE 08/19/[address] active 13 SEVERE SEPSIS WITHOUT SEPTIC SHOCK 08/19/[address] active 14 SHORTNESS OF BREATH 08/19/2025 09/22/[address] completed [address]ROMBOCYT[address]IA, UNSPECIFIED 08/19/[address] active 16 UNSPECIFIED PROTEIN-CALORIE MALNUTRITION 08/19/[address] active Reason for Referral No Reasons for Referral Entered Social History Social History Observation Description Start Date End Date Code Code System Current Smoking Status Tobacco smoking consumption unknown 164236217 SNOMED CT Sex Assigned At Female 1940 66360-2 [facility] Gender Identity Sexual Orientation Vital Signs Code Code System Vitals Name Values and Units Timing Information 40359-1 [facility] Pain Level Value=0.0 10/03/2025 95948-7 [facility] Weight Qjrov=711.9 Units=Lbs 01/2025 9279-1 [facility] Respiratory Rate Value=17.0 Units=/m in 10/01/2025 46055-6 [facility] O2 % BldC Oximetry Value=95.0 Units= % 10/01/2025 8462-4 [facility] Blood Pressure-Diastolic Value=66 Un its=mmHg 10/01/2025 8480-6 INC Blood Pressure-Systolic Yxrsp=490 Un its=mmHg 10/01/2025 8310-5 [facility] Body Temperature Value=97.0 Units= F 10/01/2025 8867-4 [facility] Heart rate Value=75.0 Units=/min 12/2024 8302-2 [facility] Height Value=62.0 Units=Inches 09/23/2025 2339-0 [facility] Blood Sugar Chwos=191.0 Units=mg/dL 09/08/2025
--- OUTSIDE RECORDS SUMMARY | 2025-10-03 16:41 | XMS_ITS | Encounter Summary ---
Author Organization [facility] Address [address] [place] [address] Phone Care Team Providers Care [employer] Specialist Name Role Phone Dara Sellers Primary Care Provider [phone] Encounter Details Date Type Department Care Team (Late st Contact Info) Description 08/16/2025 Procedure Pass [facility], Ct Scan - [facility] [address] [place] [address] Social History Tobacco Use Types Packs/Day Years [...] 5:00 PM EDT Reyna Arce RN * [place] Suicide Severity Rating Scale (Screener/Recent Self-Report) Question Answer Date of Assessment Author 1. Wish to be (Past 1 Month) No 08/16/2025 5:00 PM EDT Carolin Estrada RN 2. Non-Specific Active Suicidal Thoughts (Past 1 Month) No 08/16/2025 5:00 PM LANET Carolin Estrada RN 6. Suicidal Behavior (Lifetime) No 08/16/2025 5:00 PM LANET Carolin Estrada RN documented as of this encounter Plan of Treatment Not on file documented as of this encounter Visit Diagnoses Not on filedocumented in this encounter Care Teams [employer] Specialist Relationship Specialty Start Date End Date Dara Sellers PA [address] [place] [phone] PCP - General Physician Tape Coater 05/15/25 documented as of this encounter Additional Source Comments The information contained in this document represents components of the legal health record. It is not the complete legal health record.[facility]
--- OUTSIDE RECORDS SUMMARY | 2025-10-03 16:41 | XMS_ITS | Encounter Summary ---
Author Organization [facility] Address [address] [place] [address] Phone Care Team Providers Care Technicians And Trades Workers Name Role Phone Dara Sellers Primary Care Provider [phone]- [phone] Encounter Details Date Type Department Care Team ([facility] st Contact Info) Description 08/16/2025 Procedure Pass [facility] Endoscopy Admitting Dept Virtual Department [address] [place] [address] Social History Tobacco Use Types Packs/Day Years [...] 5:00 PM EDT Reyna Arce RN * [place] Suicide Severity Rating Scale (Screener/Recent Self-Report) Question [...] on filedocumented in this encounter Care Teams Technicians And Trades Workers Relationship Specialty Start Date End Date Dara Sellers PA [address] [place] [id number] PCP - General Physician Dope Weigh Operator 05/15/25 documented as of this encounter Additional Source Comments The information contained in this document represents components of the legal health record. It is not the complete legal health record.[facility]
--- OUTSIDE RECORDS SUMMARY | 2025-10-03 16:41 | XMS_ITS | Encounter Summary ---
Author Organization [facility] Address [address] [place] [address] Phone Care Team Providers Care Stock Preparation Supervisor Name Role Phone Dara Sellers Primary Care Provider [phone]- [phone] Encounter Details Date Type Department Care Team (Latest Contact Info) Description 05/15/2025 Transcribe Orders [facility] Phleb [address] [address] Dara Sellers PA [address] [place] [address] [place] [address] Hypertension, essential (Primary Dx) Social History Tobacco [...] on file documented as of this encounter Results * Hemoglobin A1c (05/15/2025 11:30 AM EDT) HEMOGLOBIN A1C 4.9 4.3 - 5.8 % [facility] Blood 05/15/2025 11:3 0 AM EDT 05/15/2025 11:31 AM EDT us Dara [facility] BLOOD BKR ORDERABLES Fi nal Result [facility] [address] [place], [place] [id number] * (ABNORMAL) CBC and differential (05/15/2025 11:30 AM EDT) WBC 8.13 4.00 - 11.00 K/uL [facility] RBC 4.53 4.00 - 5.20 M/uL [facility] HGB 14.5 12.0 - 16.0 g/dL [facility] HCT 45.0 36.0 - 46.0 % [facility] PLT 256 150 - 450 K/uL [facility] MCV 99.3 80.0 - 100.0 fL [facility] MCH 32.0(H) 27.0 - 31.0 pg [facility] MCHC 32.2 32.0 - 36.0 g/dL [facility] RDW 13.2 11.5 - 14.5 % [facility] MPV 10.6 8.4 - 12.0 fL [facility] NRBC 0.00 0.00 /100 WBCs [facility] ABSOLUTE NRBC 0.00 0.00 K/uL [facility] DIFF METHOD Auto [facility] NEUTS 64.7 48.0 - 76.0 % [facility] LYMPHS 20.5 18.0 - 41.0 % [facility] MONOS 11.7(H) 4.0 - 11.0 % [facility] EOS 2.1 0.0 - 5.0 % [facility] BASOS 0.6 0.0 - 1.5 % [facility] Granulocytes, immature (%) 0.4 0.0 - 0.9 % [facility] ABSOLUTE NEUTS 5.26 1.92 - 7.60 K/uL [facility] ABSOLUTE LYMPHS 1.67 0.72 - 4.10 K/uL [facility] ABSOLUTE MONOS 0.95 0.16 - 1.10 K/uL [facility] ABSOLUTE EOS 0.17 0.00 - 0.50 K/uL [facility] ABSOLUTE BASOS 0.05 0.00 - 0.15 K/uL [facility] Granulocytes, immature 0.03 0.00 - 0.09 K/uL [facility] Blood 05/15/2025 11:3 0 AM EDT 05/15/2025 11:32 AM EDT Dara [facility] LAB BLOOD BKR ORDERABLES Fi nal Result Performing Organization Address City/[facility]/ZIP Co de Phone Number [address] [address] * (ABNORMAL) Lipid panel (05/15/2025 11:30 AM EDT) HDL 62 mg/dL [facility] Comment: Interpretation <40 mg/dL: Low HDL cholesterol (major risk factor for CHD) Greater than or equal to 60 mg/dL: High HDL cholesterol ( negative risk factor for CHD) HDL - cholesterol is affected by a number of factors, e.g. smoking, excerise, hormones, sex and age. CHOLESTEROL 160 0 - 240 mg/dL [facility] TRIGLYCERIDES 85 30 - 160 mg/dL [facility] LDL 81 50 - 129 mg/dL [facility] Comment: LDL levels in terms of risk for coronary heart disease: <100 mg/dL: Optimal 100-129 mg/dL: Near or above optimal 130-159 mg/dL: Borderline high 160-189 mg/dL: High >190 mg/dL: Very High CARDIAC RISK RATIO 2.6(L) 3.3 - 4.4 C [facility] Blood 05/15/2025 11:3 0 AM EDT 05/15/2025 11:31 AM EDT Dara [facility] LAB BLOOD BKR ORDERABLES Fi nal Result Performing Organization Address City/[facility]/ZIP Co de Phone Number [address] [address] * (ABNORMAL) Comprehensive metabolic panel (05/15/2025 11:30 AM EDT) SODIUM 144 133 - 146 mmol/L [facility] POTASSIUM 4.4 3.3 - 5.1 mmol/L [facility] CHLORIDE 107 96 - 108 mmol/L [facility] CO2 28 21 - 35 mmol/L [facility] BUN 16 6 - 19 mg/dL [facility] CREATININE 0.60 0.5 - 1.5 mg/dL [facility] GLUCOSE 104(H) 70 - 99 mg/dL [facility] ALBUMIN 4.0 3.9 - 4.8 g/dL [facility] TOTAL PROTEIN 7.3 6.5 - 8.0 g/dL [facility] CALCIUM 9.1 8.4 - 10.3 mg/dL [facility] ALKALINE PHOSPHATASE 91 39 - 117 U/L [facility] TOTAL BILIRUBIN 0.3 0.0 - 1.2 mg/dL [facility] AST 25 0 - 37 U/L [facility] ALT 20 0 - 40 U/L [facility] GLOBULIN 3.3 1 - 4.8 g/dL [facility] EGFR 88 >59 mL/min/1.7 3m2 [facility] Comment:Estimated glomerular filtration rate calculated using the CKD-EPI refit equation. ANION GAP 13 10 - 20 mmol/L [facility] Blood 05/15/2025 11:3 0 AM EDT 05/15/2025 11:32 AM EDT us Dara [facility] LAB BLOOD BKR ORDERABLES Fi nal Result [address] [address] documented in this encounter Visit Diagnoses Diagnosis Hypertension, essential- Primary Unspecified essential hypertension documented in this encounter Care Teams Stock Preparation Supervisor Relationship Specialty Start Date End Date Dara Sellers PA [address] [place] [id number] PCP - General Physician Theatrical Rigger 05/15/25 documented as of this encounter Additional Source Comments The information contained in this document represents components of the legal health record. It is not the complete legal health record.[facility]
--- OUTSIDE RECORDS SUMMARY | 2025-10-03 16:41 | XMS_ITS | Encounter Summary ---
Author Organization [facility] Address [address] [place] [address] Phone Care Team Providers Care Building Maintenance Worker Name Role Phone Dara Sellers Primary Care Provider [phone]- [phone] Encounter Details Date Type Department Care Team (Late st Contact Info) Description 08/16/2025 Procedure Pass [facility], Ct Scan - [facility] [address] [place] [address] Social History Tobacco Use Types Packs/Day Years [...] 5:00 PM EDT Reyna Arce RN * [place] Suicide Severity Rating Scale (Screener/Recent Self-Report) Question [...] on filedocumented in this encounter Care Teams Building Maintenance Worker Relationship Specialty Start Date End Date Dara Sellers PA [address] [place] [phone] PCP - General Physician Dietary Services Director 05/15/25 documented as of this encounter Additional Source Comments The information contained in this document represents components of the legal health record. It is not the complete legal health record.[facility]
--- OUTSIDE RECORDS SUMMARY | 2025-10-03 16:41 | XMS_ITS | Encounter Summary ---
Author Organization [facility] Address [address] [place] [address] Phone Care Team Providers Care Packer Insulation Name Role Phone Dara Sellers Primary Care Provider [phone]- [phone] Encounter Details Date Type Department Care Team (Late st Contact Info) Description 08/16/2025 Procedure Pass [facility], Ct Scan - [facility] [address] [place] [address] Social History Tobacco Use Types Packs/Day Years [...] 5:00 PM EDT Reyna Arce RN * [place] Suicide Severity Rating Scale (Screener/Recent Self-Report) Question [...] on filedocumented in this encounter Care Teams Packer Insulation Relationship Specialty Start Date End Date Dara Sellers PA [address] [place] [phone] PCP - General Physician Respiratory Services Manager 05/15/25 documented as of this encounter Additional Source Comments The information contained in this document represents components of the legal health record. It is not the complete legal health record.[facility]
--- OUTSIDE RECORDS SUMMARY | 2025-10-03 16:42 | XMS_ITS | Encounter Summary ---
Author Organization [facility] Address [address] [place] [address] Phone Care Team Providers Care Psychiatric Cns Name Role Phone Dara Sellers Primary Care Provider [phone]- [phone] Encounter Details Date Type Department Care Team ([facility] st Contact Info) Description 08/16/2025 Procedure Pass [facility] Echo [facility] [address] [place] [address] Social History Tobacco Use Types Packs/Day Years [...] 5:00 PM EDT Reyna Arce RN * [place] Suicide Severity Rating Scale (Screener/Recent Self-Report) Question [...] on filedocumented in this encounter Care Teams Psychiatric Cns Relationship Specialty Start Date End Date Dara Sellers PA [address] [place] [phone] PCP - General Physician Secondary Education Professor 05/15/25 documented as of this encounter Additional Source Comments The information contained in this document represents components of the legal health record. It is not the complete legal health record.[facility]
--- OUTSIDE RECORDS SUMMARY | 2025-10-03 16:42 | XMS_ITS | Encounter Summary ---
Author Organization [facility] Address [address] [place] [address] Phone Care Team Providers Care Shredding Machine Operator Name Role Phone Dara Sellers Primary Care Provider [phone]- [phone] Encounter Details Date Type Department Care Team ([facility] st Contact Info) Description 08/17/2025 Procedure Pass [facility] [address] [place] [address] Social History Tobacco Use Types Packs/Day Years [...] on filedocumented in this encounter Care Teams Shredding Machine Operator Relationship Specialty Start Date End Date Dara Sellers PA [address] [place] [id number] PCP - General Physician Sticker Machine Operator 05/15/25 documented as of this encounter Additional Source Comments The information contained in this document represents components of the legal health record. It is not the complete legal health record.[facility]
--- OUTSIDE RECORDS SUMMARY | 2025-10-03 16:42 | XMS_ITS | Clinical Summary ---
Author Organization [facility] Address [address] [place] [address] Phone Care Team Providers Care Milk Processing Worker Name Role Phone Dara Sellers Primary Care Provider [phone] Allergies No known active allergies Medications metoprolol [...] Department Care Team Description 5 Orders Only [facility] [address] [place] [phone] [facility], Chavo Espinoza MD 5 9:40 PM EDT Ancillary Procedure [address] [address] Alex Conway NP 5 7:08 PM EDT - 5 8:10 PM EDT Surgery [facility] Cardiovascular And Interventional Radiology [address] [place] [address] John Gonsales MD ABDOMINAL LIMITED WITH ULTRASOUND IR 5 Procedure Pass [facility] [address] [place] [address] 5 10:15 PM EDT Ancillary Procedure [address] [address] Sofia Cohen PA-C 5 3:16 PM EDT Anesthesia Event [facility] Endoscopy Admitting Dept Virtual Department [address] [place] [address] Nova Ortega MD Strebel, Joseph S, MD 5 1:59 PM EDT - 5 2:59 PM EDT Surgery [facility] Endoscopy Admitting Dept Virtual Department [address] [place] [address] Dick Eckert MD ENDOSCOPIC RETROGRADE CHOLANGIOPANCREATOGRAPHY 5 8:31 AM EDT - 5 4:30 PM EDT Hospital Encounter [facility] [address] [place] [address] Martinez Shrestha MD Steinberg, MD Clif Frederick, MD Mireille Yo, Marti Mae MD Discharge Disposition: Jail Facility 5 Procedure Pass [facility] Echo Lab [address] [place] [address] 5 Procedure Pass [address] [address] 5 Procedure Pass [facility] Endoscopy Admitting Dept Virtual Department [address] [place] [address] 5 Procedure Pass [address] [address] 5 Procedure Pass [address] [address] 5 Procedure Pass [address] [address] 5 Orders Only [facility] [address] [place] [phone] Homehealth, Interface ProviderMD from Last 3 [...] 08/16/2025 4:41 PM EDT Plan of Treatment Health Maintenance Due Date Last Done Comments Adult Td,Tdap Booster 1940 BLOOD PRESSURE 1940 DEPRESSION SCREENING 1952 PNEUMOCOCCAL VACCINES (50+ years) (1 of 1 - PCV) 1990 ZOSTER VACCINES (1 of 2) 1990 OSTEOPOROSIS SCREENING INITIAL (ONE-TIME) 2005 RSV VACCINE (1 - 1-dose 75+ series) 2015 COVID-19 VACCINE (1 - season) 2025 CREATININE LEVEL 08/19/2026 08/19/2025, [...] 10:36 AM EDT BLOOD CULTURE, ROUTINE STAT 10:36 AM EDT BLOOD CULTURE, ROUTINE STAT 10:[address] CERVICAL SPINE WITHOUT [...] included. SODIUM 143 133 - 146 mmol/L [facility] POTASSIUM 3.7 3.3 - 5.1 mmol/L [facility] CHLORIDE 112(H) 96 - 108 mmol/L [facility] CO2 22 21 - 35 mmol/L [facility] BUN 10 6 - 19 mg/dL [facility] CREATININE 0.30(L) 0.5 - 1.5 mg/dL [facility] GLUCOSE 80 70 - 99 mg/dL [facility] ALBUMIN 2.6(L) 3.9 - 4.8 g/dL [facility] TOTAL PROTEIN 5.3(L) 6.5 - 8.0 g/dL [facility] CALCIUM 7.9(L) 8.4 - 10.3 mg/dL [facility] ALKALINE PHOSPHATASE 253(H) 39 - 117 U/L [facility] TOTAL BILIRUBIN 3.0(H) 0.0 - 1.2 mg/dL [facility] AST 35 0 - 37 U/L [facility] ALT 33 0 - 40 U/L [facility] GLOBULIN 2.7 1 - 4.8 g/dL [facility] EGFR 105 >59 mL/min/1.7 3m2 [facility] Comment:Estimated glomerular filtration rate calculated using the CKD-EPI refit equation. ANION GAP 13 10 - 20 mmol/L [facility] Blood 08/19/2025 4:54 AM EDT 08/19/2025 5:21 AM EDT us Sancho Curiel Lb CARPET CLEANER LAB BLOOD BKR ORDERABLES Final Result [facility] [address] [place] [address] * (ABNORMAL) CBC and differential (08/19/2025 4:54 AM EDT) Only the most recent of5 resultswithin the time period is included. WBC 10.53 4.00 - 11.00 K/uL [facility] RBC 2.76(L) 4.00 - 5.20 M/uL [facility] HGB 9.5(L) 12.0 - 16.0 g/dL [facility] HCT 29.7(L) 36.0 - 46.0 % [facility] PLT 147(L) 150 - 450 K/uL [facility] MCV 107.6(H) 80.0 - 100.0 fL [facility] MCH 34.4(H) 27.0 - 31.0 pg [facility] MCHC 32.0 32.0 - 36.0 g/dL [facility] RDW 19.8(H) 11.5 - 14.5 % [facility] MPV 11.8 8.4 - 12.0 fL [facility] NRBC 0.00 0.00 /100 WBCs [facility] ABSOLUTE NRBC 0.00 0.00 K/uL [facility] DIFF METHOD Auto [facility] NEUTS 55.1 48.0 - 76.0 % [facility] LYMPHS 29.2 18.0 - 41.0 % [facility] Comment: Few Atypical Lymphs MONOS 12.2(H) 4.0 - 11.0 % [facility] EOS 2.5 0.0 - 5.0 % [facility] BASOS 0.3 0.0 - 1.5 % [facility] Granulocytes, immature (%) 0.7 0.0 - 0.9 % [facility] ABSOLUTE NEUTS 5.81 1.92 - 7.60 K/uL [facility] ABSOLUTE LYMPHS 3.08 0.72 - 4.10 K/uL [facility] ABSOLUTE MONOS 1.28(H) 0.16 - 1.10 K/uL [facility] ABSOLUTE EOS 0.26 0.00 - 0.50 K/uL [facility] ABSOLUTE BASOS 0.03 0.00 - 0.15 K/uL [facility] Granulocytes, immature 0.07 0.00 - 0.09 K/uL [facility] Blood 08/19/2025 4:54 AM EDT 08/19/2025 5:21 AM EDT Sancho Asher CNP LAB BLOOD BKR ORDERABLES Final Result Performing Organization Address City/[facility]/ZIP Co de Phone Number [address] [address] * (ABNORMAL) Phosphorus (08/19/2025 4:54 AM EDT) Only the most recent of4 resultswithin the time period is included. PHOSPHORUS 1.8(L) 2.7 - 4.5 mg/dL [facility] Blood 08/19/2025 4:54 AM EDT 08/19/2025 5:21 AM EDT Sancho Asher CNP LAB BLOOD BKR ORDERABLES Final Result Performing Organization Address City/[facility]/ZIP Co de Phone Number [address] [address] * Magnesium (08/19/2025 4:54 AM EDT) Only the most recent of6 resultswithin the time period is included. MAGNESIUM 1.7 1.6 - 2.6 mg/dL [facility] Blood 08/19/2025 4:54 AM EDT 08/19/2025 5:21 AM EDT Sancho Asher CNP LAB BLOOD BKR ORDERABLES Final Result Performing Organization Address City/[facility] Co de Phone Number [address] [address] * (ABNORMAL) Ionized calcium (08/19/2025 4:54 AM EDT) Pathologist [facility] IONIZED CALCIUM 1.11(L) 1.14 - 1.37 mmol/L [facility] Blood 08/19/2025 4:54 AM EDT 08/19/2025 5:21 AM EDT us Sancho Asher CNP LAB BLOOD BKR ORDERABLES Final Result Performing Organization Address [facility] de Phone Number [address] [address] * (ABNORMAL) LFTs (hepatic panel) (08/18/2025 5:35 AM EDT) Only the most recent of2 resultswithin the time period is included. ALKALINE PHOSPHATASE 290(H) 39 - 117 U/L [facility] TOTAL BILIRUBIN 3.6(H) 0.0 - 1.2 mg/dL [facility] DIRECT BILIRUBIN 2.5(H) 0.0 - 0.2 mg/dL [facility] Bilirubin (Indirect) 1.1 0 - 1.5 mg/dL [facility] AST 62(H) 0 - 37 U/L [facility] ALT 44(H) 0 - 40 U/L [facility] TOTAL PROTEIN 5.5(L) 6.5 - 8.0 g/dL [facility] ALBUMIN 2.6(L) 3.9 - 4.8 g/dL [facility] GLOBULIN 2.9 1 - 4.8 g/dL [facility] A/G Ratio 0.90(L) 1.00 - 4.80 RATIO [facility] Blood 08/18/2025 5:35 AM EDT 08/18/2025 5:49 AM EDT us Jesus Menezes MD LAB BLOOD BKR ORDERABL ES Final Result Performing Organization Address [facility] Co de Phone Number [address] [address] * (ABNORMAL) C-Reactive Protein (08/18/2025 5:35 AM EDT) Only the most recent of2 resultswithin the time period is included. C REACTIVE PROTEIN 65.0(H) 0.0 - 4.0 mg/L [facility] Blood 08/18/2025 5:35 AM EDT 08/18/2025 5:49 AM EDT us Jesus Menezes MD LAB BLOOD BKR ORDERABL ES Final Result Performing Organization Address [facility] de Phone Number [address] [address] * (ABNORMAL) Basic metabolic panel (08/18/2025 5:35 AM EDT) Only the most recent of4 resultswithin the time period is included. SODIUM 143 133 - 146 mmol/L [facility] CHLORIDE 110(H) 96 - 108 mmol/L [facility] POTASSIUM 3.4 3.3 - 5.1 mmol/L [facility] CO2 21 21 - 35 mmol/L [facility] BUN 10 6 - 19 mg/dL [facility] CREATININE 0.50 0.5 - 1.5 mg/dL [facility] GLUCOSE 77 70 - 99 mg/dL [facility] CALCIUM 8.0(L) 8.4 - 10.3 mg/dL [facility] EGFR 92 >59 mL/min/1.7 3m2 [facility] Comment:Estimated glomerular filtration rate calculated using the CKD-EPI refit equation. ANION GAP 15 10 - 20 mmol/L [facility] Blood 08/18/2025 5:35 AM EDT 08/18/2025 5:49 AM EDT us Jesus Menezes MD LAB BLOOD BKR ORDERABL ES Final Result Performing Organization Address City/[facility] Co de Phone Number [address] [address] * US BEDSIDE (08/17/2025 9:38 PM EDT) [...] to see details of procedure. Accession Number: [id number] us Alex Conway NP IMG POINT OF [...] tube placement not performed. us Sancho Asher CARPET CLEANER IMG IR Final Res ult * US Lower Extremity Veins Duplex Complete (Bilateral) (08/17/2025 4:00 PM EDT) MGB IMG GRIPPER ATTACHER COMMENT Occlusive deep venous thrombosis of one of the paired right posterior tibial vein's at the ankle, and left popliteal vein. [facility] Anatomical Region Laterality Modality Ultrasound 08/17/2025 4:14 PM EDT Impressions 08/17/2025 4:26 PM EDT * Occlusive deep venous thrombosis of one of the paired right posterior tibial vein's at the ankle, and left popliteal vein. A clinically significant result was initiated on 08/17/2025 4:23 PM, Message ID [id number]. Narrative 08/17/2025 4:26 PM EDT US LOWER [...] at the saphenofemoral junction. Procedure Note Nathan Perdomo MBBS / System, Provider Not In, PhD - 08/17/2025 US LOWER EXTREMITY VEINS DUPLEX COMPLETE (BILATERAL) Referring clinician's provided indication for this examination in Epic:Swelling of Limb TECHNIQUE: Lower extremity venous ultrasound [...] was initiated on 08/17/2025 4:23 PM,Message ID [id number]. us Sofia Cohen PA-C US VASCULAR Edited Result - Final * (ABNORMAL) Procalcitonin (08/17/2025 1:54 PM EDT) Procalcitonin 0.91(H) 0.00 - 0.25 ng/mL [facility] Comment: <=0.25 ng/mL: Bacterial pneumonia is unlikely. [...] ORDERABL ES Final Result Performing Organization Address [facility]/ZIP Co de Phone Number [address] [address] * Type and Screen (ABO,Rh,Antibody Screen) (08/17/2025 1:54 PM EDT) ABO/Rh B Positive [facility] Antibody Screen Negative [facility] Expiration Date of Sample 08/20/2025,2 359 [facility] Resulting Agency [facility] Blood 08/17/2025 1:54 PM EDT 08/17/2025 2:09 PM EDT us Jesus Menezse MD LAB BLOOD BANK TEST OR DERABLES Final Result Performing Organization Address City/[facility]/ZIP Co de Phone Number [address] [address] * (ABNORMAL) Troponin (08/17/2025 1:54 PM EDT) Only the most recent of3 resultswithin the time period is included. Troponin-T, HS Gen5 56(H) 0 - 9 ng/L [facility] Blood 08/17/2025 1:54 PM EDT 08/17/2025 2:10 PM EDT us Jesus Menezes MD LAB BLOOD BKR ORDERABL ES Final Result Performing Organization Address [facility] de Phone Number [address] [address] * Lactate (08/17/2025 1:54 PM EDT) Only the most recent of4 resultswithin the time period is included. LACTATE 1.80 0.50 - 2.20 mmol/L [facility] Blood 08/17/2025 1:54 PM EDT 08/17/2025 2:08 PM EDT us Jesus Menezes MD LAB BLOOD BKR ORDERABL ES Final Result Performing Organization Address [facility] de Phone Number [address] [address] * TTE COMPREHENSIVE (08/17/2025 8:28 AM EDT) [...] Sofia Cohen PA-C CV ECHO ORDERABLES Katie silvia Result * 2nd Type (New Sample) (08/17/2025 4:51 AM EDT) ABO/Rh B Positive [facility] Resulting Agency [facility] 08/17/2025 4:51 AM EDT 08/17/2025 2:12 PM EDT us Jesus Menezes MD LAB BLOOD BANK TEST OR DERABLES Final Result Performing Organization Address City/[facility]/ZIP Co de Phone Number [address] [address] * (ABNORMAL) NT-proBNP (08/17/2025 4:51 AM EDT) Only the most recent of2 resultswithin the time period is included. NT-PROBNP 10,900(H) 0 - 450 pg/mL [facility] 08/17/2025 4:51 AM EDT 08/17/2025 5:11 AM EDT us Sofia Cohen PA-C LAB BLOOD BKR ORDERABLE S Final Result Performing Organization Address [facility]/ZIP Co de Phone Number [address] [address] * US BEDSIDE (08/16/2025 10:12 PM EDT) [...] to see details of procedure. Accession Number: [id number] us Sofia Cohen PA-C IMG POINT OF CARE EXAMS Final Result * [...] I discussed the critical result with Sofia Vicki today at 21:45. us Martinez Shrestha MD IMG CT CHEST Final Result * MRSA PCR SCREEN (08/16/2025 6:48 PM EDT) MRSA PCR SCREEN Negative Negative [facility] Comment:The Xpert MRSA Assay is intended to aid in the prevention and control of MRSA infections in healthcare settings. The assay is not intended to diagnose nor to guide or monitor treatment for MRSA infections. Other (Nasal) 08/16/2025 6:4 8 PM EDT 08/16/2025 7:01 PM EDT Jesus Menezes MD LAB GENERAL ORDERABLES Final Result [address] [address] * FL Fluoroscopy (08/16/2025 4:18 PM EDT) Narrative SYSTEMGENERATED, DOCUMENTATION - 08/16/2025 4:20 PM EDT Fluoroscopy was provided during this procedure. us Dick Eckert MD IMG FL MISC Final Result * ANES ETT DOUBLE LUMEN - AIRWAY LDA (08/16/2025 3:23 PM EDT) Narrative Nova Ortega MD - 08/16/2025 3:23 PM EDT Nova Ortega MD 08/16/2025 3:42 PM Airway Placement Procedure Note: Patient was not difficult to intubate. Procedure performed by: fellow/resident/MACHINE FEEDER FLOORPERSON Anesthesiologist: Nova Ortega MD Fellow/Resident/MACHINE FEEDER FLOORPERSON: Marybeth Almanzar CRNA Airway procedure initiated at:08/16/2025 [...] Complications observed? no us Nova Ortega MD OR ANESTHESIA Final Result * ENDOSCOPY PROCEDURE (08/16/2025 2:44 PM EDT) Narrative Transcriptions Dick Eckert MD - 08/16/2025 2:44 PM EDT [facility] Patient Name: Yara Pagep Attending MD:: DICK ECKERT MD, Procedure Date: 08/16/2025 2:44 PM Date of : 1940 Age: 84 Admit Type: Emergency Department Gender: Female Room: [place] [address] Referring MD: Dara Sellers Exam Type: ERCP [...] complications. Estimated blood loss: Minimal. Findings: The hydrogen plant operator film was normal. The esophagus was successfully intubated under direct vision without detailed examination of the pharynx, larynx, and associated structures. A standard esophagogastroduodenoscopy scope was used for the examination of the upper gastrointestinal tract.The scope was passed under direct vision through theupper GI tract. Hematin (altered blood/dmrefn-pacwql-ghus material) was found in the gastric body [...] opacify c/w cholecystitis. Impression: - Hematin (altered blood/lejkrq-kxcogu-wzjtqgkxsrpn) in the gastric body and in the [...] 2:44 PM Procedure Code(s): --- Professional --- 89711, Endoscopic retrograde cholangiopancreatography (ERCP); with removal of calculi/debris from biliary/pancreatic duct(s) 43528, Endoscopic retrograde cholangiopancreatography (ERCP); with sphincterotomy/papillotomy 95982, Endoscopic catheterization of the biliary ductal system, radiological supervision and interpretation --- Technical --- 61938, Endoscopic retrograde cholangiopancreatography (ERCP); with removal of calculi/debris from biliary/pancreatic duct(s) 12176, Endoscopic retrograde cholangiopancreatography (ERCP); with sphincterotomy/papillotomy 99573, Endoscopic catheterization of the biliary ductal system, [...] pain R17, Unspecified jaundice CPT copyright 2021 [employer]. All rights reserved. The codes documented in this report are preliminary and upon grant manager reviewmay be revised to meet current compliance requirements. Procedure Date: 08/16/2025 2:44:[address] [place] [address] us Dara PENN GI PROCEDURE ORDERABLES Fin al Result * ECG 12-LEAD (08/16/2025 1:47 PM EDT) Only the most recent of2 resultswithin the time period is included. Ventricular Rate EKG/MIN 120 BPM [facility] Atrial Rate 119 BPM [facility] QRS Duration 86 ms [facility] QT Interval 290 ms [facility] QTC Interval 409 ms [facility] R Wave Ransom -24 degrees [facility] T Wave Ransom 145 degrees [facility] 08/16/2025 1:47 PM EDT [...] Angela overthe phone on 08/16/2025 1:10 PM. us Martinez Shrestha MD IMG CT ABD/PELVIS Final Result * Pathology review (08/16/2025 10:36 AM EDT) PATH REVIEW FINAL [facility] Comment: Other cells are rare blast and [...] BKR ORDERABLES Ed ited Result - Final [facility] [address] [place] [address] * Blood Culture, Routine (08/16/2025 10:36 AM EDT) Only the most recent of2 resultswithin the time period is included. Special Requests None 08/16/2025 8:53 AM EDT [facility] BLOOD CULTURE NO GROWTH 5 DAYS 08/21/2025 11:00 AM EDT [facility] Blood (Blood) 08/16/2025 10: 36 AM EDT 08/16/2025 10:49 AM EDT Vernell Reeves PA-C LAB MICROBIOLOGY CULTURE OR DERABLES Final Result Performing Organization Address [facility]/ZIP Co de Phone Number [address] [address] * (ABNORMAL) PT-INR (08/16/2025 10:36 AM EDT) PT 17.5(H) 10.2 - 12.9 sec [facility] INR 1.4(H) 0.9 - 1.1 [facility] Comment:Therapeutic range fo r oral Vitamin K antagonists: 2.0-3.5 Blood 08/16/2025 10:3 6 AM EDT 08/16/2025 10:48 AM EDT Vernell Reeves PA-C LAB BLOOD BKR ORDERABLES Fi nal Result Performing Organization Address [facility] Co de Phone Number [address] [address] * Lipase (08/16/2025 10:36 AM EDT) LIPASE 18 16 - 63 U/L [facility] Blood 08/16/2025 10:3 6 AM EDT 08/16/2025 10:48 AM EDT Vernell Reeves PA-C LAB BLOOD BKR ORDERABLES Fi nal Result Performing Organization Address [facility] Co de Phone Number [address] [address] * CT CERVICAL SPINE WITHOUT CONTRAST (08/16/2025 [...] clinician's provided indication for this examination in Psychiatric: * Head trauma, minor (Age >= 65y) [...] clinician's provided indication for this examination in Psychiatric: *Head trauma, minor (Age >= 65y) TECHNIQUE: [...] clinician's provided indication for this examination in Psychiatric: *Head trauma, minor (Age >= 65y) TECHNIQUE: [...] of the cervical spine. Martinez Shrestha MD IM CT HEAD/NECK Final [...] clinician's provided indication for this examination in Psychiatric: Fatigue COMPARISON: None available. FINDINGS: Devices/Tubes/Lines: None. [...] (08/16/2025 9:04 AM EDT) COLOR NICK(A) Yellow [facility] CLARITY Clear [facility] GLUCOSE Trace(A) Negative [facility] BILI 3+(A) Negative [facility] KETONES 1+(A) Negative [facility] SPECIFIC GRAVITY 1.025 1.005 - 1.030 [facility] BLOOD Negative Negative [facility] PH 5.5 5.0 - 8.0 [facility] Protein-UA Trace(A) Negative [facility] NITRITE Positive(A) Negative [facility] Leukocyte esterase, ur Negative Negative [facility] Urine (Urine) 08/16/2025 9:0 4 AM EDT 08/16/2025 11:15 AM EDT us Vernell Reeves PA-C LAB URINE ORDERABLES Final Result [facility] [address] [place] [address] * (ABNORMAL) Urine sediment (08/16/2025 9:04 AM EDT) WBC 0-4(A) NONE SEEN /hpf [facility] RBC 0-2(A) NONE SEEN /hpf [facility] URINE EPITHELIAL 5-10(A) NONE SEEN [facility] MUCUS NONE SEEN NONE SEEN /hpf [facility] BACTERIA 3+(A) NONE SEEN /hpf [facility] CAST 3-5 [facility] Comment:HYALINE CAST 08/16/2025 9:04 AM EDT 08/16/2025 11:15 AM EDT us Vernell Reeves PA-C LAB URINE ORDERABLES Final Result [facility] [address] [place] [address] from Last 3 Months Insurance MEDICARE PART A & B [facility] MEDICARE SUPPLEMENT MEDICARE PART A & [place] [address] [address] MEDICARE SUPPLEMENT MEDICARE PART A & B [facility] MEDICARE SUPPLEMENT MEDICARE PART A & B [facility] MEDICARE SUPPLEMENT MEDICARE PART A & [place] [id number] [facility] MEDICARE SUPPLEMENT MEDICARE PART A & B [facility] MEDICARE SUPPLEMENT Advance Directives For more information, please contact: [phone] (9AM - 5PM [facility], Thursday-Thursday) Documents on File Type Date Recorded Patient Senior Project Leader/Team Lead Expl anation Healthcare Proxy 08/21/2025 4:05 PM * Full Code (Latest Code Status on File) Date Activated Date Inactivated Comments 08/16/2025 8:43 PM Question Answer Comments Code Status Confirmed With: PatientFamily Care Teams Milk Processing Worker Relationship Specialty Start Date End Date Dara Sellers PA [address] [place] [id number] PCP - General Physician Marine Pilot 05/15/25 Additional Source Comments The information contained in this document represents components of the legal health record. It is not the complete legal health record.[facility]
--- OUTSIDE RECORDS SUMMARY | 2025-10-03 16:42 | XMS_ITS | Encounter Summary ---
Author Organization [facility] Address [address] [place] [address] Phone Care Team Providers Care Biofuels Technology Development Manager Name Role Phone Dara Sellers Primary Care Provider [phone]- [phone] Encounter Details Date Type Department Care Team (Late st Contact Info) Description 08/16/2025 Procedure Pass [facility] [place], [facility] Scan - [facility] [address] [place] [address] Social History Tobacco Use Types Packs/Day Years [...] 5:00 PM EDT Reyna Arce RN * [place] Suicide Severity Rating Scale (Screener/Recent Self-Report) Question [...] on filedocumented in this encounter Care Teams Biofuels Technology Development Manager Relationship Specialty Start Date End Date Dara Sellers PA [address] [place] [address] PCP - General Physician Chief Writer 05/15/25 documented as of this encounter Additional Source Comments The information contained in this document represents components of the legal health record. It is not the complete legal health record.[facility]
--- NOTE | 2025-10-03 16:55 | PC.NURSE ---
Pt noted to be hypotensive- 86/44, MD Sanchez made aware. Pt remains asymptomatic, BPs cycling q15 min to monitor. Pt medicated per JAN. Repeat BPs increased 100s/50s- per , ok to hold off on Levophed until albumin infused to reassess BP.
[2025-10-03] MEDS: Albumin Human 25 % 100 ML 133.33 ML IV ×2 (17:08→17:55)
[2025-10-03 17:42] LABS: Reflex Lactate? 2 Y
[2025-10-03 19:05] LABS: ~Lactic Acid-LAB USE ONLY 6.4 mmol/L (0.5-2.0)
--- NOTE | 2025-10-03 19:08 | PC.NURSE ---
Pt arrived to ICU approx 184 from the ED Confused, on RA, Purewick in place, PEG tube Clamp. Impared skin integrity-see skin Note.
--- NOTE | 2025-10-03 19:58 | PM.SEPSIS ---
Sepsis Event Note Evaluation Sepsis screening result: No Definite Risk Current stage of sepsis: severe sepsis Initial hypotension due to sepsis/infection: MAP < 65 mmHg Persistent hypotension after fluid resuscitation: SBP < 90 mmHg Possible source: GI tract/intra-abdominal Focused Exam Vital signs: Vital Signs Temp Pulse Resp BP Pulse Ox O2 Del Method 10/03/25 17:58 96 15 120/56 L 97 Room Air 10/03/25 17:52 96 20 111/48 L 98 Room Air 10/03/25 17:47 96 24 H 106/49 L 98 Room Air 10/03/25 17:33 96 23 H 107/50 L 96 Room Air 10/03/25 17:27 94 19 106/50 L 99 Room Air 10/03/25 16:55 97 24 H 86/44 L 97 Room Air 10/03/25 15:09 97.9 F 104 H 19 90/47 L 96 Room Air 10/03/25 15:00 104 H 17 107/42 L 97 Room Air 10/03/25 13:43 102 H 13 103/61 98 Room Air 10/03/25 13:37 111 H 21 H 77/32 L 99 Room Air 10/03/25 13:34 83 25 H 82/35 L 99 Room Air 10/03/25 12:55 99.1 F 146 H 26 H 100/54 L 96 Room Air Respiratory exam: Absent respiratory distress, rhonchi or wheezes Cardiovascular exam: tachycardia and irregular rhythm (Afib with RVR) Capillary refill: < 2 Seconds Peripheral pulse strength: 3+ Normal Peripheral pulse location: Radial Skin exam: normal turgor Date exam was performed: 10/03/25 Time exam was performed: 20:15 Event Note Event Note: The patient is a 84-year-old female with past medical history of PE ( on Eliquis),? paroxysmal atrial fibrillation, dementia, hypertension, and recent admission ( September 08 to September 22)? for altered mental status was found to have SIRS with cholecystitis as possible source was treated with IV Abx, not a surgical candidate. Her nutritional? was poor at that time also and had G-tube for supplemental nutrition and DC to SNF.? Patient presented to emergency department due to abnormal lab work. ?According to son, she had routine lab work today and noted to have elevated WBC, no other detail available and was brought to the ED where she's found to have WBC of 18, Lactic acid of 7, CRP 7.31, Troponin 68.1 , Tprotein 5.6, Albumin 2.5, AST 104 and ALT 75, ALK P 309.? She was also noted to be in AFib with RVR with improvement after IV Lopressor. Abdominal ultrasound concerning for acute on chronic cholecystitis. In the ED she received appropriate fluid resuscitation and IV ceftriaxone. ?She was admitted to Hospital Medicine for management of received severe due to acute on chronic cholecystitis antibiotic switch to Zosyn. Patient received 3 L bolus, despite fluid resuscitation with crystalloids patient's systolic blood pressures continued to be systolic of 80s. ?Transferred to ICU for management of hypotension due to severe sepsis Patient's albumin significantly low to 2.5, after fluid bolus with colloids/albumin patient's blood pressure significantly improved to systolic of 120s and 130s. ?Patient mentation back to baseline according to son. Despite elevated lactic, no evidence of septic shock blood pressure improved after colloids administration Plan: Continue Zosyn Cont to trend LFTs
[2025-10-03 20:01] LABS: Glucose, Whole Blood 56 mg/dL (60-115)
[2025-10-03 20:12] LABS: Troponin-I High Sensitivity 86.9 ng/L (<3.5-17.0)
[2025-10-03 20:27] LABS: Glucose, Whole Blood 135 mg/dL (60-115)
[2025-10-03 20:50] LABS: Glucose, Whole Blood 96 mg/dL (60-115)
[2025-10-03 22:11] LABS: Glucose, Whole Blood 68 mg/dL (60-115)
[2025-10-03 23:32] LABS: Glucose, Whole Blood 68 mg/dL (60-115)
[2025-10-04] VITALS (19 sets, daily range): BP systolic 101–143; BP diastolic 42–76; PULSE 88–128; RESP 16–29; TEMP 36.2–37.2; O2SAT 92–99; BMI 25.9
[2025-10-04 01:48] LABS: Glucose, Whole Blood 59 mg/dL (60-115)
[2025-10-04] MEDS: Dextrose 10 % 1,000 ML 100 ML IVCONT (01:55)
[2025-10-04] MEDS: Albumin Human 25 % 100 ML IV ×4 (01:57→17:08)
[2025-10-04 02:16] LABS: Glucose, Whole Blood 142 mg/dL (60-115)
[2025-10-04 02:32] LABS: Glucose, Whole Blood 118 mg/dL (60-115)
[2025-10-04 03:52] LABS: Glucose, Whole Blood 81 mg/dL (60-115)
[2025-10-04 05:23] LABS: VBG HCO3 22 mmol/L (22-26); VBG O2 % Saturation 93.0 %
[2025-10-04 05:31] LABS: Hematocrit 25.9 % (37.0-47.0); Hemoglobin 8.3 g/dl (12.0-16.0); Mean Corpuscular HGB Conc 32.0 g/dl (31.0-35.0); Mean Corpuscular Hemoglobin 35.5 pg (27.0-33.0); NRBC Abs Auto 0.000 X10*3/uL (0.0-0.012); NRBC Pct Auto 0.0 /100WBC (0.0-0.2); Platelet Count 167 X10*3/uL (160-400); Red Blood Count 2.34 X10*6/uL (4.20-5.50); White Blood Count 12.3 X10*3/uL (4.8-10.8)
[2025-10-04 05:48] LABS: Mean Corpuscular Volume 110.7 fL (80.0-98.0)
[2025-10-04 05:51] LABS: Alanine Aminotransferase 47 U/L (0-31); Albumin Level 2.9 g/dL (3.5-5.0); Alkaline Phosphatase 192 U/L (39-117); Anion Gap 16 (12-20); Aspartate Amino Transferase 70 U/L (5-31); Blood Urea Nitrogen 26 mg/dL (9-16); Calcium 8.1 mg/dL (8.4-10.2); Carbon Dioxide 20 mmol/L (22-29); Chloride 109 mmol/L (96-108); Creatinine Clr Calc Pharmacy 88.7; Estimated Glomerular Filt Rate > 60; Magnesium 1.9 mg/dL (1.6-2.6); Potassium 3.9 mmol/L (3.3-5.1); Sodium 141 mmol/L (135-145); Total Protein 5.1 g/dL (6.5-8.0)
[2025-10-04 05:57] LABS: Venous Blood Gas Refer to POC result
[2025-10-04 05:59] LABS: Glucose, Whole Blood 74 mg/dL (60-115)
[2025-10-04 06:00] LABS: Atypical Lymph Absolute Manual 1.7 x10*3/uL; Atypical Lymphs Percent Manual 14 % (0-6); Band Neutrophils Percent 0 % (3-5); Eosinophils Absolute Manual 0.5 X10*3/uL (0.0-0.4); Eosinophils Percent Manual 4 % (0-4); Lymphocytes Absolute Manual 2.2 X10*3/uL (1.2-4.9); Lymphocytes Percent Manual 18 % (20-40); Metamyelocytes Absolute 0.1 X10*3/uL; Metamyelocytes Percent 1 %; Monocytes Absolute Manual 1.2 X10*3/uL (0.1-1.2); Monocytes Percent Manual 10 % (2-11); Neutrophils Absolute Manual 6.5 X10*3/uL (2.0-8.3); Neutrophils Percent Manual 53 % (45-73)
[2025-10-04 06:01] LABS: RBC Morphology NOTED
[2025-10-04 06:02] LABS: Polychromasia 1+ (0-2) /OIF
[2025-10-04 06:03] LABS: Macrocytosis 2+ (15-30) /OIF
[2025-10-04 07:28] LABS: Reflex Lactate? Lactic Acid Added
[2025-10-04 08:05] LABS: Glucose, Whole Blood 101 mg/dL (60-115)
[2025-10-04] MEDS: Potassium Phosphate/NS 15 MMOL/250 ML PLAST..BAG 62.5 MMOL IV (08:24)
[2025-10-04] MEDS: 0.9 % Sodium Chloride Flush 3 ML SYRINGE IVFLUSH ×2 (08:24→23:33)
[2025-10-04 09:21] LABS: ~Lactic Acid-LAB USE ONLY 6.7 mmol/L (0.5-2.0)
[2025-10-04] MEDS: Dextrose 10 % 1,000 ML 150 ML IVCONT ×2 (09:45→16:25)
[2025-10-04 10:13] LABS: Reflex Lactate? 2 Y
[2025-10-04 10:15] LABS: Glucose, Whole Blood 103 mg/dL (60-115)
--- NOTE | 2025-10-04 10:35 | MHC.CM.PN ---
IMM 10/04/25 DELIVERED TO SON/HCP DICK [phone] D/T PT'S DEMENTIA AND W/PT PERMISSION, PER DISCUSSION COPY EMAILED TO [email or web address]. DICK REPORTS AT BASELINE PT WAS USING A 4 WHEELED WALKER FOR AMBULATION, DICK REPORTS HE WOULD LIKE TO DISCUSS PT HAVING HER GALLBLADDER REMOVED W/MD/SURGEON HE THIS IS PT'S 3RD HOSPITAL STAY FOR SAME REASON. THE FIRST STAY BEING AT [facility]. DICK ALSO REPORTS HE ALSO FEELS HE IS UNABLE TO CARE FOR HER AT HOME, DICK REPORTS PT DOES HAVE SOME FUNDS AND CAN SELL HER HOUSE IF NEEDED, DICK HAS PREVIOUSLY SPOKEN TO A PHOTOGRAPHER FINISH. RETURN REFERRAL PLACED TO [facility] AWAITING RESPONSE.
[2025-10-04 10:54] LABS: ~Lactic Acid-LAB USE ONLY 6.1 mmol/L (0.5-2.0)
--- NOTE | 2025-10-04 11:13 | P.PNCC_ITS ---
Subjective Subjective Date of Service: 10/04/25 Interval History: 84-year-old lady with underlying BUN Eliquis, dementia, hypotension, recent admission for cholecystitis versus cholangitis, also failure to thrive status post PEG admitted on 10/03/2025 with sepsis with suspected cholecystitic source initially to telemetry yu, later transferred to intensive care for close monitoring. No events overnight. Did not require pressor support. Critical Care Time (minutes): 0 Physical Exam 2 Vital Signs: Vital Signs: Last Vital Signs Temp 97.2 F 10/04/25 08:00 Pulse 96 10/04/25 11:00 Resp 20 10/04/25 11:00 BP 112/51 L 10/04/25 11:00 Pulse Ox 97 10/04/25 11:00 O2 Del Method Room Air 10/04/25 11:00 O2 Flow Rate 1 10/04/25 09:00 FiO2 50 10/04/25 03:00 BMI result Body Mass Index 25.9 Const: General: no acute distress and lethargic Orientation/consciousness: lethargic HEENT: Head: Yes atraumatic Eyes: Sclerae: sclerae normal Neck: Neck: Yes supple Lymphatic: no lymphadenopathy noted Resp: Effort & Inspection: normal respiratory effort and no use of accessory muscles Auscultation: crackles (Mild bilateral) Cardio: Rate: regular rate Rhythm: regular rhythm Heart sounds: no gallops, no murmurs and no rubs GI: Palpation (GI): Soft to palpation and Other GI palpation findings present ( Nontender) Auscultation: normal bowel sounds Skin: General skin exam: other ( warm) Extrem: General: No clubbing, No cyanosis and Yes edema (Trace bilateral) Objective Data Labs 10/04/25 05:17 10/04/25 05:17 Labs: Laboratory Results - last 24 hr 10/03/25 10/03/25 10/03/25 13:02 13:08 14:38 WBC 18.0 H RBC 2.84 L Hgb 10.1 L Hct 30.5 L MCV 107.4 H MCH 35.6 H MCHC 33.1 RDW 19.8 H Plt Count 222 MPV 11.9 Immature Gran % (Auto) Cancelled Neut % (Auto) Cancelled Lymph % (Auto) Cancelled [place] % (Auto) Cancelled Eos % (Auto) Cancelled Baso % (Auto) Cancelled Lymph # (Auto) Cancelled [place] # (Auto) Cancelled Eos # (Auto) Cancelled Baso # (Auto) Cancelled Abs Immat Gran (auto) Cancelled Absolute Neuts (auto) Cancelled Absolute Nucleated RBC 0.040 H Nucleated RBC % (auto) 0.2 Neutrophils % (Manual) 51 Band Neutrophils % 1 L Lymphocytes % (Manual) 11 L Atypical Lymphs % (Man) 21 H Monocytes % (Manual) 12 H Eosinophils % (Manual) 2 Metamyelocytes % 1 Plasma Cell % (Manual) 1 Abs Neuts (Manual) 9.4 H Lymphocytes # (Manual) 2.0 Atyp Lymphs # (Manual) 3.8 Monocytes # (Manual) 2.2 H Eosinophils # (Manual) 0.4 Metamyelocytes # 0.2 Plasma Cell # (Manual) 0.2 Smudge Cells PRESENT Platelet Estimate NORMAL Large Platelets PRESENT Plt Morphology Comment NOTED RBC Morphology NOTED Polychromasia 1+ (0-2) Macrocytosis 1+ (5-14) Target Cells 1+ (5-14) PT 33.2 H INR 2.9 H Hold Blue Top SEE NOTE VBG pH VBG pCO2 VBG pO2 VBG HCO3 VBG O2 Saturation VBG Base Excess Sodium 139 Potassium 4.9 Chloride 107 Carbon Dioxide 20 L Anion Gap 17 BUN 49 H Creatinine 0.64 Estim Creat Clear Calc 66.5 Estimated GFR > 60 POC Glucose Random Glucose 85 Lactic Acid 7.1 H* Lactic Acid F/U @ 2Hr Lactic Acid F/U @ 4Hr Calcium 8.4 Phosphorus Magnesium 2.2 Total Bilirubin 2.4 H Direct Bilirubin 1.4 H AST 104 H ALT 75 H Alkaline Phosphatase 309 H Troponin I High Sens 68.1 H* C-Reactive Protein 7.31 H NT-Pro-B Natriuret Pep Total Protein 5.6 L Albumin 2.5 L Lipase 32 Procalcitonin 0.30 Urine Color Yellow Urine Appearance Clear Urine pH 6.0 Ur Specific [place] 1.015 Urine Protein Negative Urine Glucose (UA) Negative Urine Ketones Negative Urine Blood Negative Urine Nitrite Negative Ur Leukocyte Esterase Negative COVID-19 (JONNY) Negative COVID-19 Clin Com See Note 10/03/25 10/03/25 10/03/25 15:39 18:30 19:34 WBC RBC Hgb Hct MCV MCH MCHC RDW Plt Count MPV Immature Gran % (Auto) Neut % (Auto) Lymph % (Auto) [place] % (Auto) Eos % (Auto) Baso % (Auto) Lymph # (Auto) [place] # (Auto) Eos # (Auto) Baso # (Auto) Abs Immat Gran (auto) Absolute Neuts (auto) Absolute Nucleated RBC Nucleated RBC % (auto) Neutrophils % (Manual) Band Neutrophils % Lymphocytes % (Manual) Atypical Lymphs % (Man) Monocytes % (Manual) Eosinophils % (Manual) Metamyelocytes % Plasma Cell % (Manual) Abs Neuts (Manual) Lymphocytes # (Manual) Atyp Lymphs # (Manual) Monocytes # (Manual) Eosinophils # (Manual) Metamyelocytes # Plasma Cell # (Manual) Smudge Cells Platelet Estimate Large Platelets Plt Morphology Comment RBC Morphology Polychromasia Macrocytosis Target Cells PT INR Hold Blue Top VBG pH VBG pCO2 VBG pO2 VBG HCO3 VBG O2 Saturation VBG Base Excess Sodium Potassium Chloride Carbon Dioxide Anion Gap BUN Creatinine Estim Creat Clear Calc Estimated GFR POC Glucose Random Glucose Lactic Acid Lactic Acid F/U @ 2Hr 7.6 H* Lactic Acid F/U @ 4Hr 6.4 H* Calcium Phosphorus Magnesium Total Bilirubin Direct Bilirubin AST ALT Alkaline Phosphatase Troponin I High Sens 86.9 H* C-Reactive Protein NT-Pro-B Natriuret Pep 4308.9 H Total Protein Albumin Lipase Procalcitonin Urine Color Urine Appearance Urine pH Ur Specific [place] Urine Protein Urine Glucose (UA) Urine Ketones Urine Blood Urine Nitrite Ur Leukocyte Esterase COVID-19 (JONNY) COVID-19 Clin Com 10/03/25 10/03/25 10/03/25 19:55 20:23 20:47 WBC RBC Hgb Hct MCV MCH MCHC RDW Plt Count MPV Immature Gran % (Auto) Neut % (Auto) Lymph % (Auto) [place] % (Auto) Eos % (Auto) Baso % (Auto) Lymph # (Auto) [place] # (Auto) Eos # (Auto) Baso # (Auto) Abs Immat Gran (auto) Absolute Neuts (auto) Absolute Nucleated RBC Nucleated RBC % (auto) Neutrophils % (Manual) Band Neutrophils % Lymphocytes % (Manual) Atypical Lymphs % (Man) Monocytes % (Manual) Eosinophils % (Manual) Metamyelocytes % Plasma Cell % (Manual) Abs Neuts (Manual) Lymphocytes # (Manual) Atyp Lymphs # (Manual) Monocytes # (Manual) Eosinophils # (Manual) Metamyelocytes # Plasma Cell # (Manual) Smudge Cells Platelet Estimate Large Platelets Plt Morphology Comment RBC Morphology Polychromasia Macrocytosis Target Cells PT INR Hold Blue Top VBG pH VBG pCO2 VBG pO2 VBG HCO3 VBG O2 Saturation VBG Base Excess Sodium Potassium Chloride Carbon Dioxide Anion Gap BUN Creatinine Estim Creat Clear Calc Estimated GFR POC Glucose 56 L* 135 H 96 Random Glucose Lactic Acid Lactic Acid F/U @ 2Hr Lactic Acid F/U @ 4Hr Calcium Phosphorus Magnesium Total Bilirubin Direct Bilirubin AST ALT Alkaline Phosphatase Troponin I High Sens C-Reactive Protein NT-Pro-B Natriuret Pep Total Protein Albumin Lipase Procalcitonin Urine Color Urine Appearance Urine pH Ur Specific [place] Urine Protein Urine Glucose (UA) Urine Ketones Urine Blood Urine Nitrite Ur Leukocyte Esterase COVID-19 (JONNY) COVID-19 Clin Com 10/03/25 10/03/25 10/04/25 22:08 23:28 01:44 WBC RBC Hgb Hct MCV MCH MCHC RDW Plt Count MPV Immature Gran % (Auto) Neut % (Auto) Lymph % (Auto) [place] % (Auto) Eos % (Auto) Baso % (Auto) Lymph # (Auto) [place] # (Auto) Eos # (Auto) Baso # (Auto) Abs Immat Gran (auto) Absolute Neuts (auto) Absolute Nucleated RBC Nucleated RBC % (auto) Neutrophils % (Manual) Band Neutrophils % Lymphocytes % (Manual) Atypical Lymphs % (Man) Monocytes % (Manual) Eosinophils % (Manual) Metamyelocytes % Plasma Cell % (Manual) Abs Neuts (Manual) Lymphocytes # (Manual) Atyp Lymphs # (Manual) Monocytes # (Manual) Eosinophils # (Manual) Metamyelocytes # Plasma Cell # (Manual) Smudge Cells Platelet Estimate Large Platelets Plt Morphology Comment RBC Morphology Polychromasia Macrocytosis Target Cells PT INR Hold Blue Top VBG pH VBG pCO2 VBG pO2 VBG HCO3 VBG O2 Saturation VBG Base Excess Sodium Potassium Chloride Carbon Dioxide Anion Gap BUN Creatinine Estim Creat Clear Calc Estimated GFR POC Glucose 68 68 59 L* Random Glucose Lactic Acid Lactic Acid F/U @ 2Hr Lactic Acid F/U @ 4Hr Calcium Phosphorus Magnesium Total Bilirubin Direct Bilirubin AST ALT Alkaline Phosphatase Troponin I High Sens C-Reactive Protein NT-Pro-B Natriuret Pep Total Protein Albumin Lipase Procalcitonin Urine Color Urine Appearance Urine pH Ur Specific [place] Urine Protein Urine Glucose (UA) Urine Ketones Urine Blood Urine Nitrite Ur Leukocyte Esterase COVID-19 (JONNY) COVID-19 Query Hunter 10/04/25 10/04/25 10/04/25 02:11 02:28 03:43 WBC RBC Hgb Hct MCV MCH MCHC RDW Plt Count MPV Immature Gran % (Auto) Neut % (Auto) Lymph % (Auto) [place] % (Auto) Eos % (Auto) Baso % (Auto) Lymph # (Auto) [place] # (Auto) Eos # (Auto) Baso # (Auto) Abs Immat Gran (auto) Absolute Neuts (auto) Absolute Nucleated RBC Nucleated RBC % (auto) Neutrophils % (Manual) Band Neutrophils % Lymphocytes % (Manual) Atypical Lymphs % (Man) Monocytes % (Manual) Eosinophils % (Manual) Metamyelocytes % Plasma Cell % (Manual) Abs Neuts (Manual) Lymphocytes # (Manual) Atyp Lymphs # (Manual) Monocytes # (Manual) Eosinophils # (Manual) Metamyelocytes # Plasma Cell # (Manual) Smudge Cells Platelet Estimate Large Platelets Plt Morphology Comment RBC Morphology Polychromasia Macrocytosis Target Cells PT INR Hold Blue Top VBG pH VBG pCO2 VBG pO2 VBG HCO3 VBG O2 Saturation VBG Base Excess Sodium Potassium Chloride Carbon Dioxide Anion Gap BUN Creatinine Estim Creat Clear Calc Estimated GFR POC Glucose 142 H 118 H 81 Random Glucose Lactic Acid Lactic Acid F/U @ 2Hr Lactic Acid F/U @ 4Hr Calcium Phosphorus Magnesium Total Bilirubin Direct Bilirubin AST ALT Alkaline Phosphatase Troponin I High Sens C-Reactive Protein NT-Pro-B Natriuret Pep Total Protein Albumin Lipase Procalcitonin Urine Color Urine Appearance Urine pH Ur Specific [place] Urine Protein Urine Glucose (UA) Urine Ketones Urine Blood Urine Nitrite Ur Leukocyte Esterase COVID-19 (JONNY) COVID-19 Query Hunter 10/04/25 10/04/25 10/04/25 05:17 05:19 05:55 WBC 12.3 H RBC 2.34 L Hgb 8.3 L Hct 25.9 L MCV 110.7 H MCH 35.5 H MCHC 32.0 RDW 20.0 H Plt Count 167 MPV 11.8 Immature Gran % (Auto) Cancelled Neut % (Auto) Cancelled Lymph % (Auto) Cancelled [place] % (Auto) Cancelled Eos % (Auto) Cancelled Baso % (Auto) Cancelled Lymph # (Auto) Cancelled [place] # (Auto) Cancelled Eos # (Auto) Cancelled Baso # (Auto) Cancelled Abs Immat Gran (auto) Cancelled Absolute Neuts (auto) Cancelled Absolute Nucleated RBC 0.000 Nucleated RBC % (auto) 0.0 Neutrophils % (Manual) 53 Band Neutrophils % 0 L Lymphocytes % (Manual) 18 L Atypical Lymphs % (Man) 14 H Monocytes % (Manual) 10 Eosinophils % (Manual) 4 Metamyelocytes % 1 Plasma Cell % (Manual) Abs Neuts (Manual) 6.5 Lymphocytes # (Manual) 2.2 Atyp Lymphs # (Manual) 1.7 Monocytes # (Manual) 1.2 Eosinophils # (Manual) 0.5 H Metamyelocytes # 0.1 Plasma Cell # (Manual) Smudge Cells Platelet Estimate NORMAL Large Platelets Plt Morphology Comment NORMAL RBC Morphology NOTED Polychromasia 1+ (0-2) Macrocytosis 2+ (15-30) Target Cells PT INR Hold Blue Top VBG pH 7.56 H VBG pCO2 25 VBG pO2 62 VBG HCO3 22 VBG O2 Saturation 93.0 VBG Base Excess 1.6 Sodium 141 Potassium 3.9 D Chloride 109 H Carbon Dioxide 20 L Anion Gap 16 BUN 26 H Creatinine 0.48 L Estim Creat Clear Calc 88.7 Estimated GFR > 60 POC Glucose 74 Random Glucose 74 Lactic Acid 5.5 H* Lactic Acid F/U @ 2Hr Lactic Acid F/U @ 4Hr Calcium 8.1 L Phosphorus 2.6 L Magnesium 1.9 Total Bilirubin 2.2 H Direct Bilirubin AST 70 H ALT 47 H Alkaline Phosphatase 192 H Troponin I High Sens C-Reactive Protein NT-Pro-B Natriuret Pep 5263.3 H Total Protein 5.1 L Albumin 2.9 L Lipase Procalcitonin Urine Color Urine Appearance Urine pH Ur Specific [place] Urine Protein Urine Glucose (UA) Urine Ketones Urine Blood Urine Nitrite Ur Leukocyte Esterase COVID-19 (JONNY) COVID-19 Clin Com 10/04/25 10/04/25 10/04/25 08:02 08:08 10:12 WBC RBC Hgb Hct MCV MCH MCHC RDW Plt Count MPV Immature Gran % (Auto) Neut % (Auto) Lymph % (Auto) [place] % (Auto) Eos % (Auto) Baso % (Auto) Lymph # (Auto) [place] # (Auto) Eos # (Auto) Baso # (Auto) Abs Immat Gran (auto) Absolute Neuts (auto) Absolute Nucleated RBC Nucleated RBC % (auto) Neutrophils % (Manual) Band Neutrophils % Lymphocytes % (Manual) Atypical Lymphs % (Man) Monocytes % (Manual) Eosinophils % (Manual) Metamyelocytes % Plasma Cell % (Manual) Abs Neuts (Manual) Lymphocytes # (Manual) Atyp Lymphs # (Manual) Monocytes # (Manual) Eosinophils # (Manual) Metamyelocytes # Plasma Cell # (Manual) Smudge Cells Platelet Estimate Large Platelets Plt Morphology Comment RBC Morphology Polychromasia Macrocytosis Target Cells PT INR Hold Blue Top VBG pH VBG pCO2 VBG pO2 VBG HCO3 VBG O2 Saturation VBG Base Excess Sodium Potassium Chloride Carbon Dioxide Anion Gap BUN Creatinine Estim Creat Clear Calc Estimated GFR POC Glucose 101 103 Random Glucose Lactic Acid Lactic Acid F/U @ 2Hr 6.7 H* Lactic Acid F/U @ 4Hr Calcium Phosphorus Magnesium Total Bilirubin Direct Bilirubin AST ALT Alkaline Phosphatase Troponin I High Sens C-Reactive Protein NT-Pro-B Natriuret Pep Total Protein Albumin Lipase Procalcitonin Urine Color Urine Appearance Urine pH Ur Specific [place] Urine Protein Urine Glucose (UA) Urine Ketones Urine Blood Urine Nitrite Ur Leukocyte Esterase COVID-19 (JONNY) COVID-19 Clin Com 10/04/25 10:28 WBC RBC Hgb Hct MCV MCH MCHC RDW Plt Count MPV Immature Gran % (Auto) Neut % (Auto) Lymph % (Auto) [place] % (Auto) Eos % (Auto) Baso % (Auto) Lymph # (Auto) [place] # (Auto) Eos # (Auto) Baso # (Auto) Abs Immat Gran (auto) Absolute Neuts (auto) Absolute Nucleated RBC Nucleated RBC % (auto) Neutrophils % (Manual) Band Neutrophils % Lymphocytes % (Manual) Atypical Lymphs % (Man) Monocytes % (Manual) Eosinophils % (Manual) Metamyelocytes % Plasma Cell % (Manual) Abs Neuts (Manual) Lymphocytes # (Manual) Atyp Lymphs # (Manual) Monocytes # (Manual) Eosinophils # (Manual) Metamyelocytes # Plasma Cell # (Manual) Smudge Cells Platelet Estimate Large Platelets Plt Morphology Comment RBC Morphology Polychromasia Macrocytosis Target Cells PT INR Hold Blue Top VBG pH VBG pCO2 VBG pO2 VBG HCO3 VBG O2 Saturation VBG Base Excess Sodium Potassium Chloride Carbon Dioxide Anion Gap BUN Creatinine Estim Creat Clear Calc Estimated GFR POC Glucose Random Glucose Lactic Acid Lactic Acid F/U @ 2Hr Lactic Acid F/U @ 4Hr 6.1 H* Calcium Phosphorus Magnesium Total Bilirubin Direct Bilirubin AST ALT Alkaline Phosphatase Troponin I High Sens C-Reactive Protein NT-Pro-B Natriuret Pep Total Protein Albumin Lipase Procalcitonin Urine Color Urine Appearance Urine pH Ur Specific [place] Urine Protein Urine Glucose (UA) Urine Ketones Urine Blood Urine Nitrite Ur Leukocyte Esterase COVID-19 (JONNY) COVID-19 Clin Com Microbiology Microbiology Results: Microbiology 10/03/25 13:02 Blood - Venous Blood Culture - Preliminary Prelim: GPC Gram Stain only Progress Note: A&P Assessment and plan (1) Failure to thrive in adult: Status: Acute (2) Sepsis: Status: Resolved (3) Acidosis, lactic: Status: Acute (4) Cholelithiasis: Status: Acute Plan Assessment: 84-year-old lady admitted with sepsis, but no septic shock, likely secondary to cholecystitis as a source Plan: Neuro: No acute issues. Cardiac: No acute issues. Underlying AFib and suspicion for diastolic dysfunction. 2D echo ordered. Pulmonary: No acute issues. Renal: Lactic acidosis likely secondary to sepsis. Non oliguric. Continue to monitor renal indices and urine output. Endo: No acute issues. GI: Suspicion for cholecystitis abdominal ultrasound is equivocal. General surgery evaluation requested. ID: Sepsis with suspected abdominal source, continue empiric antibiotics. Heme/Onc: No acute issues. Psych: No acute issues. Miscellaneous: No acute issues. Prophylaxis: Heparin Diet: Tube feeds/regular Quality Stroke Does the patient have a stroke diagnosis?: No VTE Prior VTE?: No VTE Risk Level:: Medical - moderate - high VTE Device Contraindication: Treatment Not Indicated VTE Drug Contraindication: N/A - Med Ordered
[2025-10-04 12:02] LABS: Glucose, Whole Blood 93 mg/dL (60-115)
--- NOTE | 2025-10-04 12:02 | MHC.CLN ---
PT WITH INCREASED NUTRITION RISK R/T PRESSURE INJURY AND REQUIRES NUTRITION SUPPORT VIA TUBE FEEDING RECOMMEND TF JEVITY 1.2 AT MAX GOAL RATE 60ML/HR TO PROVIDE 1728KCALS (30KCALS/KG), 80G PROTEIN (1.4G/KG), 1162ML FREE WATER FROM FORMULA MONITOR TOLERANCE AND LYTES TF WILL PROMOTE WOUND HEALING SEE FULL ASSESSMENT
--- NOTE | 2025-10-04 13:18 | P.CONGS_ITS ---
History of Present Illness Consult details Consult date: 10/04/25 Narrative: 84 year old female brought to the ER from the alf because of ?abnormal labs?. She apparently had elevated WBC then . Workup in the ER suggested sepsis with elevated lactate She denied seemed to have complained of abdominal pain. She is actually known to the service. I had seen her as an inpatient last month because of sepsis along with findings of gallstones. Workup at that time did not suggest cholecystitis. She had a PEG tube placed as well because of failure to thrive with very poor oral intake I had just seen her in the office 2 days ago to check on her PEG tube and this seemed to be working well She currently seems to be short of breath. She does not seem to have any significant abdominal pain or tenderness She did have an ultrasound done showing question of thickening of the gallbladder wall suggestive of acute on chronic cholecystitis. Her bilirubin was also elevated. Review of Systems 2 Constitutional: Constitutional: Denies chills and Denies fever(s) Cardiovascular: Cardiovascular: Reports dyspnea Respiratory: Respiratory: Reports dyspnea Gastrointestinal: Gastrointestinal: Denies abdominal pain Genitourinary: Genitourinary: Denies hematuria PMFSH Past Medical History Medical History Gallstones Failure to thrive in adult Lactate blood increase Social History Social History Household Members: Other Housing: Custodial Housing Other:: [facility] Do you presently have visiting nurse or other home services: Yes Patient Tobacco Use Status: Former Tobacco user Smoked in Last 30 Days: No Use of substances other than those prescribed or required for medical reasons: No Currently Displaying Signs/Symptoms of Drug Intoxication Withdrawal: No Advance Directives: Yes Advance Directives on File: Yes Advance Directives Date on File: 09/09/25 Do you have a plan to hurt others: No Plan Nutrition Risks: No Nutritional Risk Patient : No service: No Meds Allergies Allergy/AdvReac Type Severity Reaction Status Date / Time No Known Allergies Allergy Verified 10/03/25 13:04 Active Medications: Current Medications Acetaminophen (Acetaminophen 325 Mg Tablet) 650 mg PO Q6H PRN PRN Reason: Pain, Mild 1-3,fever,headache Ascorbic Acid (Ascorbic Acid 500 Mg Tablet) 500 mg PO DAILY KATHY Last Admin: 10/04/25 08:24 Dose: 500 mg Bisacodyl (Bisacodyl 10 Mg Supp.Rect) 10 mg NV DAILY PRN PRN Reason: Constipation Calcium Carbonate (Calcium Carbonate 750 Mg Tab.Chew) 750 mg PO Q4H PRN PRN Reason: Heartburn Dextrose (Dextrose 50 % 25 Gm/50 Ml Syringe) 25 gm IVPUSH Q15M PRN; Protocol PRN Reason: per Hypoglycemia Standing Ord. Last Admin: 10/04/25 01:51 Dose: 25 gm Piperacillin Sod/Tazobactam (Sod 3.375 gm/ Sodium Chloride) 50 mls @ 100 mls/hr IV Q6H [facility] Last Infusion: 10/04/25 11:55 Dose: Infused Dextrose (D10) 1,000 mls @ 150 mls/hr IVCONT .Q6H40M [facility] Last Admin: 10/04/25 09:45 Dose: 150 mls/hr Albumin Human (Kedbumin 25 %) 100 mls @ 100 mls/hr IV Q6H [facility] Stop: 10/05/25 06:59 Last Admin: 10/04/25 12:00 Dose: 100 mls/hr Magnesium Hydroxide (Milk Of Magnesia 30 Ml Oral.Susp) 30 ml PO DAILY PRN PRN Reason: Constipation Magnesium Hydroxide (Milk Of Magnesia 30 Ml Oral.Susp) 30 ml PO DAILY PRN PRN Reason: Constipation Melatonin (Melatonin 3 Mg Tablet) 6 mg PO BEDTIME PRN PRN Reason: Insomnia Mirtazapine (Mirtazapine 7.5 Mg Tablet) 7.5 mg PO BEDTIME [facility] Last Admin: 10/03/25 20:36 Dose: 7.5 mg Multivitamins/Vitamin C (Multivitamin Tablet) 1 tab PO DAILY [facility] Last Admin: 10/04/25 08:24 Dose: 1 tab Senna (Sennosides 8.6 Mg Tablet) 17.2 mg PO BEDTIME [facility] Last Admin: 10/03/25 20:36 Dose: 17.2 mg Simethicone (Simethicone 80 Mg Tab.Chew) 120 mg PO Q8H PRN PRN Reason: Gastrointestinal Spasms Or Cramping Sodium Chloride (0.9 % Sodium Chloride Flush 3 Ml Syringe) 3 ml IVFLUSH QSHIFT [facility] Last Admin: 10/04/25 08:24 Dose: 3 ml Zinc Sulfate (Zinc Sulfate 220 Mg Capsule) 220 mg PO BID KATHY Last Admin: 10/04/25 08:24 Dose: 220 mg Home Medications ?Medication ?Instructions ?Recorded ?Confirmed ?Last Taken ?Type acetaminophen 325 mg tablet 650 mg PO Q6H PRN Fever Or Pain 09/08/25 10/03/25 Unknown History apixaban 5 mg tablet (Eliquis) 5 mg PO BID 09/08/25 Unknown History bisacodyl 10 mg rectal suppository 10 mg NV DAILY PRN Constipation 09/08/25 10/03/25 Unknown History diclofenac sodium 1 % topical gel 2 g topical TID 08/3010/03/25 Unknown History magnesium hydroxide 400 mg/5 mL 30 ml PO DAILY PRN Con stipation 09/08/25 10/03/25 Unknown History oral suspension (Milk of Magnesia) metoprolol succinate 25 mg 25 mg PO DAILY 09/08/2503/24 Unknown History tablet,extended release 24 hr nystatin 100,000 unit/mL oral 5 ml PO QID 09/08/2503/24 Unknown History suspension sennosides 8.6 mg tablet (senna) 17.2 mg PO BEDTIME 10/03/25 Unknown History sodium phosphates 19 gram-7 118 ml NV DAILY PRN Consti pation 09/08/25 10/03/25 Unknown History gram/118 mL enema (Fleet Enema) ascorbic acid (vitamin C) 500 mg 500 mg PO DAILY 10/0310/03/25 Unknown History tablet (Vitamin C) lactulose 10 gram/15 mL oral 30 ml PO DAILY 10/03/25 1 12/03/24 Unknown History solution (Enulose) mirtazapine 7.5 mg tablet 7.5 mg PO BEDTIME 10/03/25 1 12/03/24 Unknown History multivitamin with minerals 1 tab PO DAILY 10/03/2503/24 Unknown History simethicone 125 mg tablet 125 mg PO Q8H PRN Gastrointe stinal 10/03/25 10/03/25 Unknown History Spasms Or Cramping zinc sulfate 50 mg zinc (220 mg) 50 mg PO BID 10/03/25 10/03/25 Unknown History tablet Physical Exam 2 Vital Signs: Vital Signs: Last Vital Signs Temp 99.0 F 11/05/25 12:00 Pulse 104 H 10/04/25 12:00 Resp 25 H 10/04/25 12:00 BP 128/63 10/04/25 12:00 Pulse Ox 98 10/04/25 12:00 O2 Del Method Room Air 10/04/25 12:00 O2 Flow Rate 1 10/04/25 09:00 FiO2 50 10/04/25 03:00 BMI result Body Mass Index 25.9 Const: Other: Very frail looking, short of breath, not verbally communicative at this time Resp: Other: Short of breath Cardio: Rate: tachycardic GI: Other: Soft, no apparent tenderness, no obvious Overton's sign, no guarding, no rebound Results Labs 10/06/25 08:39 10/06/25 08:39 Labs: Abnormal lab results 10/03/25 10/03/25 10/03/25 Range/Units 13:02 13:08 15:39 WBC 18.0 H (4.8-10.8) X10*3/uL RBC (4.20-5.50) X10*6/uL Hgb (12.0-16.0) g/dl Hct (37.0-47.0) % MCV (80.0-98.0) fL MCH (27.0-33.0) pg RDW (11.0-16.0) % Band Neutrophils % 1 L (3-5) % Lymphocytes % (Manual) 11 L (20-40) % Atypical Lymphs % (Man) 21 H (0-6) % Monocytes % (Manual) 12 H (2-11) % Abs Neuts (Manual) 9.4 H (2.0-8.3) X10*3/uL Monocytes # (Manual) 2.2 H (0.1-1.2) X10*3/uL Eosinophils # (Manual) (0.0-0.4) X10*3/uL PT 33.2 H (10.9-12.4) SEC INR 2.9 H (0.9-1.1) VBG pH (7.32-7.43) Chloride (96-108) mmol/L Carbon Dioxide 20 L (22-29) mmol/L BUN 49 H (9-16) mg/dL Creatinine (0.5-1.4) mg/dL POC Glucose (60-115) mg/dL Lactic Acid 7.1 H* (0.5-2.0) mmol/L Lactic Acid F/U @ 2Hr 7.6 H* (0.5-2.0) mmol/L Lactic Acid F/U @ 4Hr (0.5-2.0) mmol/L Calcium (8.4-10.2) mg/dL Phosphorus (2.7-4.5) mg/dL Total Bilirubin 2.4 H (0.0-1.0) mg/dL Direct Bilirubin 1.4 H (0.0-0.5) mg/dL AST 104 H (5-31) U/L ALT 75 H (0-31) U/L Alkaline Phosphatase 309 H (39-117) U/L Troponin I High Sens 68.1 H* (<3.5-17.0) ng/L C-Reactive Protein 7.31 H (< or = 0.50) mg/dL NT-Pro-B Natriuret Pep (<300) pg/mL Total Protein 5.6 L (6.5-8.0) g/dL Albumin 2.5 L (3.5-5.0) g/dL 10/03/25 10/03/25 10/03/25 Range/Units 18:30 19:34 19:55 WBC (4.8-10.8) X10*3/uL RBC (4.20-5.50) X10*6/uL Hgb (12.0-16.0) g/dl Hct (37.0-47.0) % MCV (80.0-98.0) fL MCH (27.0-33.0) pg RDW (11.0-16.0) % Band Neutrophils % (3-5) % Lymphocytes % (Manual) (20-40) % Atypical Lymphs % (Man) (0-6) % Monocytes % (Manual) (2-11) % Abs Neuts (Manual) (2.0-8.3) X10*3/uL Monocytes # (Manual) (0.1-1.2) X10*3/uL Eosinophils # (Manual) (0.0-0.4) X10*3/uL PT (10.9-12.4) SEC INR (0.9-1.1) VBG pH (7.32-7.43) Chloride (96-108) mmol/L Carbon Dioxide (22-29) mmol/L BUN (9-16) mg/dL Creatinine (0.5-1.4) mg/dL POC Glucose 56 L* (60-115) mg/dL Lactic Acid (0.5-2.0) mmol/L Lactic Acid F/U @ 2Hr (0.5-2.0) mmol/L Lactic Acid F/U @ 4Hr 6.4 H* (0.5-2.0) mmol/L Calcium (8.4-10.2) mg/dL Phosphorus (2.7-4.5) mg/dL Total Bilirubin (0.0-1.0) mg/dL Direct Bilirubin (0.0-0.5) mg/dL AST (5-31) U/L ALT (0-31) U/L Alkaline Phosphatase (39-117) U/L Troponin I High Sens 86.9 H* (<3.5-17.0) ng/L C-Reactive Protein (< or = 0.50) mg/dL NT-Pro-B Natriuret Pep 4308.9 H (<300) pg/mL Total Protein (6.5-8.0) g/dL Albumin (3.5-5.0) g/dL 10/03/25 10/04/25 10/04/25 Range/Units 20:23 01:44 02:11 WBC (4.8-10.8) X10*3/uL RBC (4.20-5.50) X10*6/uL Hgb (12.0-16.0) g/dl Hct (37.0-47.0) % MCV (80.0-98.0) fL MCH (27.0-33.0) pg RDW (11.0-16.0) % Band Neutrophils % (3-5) % Lymphocytes % (Manual) (20-40) % Atypical Lymphs % (Man) (0-6) % Monocytes % (Manual) (2-11) % Abs Neuts (Manual) (2.0-8.3) X10*3/uL Monocytes # (Manual) (0.1-1.2) X10*3/uL Eosinophils # (Manual) (0.0-0.4) X10*3/uL PT (10.9-12.4) SEC INR (0.9-1.1) VBG pH (7.32-7.43) Chloride (96-108) mmol/L Carbon Dioxide (22-29) mmol/L BUN (9-16) mg/dL Creatinine (0.5-1.4) mg/dL POC Glucose 135 H 59 L* 142 H (60-115) mg/dL Lactic Acid (0.5-2.0) mmol/L Lactic Acid F/U @ 2Hr (0.5-2.0) mmol/L Lactic Acid F/U @ 4Hr (0.5-2.0) mmol/L Calcium (8.4-10.2) mg/dL Phosphorus (2.7-4.5) mg/dL Total Bilirubin (0.0-1.0) mg/dL Direct Bilirubin (0.0-0.5) mg/dL AST (5-31) U/L ALT (0-31) U/L Alkaline Phosphatase (39-117) U/L Troponin I High Sens (<3.5-17.0) ng/L C-Reactive Protein (< or = 0.50) mg/dL NT-Pro-B Natriuret Pep (<300) pg/mL Total Protein (6.5-8.0) g/dL Albumin (3.5-5.0) g/dL 10/04/25 10/04/25 10/04/25 Range/Units 02:28 05:17 05:19 WBC 12.3 H (4.8-10.8) X10*3/uL RBC 2.34 L (4.20-5.50) X10*6/uL Hgb 8.3 L (12.0-16.0) g/dl Hct 25.9 L (37.0-47.0) % MCV 110.7 H (80.0-98.0) fL MCH 35.5 H (27.0-33.0) pg RDW 20.0 H (11.0-16.0) % Band Neutrophils % 0 L (3-5) % Lymphocytes % (Manual) 18 L (20-40) % Atypical Lymphs % (Man) 14 H (0-6) % Monocytes % (Manual) (2-11) % Abs Neuts (Manual) (2.0-8.3) X10*3/uL Monocytes # (Manual) (0.1-1.2) X10*3/uL Eosinophils # (Manual) 0.5 H (0.0-0.4) X10*3/uL PT (10.9-12.4) SEC INR (0.9-1.1) VBG pH 7.56 H (7.32-7.43) Chloride 109 H (96-108) mmol/L Carbon Dioxide 20 L (22-29) mmol/L BUN 26 H (9-16) mg/dL Creatinine 0.48 L (0.5-1.4) mg/dL POC Glucose 118 H (60-115) mg/dL Lactic Acid 5.5 H* (0.5-2.0) mmol/L Lactic Acid F/U @ 2Hr (0.5-2.0) mmol/L Lactic Acid F/U @ 4Hr (0.5-2.0) mmol/L Calcium 8.1 L (8.4-10.2) mg/dL Phosphorus 2.6 L (2.7-4.5) mg/dL Total Bilirubin 2.2 H (0.0-1.0) mg/dL Direct Bilirubin (0.0-0.5) mg/dL AST 70 H (5-31) U/L ALT 47 H (0-31) U/L Alkaline Phosphatase 192 H (39-117) U/L Troponin I High Sens (<3.5-17.0) ng/L C-Reactive Protein (< or = 0.50) mg/dL NT-Pro-B Natriuret Pep 5263.3 H (<300) pg/mL Total Protein 5.1 L (6.5-8.0) g/dL Albumin 2.9 L (3.5-5.0) g/dL 10/04/25 10/04/25 Range/Units 08:08 10:28 WBC (4.8-10.8) X10*3/uL RBC (4.20-5.50) X10*6/uL Hgb (12.0-16.0) g/dl Hct (37.0-47.0) % MCV (80.0-98.0) fL MCH (27.0-33.0) pg RDW (11.0-16.0) % Band Neutrophils % (3-5) % Lymphocytes % (Manual) (20-40) % Atypical Lymphs % (Man) (0-6) % Monocytes % (Manual) (2-11) % Abs Neuts (Manual) (2.0-8.3) X10*3/uL Monocytes # (Manual) (0.1-1.2) X10*3/uL Eosinophils # (Manual) (0.0-0.4) X10*3/uL PT (10.9-12.4) SEC INR (0.9-1.1) VBG pH (7.32-7.43) Chloride (96-108) mmol/L Carbon Dioxide (22-29) mmol/L BUN (9-16) mg/dL Creatinine (0.5-1.4) mg/dL POC Glucose (60-115) mg/dL Lactic Acid (0.5-2.0) mmol/L Lactic Acid F/U @ 2Hr 6.7 H* (0.5-2.0) mmol/L Lactic Acid F/U @ 4Hr 6.1 H* (0.5-2.0) mmol/L Calcium (8.4-10.2) mg/dL Phosphorus (2.7-4.5) mg/dL Total Bilirubin (0.0-1.0) mg/dL Direct Bilirubin (0.0-0.5) mg/dL AST (5-31) U/L ALT (0-31) U/L Alkaline Phosphatase (39-117) U/L Troponin I High Sens (<3.5-17.0) ng/L C-Reactive Protein (< or = 0.50) mg/dL NT-Pro-B Natriuret Pep (<300) pg/mL Total Protein (6.5-8.0) g/dL Albumin (3.5-5.0) g/dL Short CBC 10/03/25 10/04/25 Range/Units 13:02 05:17 WBC 18.0 H 12.3 H (4.8-10.8) X10*3/uL Hgb 8.3 L (12.0-16.0) g/dl Hct 25.9 L (37.0-47.0) % Plt Count 167 (160-400) X10*3/uL BMP 10/03/25 10/04/25 13:02 05:17 Sodium 139 141 Potassium 4.9 3.9 D Chloride 107 109 H Carbon Dioxide 20 L 20 L BUN 49 H 26 H Creatinine 0.64 0.48 L Calcium 8.4 8.1 L Liver Function 10/03/25 10/04/25 Range/Units 13:02 05:17 Total Bilirubin 2.4 H 2.2 H (0.0-1.0) mg/dL Direct Bilirubin 1.4 H (0.0-0.5) mg/dL AST 104 H 70 H (5-31) U/L ALT 75 H 47 H (0-31) U/L Alkaline Phosphatase 309 H 192 H (39-117) U/L Albumin 2.5 L 2.9 L (3.5-5.0) g/dL Urine 10/03/25 Range/Units 14:38 Urine Color Yellow Urine Appearance Clear Urine pH 6.0 (5.0-9.0) Ur Specific [place] 1.015 (1.005-1.025) Urine Protein Negative (Neg-Trace) mg/dL Urine Glucose (UA) Negative (Negative) mg/dL All other labs normal. Assessment and Plan (1) Septic shock: Status: Acute She was admitted yesterday because of signs of sepsis with elevated lactate. The lactate was up to 7.6 She had an ultrasound showing question of cholecystitis. Current examination shows no significant tenderness in the right upper quadrant or Overton's sign. She does have elevated bilirubin so I would probably recommend doing an MRCP when she is more hemodynamically stable to rule out CBD obstruction . She currently is not an appropriate surgical candidate because of her overall condition. She may benefit from IR drainage of the gallbladder if no other focus of infection is identified. She is currently on IV antibiotics I had a long discussion with her son about the above. He seems to have a good understanding of the plan and is comfortable with this. We will follow along closely. Procedures Date of Service Date of Service: 10/06/25
[2025-10-04 14:19] LABS: Glucose, Whole Blood 89 mg/dL (60-115)
--- NOTE | 2025-10-04 14:36 | HO.WOUND ---
Wound Consult: Initial 84 yr [place] [facility] [place] See progress notes and H&P for detailed history. Wound consult placed for coccyx, heels, PEG site. Patient agreeable to assessment and photo documentation. patient with recent admission and pressure injuries to coccyx and buttocks. Coccyx/buttocks Etiology: Coccyx unstageable pressure injury Present on Admission - left buttock healed stage 2 pressure injury POA, Right buttock healing stage 3 pressure injury POA Measurements: 1cm x 0.8cm x 0.2cm Wound Bed: coccyx- moist yellow with scant pink buds, left buttock intact pink blanching, right buttock superficial dry red bed surrounding blanching pink Drainage / Odor: none Edges: ? open Juliano wound: ? No Induration, Fluctuance or Warmth noted Pain: none Goals of Treatment: ? triad paste to provide an occlusive dressing for autolytic debridment, to allow moist wound healing with absorption of mild exudate, to minimize contamination of urine/stool or bacteria, and to soothe and protect juliano wound skin - cover with foam for offloading PEG site Etiology: MASD Wound Bed: wounding around tube with moist yellow/pink wound bed- surrounding skin intact and pink Drainage / Odor: small/moderate creamy serosanguineous Edges: ? open Juliano wound: ? No Induration, Fluctuance or Warmth noted Pain: none Goals of Treatment: ? durafiber ag for drainage absorption - antimicrobial effects bilateral heels are intact, pink and blanching- recommend offloading for prevention Recommendations: 1. Turn and Reposition every 2 hours and as needed for patient comfort. Use pillows or wedges to support off loading positions. 2. Off Load all bony prominences with use of pillows and heel boots if needed. Apply Preventative foams where needed. 3. Monitor for incontinence and moisture control, use barrier creams when needed for prevention and treatment. 4. Provide adequate and supplemental nutrition. 5. Order or Continue low air loss mattress. 6. When applicable maintain blood glucose levels per Providers order. PEG site: cleanse with saline, apply durafiber cut to fit around tube- cover with drain sponge, change daily and PRN Heels: offload pressure with pillows or boots Coccyx/buttocks: Off Load Pressure with Q2 hr turns and use of pillows - Cleanse with PH balance spray or wipes, pat dry. ?Apply thin layer of Triad to wound bed. Do not remove all of paste between applications as this may cause further skin damage.? Cover with foam dressing to aid in off loading and protection from friction. Change every 3 days and PRN. Re-consult wound care Nurse for wound deterioration or wound changes.
[2025-10-04 15:40] LABS: Glucose, Whole Blood 86 mg/dL (60-115)
[2025-10-04 18:12] LABS: Glucose, Whole Blood 53 mg/dL (60-115)
--- NOTE | 2025-10-04 18:21 | PC.NURSE ---
Pt POC 53, IV dextrose 25 Gm given per MAr. DR olivas made aware.
[2025-10-04 18:45] LABS: Glucose, Whole Blood 120 mg/dL (60-115)
[2025-10-04 20:16] LABS: Glucose, Whole Blood 62 mg/dL (60-115)
[2025-10-04 20:55] LABS: Glucose, Whole Blood 135 mg/dL (60-115)
[2025-10-04] MEDS: Dextrose 5 % and 0.45 % NaCl 1,000 ML 50 ML IVCONT (21:56)
[2025-10-04] MEDS: Furosemide 20 MG/2 ML VIAL IVPUSH (23:49)
[2025-10-05] VITALS (11 sets, daily range): BP systolic 114–140; BP diastolic 55–76; PULSE 97–130; RESP 16–20; TEMP 36.3–37.4; O2SAT 93–97; BMI 31.9
[2025-10-05 00:11] LABS: Glucose, Whole Blood 78 mg/dL (60-115)
[2025-10-05] MEDS: Albumin Human 25 % 100 ML IV ×2 (00:22→05:37)
[2025-10-05 02:19] LABS: Glucose, Whole Blood 88 mg/dL (60-115)
[2025-10-05 06:28] LABS: Glucose, Whole Blood 83 mg/dL (60-115)
[2025-10-05 06:50] LABS: Hematocrit 23.9 % (37.0-47.0); Hemoglobin 8.0 g/dl (12.0-16.0); Imm Gran Abs Auto 0.16 X10*3/uL (0.00-0.03); Imm Gran Pct Auto 1.3 % (0.0-0.4); Lymphocytes Absolute Auto 4.3 X10*3/uL (1.2-4.9); MANUAL DIFF FLAG SCAN; Mean Corpuscular HGB Conc 33.5 g/dl (31.0-35.0); Mean Corpuscular Hemoglobin 36.0 pg (27.0-33.0); Mean Corpuscular Volume 107.7 fL (80.0-98.0); NRBC Abs Auto 0.000 X10*3/uL (0.0-0.012); NRBC Pct Auto 0.0 /100WBC (0.0-0.2); Platelet Count 152 X10*3/uL (160-400); Red Blood Count 2.22 X10*6/uL (4.20-5.50); SCAN SMEAR FLAG 1; White Blood Count 12.5 X10*3/uL (4.8-10.8)
[2025-10-05 06:51] LABS: VBG HCO3 21 mmol/L (22-26); VBG O2 % Saturation 99.0 %
[2025-10-05 06:51] LABS: Venous Blood Gas Refer to POC result
--- NOTE | 2025-10-05 07:00 | CA_ITS ---
Transthoracic Echocardiogram Patient (Last, First, Middle): Yara Mendez, Gender: Female Date of : 1940 Age: 84 Procedure Date: 10/05/2025 Procedure Type: Transthoracic Echocardiogram Location: [facility] – [place] Height: 165.1 cm Weight: 86.64 kg BSA: 1.94 m2 Heart Rate: bpm BP: 134 / 63 mmHg Microfilm Operator: EARL Referring MD: Juvencio Izquierdo MD Symptoms: chf Study Quality: Fair/Contrast Conclusions: - Normal left ventricular cavity size. The left ventricular systolic function is hyperdynamic. The visually estimated ejection fraction is >70%. There is no evidence of regional wall motion abnormalities. Diastolic function is indeterminate on the basis of available data. There is severe septal asymmetric hypertrophy. - Normal right ventricular cavity size and systolic function. Findings Procedure Information Contrast agent, definity, is being given per protocol without apparent complications. Left Ventricle Normal left ventricular cavity size. The left ventricular systolic function is hyperdynamic. The visually estimated ejection fraction is >70%. There is no evidence of regional wall motion abnormalities. Diastolic function is indeterminate on the basis of available data. There is severe septal asymmetric hypertrophy. Right Ventricle Normal right ventricular cavity size and systolic function. Atria The left atrium is mildly dilated. Aortic Valve Normal aortic valve structure and function. There is no aortic valve stenosis. There is no aortic valve regurgitation. Mitral Valve The mitral valve appears normal. There is no mitral valve regurgitation. There is no mitral valve stenosis. Pulmonic Valve The pulmonic valve is likely normal. Tricuspid Valve Likely normal tricuspid valve structure and function. Tricuspid regurgitation envelope is inadequate for calculation of right ventricular systolic pressure. Indeterminate right atrial pressure. Great Vessels All visible segments of the aorta are normal in size. Venous The inferior vena cava was not well visualized. Pericardium/Pleural There is no evidence of pericardial effusion. Prior Study Comparison No prior study available for comparison. Measurements 2D Linear Measurements IVSd: 1.64 0.6-0.9/0.6-1.0 cm LVIDd: 4.36 3.9-5.3/4.2-5.9 cm LVIDd Index: 2.25 2.4-3.2/2.2-3.1 cm/m2 LVIDs: 2.23 2.0-3.6 cm LVPWd: 1.17 0.7-1.1 cm LA Diam: 3.70 2.7-3.8/3.0-4.0 cm LAIDs Index: 1.91 1.5-2.3 cm/m2 LV Mass: 297.15 67-162/88-224 g LV Mass Index: 153.17 43-95/49-115 g/m2 LVOT Diam: 2.00 3.0+(-)1.3 cm 2D Systolic Function EF 4C: 71.20 >55% EF 2C: 82.40 >55% EF BiP: 77.80 >55% Mitral Valve MV Pk E: 0.50 MV PK A: 0.65 MV Decel Time: 184.00 E/A: 0.80 E'Lateral: 6.96 E'Medial: 6.64 E/E' Med: 7.50 E/E' Lat: 7.20 PHT: 54.00 MVA PHT: 4.07 Decel Desha: 2.72 Aortic Valve AoV Pk Galileo: 1.47 AoV Mn Galileo: 1.01 AoV VTI: 0.27 AoV Pk Grad: 9.00 Aov Mn Grad: 5.00 RA Cont.VTI: 2.76 LVOT LVOT Pk Galileo: 1.27 LVOT Mn Galileo: 0.94 LVOT VTI: 0.24 LVOT Pk Grad: 6.00 LVOT Mn Grad: 4.00 LVOT Diam: 2.00 LVOT Area: 3.14 Diastolic Function MV Pk E: 0.50 MV Pk A: 0.65 E/A: 0.80 E'Medial: 6.64 E/E' Med: 7.50 E' Laterial: 6.96 E/E' Lat: 7.20 Right Ventricle TAPSE (mm): 23.30 TVS' Galileo: 21.80 Tricuspid Valve TR Pk Galileo: 2.35 TR Pk Grad: 22.00 Great Vessels Aorta Sinus of Valsalva: 3.30 2.0-3.5 cm Ao Asc: 3.70 2.1-3.4 cm Pulmonary Valve PV Pk Galileo: 0.94 Peak PV Grad: 4.00 Updated in Other Vendor System with Status of Final Brady Rucker MD electronically signed on 10/07/2025 3:36:08 PM with status of Final
[2025-10-05 07:05] LABS: Alanine Aminotransferase 42 U/L (0-31); Albumin Level 4.0 g/dL (3.5-5.0); Alkaline Phosphatase 197 U/L (39-117); Anion Gap 19 (12-20); Aspartate Amino Transferase 84 U/L (5-31); Blood Urea Nitrogen 13 mg/dL (9-16); Calcium 8.8 mg/dL (8.4-10.2); Carbon Dioxide 20 mmol/L (22-29); Chloride 106 mmol/L (96-108); Creatinine Clr Calc Pharmacy 89.4; Estimated Glomerular Filt Rate > 60; Magnesium 1.6 mg/dL (1.6-2.6); Potassium 3.5 mmol/L (3.3-5.1); Sodium 141 mmol/L (135-145); Total Protein 5.7 g/dL (6.5-8.0)
[2025-10-05] MEDS: 0.9 % Sodium Chloride Flush 3 ML SYRINGE IVFLUSH (08:07)
[2025-10-05 08:15] LABS: Glucose, Whole Blood 90 mg/dL (60-115)
--- NOTE | 2025-10-05 09:34 | MHC.CLN ---
F/U PT WITH INCREASED NUTRITION RISK R/T PRESSURE INJURY AND REQUIRES NUTRITION SUPPORT VIA TUBE FEEDING CONTINUE TF JEVITY 1.2 AT MAX GOAL RATE 60ML/HR PROVIDES 1728KCALS (30KCALS/KG), 80G PROTEIN (1.4G/KG), 1162ML FREE WATER FROM FORMULA RECOMMEND STARTING 240ML FREE WATER FLUSHES Q 8 HRS TO PROVIDE 1882ML TOTAL FREE WATER FROM FORMULA AND FLUSHES (33ML/KG) MONITOR TOLERANCE AND LYTES TF WILL PROMOTE WOUND HEALING
--- NOTE | 2025-10-05 10:58 | P.PNGS_ITS ---
Subjective Subjective Date of Service: 10/05/25 <Rashid Devries PA-C - Last Filed: 10/05/25 14:36> 10/06/25 <Gaston Castelan MD - Last Filed: 10/06/25 08:59> Interval history: Was transferred from ICU to telemetry. States she feels well. Son at bedside, he feels she looks better. She states she feels good, denying abdominal pain at rest. Denies nausea or vomiting. States she was able to have some small oral intake. <Rashid Devries PA-C - Last Filed: 10/05/25 14:36> Physical Exam 2 Vital Signs: Vital Signs: Last Vital Signs Temp 98.3 F 10/05/25 07:28 Pulse 99 10/05/25 07:28 Resp 20 10/05/25 07:28 BP 134/63 10/05/25 07:28 Pulse Ox 97 10/05/25 07:28 O2 Del Method Room Air 10/05/25 07:28 O2 Flow Rate 1 10/04/25 09:00 FiO2 50 10/04/25 03:00 BMI result Body Mass Index 31.9 <Rashid Devries PA-C - Last Filed: 10/05/25 14:36> Const: General: comfortable and no acute distress <KINSEY Mojica Last Filed: 10/05/25 14:36> Orientation/consciousness: patient oriented x3 <Rashid Devries PA-C - Last Filed: 10/05/25 14:36> Resp: Effort & Inspection: abnormal respiratory effort (Increased work of breathing) and able to speak in complete sentences <Rashid Devries PA-C - Last Filed: 10/05/25 14:36> GI: Inspection: No distended <KINSEY Mojica Last Filed: 10/05/25 14:36> Palpation (GI): Soft to palpation and Tenderness to palpation present (GI) in the RUQ (Mild) <KINSEY Mojica Last Filed: 10/05/25 14:36> Neuro: General: patient oriented x3 <KINSEY Mojica Last Filed: 10/05/25 14:36> Objective Data Active Medications Acetaminophen (Acetaminophen 325 Mg Tablet) 650 mg PO Q6H PRN PRN Reason: Pain, Mild 1-3,fever,headache Ascorbic Acid (Ascorbic Acid 500 Mg Tablet) 500 mg PO DAILY [facility] Last Admin: 10/05/25 08:08 Dose: 500 mg Documented By: DAY Bisacodyl (Bisacodyl 10 Mg Supp.Rect) 10 mg [place] DAILY PRN PRN Reason: Constipation Calcium Carbonate (Calcium Carbonate 750 Mg Tab.Chew) 750 mg PO Q4H PRN PRN Reason: Heartburn Dextrose (Dextrose 50 % 25 Gm/50 Ml Syringe) 25 gm IVPUSH Q15M PRN; Protocol PRN Reason: per Hypoglycemia Standing Ord. Last Admin: 10/04/25 20:28 Dose: 25 gm Documented By: RICA Dextrose (Dextrose 50 % 25 Gm/50 Ml Syringe) 25 gm IVPUSH Q15M PRN; Protocol PRN Reason: per Hypoglycemia Standing Ord. Glucose (Glucose Gel 15 Gm Gel..Gram.) 15 gm PO Q15M PRN; Protocol PRN Reason: per Hypoglycemia Standing Ord. Piperacillin Sod/Tazobactam (Sod 3.375 gm/ Sodium Chloride) 50 mls @ 100 mls/hr IV Q6H [facility] Last Infusion: 10/05/25 07:45 Dose: Infused Documented By: DAY Insulin Human Lispro (Insulin Lispro 100 Unit/Ml 3 Ml Vial) 0 unit SUBCUT QIDACHS [facility]; Protocol Last Admin: 10/05/25 08:01 Dose: Not Given Documented By: DAY Non-Admin Reason: No Insulin Coverage Magnesium Hydroxide (Milk Of Magnesia 30 Ml Oral.Susp) 30 ml PO DAILY PRN PRN Reason: Constipation Magnesium Hydroxide (Milk Of Magnesia 30 Ml Oral.Susp) 30 ml PO DAILY PRN PRN Reason: Constipation Melatonin (Melatonin 3 Mg Tablet) 6 mg PO BEDTIME PRN PRN Reason: Insomnia Metoprolol Tartrate (Metoprolol Tartrate 25 Mg Tablet) 25 mg PO Q6H [facility]; Protocol Last Admin: 10/05/25 05:35 Dose: 25 mg Documented By: JOE Mirtazapine (Mirtazapine 7.5 Mg Tablet) 7.5 mg PO BEDTIME [facility] Last Admin: 10/04/25 20:28 Dose: 7.5 mg Documented By: RICA Multivitamins/Vitamin C (Multivitamin Tablet) 1 tab PO DAILY [facility] Last Admin: 10/05/25 08:08 Dose: 1 tab Documented By: DAY Senna (Sennosides 8.6 Mg Tablet) 17.2 mg PO BEDTIME [facility] Last Admin: 10/04/25 20:28 Dose: 17.2 mg Documented By: RICA Simethicone (Simethicone 80 Mg Tab.Chew) 120 mg PO Q8H PRN PRN Reason: Gastrointestinal Spasms Or Cramping Sodium Chloride (0.9 % Sodium Chloride Flush 3 Ml Syringe) 3 ml IVFLUSH QSHIFT [facility] Last Admin: 10/05/25 08:07 Dose: 3 ml Documented By: DAY Zinc Sulfate (Zinc Sulfate 220 Mg Capsule) 220 mg PO BID [facility] Last Admin: 10/05/25 08:08 Dose: 220 mg Documented By: DAY <Rashid Devries PA-C - Last Filed: 10/05/25 14:36> Labs CBC & Chem 7: 10/05/25 06:41 10/05/25 06:41 <Rashid Devries PA-C - Last Filed: 10/05/25 14:36> Labs: Laboratory Results - last 24 hr 10/04/25 10/04/25 10/04/25 11:59 14:15 15:33 MCV MCH MCHC RDW Plt Count MPV Immature Gran % (Auto) Neut % (Auto) Lymph % (Auto) [place] % (Auto) Eos % (Auto) Baso % (Auto) Lymph # (Auto) [place] # (Auto) Eos # (Auto) Baso # (Auto) Abs Immat Gran (auto) Absolute Neuts (auto) Absolute Nucleated RBC Nucleated RBC % (auto) Smear Tech's Comments VBG pH VBG pCO2 VBG pO2 VBG HCO3 VBG O2 Saturation VBG Base Excess Anion Gap Estim Creat Clear Calc Estimated GFR POC Glucose 93 89 86 Random Glucose Calcium Phosphorus Magnesium Total Bilirubin AST ALT Alkaline Phosphatase Total Protein Albumin 10/04/25 10/04/25 10/04/25 18:08 18:41 20:09 MCV MCH MCHC RDW Plt Count MPV Immature Gran % (Auto) Neut % (Auto) Lymph % (Auto) [place] % (Auto) Eos % (Auto) Baso % (Auto) Lymph # (Auto) [place] # (Auto) Eos # (Auto) Baso # (Auto) Abs Immat Gran (auto) Absolute Neuts (auto) Absolute Nucleated RBC Nucleated RBC % (auto) Smear Tech's Comments VBG pH VBG pCO2 VBG pO2 VBG HCO3 VBG O2 Saturation VBG Base Excess Anion Gap Estim Creat Clear Calc Estimated GFR POC Glucose 53 L* 120 H 62 Random Glucose Calcium Phosphorus Magnesium Total Bilirubin AST ALT Alkaline Phosphatase Total Protein Albumin 10/04/25 10/05/25 10/05/25 20:52 00:07 02:13 MCV MCH MCHC RDW Plt Count MPV Immature Gran % (Auto) Neut % (Auto) Lymph % (Auto) [place] % (Auto) Eos % (Auto) Baso % (Auto) Lymph # (Auto) [place] # (Auto) Eos # (Auto) Baso # (Auto) Abs Immat Gran (auto) Absolute Neuts (auto) Absolute Nucleated RBC Nucleated RBC % (auto) Smear Tech's Comments VBG pH VBG pCO2 VBG pO2 VBG HCO3 VBG O2 Saturation VBG Base Excess Anion Gap Estim Creat Clear Calc Estimated GFR POC Glucose 135 H 78 88 Random Glucose Calcium Phosphorus Magnesium Total Bilirubin AST ALT Alkaline Phosphatase Total Protein Albumin 10/05/25 10/05/25 10/05/25 06:24 06:41 06:47 MCV 107.7 H MCH 36.0 H MCHC 33.5 RDW 20.2 H Plt Count 152 L MPV 11.4 Immature Gran % (Auto) 1.3 H Neut % (Auto) 39.7 L Lymph % (Auto) 34.3 [place] % (Auto) 20.8 H Eos % (Auto) 3.6 Baso % (Auto) 0.3 Lymph # (Auto) 4.3 [place] # (Auto) 2.6 H Eos # (Auto) 0.5 H Baso # (Auto) 0.0 Abs Immat Gran (auto) 0.16 H Absolute Neuts (auto) 5.0 Absolute Nucleated RBC 0.000 Nucleated RBC % (auto) 0.0 Smear Tech's Comments VERIFIED VBG pH 7.46 H VBG pCO2 30 VBG pO2 87 VBG HCO3 21 L VBG O2 Saturation 99.0 VBG Base Excess -1.2 Anion Gap 19 Estim Creat Clear Calc 89.4 Estimated GFR > 60 POC Glucose 83 Random Glucose 84 Calcium 8.8 D Phosphorus 2.2 L Magnesium 1.6 Total Bilirubin 2.7 H AST 84 H ALT 42 H Alkaline Phosphatase 197 H Total Protein 5.7 L Albumin 4.0 10/05/25 08:11 MCV MCH MCHC RDW Plt Count MPV Immature Gran % (Auto) Neut % (Auto) Lymph % (Auto) [place] % (Auto) Eos % (Auto) Baso % (Auto) Lymph # (Auto) [place] # (Auto) Eos # (Auto) Baso # (Auto) Abs Immat Gran (auto) Absolute Neuts (auto) Absolute Nucleated RBC Nucleated RBC % (auto) Smear Tech's Comments VBG pH VBG pCO2 VBG pO2 VBG HCO3 VBG O2 Saturation VBG Base Excess Anion Gap Estim Creat Clear Calc Estimated GFR POC Glucose 90 Random Glucose Calcium Phosphorus Magnesium Total Bilirubin AST ALT Alkaline Phosphatase Total Protein Albumin <Rashid Devries PA-C - Last Filed: 10/05/25 14:36> Microbiology Microbiology Results: Microbiology 10/03/25 13:02 Blood Culture - Preliminary Blood - Venous No growth after 24 hours. 10/03/25 13:02 Blood Culture - Preliminary Blood - Venous Prelim: GPC Gram Stain only <Rashid Devries PA-C - Last Filed: 10/05/25 14:36> Procedures Date of Service Date of Service: 10/05/25 <Rashid Devries PA-C - Last Filed: 10/05/25 14:36> 10/06/25 <Gaston Castelan MD - Last Filed: 10/06/25 08:59> Progress Note: A&P Assessment and plan (1) Cholelithiasis: Status: Acute <Rashid Devries PA-C - Last Filed: 10/05/25 14:36> Assessment and Plan: She was transferred to telemetry last night She does not seem to be in any discomfort She denies abdominal pain She has been tolerating tube feeds Abdomen is soft, benign and no significant tenderness She does appears short of breath which is as baseline We will continue to follow No surgical intervention planned at this time Consider MRI for elevated bilirubin May benefit from IR cholecystostomy if gallbladder is distended and inflamed I had discussed this with the son at bedside We will follow <Gaston Castelan MD - Last Filed: 10/06/25 08:59> Assessment and Plan: 84-year-old female admitted for sepsis, elevated lactate. General surgery following for possible cholecystitis. Was transferred to telemetry from ICU overnight. She is denying abdominal pain at rest. Denying nausea or vomiting. She did tolerate some p.o. intake. Tolerating tube feeds well. Abdomen is soft and benign. Some very mild tenderness in the right upper quadrant. Bilirubin is increasing today, transaminases are relatively stable. At this time no surgical intervention planned, recommend MRI for evaluation of gallbladder. Patient is not a great surgical candidate, but if MRI showing signs of acute cholecystitis, distended, inflamed possible cholecystostomy tube placement. Continue antibiotics Recommend MRI Can have diet as tolerated for now. <Rashid Devries PA-C - Last Filed: 10/05/25 14:36> Time Spent With Patient Time: Total time managing care of this patient today ____ minutes. <Rashid Devries PA-C - Last Filed: 10/05/25 14:36> Quality Stroke Does the patient have a stroke diagnosis?: No <Rashid Devries PA-C - Last Filed: 10/05/25 14:36> VTE Prior VTE?: No <Rashid Devries PA-C - Last Filed: 10/05/25 14:36> VTE Risk Level:: Medical - moderate - high <Rashid Devries PA-C - Last Filed: 10/05/25 14:36> VTE Device Contraindication: Treatment Not Indicated <Rashid Devries PA-C - Last Filed: 10/05/25 14:36> VTE Drug Contraindication: N/A - Med Ordered <Rashid Devries PA-C - Last Filed: 10/05/25 14:36>
--- NOTE | 2025-10-05 11:03 | PM.CNCAR ---
History of Present Illness History of Present Illness Date of Service: 10/05/25 Requesting physician: Papito Sanchez Chief complaint: AFIB with RVR, Cholecystitis Narrative: [age] year lady who we have been asked to see for AFib and congestive heart failure. She is admitted with sepsis slated to potential cholecystitis. She is on Zosyn currently. She is saying her memory fluctuates and she has good and bad days. She is denying any shortness of breath but appears to be out of breath during interview. She appears to be on Eliquis in the past and probably has known history of atrial fibrillation. Currently heart rate control reasonable. Clinically looks overloaded. [facility] Past Medical History Medical History Gallstones Failure to thrive in adult Lactate blood increase Social History Social History Household Members: Other Housing: Group Home Housing Other:: [facility] Do you presently have visiting nurse or other home services: Yes Patient Tobacco Use Status: Former Tobacco user Smoked in Last 30 Days: No Use of substances other than those prescribed or required for medical reasons: No Currently Displaying Signs/Symptoms of Drug Intoxication Withdrawal: No Advance Directives: Yes Advance Directives on File: Yes Advance Directives Date on File: 09/09/25 Do you have a plan to hurt others: No Plan Nutrition Risks: No Nutritional Risk Patient : No service: No Meds Allergies Allergy/AdvReac Type Severity Reaction Status Date / Time No Known Allergies Allergy Verified 10/03/25 13:04 Active Medications: Current Medications Acetaminophen (Acetaminophen 325 Mg Tablet) 650 mg PO Q6H PRN PRN Reason: Pain, Mild 1-3,fever,headache Ascorbic Acid (Ascorbic Acid 500 Mg Tablet) 500 mg PO DAILY [facility] Last Admin: 10/05/25 08:08 Dose: 500 mg Bisacodyl (Bisacodyl 10 Mg Supp.Rect) 10 mg [place] DAILY PRN PRN Reason: Constipation Calcium Carbonate (Calcium Carbonate 750 Mg Tab.Chew) 750 mg PO Q4H PRN PRN Reason: Heartburn Dextrose (Dextrose 50 % 25 Gm/50 Ml Syringe) 25 gm IVPUSH Q15M PRN; Protocol PRN Reason: per Hypoglycemia Standing Ord. Last Admin: 10/04/25 20:28 Dose: 25 gm Dextrose (Dextrose 50 % 25 Gm/50 Ml Syringe) 25 gm IVPUSH Q15M PRN; Protocol PRN Reason: per Hypoglycemia Standing Ord. Glucose (Glucose Gel 15 Gm Gel..Gram.) 15 gm PO Q15M PRN; Protocol PRN Reason: per Hypoglycemia Standing Ord. Piperacillin Sod/Tazobactam (Sod 3.375 gm/ Sodium Chloride) 50 mls @ 100 mls/hr IV Q6H [facility] Last Infusion: 10/05/25 07:45 Dose: Infused Insulin Human Lispro (Insulin Lispro 100 Unit/Ml 3 Ml Vial) 0 unit SUBCUT QIDACHS [facility]; Protocol Last Admin: 10/05/25 08:01 Dose: Not Given Magnesium Hydroxide (Milk Of Magnesia 30 Ml Oral.Susp) 30 ml PO DAILY PRN PRN Reason: Constipation Magnesium Hydroxide (Milk Of Magnesia 30 Ml Oral.Susp) 30 ml PO DAILY PRN PRN Reason: Constipation Melatonin (Melatonin 3 Mg Tablet) 6 mg PO BEDTIME PRN PRN Reason: Insomnia Metoprolol Tartrate (Metoprolol Tartrate 25 Mg Tablet) 25 mg PO Q6H [facility]; Protocol Last Admin: 10/05/25 05:35 Dose: 25 mg Mirtazapine (Mirtazapine 7.5 Mg Tablet) 7.5 mg PO BEDTIME [facility] Last Admin: 10/04/25 20:28 Dose: 7.5 mg Multivitamins/Vitamin C (Multivitamin Tablet) 1 tab PO DAILY [facility] Last Admin: 10/05/25 08:08 Dose: 1 tab Senna (Sennosides 8.6 Mg Tablet) 17.2 mg PO BEDTIME [facility] Last Admin: 10/04/25 20:28 Dose: 17.2 mg Simethicone (Simethicone 80 Mg Tab.Chew) 120 mg PO Q8H PRN PRN Reason: Gastrointestinal Spasms Or Cramping Sodium Chloride (0.9 % Sodium Chloride Flush 3 Ml Syringe) 3 ml IVFLUSH QSHIFT [facility] Last Admin: 10/05/25 08:07 Dose: 3 ml Zinc Sulfate (Zinc Sulfate 220 Mg Capsule) 220 mg PO BID [facility] Last Admin: 10/05/25 08:08 Dose: 220 mg Home Medications ?Medication ?Instructions ?Recorded ?Confirmed ?Last Taken ?Type acetaminophen 325 mg tablet 650 mg PO Q6H PRN Fever Or Pain 09/08/25 10/03/25 Unknown History apixaban 5 mg tablet (Eliquis) 5 mg PO BID 09/08/25 10/03/25 Unknown History bisacodyl 10 mg rectal suppository 10 mg [place] DAILY PRN Constipation 09/08/25 10/03/25 Unknown History diclofenac sodium 1 % topical gel 2 g topical TID 09/08/25 10/03/25 Unknown History magnesium hydroxide 400 mg/5 mL 30 ml PO DAILY PRN Constipation 09/08/25 10/03/25 Unknown History oral suspension (Milk of Magnesia) metoprolol succinate 25 mg 25 mg PO DAILY 09/08/25 10/03/25 Unknown History tablet,extended release 24 hr nystatin 100,000 unit/mL oral 5 ml PO QID 09/08/25 10/03/25 Unknown History suspension sennosides 8.6 mg tablet (senna) 17.2 mg PO BEDTIME 09/08/25 10/03/25 Unknown History sodium phosphates 19 gram-7 118 ml [place] DAILY PRN Constipation 09/08/25 10/03/25 Unknown History gram/118 mL enema (Fleet Enema) ascorbic acid (vitamin C) 500 mg 500 mg PO DAILY 10/03/25 10/03/25 Unknown History tablet (Vitamin C) lactulose 10 gram/15 mL oral 30 ml PO DAILY 10/03/25 10/03/25 Unknown History solution (Enulose) mirtazapine 7.5 mg tablet 7.5 mg PO BEDTIME 10/03/25 10/03/25 Unknown History multivitamin with minerals 1 tab PO DAILY 10/03/25 10/03/25 Unknown History simethicone 125 mg tablet 125 mg PO Q8H PRN Gastrointestinal 10/03/25 10/03/25 Unknown History Spasms Or Cramping zinc sulfate 50 mg zinc (220 mg) 50 mg PO BID 10/03/25 10/03/25 Unknown History tablet Physical Exam Vital Signs: Vital Signs: Last Vital Signs Temp 98.3 F 10/05/25 07:28 Pulse 99 10/05/25 07:28 Resp 20 10/05/25 07:28 BP 134/63 10/05/25 07:28 Pulse Ox 97 10/05/25 07:28 O2 Del Method Room Air 10/05/25 07:28 O2 Flow Rate 1 10/04/25 09:00 FiO2 50 10/04/25 03:00 BMI result Body Mass Index 31.9 GENERAL APPEARANCE: Short of breath. NECK: no carotid bruit, ++ jugular venous distention. SKIN: no suspicious lesions, warm and dry. HEART: no murmurs, irregular rate and rhythm. LUNGS: clear to auscultation at bases. ABDOMEN: soft, nontender. EXTREMITIES: no edema. PERIPHERAL PULSES: equal. NEUROLOGIC: No gross deficits. Objective Labs and Meds 10/05/25 06:41 10/05/25 06:41 Lab results: Laboratory Results - last 24 hr 10/04/25 10/04/25 10/04/25 11:59 14:15 15:33 WBC RBC Hgb Hct MCV MCH MCHC RDW Plt Count MPV Immature Gran % (Auto) Neut % (Auto) Lymph % (Auto) [place] % (Auto) Eos % (Auto) Baso % (Auto) Lymph # (Auto) [place] # (Auto) Eos # (Auto) Baso # (Auto) Abs Immat Gran (auto) Absolute Neuts (auto) Absolute Nucleated RBC Nucleated RBC % (auto) Smear Tech's Comments VBG pH VBG pCO2 VBG pO2 VBG HCO3 VBG O2 Saturation VBG Base Excess Sodium Potassium Chloride Carbon Dioxide Anion Gap BUN Creatinine Estim Creat Clear Calc Estimated GFR POC Glucose 93 89 86 Random Glucose Calcium Phosphorus Magnesium Total Bilirubin AST ALT Alkaline Phosphatase Total Protein Albumin 10/04/25 10/04/25 10/04/25 18:08 18:41 20:09 WBC RBC Hgb Hct MCV MCH MCHC RDW Plt Count MPV Immature Gran % (Auto) Neut % (Auto) Lymph % (Auto) [place] % (Auto) Eos % (Auto) Baso % (Auto) Lymph # (Auto) [place] # (Auto) Eos # (Auto) Baso # (Auto) Abs Immat Gran (auto) Absolute Neuts (auto) Absolute Nucleated RBC Nucleated RBC % (auto) Smear Tech's Comments VBG pH VBG pCO2 VBG pO2 VBG HCO3 VBG O2 Saturation VBG Base Excess Sodium Potassium Chloride Carbon Dioxide Anion Gap BUN Creatinine Estim Creat Clear Calc Estimated GFR POC Glucose 53 L* 120 H 62 Random Glucose Calcium Phosphorus Magnesium Total Bilirubin AST ALT Alkaline Phosphatase Total Protein Albumin 10/04/25 10/05/25 10/05/25 20:52 00:07 02:13 WBC RBC Hgb Hct MCV MCH MCHC RDW Plt Count MPV Immature Gran % (Auto) Neut % (Auto) Lymph % (Auto) [place] % (Auto) Eos % (Auto) Baso % (Auto) Lymph # (Auto) [place] # (Auto) Eos # (Auto) Baso # (Auto) Abs Immat Gran (auto) Absolute Neuts (auto) Absolute Nucleated RBC Nucleated RBC % (auto) Smear Tech's Comments VBG pH VBG pCO2 VBG pO2 VBG HCO3 VBG O2 Saturation VBG Base Excess Sodium Potassium Chloride Carbon Dioxide Anion Gap BUN Creatinine Estim Creat Clear Calc Estimated GFR POC Glucose 135 H 78 88 Random Glucose Calcium Phosphorus Magnesium Total Bilirubin AST ALT Alkaline Phosphatase Total Protein Albumin 10/05/25 10/05/25 10/05/25 06:24 06:41 06:47 WBC 12.5 H RBC 2.22 L Hgb 8.0 L Hct 23.9 L MCV 107.7 H MCH 36.0 H MCHC 33.5 RDW 20.2 H Plt Count 152 L MPV 11.4 Immature Gran % (Auto) 1.3 H Neut % (Auto) 39.7 L Lymph % (Auto) 34.3 [place] % (Auto) 20.8 H Eos % (Auto) 3.6 Baso % (Auto) 0.3 Lymph # (Auto) 4.3 [place] # (Auto) 2.6 H Eos # (Auto) 0.5 H Baso # (Auto) 0.0 Abs Immat Gran (auto) 0.16 H Absolute Neuts (auto) 5.0 Absolute Nucleated RBC 0.000 Nucleated RBC % (auto) 0.0 Smear Tech's Comments VERIFIED VBG pH 7.46 H VBG pCO2 30 VBG pO2 87 VBG HCO3 21 L VBG O2 Saturation 99.0 VBG Base Excess -1.2 Sodium 141 Potassium 3.5 Chloride 106 Carbon Dioxide 20 L Anion Gap 19 BUN 13 Creatinine 0.51 Estim Creat Clear Calc 89.4 Estimated GFR > 60 POC Glucose 83 Random Glucose 84 Calcium 8.8 D Phosphorus 2.2 L Magnesium 1.6 Total Bilirubin 2.7 H AST 84 H ALT 42 H Alkaline Phosphatase 197 H Total Protein 5.7 L Albumin 4.0 10/05/25 08:11 WBC RBC Hgb Hct MCV MCH MCHC RDW Plt Count MPV Immature Gran % (Auto) Neut % (Auto) Lymph % (Auto) [place] % (Auto) Eos % (Auto) Baso % (Auto) Lymph # (Auto) [place] # (Auto) Eos # (Auto) Baso # (Auto) Abs Immat Gran (auto) Absolute Neuts (auto) Absolute Nucleated RBC Nucleated RBC % (auto) Smear Tech's Comments VBG pH VBG pCO2 VBG pO2 VBG HCO3 VBG O2 Saturation VBG Base Excess Sodium Potassium Chloride Carbon Dioxide Anion Gap BUN Creatinine Estim Creat Clear Calc Estimated GFR POC Glucose 90 Random Glucose Calcium Phosphorus Magnesium Total Bilirubin AST ALT Alkaline Phosphatase Total Protein Albumin Assessment and Plan (1) Atrial fibrillation with rapid ventricular response: Status: Acute (2) Acute CHF: Status: Acute Plan Pleasant 84 year lady with cholecystitis, AFib with RVR and congestive heart failure. Clinically she is volume overloaded likely from volume resuscitation for sepsis. 40 mg IV Lasix daily. Continue beta-blockers. She is anemic and currently apixaban is on hold appropriately. She may need blood transfusion as we are able to get her close to euvolemia. We will follow along with you. Thank you for allowing me to participate in the care of your patient. Please feel free to contact me if you have any questions. Procedures Date of Service Date of Service: 10/05/25
--- NOTE | 2025-10-05 11:05 | HO.PM.IMPN ---
Subjective Subjective Date of Service: 10/05/25 Interval History: Patient looks and feels Physical Exam Vital Signs: Vital Signs: Last Vital Signs Temp 98.3 F 10/05/25 07:28 Pulse 99 10/05/25 07:28 Resp 20 10/05/25 07:28 BP 134/63 10/05/25 07:28 Pulse Ox 97 10/05/25 07:28 O2 Del Method Room Air 10/05/25 07:28 O2 Flow Rate 1 10/04/25 09:00 FiO2 50 10/04/25 03:00 BMI result Body Mass Index 31.9 General: AO X 2, no acute distress Resp: rales at bases CVS: S1,S2,RRR GI: +BS, NT, no distention Skin: No rash Neuro: motor grossly intact Psych: appropriate affect Objective Data Active Medications Acetaminophen (Acetaminophen 325 Mg Tablet) 650 mg PO Q6H PRN PRN Reason: Pain, Mild 1-3,fever,headache Ascorbic Acid (Ascorbic Acid 500 Mg Tablet) 500 mg PO DAILY [facility] Last Admin: 10/05/25 08:08 Dose: 500 mg Documented By: DAY Bisacodyl (Bisacodyl 10 Mg Supp.Rect) 10 mg [place] DAILY PRN PRN Reason: Constipation Calcium Carbonate (Calcium Carbonate 750 Mg Tab.Chew) 750 mg PO Q4H PRN PRN Reason: Heartburn Dextrose (Dextrose 50 % 25 Gm/50 Ml Syringe) 25 gm IVPUSH Q15M PRN; Protocol PRN Reason: per Hypoglycemia Standing Ord. Last Admin: 10/04/25 20:28 Dose: 25 gm Documented By: RICA Dextrose (Dextrose 50 % 25 Gm/50 Ml Syringe) 25 gm IVPUSH Q15M PRN; Protocol PRN Reason: per Hypoglycemia Standing Ord. Glucose (Glucose Gel 15 Gm Gel..Gram.) 15 gm PO Q15M PRN; Protocol PRN Reason: per Hypoglycemia Standing Ord. Piperacillin Sod/Tazobactam (Sod 3.375 gm/ Sodium Chloride) 50 mls @ 100 mls/hr IV Q6H [facility] Last Infusion: 10/05/25 07:45 Dose: Infused Documented By: DAY Insulin Human Lispro (Insulin Lispro 100 Unit/Ml 3 Ml Vial) 0 unit SUBCUT QIDACHS [facility]; Protocol Last Admin: 10/05/25 08:01 Dose: Not Given Documented By: DAY Non-Admin Reason: No Insulin Coverage Magnesium Hydroxide (Milk Of Magnesia 30 Ml Oral.Susp) 30 ml PO DAILY PRN PRN Reason: Constipation Magnesium Hydroxide (Milk Of Magnesia 30 Ml Oral.Susp) 30 ml PO DAILY PRN PRN Reason: Constipation Melatonin (Melatonin 3 Mg Tablet) 6 mg PO BEDTIME PRN PRN Reason: Insomnia Metoprolol Tartrate (Metoprolol Tartrate 25 Mg Tablet) 25 mg PO Q6H [facility]; Protocol Last Admin: 10/05/25 05:35 Dose: 25 mg Documented By: JOE Mirtazapine (Mirtazapine 7.5 Mg Tablet) 7.5 mg PO BEDTIME [facility] Last Admin: 10/04/25 20:28 Dose: 7.5 mg Documented By: RICA Multivitamins/Vitamin C (Multivitamin Tablet) 1 tab PO DAILY [facility] Last Admin: 10/05/25 08:08 Dose: 1 tab Documented By: DAY Senna (Sennosides 8.6 Mg Tablet) 17.2 mg PO BEDTIME [facility] Last Admin: 10/04/25 20:28 Dose: 17.2 mg Documented By: RICA Simethicone (Simethicone 80 Mg Tab.Chew) 120 mg PO Q8H PRN PRN Reason: Gastrointestinal Spasms Or Cramping Sodium Chloride (0.9 % Sodium Chloride Flush 3 Ml Syringe) 3 ml IVFLUSH QSHIFT [facility] Last Admin: 10/05/25 08:07 Dose: 3 ml Documented By: DAY Zinc Sulfate (Zinc Sulfate 220 Mg Capsule) 220 mg PO BID [facility] Last Admin: 10/05/25 08:08 Dose: 220 mg Documented By: DAY Labs 10/05/25 06:41 10/05/25 06:41 Labs: Laboratory Results - last 24 hr 10/04/25 10/04/25 10/04/25 11:59 14:15 15:33 MCV MCH MCHC RDW Plt Count MPV Immature Gran % (Auto) Neut % (Auto) Lymph % (Auto) [place] % (Auto) Eos % (Auto) Baso % (Auto) Lymph # (Auto) [place] # (Auto) Eos # (Auto) Baso # (Auto) Abs Immat Gran (auto) Absolute Neuts (auto) Absolute Nucleated RBC Nucleated RBC % (auto) Smear Tech's Comments VBG pH VBG pCO2 VBG pO2 VBG HCO3 VBG O2 Saturation VBG Base Excess Anion Gap Estim Creat Clear Calc Estimated GFR POC Glucose 93 89 86 Random Glucose Calcium Phosphorus Magnesium Total Bilirubin AST ALT Alkaline Phosphatase Total Protein Albumin 10/04/25 10/04/25 10/04/25 18:08 18:41 20:09 MCV MCH MCHC RDW Plt Count MPV Immature Gran % (Auto) Neut % (Auto) Lymph % (Auto) [place] % (Auto) Eos % (Auto) Baso % (Auto) Lymph # (Auto) [place] # (Auto) Eos # (Auto) Baso # (Auto) Abs Immat Gran (auto) Absolute Neuts (auto) Absolute Nucleated RBC Nucleated RBC % (auto) Smear Tech's Comments VBG pH VBG pCO2 VBG pO2 VBG HCO3 VBG O2 Saturation VBG Base Excess Anion Gap Estim Creat Clear Calc Estimated GFR POC Glucose 53 L* 120 H 62 Random Glucose Calcium Phosphorus Magnesium Total Bilirubin AST ALT Alkaline Phosphatase Total Protein Albumin 10/04/25 10/05/25 10/05/25 20:52 00:07 02:13 MCV MCH MCHC RDW Plt Count MPV Immature Gran % (Auto) Neut % (Auto) Lymph % (Auto) [place] % (Auto) Eos % (Auto) Baso % (Auto) Lymph # (Auto) [place] # (Auto) Eos # (Auto) Baso # (Auto) Abs Immat Gran (auto) Absolute Neuts (auto) Absolute Nucleated RBC Nucleated RBC % (auto) Smear Tech's Comments VBG pH VBG pCO2 VBG pO2 VBG HCO3 VBG O2 Saturation VBG Base Excess Anion Gap Estim Creat Clear Calc Estimated GFR POC Glucose 135 H 78 88 Random Glucose Calcium Phosphorus Magnesium Total Bilirubin AST ALT Alkaline Phosphatase Total Protein Albumin 10/05/25 10/05/25 10/05/25 06:24 06:41 06:47 MCV 107.7 H MCH 36.0 H MCHC 33.5 RDW 20.2 H Plt Count 152 L MPV 11.4 Immature Gran % (Auto) 1.3 H Neut % (Auto) 39.7 L Lymph % (Auto) 34.3 [place] % (Auto) 20.8 H Eos % (Auto) 3.6 Baso % (Auto) 0.3 Lymph # (Auto) 4.3 [place] # (Auto) 2.6 H Eos # (Auto) 0.5 H Baso # (Auto) 0.0 Abs Immat Gran (auto) 0.16 H Absolute Neuts (auto) 5.0 Absolute Nucleated RBC 0.000 Nucleated RBC % (auto) 0.0 Smear Tech's Comments VERIFIED VBG pH 7.46 H VBG pCO2 30 VBG pO2 87 VBG HCO3 21 L VBG O2 Saturation 99.0 VBG Base Excess -1.2 Anion Gap 19 Estim Creat Clear Calc 89.4 Estimated GFR > 60 POC Glucose 83 Random Glucose 84 Calcium 8.8 D Phosphorus 2.2 L Magnesium 1.6 Total Bilirubin 2.7 H AST 84 H ALT 42 H Alkaline Phosphatase 197 H Total Protein 5.7 L Albumin 4.0 10/05/25 08:11 MCV MCH MCHC RDW Plt Count MPV Immature Gran % (Auto) Neut % (Auto) Lymph % (Auto) [place] % (Auto) Eos % (Auto) Baso % (Auto) Lymph # (Auto) [place] # (Auto) Eos # (Auto) Baso # (Auto) Abs Immat Gran (auto) Absolute Neuts (auto) Absolute Nucleated RBC Nucleated RBC % (auto) Smear Tech's Comments VBG pH VBG pCO2 VBG pO2 VBG HCO3 VBG O2 Saturation VBG Base Excess Anion Gap Estim Creat Clear Calc Estimated GFR POC Glucose 90 Random Glucose Calcium Phosphorus Magnesium Total Bilirubin AST ALT Alkaline Phosphatase Total Protein Albumin Microbiology Microbiology Results: Microbiology 10/03/25 13:02 Blood Culture - Preliminary Blood - Venous No growth after 24 hours. 10/03/25 13:02 Blood Culture - Preliminary Blood - Venous Prelim: GPC Gram Stain only Assessment and Plan (1) Acute CHF: Status: Acute (2) Gallstones: Status: Acute (3) Acidosis, lactic: Status: Acute (4) Septic shock: Status: Acute Plan 84F PMH pafib, alzheimers dementia, history of PE, present with AF w/ RVR, and found to have septic navid with marked lactic acidosis, some confusion and in AFIB with RVR and was briefly admitted to the ICU Severe Sepsis d/t acute on chronic cholecystitis, previously deemed non-operative candidate septic shock treated with IVF and albumin, did not need pressores given Ceftriaxone in ED, continued on Zosyn since 10/03 Clinically responding to therapy Blood cultures from 03/10/25 1/2 GPCI, possible contamination Given that patient is responding to present Abx, will continue to monitor Surgery following Hold further IVF and monitor clinically AF with RVR, given Lopressor IV in the ED rate is now controlled, continue metoprolol continue eliquis Acute on chronic diastolic heart failure/fluid overload Echo done result pending Continue IV Lasix and closely monitor Toxic metabolic encephalopathy d/t Spsis, waxes and wane, has underlying cognitive impairment Treat underlying infection Acute lactic acidosis d/t sepsis and Hypotension, has trended down treatd with IVF History of PE Eliquis DNR/DNI dvt prophylaxis - eliquis Quality Stroke Does the patient have a stroke diagnosis?: No VTE Prior VTE?: No VTE Risk Level:: Medical - moderate - high VTE Device Contraindication: Treatment Not Indicated VTE Drug Contraindication: N/A - Med Ordered
[2025-10-05 12:08] LABS: Glucose, Whole Blood 95 mg/dL (60-115)
[2025-10-05] MEDS: Furosemide 40 MG/4 ML VIAL IVPUSH (12:35)
--- NOTE | 2025-10-05 15:04 | PC.NURSE ---
1417- Patient pulled out PEG tube, PEG tube noted to be lying on top of patient's abdomen in her hand. Site covered with DSD. MD notified. Surgery consult pending. Patient intermittently confused and pulling at IV lines, camera at bedside for safety.
--- NOTE | 2025-10-05 15:56 | PM.EVENT ---
Event Note Date of Service: 10/05/25 Event Note: I was called because the patient pulled out her PEG tube The patient is a says she does not recall this Abdomen is soft and benign I was able to reinsert a peggy 20 PEG tube through the PEG tube site without difficulty. Balloon inflated. KUB with Gastrografin through the PEG tube ordered to confirm placement of the PEG tube. Time Spent With Patient Time: Total time managing care of this patient today ____ minutes.
[2025-10-05 17:03] LABS: Glucose, Whole Blood 62 mg/dL (60-115)
[2025-10-05 18:10] LABS: Glucose, Whole Blood 90 mg/dL (60-115)
[2025-10-05 20:16] LABS: Glucose, Whole Blood 90 mg/dL (60-115)
[2025-10-05 23:33] LABS: Glucose, Whole Blood 100 mg/dL (60-115)
[2025-10-06] VITALS (10 sets, daily range): BP systolic 98–135; BP diastolic 52–64; PULSE 104–119; RESP 16–20; TEMP 36.6–37.2; O2SAT 94–96; BMI 28.5
[2025-10-06 04:17] LABS: Glucose, Whole Blood 112 mg/dL (60-115)
[2025-10-06 07:41] LABS: Glucose, Whole Blood 127 mg/dL (60-115)
--- NOTE | 2025-10-06 08:17 | HO.PM.IMPN ---
Subjective Subjective Date of Service: 10/06/25 Interval History: Hypoglycemia overnight, BS of 53 Removed PEG yesterdat and was replaced by surgery Physical Exam Vital Signs: Vital Signs: Last Vital Signs Temp 97.8 F 10/06/25 07:16 Pulse 113 H 10/06/25 07:16 Resp 20 10/06/25 07:16 BP 129/61 10/06/25 07:16 Pulse Ox 95 10/06/25 07:16 O2 Del Method Room Air 10/06/25 07:16 O2 Flow Rate 1 10/04/25 09:00 FiO2 50 10/04/25 03:00 BMI result Body Mass Index 28.5 General: confused, only oriented to self Resp: rales at bases CVS: S1,S2,RRR GI: +BS, NT, no distention Skin: No rash Neuro: motor grossly intact Psych: appropriate affect Objective Data Active Medications Acetaminophen (Acetaminophen 325 Mg Tablet) 650 mg PO Q6H PRN PRN Reason: Pain, Mild 1-3,fever,headache Ascorbic Acid (Ascorbic Acid 500 Mg Tablet) 500 mg PO DAILY [facility] Last Admin: 10/05/25 08:08 Dose: 500 mg Documented By: DAY Bisacodyl (Bisacodyl 10 Mg Supp.Rect) 10 mg [place] DAILY PRN PRN Reason: Constipation Calcium Carbonate (Calcium Carbonate 750 Mg Tab.Chew) 750 mg PO Q4H PRN PRN Reason: Heartburn Dextrose (Dextrose 50 % 25 Gm/50 Ml Syringe) 25 gm IVPUSH Q15M PRN; Protocol PRN Reason: per Hypoglycemia Standing Ord. Last Admin: 10/04/25 20:28 Dose: 25 gm Documented By: RICA Dextrose (Dextrose 50 % 25 Gm/50 Ml Syringe) 25 gm IVPUSH Q15M PRN; Protocol PRN Reason: per Hypoglycemia Standing Ord. Furosemide (Furosemide 40 Mg/4 Ml Vial) 40 mg IVPUSH DAILY [facility]; Protocol Last Admin: 10/05/25 12:35 Dose: 40 mg Documented By: DAY Glucose (Glucose Gel 15 Gm Gel..Gram.) 15 gm PO Q15M PRN; Protocol PRN Reason: per Hypoglycemia Standing Ord. Piperacillin Sod/Tazobactam (Sod 3.375 gm/ Sodium Chloride) 50 mls @ 100 mls/hr IV Q6H [facility] Last Infusion: 10/06/25 05:20 Dose: Infused Documented By: WHITLEY Insulin Human Lispro (Insulin Lispro 100 Unit/Ml 3 Ml Vial) 0 unit SUBCUT QIDACHS [facility]; Protocol Last Admin: 10/05/25 20:35 Dose: Not Given Documented By: WHITLEY Non-Admin Reason: No Insulin Coverage Magnesium Hydroxide (Milk Of Magnesia 30 Ml Oral.Susp) 30 ml PO DAILY PRN PRN Reason: Constipation Magnesium Hydroxide (Milk Of Magnesia 30 Ml Oral.Susp) 30 ml PO DAILY PRN PRN Reason: Constipation Melatonin (Melatonin 3 Mg Tablet) 6 mg PO BEDTIME PRN PRN Reason: Insomnia Metoprolol Tartrate (Metoprolol Tartrate 25 Mg Tablet) 25 mg PO Q6H [facility]; Protocol Last Admin: 10/06/25 05:10 Dose: 25 mg Documented By: WHITLEY Mirtazapine (Mirtazapine 7.5 Mg Tablet) 7.5 mg PO BEDTIME [facility] Last Admin: 10/05/25 20:36 Dose: 7.5 mg Documented By: WHITLEY Multivitamins/Vitamin C (Multivitamin Tablet) 1 tab PO DAILY [facility] Last Admin: 10/05/25 08:08 Dose: 1 tab Documented By: DAY Senna (Sennosides 8.6 Mg Tablet) 17.2 mg PO BEDTIME [facility] Last Admin: 10/05/25 20:36 Dose: Not Given Documented By: WHITLEY Non-Admin Reason: pt had loose BM Simethicone (Simethicone 80 Mg Tab.Chew) 120 mg PO Q8H PRN PRN Reason: Gastrointestinal Spasms Or Cramping Sodium Chloride (0.9 % Sodium Chloride Flush 3 Ml Syringe) 3 ml IVFLUSH QSHIFT [facility] Last Admin: 10/06/25 02:04 Dose: Not Given Documented By: WHITLEY Non-Admin Reason: Previously Administered Zinc Sulfate (Zinc Sulfate 220 Mg Capsule) 220 mg PO BID [facility] Last Admin: 10/05/25 20:36 Dose: 220 mg Documented By: WHITLEY Labs 10/05/25 06:41 10/06/25 08:39 Labs: Laboratory Results - last 24 hr 10/05/25 10/05/25 10/05/25 12:04 16:59 18:06 POC Glucose 95 62 90 10/05/25 10/05/25 10/06/25 20:11 23:28 04:12 POC Glucose 90 100 112 10/06/25 07:37 POC Glucose 127 H Microbiology Microbiology Results: Microbiology 10/03/25 13:02 Blood Culture - Preliminary Blood - Venous No growth after 48 hours. 10/03/25 13:02 Blood Culture - Preliminary Blood - Venous Staphylococcus species Assessment and Plan (1) Acute CHF: Status: Acute (2) Gallstones: Status: Acute (3) Acidosis, lactic: Status: Acute (4) Septic shock: Status: Acute Plan 84F PMH pafib, alzheimers dementia, history of PE, present with AF w/ RVR, and found to have septic navid with marked lactic acidosis, some confusion and in AFIB with RVR and was briefly admitted to the ICU Severe Sepsis d/t acute on chronic cholecystitis, previously deemed non-operative candidate septic shock treated with IVF and albumin, did not need pressores given Ceftriaxone in ED, continued on Zosyn since 10/03 Clinically responding to therapy Blood cultures from 03/10/25 1 staph species,not MRSA, likely contamination Given that patient is responding to present Abx, will continue to monitor Surgery following Hold further IVF and monitor clinically AF with RVR, given Lopressor IV in the ED rate is now controlled, continue metoprolol continue eliquis Acute on chronic diastolic heart failure/fluid overload Echo done result pending Continue IV Lasix and closely monitor Toxic metabolic encephalopathy d/t Spsis, waxes and wane, has underlying cognitive impairment Treat underlying infection. Sitter to prevent removing lines Malnutrition continue feed through PEG and oral feed as tolerated Hypoglycemia likely related to not eating, resoolved Acute lactic acidosis d/t sepsis and Hypotension, has trended down treatd with IVF History of PE Eliquis DNR/DNI dvt prophylaxis - eliquis Quality Stroke Does the patient have a stroke diagnosis?: No VTE Prior VTE?: No VTE Risk Level:: Medical - moderate - high VTE Device Contraindication: Treatment Not Indicated VTE Drug Contraindication: N/A - Med Ordered
--- NOTE | 2025-10-06 08:59 | PM.PNGS ---
Subjective Subjective Date of Service: 10/06/25 Interval history: She had pulled out her PEG tube yesterday I reinserted this - Gastrografin study shows this has in the stomach Complains of pain around PEG tube Feeds noted to be leaking from the PEG tube Physical Exam Vital Signs: Vital Signs: Last Vital Signs Temp 97.8 F 10/06/25 07:16 Pulse 113 H 10/06/25 07:16 Resp 20 10/06/25 07:16 BP 129/61 10/06/25 07:16 Pulse Ox 95 10/06/25 07:16 O2 Del Method Room Air 10/06/25 07:16 O2 Flow Rate 1 10/04/25 09:00 FiO2 50 10/04/25 03:00 BMI result Body Mass Index 28.5 Const: Other: Complains of pain around the PEG site General: no acute distress Resp: Effort & Inspection: normal respiratory effort Cardio: Rate: tachycardic GI: Other: Peg tube in place, but the external bolster is very loose around the abdominal wall, with note of skin breakdown and leakage of tube feeds Palpation (GI): Soft to palpation Objective Data Active Medications Acetaminophen (Acetaminophen 325 Mg Tablet) 650 mg PO Q6H PRN PRN Reason: Pain, Mild 1-3,fever,headache Ascorbic Acid (Ascorbic Acid 500 Mg Tablet) 500 mg PO DAILY [facility] Last Admin: 10/05/25 08:08 Dose: 500 mg Documented By: DAY Bisacodyl (Bisacodyl 10 Mg Supp.Rect) 10 mg [place] DAILY PRN PRN Reason: Constipation Calcium Carbonate (Calcium Carbonate 750 Mg Tab.Chew) 750 mg PO Q4H PRN PRN Reason: Heartburn Dextrose (Dextrose 50 % 25 Gm/50 Ml Syringe) 25 gm IVPUSH Q15M PRN; Protocol PRN Reason: per Hypoglycemia Standing Ord. Last Admin: 10/04/25 20:28 Dose: 25 gm Documented By: RICA Dextrose (Dextrose 50 % 25 Gm/50 Ml Syringe) 25 gm IVPUSH Q15M PRN; Protocol PRN Reason: per Hypoglycemia Standing Ord. Furosemide (Furosemide 40 Mg/4 Ml Vial) 40 mg IVPUSH DAILY [facility]; Protocol Last Admin: 10/05/25 12:35 Dose: 40 mg Documented By: DAY Glucose (Glucose Gel 15 Gm Gel..Gram.) 15 gm PO Q15M PRN; Protocol PRN Reason: per Hypoglycemia Standing Ord. Piperacillin Sod/Tazobactam (Sod 3.375 gm/ Sodium Chloride) 50 mls @ 100 mls/hr IV Q6H [facility] Last Infusion: 10/06/25 05:20 Dose: Infused Documented By: WHITLEY Insulin Human Lispro (Insulin Lispro 100 Unit/Ml 3 Ml Vial) 0 unit SUBCUT QIDACHS [facility]; Protocol Last Admin: 10/06/25 08:31 Dose: Not Given Documented By: DAY Non-Admin Reason: No Insulin Coverage Magnesium Hydroxide (Milk Of Magnesia 30 Ml Oral.Susp) 30 ml PO DAILY PRN PRN Reason: Constipation Magnesium Hydroxide (Milk Of Magnesia 30 Ml Oral.Susp) 30 ml PO DAILY PRN PRN Reason: Constipation Melatonin (Melatonin 3 Mg Tablet) 6 mg PO BEDTIME PRN PRN Reason: Insomnia Metoprolol Tartrate (Metoprolol Tartrate 25 Mg Tablet) 25 mg PO Q6H [facility]; Protocol Last Admin: 10/06/25 05:10 Dose: 25 mg Documented By: WHITLEY Mirtazapine (Mirtazapine 7.5 Mg Tablet) 7.5 mg PO BEDTIME [facility] Last Admin: 10/05/25 20:36 Dose: 7.5 mg Documented By: WHITLEY Multivitamins/Vitamin C (Multivitamin Tablet) 1 tab PO DAILY [facility] Last Admin: 10/05/25 08:08 Dose: 1 tab Documented By: DAY Senna (Sennosides 8.6 Mg Tablet) 17.2 mg PO BEDTIME [facility] Last Admin: 10/05/25 20:36 Dose: Not Given Documented By: WHITLEY Non-Admin Reason: pt had loose BM Simethicone (Simethicone 80 Mg Tab.Chew) 120 mg PO Q8H PRN PRN Reason: Gastrointestinal Spasms Or Cramping Sodium Chloride (0.9 % Sodium Chloride Flush 3 Ml Syringe) 3 ml IVFLUSH QSHIFT [facility] Last Admin: 10/06/25 02:04 Dose: Not Given Documented By: WHITLEY Non-Admin Reason: Previously Administered Zinc Sulfate (Zinc Sulfate 220 Mg Capsule) 220 mg PO BID [facility] Last Admin: 10/05/25 20:36 Dose: 220 mg Documented By: WHITLEY Labs 10/06/25 08:39 10/06/25 08:39 Labs: Laboratory Results - last 24 hr 10/05/25 10/05/25 10/05/25 12:04 16:59 18:06 POC Glucose 95 62 90 10/05/25 10/05/25 10/06/25 20:11 23:28 04:12 POC Glucose 90 100 112 10/06/25 07:37 POC Glucose 127 H Microbiology Microbiology Results: Microbiology 10/03/25 13:02 Blood Culture - Preliminary Blood - Venous No growth after 48 hours. 10/03/25 13:02 Blood Culture - Preliminary Blood - Venous Staphylococcus species Procedures Date of Service Date of Service: 10/06/25 Progress Note: A&P Assessment and plan (1) Acidosis, lactic: Status: Acute Assessment and Plan: Peg tube reinserted at bedside yesterday via old site The external bolster was noted to be loose this morning so there was leakage around the PEG tube skin breakdown I tightened the external bolster on the skin External bolster should be snug on the abdominal wall Dressings changed Note of significant skin breakdown around the PEG tube site with tenderness Good wound care Seems to be tolerating tube feeds otherwise Time Spent With Patient Time: Total time managing care of this patient today ____ minutes. Quality Stroke Does the patient have a stroke diagnosis?: No VTE Prior VTE?: No VTE Risk Level:: Medical - moderate - high VTE Device Contraindication: Treatment Not Indicated VTE Drug Contraindication: N/A - Med Ordered
[2025-10-06 09:17] LABS: Anion Gap 19 (12-20); Blood Urea Nitrogen 16 mg/dL (9-16); Calcium 9.4 mg/dL (8.4-10.2); Carbon Dioxide 21 mmol/L (22-29); Chloride 107 mmol/L (96-108); Creatinine Clr Calc Pharmacy 98.0; Estimated Glomerular Filt Rate > 60; Magnesium 1.6 mg/dL (1.6-2.6); Potassium 3.8 mmol/L (3.3-5.1); Sodium 143 mmol/L (135-145)
--- NOTE | 2025-10-06 10:26 | MHC.CM.PN ---
Per ROUNDS discussion, Patient is not yet medically cleared for dc (IV Diuretics, Confusion/pulled out gtube yesterday); returning to STR is the goal and CM will continue to follow.
[2025-10-06] MEDS: Furosemide 40 MG/4 ML VIAL IVPUSH (11:00)
[2025-10-06] MEDS: 0.9 % Sodium Chloride Flush 3 ML SYRINGE IVFLUSH ×2 (11:01→22:06)
--- NOTE | 2025-10-06 11:19 | P.CDIM_ITS ---
PROVIDER RESPONSE TEXT: To clarify, the appropriate diagnosis supported by the clinical indicators: Pressure injury coccyx, unstageable QUERY TEXT: PHYSICIAN'S DOCUMENTATION REQUEST Date of Query: 10/06/2025 07:27 AM EST Patient Name: Yara Mendez Admit Date: 10/03/2025 Dear Papito Sanchez MD, A review of the medical record indicates additional documentation may be needed. Please review below and update the documentation accordingly. Clinical Indicators: Wound care notes 10/04/25 - Unstageable pressure injury coccyx, present on admission. Triad paste to provide an occlusive dressing for autolytic debridement. Cover foam for off loading. Based on the above, could you please provide further information regarding the ulcer/wound/injury: Pressure injury coccyx, unstageable Other specified Please specify the location and laterality of the ulcer/wound Other (explain) Clinically unable to determine (explain) Thank you, Alysa Rodriguez, CCS, CDIS Use of terms such as suspected, likely, concern for, or probable (associated with a specific diagnosis that is being evaluated, monitored, or treated as if it exists) are acceptable and can be coded in the inpatient setting, when documented at the time of discharge. Please use your independent medical judgment in providing your response. THIS QUERY IS PART OF THE PERMANENT MEDICAL RECORD
--- NOTE | 2025-10-06 11:21 | MHC.CLN ---
F/U PT WITH INCREASED NUTRITION RISK R/T PRESSURE INJURY AND REQUIRES NUTRITION SUPPORT VIA TUBE FEEDING PT PULLED OUT PEG TUBE YESTERDAY-REPLACED BY SX TEAM COMMUNICATIONS DESIGNER ADVANCING DIET TO REGULAR PT WILL CONTINUE TUBE FEEDING WITH REGULAR DIET-KITCHEN AWARE CONTINUE TF JEVITY 1.2 AT MAX GOAL RATE 60ML/HR WITH 240ML FREE WATER FLUSHES Q 8 HRS PROVIDES 1728KCALS (30KCALS/KG), 80G PROTEIN (1.4G/KG), 1882ML TOTAL FREE WATER FROM FORMULA AND FLUSHES (33ML/KG) MONITOR TOLERANCE AND LYTES TF WILL PROMOTE WOUND HEALING RD CAN BE REACHED VIA TIGER CONNECT DURING OFF HOURS IF NEEDED GOAL TO REDUCE TF PO INTAKE IMPROVES
[2025-10-06 11:27] LABS: Hematocrit 29.5 % (37.0-47.0); Hemoglobin 9.6 g/dl (12.0-16.0); Mean Corpuscular HGB Conc 32.5 g/dl (31.0-35.0); Mean Corpuscular Hemoglobin 35.4 pg (27.0-33.0); Mean Corpuscular Volume 108.9 fL (80.0-98.0); NRBC Abs Auto 0.000 X10*3/uL (0.0-0.012); NRBC Pct Auto 0.0 /100WBC (0.0-0.2); Platelet Count 146 X10*3/uL (160-400); Red Blood Count 2.71 X10*6/uL (4.20-5.50); White Blood Count 16.2 X10*3/uL (4.8-10.8)
[2025-10-06 12:10] LABS: Glucose, Whole Blood 108 mg/dL (60-115)
--- NOTE | 2025-10-06 14:46 | MHC.SL.SWA ---
Speech Pathologist Impression: Oropharyngeal dysphagia Dysphasia Diet Status: [facility] REG/THIN consistencies for oral intake Liquid Consistency and Strategies for Safe Swallow: Liquid Intake Recommendation: Thin Solid Food Consistency: Dietary Recommendations: Regular Additional Modifications to Solid Foods: Patient seen for swallow eval. Oral and pharyngeal phases deemed WFL, no overt difficulties noted at bedside. Patient tolerated trials of puree, regular solid, and thin liquid with no overt s/s of aspiration and good clearance. Recommend allow PO to supplement TFs REGULAR solids and THIN liquids pills whole in liquid if given orally. Patient will need direct supervision d/t confusion. Patient w/ PEG previously placed d/t poor PO and failure to thrive. Oral Medication Intake: Whole with Liquid Please contact the pharmacy regarding appropriate crushable or liquid drug formulations that are available whenever modified delivery is recommended. Supervision While Eating and Drinking for Safe Swallow: Direct Supervision (1:1) Recommendation for Speech: Inpatient Speech Therapy Comment: HOUSEHOLD APPLIANCES SALESPERSON will f/u 1-2x Frequency/Duration: 1-2 f/u Date Range for Service Req: Timeline to reassess: Sports Analyst Clinican/Clinical Fellow: No Supervisory Statement: I have reviewed and agree with the student/clinical fellow's documentation: N/A Speech Language Pathologist: Perri Pool M.A., [facility]-HOUSEHOLD APPLIANCES SALESPERSON
--- NOTE | 2025-10-06 14:59 | P.PNCA_ITS ---
Subjective Subjective Date of Service: 10/06/25 Interval history: Seen examined at bedside. She looks worse today and looks sleepy and confused. Son at bedside was updated Physical Exam Vital Signs: Last Vital Signs Temp 98.4 F 10/06/25 11:19 Pulse 119 H 10/06/25 11:19 Resp 20 10/06/25 11:19 BP 134/63 10/06/25 11:19 Pulse Ox 96 10/06/25 11:19 O2 Del Method Room Air 10/06/25 11:19 O2 Flow Rate 1 10/04/25 09:00 FiO2 50 10/04/25 03:00 BMI result Body Mass Index 28.5 GENERAL APPEARANCE: Appears comfortable. Confused though. NECK: no carotid bruit, mild jugular venous distention. SKIN: no suspicious lesions, warm and dry. HEART: no murmurs, irregular rate and rhythm. LUNGS: clear to auscultation at bases. ABDOMEN: soft, nontender. EXTREMITIES: no edema. PERIPHERAL PULSES: equal. NEUROLOGIC: No gross deficits. Objective Labs and Meds 10/06/25 08:39 10/06/25 08:39 Lab results: Laboratory Results - last 24 hr 10/05/25 10/05/25 10/05/25 16:59 18:06 20:11 WBC RBC Hgb Hct MCV MCH MCHC RDW Plt Count MPV Absolute Nucleated RBC Nucleated RBC % (auto) Sodium Potassium Chloride Carbon Dioxide Anion Gap BUN Creatinine Estim Creat Clear Calc Estimated GFR POC Glucose 62 90 90 Random Glucose Calcium Magnesium NT-Pro-B Natriuret Pep 10/05/25 10/06/25 10/06/25 23:28 04:12 07:37 WBC RBC Hgb Hct MCV MCH MCHC RDW Plt Count MPV Absolute Nucleated RBC Nucleated RBC % (auto) Sodium Potassium Chloride Carbon Dioxide Anion Gap BUN Creatinine Estim Creat Clear Calc Estimated GFR POC Glucose 100 112 127 H Random Glucose Calcium Magnesium NT-Pro-B Natriuret Pep 10/06/25 10/06/25 08:39 12:06 WBC 16.2 H RBC 2.71 L D Hgb 9.6 L Hct 29.5 L D MCV 108.9 H MCH 35.4 H MCHC 32.5 RDW 20.5 H Plt Count 146 L MPV 12.1 Absolute Nucleated RBC 0.000 Nucleated RBC % (auto) 0.0 Sodium 143 Potassium 3.8 Chloride 107 Carbon Dioxide 21 L Anion Gap 19 BUN 16 Creatinine 0.44 L Estim Creat Clear Calc 98.0 Estimated GFR > 60 POC Glucose 108 Random Glucose 128 H Calcium 9.4 D Magnesium 1.6 NT-Pro-B Natriuret Pep 8939.3 H Imaging Radiologist's impression: Impressions KUB X-Ray 10/05/25 16:05 IMPRESSION: G-tube appears to be in the mid stomach. No evidence of obstruction, contrast extravasation or free air. Electronically signed by: Lidia Calles MD 10/05/2025 04:19 PM [facility] Progress Note: A&P Assessment and plan (1) Acute CHF: Status: Acute (2) Atrial fibrillation with rapid ventricular response: Status: Acute Plan Pleasant 84 year lady with AFib with RVR and congestive heart failure in the setting of acute cholecystitis and sepsis. She was fluid resuscitated and potentially developed congestive heart failure due to that. Heart rate control is reasonable. Continue beta-blockers. Holding further IV diuretics. We will follow along with you. Thank you for allowing me to participate in the care of your patient. Please feel free to contact me if you have any questions. Time Spent With Patient Time: Total time managing care of this patient today ____ minutes. Progress Note: Quality Stroke Does the patient have a stroke diagnosis?: No Procedures Date of Service Date of Service: 10/06/25
[2025-10-06 16:52] LABS: Glucose, Whole Blood 103 mg/dL (60-115)
[2025-10-06 20:43] LABS: Glucose, Whole Blood 119 mg/dL (60-115)
[2025-10-07 00:04] LABS: Glucose, Whole Blood 101 mg/dL (60-115)
[2025-10-07 03:29] VITALS: BP 123/58; PULSE 104; RESP 18; TEMP 37; O2SAT 93
[2025-10-07 04:10] LABS: Glucose, Whole Blood 107 mg/dL (60-115)
[2025-10-07 05:31] VITALS: BP 117/58; PULSE 110
[2025-10-07 06:00] VITALS: BMI 32.3
--- NOTE | 2025-10-07 07:12 | PC.NURSE ---
Addendum entered by Macey Brown RN 10/18/25 14:29: error w/ scanning antibiotics d/t computer/scanning issues. blood cultures obtained at 1302 with antibiotics being given after at 1305. Original Note: late entry: 10/03 - both sets of blood cultures obtained prior to antibiotic administration. unable to scan antibiotics d/t scanning issues/computer malfunction. scanned within 30 minutes of being ordered, cultures obtained from two different sites.
[2025-10-07 08:00] VITALS: BP 127/60; PULSE 102; RESP 19; TEMP 36.4; O2SAT 95
[2025-10-07 08:01] LABS: Glucose, Whole Blood 121 mg/dL (60-115)
--- NOTE | 2025-10-07 09:44 | PM.PNGS ---
Subjective Subjective Date of Service: 10/07/25 Interval history: Patient resting comfortably with no complaints of abdominal pain. Peg tube functioning normally. Physical Exam Vital Signs: Vital Signs: Last Vital Signs Temp 97.5 F 10/07/25 08:00 Pulse 102 H 10/07/25 08:00 Resp 19 10/07/25 08:00 BP 127/60 10/07/25 08:00 Pulse Ox 95 10/07/25 08:00 O2 Del Method Room Air 10/07/25 08:00 O2 Flow Rate 1 10/04/25 09:00 FiO2 50 10/04/25 03:00 BMI result Body Mass Index 32.3 Const: General: no acute distress and confusion Orientation/consciousness: confusion Resp: Effort & Inspection: normal respiratory effort, no audible wheezes, no cough and no respiratory distress GI: Other: Soft, nondistended, nontender, peg tube functioning properly. Skin: Other: Warm, dry, no rash Neuro: General: confusion Objective Data Active Medications Acetaminophen (Acetaminophen 325 Mg Tablet) 650 mg PO Q6H PRN PRN Reason: Pain, Mild 1-3,fever,headache Last Admin: 10/06/25 21:58 Dose: 650 mg Documented By: SULMA Ascorbic Acid (Ascorbic Acid 500 Mg Tablet) 500 mg PO DAILY [facility] Last Admin: 10/06/25 11:00 Dose: 500 mg Documented By: DAY Bisacodyl (Bisacodyl 10 Mg Supp.Rect) 10 mg [place] DAILY PRN PRN Reason: Constipation Calcium Carbonate (Calcium Carbonate 750 Mg Tab.Chew) 750 mg PO Q4H PRN PRN Reason: Heartburn Dextrose (Dextrose 50 % 25 Gm/50 Ml Syringe) 25 gm IVPUSH Q15M PRN; Protocol PRN Reason: per Hypoglycemia Standing Ord. Last Admin: 10/04/25 20:28 Dose: 25 gm Documented By: RICA Dextrose (Dextrose 50 % 25 Gm/50 Ml Syringe) 25 gm IVPUSH Q15M PRN; Protocol PRN Reason: per Hypoglycemia Standing Ord. Glucose (Glucose Gel 15 Gm Gel..Gram.) 15 gm PO Q15M PRN; Protocol PRN Reason: per Hypoglycemia Standing Ord. Piperacillin Sod/Tazobactam (Sod 3.375 gm/ Sodium Chloride) 50 mls @ 100 mls/hr IV Q6H [facility] Last Infusion: 10/07/25 06:18 Dose: Infused Documented By: SULMA Insulin Human Lispro (Insulin Lispro 100 Unit/Ml 3 Ml Vial) 0 unit SUBCUT QIDACHS [facility]; Protocol Last Admin: 10/07/25 08:26 Dose: Not Given Documented By: RIO Non-Admin Reason: No Insulin Coverage Magnesium Hydroxide (Milk Of Magnesia 30 Ml Oral.Susp) 30 ml PO DAILY PRN PRN Reason: Constipation Magnesium Hydroxide (Milk Of Magnesia 30 Ml Oral.Susp) 30 ml PO DAILY PRN PRN Reason: Constipation Melatonin (Melatonin 3 Mg Tablet) 6 mg PO BEDTIME PRN PRN Reason: Insomnia Metoprolol Tartrate (Metoprolol Tartrate 25 Mg Tablet) 25 mg PO Q6H [facility]; Protocol Last Admin: 10/07/25 05:31 Dose: 25 mg Documented By: SULMA Mirtazapine (Mirtazapine 7.5 Mg Tablet) 7.5 mg PO BEDTIME [facility] Last Admin: 10/06/25 21:58 Dose: 7.5 mg Documented By: SULMA Multivitamins/Vitamin C (Multivitamin Tablet) 1 tab PO DAILY [facility] Last Admin: 10/06/25 11:01 Dose: 1 tab Documented By: DAY Senna (Sennosides 8.6 Mg Tablet) 17.2 mg PO BEDTIME [facility] Last Admin: 10/06/25 21:58 Dose: Not Given Documented By: SULMA Non-Admin Reason: loose stool Simethicone (Simethicone 80 Mg Tab.Chew) 120 mg PO Q8H PRN PRN Reason: Gastrointestinal Spasms Or Cramping Sodium Chloride (0.9 % Sodium Chloride Flush 3 Ml Syringe) 3 ml IVFLUSH QSHIFT [facility] Last Admin: 10/06/25 22:06 Dose: 3 ml Documented By: SULMA Zinc Sulfate (Zinc Sulfate 220 Mg Capsule) 220 mg PO BID [facility] Last Admin: 10/06/25 21:58 Dose: 220 mg Documented By: SULMA Labs 10/06/25 08:39 10/06/25 08:39 Labs: Laboratory Results - last 24 hr 10/06/25 10/06/25 10/06/25 08:39 12:06 16:49 MCV 108.9 H MCH 35.4 H MCHC 32.5 RDW 20.5 H Plt Count 146 L MPV 12.1 Absolute Nucleated RBC 0.000 Nucleated RBC % (auto) 0.0 POC Glucose 108 103 10/06/25 10/07/25 10/07/25 20:15 00:00 04:06 MCV MCH MCHC RDW Plt Count MPV Absolute Nucleated RBC Nucleated RBC % (auto) POC Glucose 119 H 101 107 10/07/25 07:47 MCV MCH MCHC RDW Plt Count MPV Absolute Nucleated RBC Nucleated RBC % (auto) POC Glucose 121 H Microbiology Microbiology Results: Microbiology 10/03/25 13:02 Blood Culture - Final Blood - Venous Staphylococcus aureus Coag negative Staphylococcus Procedures Date of Service Date of Service: 10/07/25 Progress Note: A&P Assessment and plan (1) Cholelithiasis: Status: Acute Plan Surgical consultation for gallstones, lactic acidosis. Patient's abdominal exam remains benign today. We will continue to monitor. Time Spent With Patient Time: Total time managing care of this patient today ____ minutes. Quality Stroke Does the patient have a stroke diagnosis?: No VTE Prior VTE?: No VTE Risk Level:: Medical - moderate - high VTE Device Contraindication: Treatment Not Indicated VTE Drug Contraindication: N/A - Med Ordered
[2025-10-07] MEDS: 0.9 % Sodium Chloride Flush 3 ML SYRINGE IVFLUSH ×3 (09:48→23:05)
--- NOTE | 2025-10-07 10:28 | P.PNIM_ITS ---
Subjective Subjective Date of Service: 10/07/25 Interval History: Less confused, HR is better controlled, no sob Physical Exam 2 Vital Signs: Vital Signs: Last Vital Signs Temp 97.5 F 10/07/25 08:00 Pulse 102 H 10/07/25 08:00 Resp 19 10/07/25 08:00 BP 127/60 10/07/25 08:00 Pulse Ox 95 10/07/25 08:00 O2 Del Method Room Air 10/07/25 08:00 O2 Flow Rate 1 10/04/25 09:00 FiO2 50 10/04/25 03:00 BMI result Body Mass Index 32.3 General: confused, only oriented to self Resp: rales at bases CVS: S1,S2,RRR GI: +BS, NT, no distention Skin: No rash Neuro: motor grossly intact Psych: appropriate affect Objective Data Active Medications Acetaminophen (Acetaminophen 325 Mg Tablet) 650 mg PO Q6H PRN PRN Reason: Pain, Mild 1-3,fever,headache Last Admin: 10/06/25 21:58 Dose: 650 mg Documented By: SULMA Ascorbic Acid (Ascorbic Acid 500 Mg Tablet) 500 mg PO DAILY [facility] Last Admin: 10/07/25 09:48 Dose: 500 mg Documented By: RIO Bisacodyl (Bisacodyl 10 Mg Supp.Rect) 10 mg [place] DAILY PRN PRN Reason: Constipation Calcium Carbonate (Calcium Carbonate 750 Mg Tab.Chew) 750 mg PO Q4H PRN PRN Reason: Heartburn Dextrose (Dextrose 50 % 25 Gm/50 Ml Syringe) 25 gm IVPUSH Q15M PRN; Protocol PRN Reason: per Hypoglycemia Standing Ord. Last Admin: 10/04/25 20:28 Dose: 25 gm Documented By: RICA Dextrose (Dextrose 50 % 25 Gm/50 Ml Syringe) 25 gm IVPUSH Q15M PRN; Protocol PRN Reason: per Hypoglycemia Standing Ord. Glucose (Glucose Gel 15 Gm Gel..Gram.) 15 gm PO Q15M PRN; Protocol PRN Reason: per Hypoglycemia Standing Ord. Piperacillin Sod/Tazobactam (Sod 3.375 gm/ Sodium Chloride) 50 mls @ 100 mls/hr IV Q6H [facility] Last Infusion: 10/07/25 10:18 Dose: Infused Documented By: RIO Insulin Human Lispro (Insulin Lispro 100 Unit/Ml 3 Ml Vial) 0 unit SUBCUT QIDACHS [facility]; Protocol Last Admin: 10/07/25 08:26 Dose: Not Given Documented By: RIO Non-Admin Reason: No Insulin Coverage Magnesium Hydroxide (Milk Of Magnesia 30 Ml Oral.Susp) 30 ml PO DAILY PRN PRN Reason: Constipation Magnesium Hydroxide (Milk Of Magnesia 30 Ml Oral.Susp) 30 ml PO DAILY PRN PRN Reason: Constipation Melatonin (Melatonin 3 Mg Tablet) 6 mg PO BEDTIME PRN PRN Reason: Insomnia Metoprolol Tartrate (Metoprolol Tartrate 25 Mg Tablet) 25 mg PO Q6H [facility]; Protocol Last Admin: 10/07/25 05:31 Dose: 25 mg Documented By: SULMA Mirtazapine (Mirtazapine 7.5 Mg Tablet) 7.5 mg PO BEDTIME [facility] Last Admin: 10/06/25 21:58 Dose: 7.5 mg Documented By: SULMA Multivitamins/Vitamin C (Multivitamin Tablet) 1 tab PO DAILY [facility] Last Admin: 10/07/25 09:48 Dose: 1 tab Documented By: RIO Senna (Sennosides 8.6 Mg Tablet) 17.2 mg PO BEDTIME [facility] Last Admin: 10/06/25 21:58 Dose: Not Given Documented By: SULMA Non-Admin Reason: loose stool Simethicone (Simethicone 80 Mg Tab.Chew) 120 mg PO Q8H PRN PRN Reason: Gastrointestinal Spasms Or Cramping Sodium Chloride (0.9 % Sodium Chloride Flush 3 Ml Syringe) 3 ml IVFLUSH QSHIFT [facility] Last Admin: 10/07/25 09:48 Dose: 3 ml Documented By: RIO Zinc Sulfate (Zinc Sulfate 220 Mg Capsule) 220 mg PO BID [facility] Last Admin: 10/07/25 09:48 Dose: 220 mg Documented By: RIO Labs 10/06/25 08:39 10/06/25 08:39 Labs: Laboratory Results - last 24 hr 10/06/25 10/06/25 10/06/25 08:39 12:06 16:49 MCV 108.9 H MCH 35.4 H MCHC 32.5 RDW 20.5 H Plt Count 146 L MPV 12.1 Absolute Nucleated RBC 0.000 Nucleated RBC % (auto) 0.0 POC Glucose 108 103 10/06/25 10/07/25 10/07/25 20:15 00:00 04:06 MCV MCH MCHC RDW Plt Count MPV Absolute Nucleated RBC Nucleated RBC % (auto) POC Glucose 119 H 101 107 10/07/25 07:47 MCV MCH MCHC RDW Plt Count MPV Absolute Nucleated RBC Nucleated RBC % (auto) POC Glucose 121 H Microbiology Microbiology Results: Microbiology 10/03/25 13:02 Blood Culture - Final Blood - Venous Staphylococcus aureus Coag negative Staphylococcus Assessment and Plan (1) Acute CHF: Status: Acute (2) Gallstones: Status: Acute (3) Acidosis, lactic: Status: Acute (4) Septic shock: Status: Acute Plan 84F PMH pafib, alzheimers dementia, history of PE, present with AF w/ RVR, and found to have septic navid with marked lactic acidosis, some confusion and in AFIB with RVR and was briefly admitted to the ICU Severe Sepsis d/t acute on chronic cholecystitis, previously deemed non- operative candidate septic shock treated with IVF and albumin, did not need pressores given Ceftriaxone in ED, continued on Zosyn since 10/03 Clinically responding to therapy Blood cultures from 03/10/25 1/2 staph species,not MRSA and MSSA --should be covered by Zosyn, get echo on Thursday Surgery following, no intervention at this time Hold further IVF and monitor clinically AF with RVR, given Lopressor IV in the ED rate is now controlled, continue metoprolol continue eliquis Acute on chronic diastolic heart failure/fluid overload Echo done result pending Continue IV Lasix and closely monitor Toxic metabolic encephalopathy d/t Spsis, waxes and wane, has underlying cognitive impairment Treat underlying infection. Sitter to prevent removing lines Malnutrition continue feed through PEG and oral feed as tolerated and oral feed as recommended by [employer] Hypoglycemia resolved. Acute lactic acidosis d/t sepsis and Hypotension, has trended down treatd with IVF History of PE Eliquis DNR/DNI dvt prophylaxis - eliquis Quality Stroke Does the patient have a stroke diagnosis?: No VTE Prior VTE?: No VTE Risk Level:: Medical - moderate - high VTE Device Contraindication: Treatment Not Indicated VTE Drug Contraindication: N/A - Med Ordered
--- NOTE | 2025-10-07 11:18 | P.CDIM_ITS ---
PROVIDER RESPONSE TEXT: To clarify, the appropriate diagnosis supported by the clinical indicators: Pressure Injury right buttock, stage 3 QUERY TEXT: PHYSICIAN'S DOCUMENTATION REQUEST Date of Query: 10/06/2025 07:30 AM EST Patient Name: Yara Mendez Admit Date: 10/03/2025 Dear Papito Sanchez MD, A review of the medical record indicates additional documentation may be needed. Please review below and update the documentation accordingly. Clinical Indicators: Wound care notes 10/04/25 - Pressure injury right buttock stage 3, healing, present on admission. Triad paste, Foam for off loading. Based on the above, could you please provide further information regarding the ulcer/wound/injury: Pressure Injury right buttock, stage 3 Other specified Please specify the location and laterality of the ulcer/wound Other (explain) Clinically unable to determine (explain) Thank you, Alysa Rodriguez, CCS, CDIS Use of terms such as suspected, likely, concern for, or probable (associated with a specific diagnosis that is being evaluated, monitored, or treated as if it exists) are acceptable and can be coded in the inpatient setting, when documented at the time of discharge. Please use your independent medical judgment in providing your response. THIS QUERY IS PART OF THE PERMANENT MEDICAL RECORD
[2025-10-07 11:33] LABS: Anion Gap 21 (12-20); Blood Urea Nitrogen 23 mg/dL (9-16); Calcium 9.9 mg/dL (8.4-10.2); Carbon Dioxide 21 mmol/L (22-29); Chloride 105 mmol/L (96-108); Creatinine Clr Calc Pharmacy 91.8; Estimated Glomerular Filt Rate > 60; Potassium 4.2 mmol/L (3.3-5.1); Sodium 143 mmol/L (135-145)
[2025-10-07 11:42] VITALS: BP 125/58; PULSE 55; RESP 19; TEMP 36.8; O2SAT 90
[2025-10-07 12:00] LABS: Glucose, Whole Blood 97 mg/dL (60-115)
[2025-10-07 16:00] VITALS: BP 101/51; PULSE 58; RESP 18; TEMP 36.2; O2SAT 94
[2025-10-07 16:27] LABS: Glucose, Whole Blood 102 mg/dL (60-115)
[2025-10-07 19:36] VITALS: BP 114/59; PULSE 103; RESP 18; TEMP 37; O2SAT 95
[2025-10-07 20:27] LABS: Glucose, Whole Blood 98 mg/dL (60-115)
[2025-10-08] VITALS (8 sets, daily range): BP systolic 115–125; BP diastolic 56–60; PULSE 95–124; RESP 18–24; TEMP 36.4–38.1; O2SAT 92–98; BMI 29.9
[2025-10-08 00:33] LABS: Glucose, Whole Blood 110 mg/dL (60-115)
[2025-10-08 03:58] LABS: Glucose, Whole Blood 97 mg/dL (60-115)
[2025-10-08 08:01] LABS: Glucose, Whole Blood 120 mg/dL (60-115)
[2025-10-08 08:21] LABS: Anion Gap 23 (12-20); Blood Urea Nitrogen 30 mg/dL (9-16); Calcium 10.8 mg/dL (8.4-10.2); Carbon Dioxide 21 mmol/L (22-29); Chloride 105 mmol/L (96-108); Creatinine Clr Calc Pharmacy 81.8; Estimated Glomerular Filt Rate > 60; Potassium 4.5 mmol/L (3.3-5.1); Sodium 144 mmol/L (135-145)
[2025-10-08] MEDS: Furosemide 40 MG/4 ML VIAL IVPUSH (08:39)
--- NOTE | 2025-10-08 09:29 | P.PNGS_ITS ---
Subjective Subjective Date of Service: 10/08/25 Interval history: Patient with no new complaints today, denies abdominal pain. Tube feeds are running with no leakage from G-tube site Physical Exam 2 Vital Signs: Vital Signs: Last Vital Signs Temp 98.0 F 10/08/25 07:56 Pulse 120 H 10/08/25 07:56 Resp 22 H 10/08/25 07:56 BP 119/58 L 10/08/25 07:56 Pulse Ox 94 10/08/25 07:56 O2 Del Method Room Air 10/08/25 07:56 O2 Flow Rate 1 10/04/25 09:00 FiO2 50 10/04/25 03:00 BMI result Body Mass Index 29.9 Const: General: no acute distress and confusion Orientation/consciousness: confusion Resp: Effort & Inspection: normal respiratory effort, no audible wheezes, no cough and no respiratory distress GI: Other: Soft, nondistended, nontender, peg tube functioning properly. Skin: Other: Warm, dry, no rash Neuro: General: confusion Objective Data Active Medications Acetaminophen (Acetaminophen 325 Mg Tablet) 650 mg PO Q6H PRN PRN Reason: Pain, Mild 1-3,fever,headache Last Admin: 10/08/25 07:36 Dose: 650 mg Documented By: RIO Apixaban (Apixaban 5 Mg Tablet) 5 mg PO BID [facility] Last Admin: 10/08/25 07:30 Dose: 5 mg Documented By: RIO Ascorbic Acid (Ascorbic Acid 500 Mg Tablet) 500 mg PO DAILY [facility] Last Admin: 10/08/25 07:30 Dose: 500 mg Documented By: RIO Bisacodyl (Bisacodyl 10 Mg Supp.Rect) 10 mg [place] DAILY PRN PRN Reason: Constipation Calcium Carbonate (Calcium Carbonate 750 Mg Tab.Chew) 750 mg PO Q4H PRN PRN Reason: Heartburn Dextrose (Dextrose 50 % 25 Gm/50 Ml Syringe) 25 gm IVPUSH Q15M PRN; Protocol PRN Reason: per Hypoglycemia Standing Ord. Last Admin: 10/04/25 20:28 Dose: 25 gm Documented By: RICA Dextrose (Dextrose 50 % 25 Gm/50 Ml Syringe) 25 gm IVPUSH Q15M PRN; Protocol PRN Reason: per Hypoglycemia Standing Ord. Furosemide (Furosemide 40 Mg/4 Ml Vial) 40 mg IVPUSH BID@0900,1800 [facility]; Protocol Last Admin: 10/08/25 08:39 Dose: 40 mg Documented By: RIO Glucose (Glucose Gel 15 Gm Gel..Gram.) 15 gm PO Q15M PRN; Protocol PRN Reason: per Hypoglycemia Standing Ord. Piperacillin Sod/Tazobactam (Sod 3.375 gm/ Sodium Chloride) 50 mls @ 100 mls/hr IV Q6H [facility] Last Infusion: 10/08/25 05:15 Dose: Infused Documented By: BEBETO Insulin Human Lispro (Insulin Lispro 100 Unit/Ml 3 Ml Vial) 0 unit SUBCUT QIDACHS [facility]; Protocol Last Admin: 10/08/25 07:56 Dose: Not Given Documented By: RIO Non-Admin Reason: No Insulin Coverage Magnesium Hydroxide (Milk Of Magnesia 30 Ml Oral.Susp) 30 ml PO DAILY PRN PRN Reason: Constipation Magnesium Hydroxide (Milk Of Magnesia 30 Ml Oral.Susp) 30 ml PO DAILY PRN PRN Reason: Constipation Melatonin (Melatonin 3 Mg Tablet) 6 mg PO BEDTIME PRN PRN Reason: Insomnia Metoprolol Tartrate (Metoprolol Tartrate 50 Mg Tablet) 50 mg PO BID [facility]; Protocol Last Admin: 10/08/25 07:30 Dose: 50 mg Documented By: RIO Metoprolol Tartrate (Metoprolol Tartrate 5 Mg/5 Ml Vial) 2.5 mg IVPUSH Q6H PRN; Protocol PRN Reason: HR >110 Last Admin: 10/08/25 00:21 Dose: 2.5 mg Documented By: BEBETO Mirtazapine (Mirtazapine 7.5 Mg Tablet) 7.5 mg PO BEDTIME [facility] Last Admin: 10/07/25 18:35 Dose: 7.5 mg Documented By: RIO Multivitamins/Vitamin C (Multivitamin Tablet) 1 tab PO DAILY [facility] Last Admin: 10/08/25 07:29 Dose: 1 tab Documented By: RIO Senna (Sennosides 8.6 Mg Tablet) 17.2 mg PO BEDTIME [facility] Last Admin: 10/07/25 18:35 Dose: 17.2 mg Documented By: HO.SZOTPAT Simethicone (Simethicone 80 Mg Tab.Chew) 120 mg PO Q8H PRN PRN Reason: Gastrointestinal Spasms Or Cramping Sodium Chloride (0.9 % Sodium Chloride Flush 3 Ml Syringe) 3 ml IVFLUSH QSHIFT [facility] Last Admin: 10/07/25 23:05 Dose: 3 ml Documented By: BEBETO Zinc Sulfate (Zinc Sulfate 220 Mg Capsule) 220 mg PO BID [facility] Last Admin: 10/08/25 07:29 Dose: 220 mg Documented By: RIO Labs 10/06/25 08:39 10/08/25 07:30 Labs: Laboratory Results - last 24 hr 10/07/25 10/07/25 10/07/25 11:02 11:51 16:23 Anion Gap 21 H Estim Creat Clear Calc 91.8 Estimated GFR > 60 POC Glucose 97 102 Random Glucose Fasting Glucose 91 Calcium 9.9 10/07/25 10/08/25 10/08/25 20:13 00:25 03:12 Anion Gap Estim Creat Clear Calc Estimated GFR POC Glucose 98 110 97 Random Glucose Fasting Glucose Calcium 10/08/25 10/08/25 07:30 07:57 Anion Gap 23 H Estim Creat Clear Calc 81.8 Estimated GFR > 60 POC Glucose 120 H Random Glucose 107 Fasting Glucose Calcium 10.8 H D Procedures Date of Service Date of Service: 10/08/25 Progress Note: A&P Assessment and plan (1) Cholelithiasis: Status: Acute Plan 84-year-old female patient with gallstones and lactic acidosis. Patient's abdominal exam is benign with no tenderness in the right upper quadrant and a negative Overton sign. Peg tube is functioning without leakage. Time Spent With Patient Time: Total time managing care of this patient today ____ minutes. Quality Stroke Does the patient have a stroke diagnosis?: No VTE Prior VTE?: No VTE Risk Level:: Medical - moderate - high VTE Device Contraindication: Treatment Not Indicated VTE Drug Contraindication: N/A - Med Ordered
[2025-10-08] MEDS: 0.9 % Sodium Chloride Flush 3 ML SYRINGE IVFLUSH ×2 (10:41→17:07)
--- NOTE | 2025-10-08 11:19 | HO.PM.IMPN ---
Subjective Subjective Date of Service: 10/08/25 Interval History: remains confused, intermittent tachycardia. Overall HR is better right now. No sob Physical Exam Vital Signs: Vital Signs: Last Vital Signs Temp 98.0 F 10/08/25 07:56 Pulse 120 H 10/08/25 07:56 Resp 22 H 10/08/25 07:56 BP 119/58 L 10/08/25 07:56 Pulse Ox 94 10/08/25 07:56 O2 Del Method Room Air 10/08/25 07:56 O2 Flow Rate 1 10/04/25 09:00 FiO2 50 10/04/25 03:00 BMI result Body Mass Index 29.9 Objective Data Active Medications Acetaminophen (Acetaminophen 325 Mg Tablet) 650 mg PO Q6H PRN PRN Reason: Pain, Mild 1-3,fever,headache Last Admin: 10/08/25 07:36 Dose: 650 mg Documented By: RIO Apixaban (Apixaban 5 Mg Tablet) 5 mg PO BID [facility] Last Admin: 10/08/25 07:30 Dose: 5 mg Documented By: RIO Ascorbic Acid (Ascorbic Acid 500 Mg Tablet) 500 mg PO DAILY [facility] Last Admin: 10/08/25 07:30 Dose: 500 mg Documented By: RIO Bisacodyl (Bisacodyl 10 Mg Supp.Rect) 10 mg [place] DAILY PRN PRN Reason: Constipation Calcium Carbonate (Calcium Carbonate 750 Mg Tab.Chew) 750 mg PO Q4H PRN PRN Reason: Heartburn Dextrose (Dextrose 50 % 25 Gm/50 Ml Syringe) 25 gm IVPUSH Q15M PRN; Protocol PRN Reason: per Hypoglycemia Standing Ord. Last Admin: 10/04/25 20:28 Dose: 25 gm Documented By: RICA Dextrose (Dextrose 50 % 25 Gm/50 Ml Syringe) 25 gm IVPUSH Q15M PRN; Protocol PRN Reason: per Hypoglycemia Standing Ord. Furosemide (Furosemide 40 Mg/4 Ml Vial) 40 mg IVPUSH BID@0900,1800 [facility]; Protocol Last Admin: 10/08/25 08:39 Dose: 40 mg Documented By: RIO Glucose (Glucose Gel 15 Gm Gel..Gram.) 15 gm PO Q15M PRN; Protocol PRN Reason: per Hypoglycemia Standing Ord. Piperacillin Sod/Tazobactam (Sod 3.375 gm/ Sodium Chloride) 50 mls @ 100 mls/hr IV Q6H [facility] Last Infusion: 10/08/25 05:15 Dose: Infused Documented By: BEBETO Insulin Human Lispro (Insulin Lispro 100 Unit/Ml 3 Ml Vial) 0 unit SUBCUT QIDACHS [facility]; Protocol Last Admin: 10/08/25 07:56 Dose: Not Given Documented By: RIO Non-Admin Reason: No Insulin Coverage Magnesium Hydroxide (Milk Of Magnesia 30 Ml Oral.Susp) 30 ml PO DAILY PRN PRN Reason: Constipation Magnesium Hydroxide (Milk Of Magnesia 30 Ml Oral.Susp) 30 ml PO DAILY PRN PRN Reason: Constipation Melatonin (Melatonin 3 Mg Tablet) 6 mg PO BEDTIME PRN PRN Reason: Insomnia Metoprolol Tartrate (Metoprolol Tartrate 50 Mg Tablet) 50 mg PO BID [facility]; Protocol Last Admin: 10/08/25 07:30 Dose: 50 mg Documented By: RIO Metoprolol Tartrate (Metoprolol Tartrate 5 Mg/5 Ml Vial) 2.5 mg IVPUSH Q6H PRN; Protocol PRN Reason: HR >110 Last Admin: 10/08/25 00:21 Dose: 2.5 mg Documented By: BEBETO Mirtazapine (Mirtazapine 7.5 Mg Tablet) 7.5 mg PO BEDTIME [facility] Last Admin: 10/07/25 18:35 Dose: 7.5 mg Documented By: RIO Multivitamins/Vitamin C (Multivitamin Tablet) 1 tab PO DAILY [facility] Last Admin: 10/08/25 07:29 Dose: 1 tab Documented By: RIO Senna (Sennosides 8.6 Mg Tablet) 17.2 mg PO BEDTIME [facility] Last Admin: 10/07/25 18:35 Dose: 17.2 mg Documented By: RIO Simethicone (Simethicone 80 Mg Tab.Chew) 120 mg PO Q8H PRN PRN Reason: Gastrointestinal Spasms Or Cramping Sodium Chloride (0.9 % Sodium Chloride Flush 3 Ml Syringe) 3 ml IVFLUSH QSHIFT [facility] Last Admin: 10/08/25 10:41 Dose: 3 ml Documented By: RIO Zinc Sulfate (Zinc Sulfate 220 Mg Capsule) 220 mg PO BID [facility] Last Admin: 10/08/25 07:29 Dose: 220 mg Documented By: RIO Labs 10/06/25 08:39 10/08/25 07:30 Labs: Laboratory Results - last 24 hr 10/07/25 10/07/25 10/07/25 11:02 11:51 16:23 Anion Gap 21 H Estim Creat Clear Calc 91.8 Estimated GFR > 60 POC Glucose 97 102 Random Glucose Fasting Glucose 91 Calcium 9.9 10/07/25 10/08/25 10/08/25 20:13 00:25 03:12 Anion Gap Estim Creat Clear Calc Estimated GFR POC Glucose 98 110 97 Random Glucose Fasting Glucose Calcium 10/08/25 10/08/25 07:30 07:57 Anion Gap 23 H Estim Creat Clear Calc 81.8 Estimated GFR > 60 POC Glucose 120 H Random Glucose 107 Fasting Glucose Calcium 10.8 H D Assessment and Plan (1) Acute CHF: Status: Acute (2) Gallstones: Status: Acute (3) Acidosis, lactic: Status: Acute (4) Septic shock: Status: Acute Plan 84F PMH pafib, alzheimers dementia, history of PE, present with AF w/ RVR, and found to have septic navid with marked lactic acidosis, some confusion and in AFIB with RVR and was briefly admitted to the ICU Severe Sepsis d/t acute on chronic cholecystitis, previously deemed non-operative candidate septic shock treated with IVF and albumin, did not need pressores given Ceftriaxone in ED, continued on Zosyn since 10/03 Clinically responding to therapy Blood cultures from 03/10/25 1/2 staph species,not MRSA and MSSA --should be covered by Zosyn but change to Kefzol for less frequent dosing, echo no vegetation Surgery following, no intervention at this time, MRCP defered at this time, unlikely to tolerated procedure, discussed with sons (they understand) Hold further IVF and monitor clinically AF with RVR, given Lopressor IV intermitte continue PO metoprolol and IV PRN, if resistant consider digoxin continue eliquis Acute on chronic diastolic heart failure/fluid overload Echo done result pending Continue IV Lasix and closely monitor Remains positive fluid Toxic metabolic encephalopathy d/t Spsis, waxes and wane, has underlying cognitive impairment Treat underlying infection. Sitter to prevent removing lines Malnutrition continue Tube feed through PEG and oral feed as tolerated and oral feed as recommended by [employer] Hypoglycemia resolved. Acute lactic acidosis d/t sepsis and Hypotension, has trended down treatd with IVF History of PE Eliquis DNR/DNI dvt prophylaxis - eliquis Plan discussed with family at bedside Quality Stroke Does the patient have a stroke diagnosis?: No VTE Prior VTE?: No VTE Risk Level:: Medical - moderate - high VTE Device Contraindication: Treatment Not Indicated VTE Drug Contraindication: N/A - Med Ordered
[2025-10-08 12:12] LABS: Glucose, Whole Blood 109 mg/dL (60-115)
--- NOTE | 2025-10-08 12:54 | PM.PNCARD ---
Subjective Subjective Date of Service: 10/08/25 Interval history: Seen examined at bedside. She is denying any symptoms. Physical Exam Vital Signs: Last Vital Signs Temp 97.6 F 10/08/25 12:00 Pulse 102 H 10/08/25 12:00 Resp 18 10/08/25 12:00 BP 115/56 L 10/08/25 12:00 Pulse Ox 92 10/08/25 12:00 O2 Del Method Room Air 10/08/25 12:00 O2 Flow Rate 1 10/04/25 09:00 FiO2 50 10/04/25 03:00 BMI result Body Mass Index 29.9 GENERAL APPEARANCE: Ill-appearing. Frail. NECK: no carotid bruit, no jugular venous distention. SKIN: no suspicious lesions, warm and dry. HEART: no murmurs, regular rate and rhythm. LUNGS: clear to auscultation at bases. ABDOMEN: soft, nontender. EXTREMITIES: no edema. PERIPHERAL PULSES: equal. NEUROLOGIC: No gross deficits. Objective Labs and Meds 10/06/25 08:39 10/08/25 07:30 Lab results: Laboratory Results - last 24 hr 10/07/25 10/07/25 10/08/25 16:23 20:13 00:25 Sodium Potassium Chloride Carbon Dioxide Anion Gap BUN Creatinine Estim Creat Clear Calc Estimated GFR POC Glucose 102 98 110 Random Glucose Calcium NT-Pro-B Natriuret Pep 10/08/25 10/08/25 10/08/25 03:12 07:30 07:57 Sodium 144 Potassium 4.5 Chloride 105 Carbon Dioxide 21 L Anion Gap 23 H BUN 30 H Creatinine 0.54 Estim Creat Clear Calc 81.8 Estimated GFR > 60 POC Glucose 97 120 H Random Glucose 107 Calcium 10.8 H D NT-Pro-B Natriuret Pep 5608.4 H 10/08/25 11:51 Sodium Potassium Chloride Carbon Dioxide Anion Gap BUN Creatinine Estim Creat Clear Calc Estimated GFR POC Glucose 109 Random Glucose Calcium NT-Pro-B Natriuret Pep Progress Note: A&P Assessment and plan (1) Acute CHF: Status: Acute (2) Atrial fibrillation with rapid ventricular response: Status: Acute Plan Pleasant 84 year lady with AFib with RVR and congestive heart failure in the setting of acute cholecystitis and sepsis. She was fluid resuscitated and potentially developed congestive heart failure due to that. She has been in and out of atrial fibrillation. Clinically she has gone downhill and appears to be quite frail. She is on tube feeds. Not in congestive heart failure anymore. Stop the IV diuretics. Continue beta-blockers. Would avoid any antiarrhythmics currently. Thank you for allowing me to participate in the care of your patient. Please feel free to contact me if you have any questions. Time Spent With Patient Time: Total time managing care of this patient today ____ minutes. Progress Note: Quality Stroke Does the patient have a stroke diagnosis?: No Procedures Date of Service Date of Service: 10/08/25
[2025-10-08 16:16] LABS: Glucose, Whole Blood 87 mg/dL (60-115)
[2025-10-08 19:58] LABS: Glucose, Whole Blood 108 mg/dL (60-115)
[2025-10-08 23:52] LABS: Glucose, Whole Blood 99 mg/dL (60-115)
[2025-10-09] VITALS (11 sets, daily range): BP systolic 100–153; BP diastolic 51–67; PULSE 92–119; RESP 16–20; TEMP 36.3–36.9; O2SAT 92–94; BMI 30.1
[2025-10-09 03:27] LABS: Glucose, Whole Blood 83 mg/dL (60-115)
[2025-10-09 07:32] LABS: Anion Gap 22 (12-20); Blood Urea Nitrogen 41 mg/dL (9-16); Calcium 10.4 mg/dL (8.4-10.2); Carbon Dioxide 23 mmol/L (22-29); Chloride 105 mmol/L (96-108); Creatinine Clr Calc Pharmacy 63.2; Estimated Glomerular Filt Rate > 60; Potassium 4.7 mmol/L (3.3-5.1); Sodium 145 mmol/L (135-145)
--- NOTE | 2025-10-09 07:39 | P.PNGS_ITS ---
Subjective Subjective Date of Service: 10/10/25 Interval history: Appears comfortable Tolerating tube feeds Does not seem to have complained of abdominal pain Physical Exam 2 Vital Signs: Vital Signs: Last Vital Signs Temp 97.3 F 10/09/25 03:08 Pulse 93 10/09/25 03:08 Resp 18 10/09/25 03:08 BP 100/51 L 10/09/25 03:08 Pulse Ox 93 10/09/25 03:08 O2 Del Method Room Air 10/09/25 03:08 O2 Flow Rate 1 10/04/25 09:00 FiO2 50 10/04/25 03:00 BMI result Body Mass Index 30.1 Const: General: comfortable and no acute distress Resp: Effort & Inspection: normal respiratory effort GI: Other: Peg tube in place Palpation (GI): Soft to palpation, not firm, nontender and no guarding Objective Data Active Medications Acetaminophen (Acetaminophen 325 Mg Tablet) 650 mg PO Q6H PRN PRN Reason: Pain, Mild 1-3,fever,headache Last Admin: 10/08/25 20:06 Dose: 650 mg Documented By: RUDDY Apixaban (Apixaban 5 Mg Tablet) 5 mg PO BID [facility] Last Admin: 10/08/25 20:05 Dose: 5 mg Documented By: RUDDY Ascorbic Acid (Ascorbic Acid 500 Mg Tablet) 500 mg PO DAILY [facility] Last Admin: 10/08/25 07:30 Dose: 500 mg Documented By: RIO Bisacodyl (Bisacodyl 10 Mg Supp.Rect) 10 mg [place] DAILY PRN PRN Reason: Constipation Calcium Carbonate (Calcium Carbonate 750 Mg Tab.Chew) 750 mg PO Q4H PRN PRN Reason: Heartburn Dextrose (Dextrose 50 % 25 Gm/50 Ml Syringe) 25 gm IVPUSH Q15M PRN; Protocol PRN Reason: per Hypoglycemia Standing Ord. Last Admin: 10/04/25 20:28 Dose: 25 gm Documented By: RICA Dextrose (Dextrose 50 % 25 Gm/50 Ml Syringe) 25 gm IVPUSH Q15M PRN; Protocol PRN Reason: per Hypoglycemia Standing Ord. Glucose (Glucose Gel 15 Gm Gel..Gram.) 15 gm PO Q15M PRN; Protocol PRN Reason: per Hypoglycemia Standing Ord. Cefazolin Sodium/Dextrose (Ancef) 2 gm in 50 mls @ 100 mls/hr IV Q8H [facility] Last Infusion: 10/09/25 04:54 Dose: Infused Documented By: RUDDY Insulin Human Lispro (Insulin Lispro 100 Unit/Ml 3 Ml Vial) 0 unit SUBCUT QIDACHS [facility]; Protocol Last Admin: 10/08/25 21:36 Dose: Not Given Documented By: RUDDY Non-Admin Reason: No Insulin Coverage Magnesium Hydroxide (Milk Of Magnesia 30 Ml Oral.Susp) 30 ml PO DAILY PRN PRN Reason: Constipation Magnesium Hydroxide (Milk Of Magnesia 30 Ml Oral.Susp) 30 ml PO DAILY PRN PRN Reason: Constipation Melatonin (Melatonin 3 Mg Tablet) 6 mg PO BEDTIME PRN PRN Reason: Insomnia Last Admin: 10/08/25 20:06 Dose: 6 mg Documented By: RUDDY Metoprolol Tartrate (Metoprolol Tartrate 50 Mg Tablet) 50 mg PO BID [facility]; Protocol Last Admin: 10/08/25 20:05 Dose: 50 mg Documented By: RUDDY Metoprolol Tartrate (Metoprolol Tartrate 5 Mg/5 Ml Vial) 2.5 mg IVPUSH Q6H PRN; Protocol PRN Reason: HR >110 Last Admin: 10/08/25 00:21 Dose: 2.5 mg Documented By: BEBETO Mirtazapine (Mirtazapine 7.5 Mg Tablet) 7.5 mg PO BEDTIME [facility] Last Admin: 10/08/25 20:06 Dose: 7.5 mg Documented By: RUDDY Multivitamins/Vitamin C (Multivitamin Tablet) 1 tab PO DAILY [facility] Last Admin: 10/08/25 07:29 Dose: 1 tab Documented By: RIO Senna (Sennosides 8.6 Mg Tablet) 17.2 mg PO BEDTIME [facility] Last Admin: 10/08/25 21:36 Dose: Not Given Documented By: RUDDY Non-Admin Reason: Patient Condition Contraindication Simethicone (Simethicone 80 Mg Tab.Chew) 120 mg PO Q8H PRN PRN Reason: Gastrointestinal Spasms Or Cramping Last Admin: 10/08/25 20:05 Dose: 120 mg Documented By: RUDDY Sodium Chloride (0.9 % Sodium Chloride Flush 3 Ml Syringe) 3 ml IVFLUSH QSHIFT [facility] Last Admin: 10/09/25 00:06 Dose: Not Given Documented By: RUDDY Non-Admin Reason: Previously Administered Zinc Sulfate (Zinc Sulfate 220 Mg Capsule) 220 mg PO BID [facility] Last Admin: 10/08/25 20:06 Dose: 220 mg Documented By: RUDDY Labs 10/06/25 08:39 10/10/25 06:29 Labs: Laboratory Results - last 24 hr 10/08/25 10/08/25 10/08/25 07:30 07:57 11:51 Anion Gap 23 H Estim Creat Clear Calc 81.8 Estimated GFR > 60 POC Glucose 120 H 109 Random Glucose 107 Calcium 10.8 H D NT-Pro-B Natriuret Pep 5608.4 H 10/08/25 10/08/25 10/08/25 15:46 19:31 23:28 Anion Gap Estim Creat Clear Calc Estimated GFR POC Glucose 87 108 99 Random Glucose Calcium NT-Pro-B Natriuret Pep 10/09/25 10/09/25 03:10 06:32 Anion Gap 22 H Estim Creat Clear Calc 63.2 Estimated GFR > 60 POC Glucose 83 Random Glucose 83 Calcium 10.4 H NT-Pro-B Natriuret Pep Microbiology Microbiology Results: Microbiology 10/03/25 13:02 Blood Culture - Final Blood - Venous No growth after 5 days. Procedures Date of Service Date of Service: 10/10/25 Progress Note: A&P Assessment and plan (1) Gallstones: Status: Acute Assessment and Plan: Currently without any tenderness, no Overton's sign Peg tube working well Patient tolerating feeds Rest of care as per medical service for now No fever, stable vital sign but WBC elevated On antibiotics Time Spent With Patient Time: Total time managing care of this patient today ____ minutes. Quality Stroke Does the patient have a stroke diagnosis?: No VTE Prior VTE?: No VTE Risk Level:: Medical - moderate - high VTE Device Contraindication: Treatment Not Indicated VTE Drug Contraindication: N/A - Med Ordered
[2025-10-09 07:45] LABS: Glucose, Whole Blood 101 mg/dL (60-115)
--- NOTE | 2025-10-09 09:06 | MHC.CLN ---
F/U PO INTAKE 25% OF ONE MEAL PT RECEIVING REGULAR DIET AND TUBE FEEDING REVIEWED LABS-UNREMARKABLE TOLERATING TF PER NSG CONTINUE TF JEVITY 1.2 AT MAX GOAL RATE 60ML/HR WITH 240ML FREE WATER FLUSHES Q 8 HRS PROVIDES 1728KCALS (30KCALS/KG), 80G PROTEIN (1.4G/KG), 1882ML TOTAL FREE WATER FROM FORMULA AND FLUSHES (33ML/KG) MONITOR TOLERANCE AND LYTES TF WILL PROMOTE WOUND HEALING GOAL TO REDUCE TF PO INTAKE IMPROVES
[2025-10-09] MEDS: 0.9 % Sodium Chloride Flush 3 ML SYRINGE IVFLUSH (09:20)
--- NOTE | 2025-10-09 10:27 | MHC.CM.PN ---
Per ROUNDS discussion, Patient is not yet medically cleared for dc (Septic/?of GOC conversation with MD & family); CM will follow.
[2025-10-09 11:44] LABS: Glucose, Whole Blood 100 mg/dL (60-115)
--- NOTE | 2025-10-09 14:41 | MHC.SL.SWA ---
Speech Pathologist Impression: Oropharyngeal swallowing deemed WFL Risk of Aspiration Due to: Dysphasia Diet Status: CONTINUE diet of REGULAR solids, THIN liquids with 1:1 feeding assistance Liquid Consistency and Strategies for Safe Swallow: Liquid Intake Recommendation: Thin Liquid Intake Strategies: Solid Food Consistency: Dietary Recommendations: Regular Additional Modifications to Solid Foods: Oral Medication Intake: Whole with Liquid Please contact the pharmacy regarding appropriate crushable or liquid drug formulations that are available whenever modified delivery is recommended. Compensatory Strategies and Precautions to be Taken for Safe Swallow: Sitting Upright (90 deg) Small Bites and Sips Alternate Liquids/Solids Supervision While Eating and Drinking for Safe Swallow: Total Assistance (1:1) Foods to Avoid: Elect simple, softer textures from the regular menu Swallowing Recommended Treatments: Compens. Strategy Educat. Recommendation for Speech: Inpatient Speech Therapy Comment: Patient met in room during lunch for dysphagia tx. This POWER EQUIPMENT TECHNOLOGY INSTRUCTOR providing 1:1 feeding assistance this date. Patient given grilled cheese with tomato soup this date. Patient with expectoration of initial bite of grilled cheese, reporting mastication difficulties. Softening further bites of grilled cheese with tomato soup. Patient able to masticate grilled cheese with encouragement to not expectorate. Patient with no s/sx of penetration/aspiration. Recommend CONTINUE with REGULAR solids, THIN liquids with 1:1 feeding assistance. POWER EQUIPMENT TECHNOLOGY INSTRUCTOR to follow-up x1. Frequency/Duration: f/u x1 Date Range for Service Req: Timeline to reassess: Compression Molding Machine Tender Clinican/Clinical Fellow: No Supervisory Statement: I have reviewed and agree with the student/clinical fellow's documentation: N/A Speech Language Pathologist: Kassie Solomon M.A., CCC-POWER EQUIPMENT TECHNOLOGY INSTRUCTOR
--- NOTE | 2025-10-09 15:12 | MHC.CM.PN ---
CM MET W/PT'S SONS DICK AND LATIA AT BEDSIDE PER MD REQUEST PT'S FAMILY IS INTERESTED IN HOSPICE. PER DISCUSSION REFERRAL PLACED TO [facility] WILL REACH OUT TO [facility] FOR INFORMATIONAL. CM STILL AWAITING RESPONSE FROM [facility]. [facility]ICK REPORTS PT DOES HAVE PRIVATE PAY FUNDS AVAILABLE TO COVER COST OF SNF.
--- NOTE | 2025-10-09 15:53 | W.MHC.ACPN ---
Advanced Care Planning Note Advanced Care Planning Note Time spent (in minutes): 25 Narrative: Goals of care were discussed with the patient?s two sons. We reviewed her current condition, including sepsis, possible cholecystitis, atrial fibrillation, heart failure, and her slow clinical improvement. According to her sons, she has been progressively declining and is increasingly confused. Based on their understanding of her wishes, she would not want aggressive interventions in this situation. The decision was made to proceed with hospice care. Problems Discussed (1) Gallstones:
[2025-10-09 16:16] LABS: Glucose, Whole Blood 98 mg/dL (60-115)
[2025-10-09 20:20] LABS: Glucose, Whole Blood 132 mg/dL (60-115)
[2025-10-10] VITALS (7 sets, daily range): BP systolic 110–120; BP diastolic 56–65; PULSE 96–116; RESP 18–20; TEMP 36.2–37; O2SAT 92–95; BMI 29.3
[2025-10-10 00:57] LABS: Glucose, Whole Blood 80 mg/dL (60-115)
[2025-10-10 03:52] LABS: Glucose, Whole Blood 108 mg/dL (60-115)
[2025-10-10 07:25] LABS: Anion Gap 22 (12-20); Blood Urea Nitrogen 54 mg/dL (9-16); Calcium 11.2 mg/dL (8.4-10.2); Carbon Dioxide 22 mmol/L (22-29); Chloride 105 mmol/L (96-108); Creatinine Clr Calc Pharmacy 54.6; Estimated Glomerular Filt Rate > 60; Potassium 5.2 mmol/L (3.3-5.1); Sodium 144 mmol/L (135-145)
[2025-10-10 07:32] LABS: Glucose, Whole Blood 99 mg/dL (60-115)
--- NOTE | 2025-10-10 08:25 | P.CDIM_ITS ---
PROVIDER RESPONSE TEXT: To clarify, the appropriate diagnosis supported by the clinical indicators: Moderate QUERY TEXT: PHYSICIAN'S DOCUMENTATION REQUEST Date of Query: 10/09/2025 07:36 AM EST Patient Name: Yara Mendez Admit Date: 10/03/2025 Dear Papito Sanchez MD, A review of the medical record indicates additional documentation may be needed. Please review below and update the documentation accordingly. Progress note 10/07/25 - Malnutrition Continue feed through PEG and oral feed as tolerated and oral feed as recommended by RESIDENTIAL SUPPORT SPECIALIST. Hypoglycemia resolved. Clinical nutrition note-Pt with increased nutrition risk R/T pressure injury and requires nutrition support via tube feeding. If possible, please provide additional specificity regarding the severity of the malnutrition using the above information: Mild Moderate Severe Other (explain) Clinically unable to determine (explain) Thank you, Alysa Rodriguez, CCS, CDIS Use of terms such as suspected, likely, concern for, or probable (associated with a specific diagnosis that is being evaluated, monitored, or treated as if it exists) are acceptable and can be coded in the inpatient setting, when documented at the time of discharge. Please use your independent medical judgment in providing your response. THIS QUERY IS PART OF THE PERMANENT MEDICAL RECORD
[2025-10-10] MEDS: 0.9 % Sodium Chloride Flush 3 ML SYRINGE IVFLUSH ×3 (10:45→21:26)
[2025-10-10 11:20] LABS: Glucose, Whole Blood 104 mg/dL (60-115)
--- NOTE | 2025-10-10 11:41 | HO.PM.IMPN ---
Subjective Subjective Date of Service: 10/10/25 Interval History: Remains confused and clinically no making progress, not eating much Family agree to hospice care yesterday Physical Exam Vital Signs: Vital Signs: Last Vital Signs Temp 98.6 F 10/10/25 11:14 Pulse 116 H 10/10/25 11:14 Resp 20 10/10/25 11:14 BP 113/56 L 10/10/25 11:14 Pulse Ox 95 10/10/25 11:14 O2 Del Method Room Air 10/10/25 11:14 O2 Flow Rate 1 10/04/25 09:00 FiO2 50 10/04/25 03:00 BMI result Body Mass Index 29.3 Objective Data Active Medications Acetaminophen (Acetaminophen 325 Mg Tablet) 650 mg PO Q6H PRN PRN Reason: Pain, Mild 1-3,fever,headache Last Admin: 10/09/25 20:11 Dose: 650 mg Documented By: RUDDY Apixaban (Apixaban 5 Mg Tablet) 5 mg PO BID REPLACED BY [facility] Last Admin: 10/10/25 10:43 Dose: 5 mg Documented By: MACY Ascorbic Acid (Ascorbic Acid 500 Mg Tablet) 500 mg PO DAILY REPLACED BY [facility] Last Admin: 10/10/25 10:43 Dose: 500 mg Documented By: MACY Bisacodyl (Bisacodyl 10 Mg Supp.Rect) 10 mg [place] DAILY PRN PRN Reason: Constipation Calcium Carbonate (Calcium Carbonate 750 Mg Tab.Chew) 750 mg PO Q4H PRN PRN Reason: Heartburn Dextrose (Dextrose 50 % 25 Gm/50 Ml Syringe) 25 gm IVPUSH Q15M PRN; Protocol PRN Reason: per Hypoglycemia Standing Ord. Last Admin: 10/04/25 20:28 Dose: 25 gm Documented By: RICA Dextrose (Dextrose 50 % 25 Gm/50 Ml Syringe) 25 gm IVPUSH Q15M PRN; Protocol PRN Reason: per Hypoglycemia Standing Ord. Glucose (Glucose Gel 15 Gm Gel..Gram.) 15 gm PO Q15M PRN; Protocol PRN Reason: per Hypoglycemia Standing Ord. Hydromorphone HCl (Hydromorphone Hcl 1 Mg/Ml Syringe) 0.25 mg IVPUSH Q4H PRN; Protocol PRN Reason: Pain, Severe (Pain Scale 7-10) Last Admin: 10/10/25 10:42 Dose: 0.25 mg Documented By: MACY Cefazolin Sodium/Dextrose (Ancef) 2 gm in 50 mls @ 100 mls/hr IV Q8H REPLACED BY [facility] Last Infusion: 10/10/25 04:52 Dose: Infused Documented By: AURORA Insulin Human Lispro (Insulin Lispro 100 Unit/Ml 3 Ml Vial) 0 unit SUBCUT QIDACHS REPLACED BY [facility]; Protocol Last Admin: 10/10/25 11:33 Dose: Not Given Documented By: MACY Non-Admin Reason: No Insulin Coverage Magnesium Hydroxide (Milk Of Magnesia 30 Ml Oral.Susp) 30 ml PO DAILY PRN PRN Reason: Constipation Melatonin (Melatonin 3 Mg Tablet) 6 mg PO BEDTIME PRN PRN Reason: Insomnia Last Admin: 10/09/25 20:11 Dose: 6 mg Documented By: RUDDY Metoprolol Tartrate (Metoprolol Tartrate 50 Mg Tablet) 50 mg PO BID REPLACED BY [facility]; Protocol Last Admin: 10/10/25 10:43 Dose: 50 mg Documented By: MACY Metoprolol Tartrate (Metoprolol Tartrate 5 Mg/5 Ml Vial) 2.5 mg IVPUSH Q6H PRN; Protocol PRN Reason: HR >110 Last Admin: 10/09/25 19:52 Dose: 2.5 mg Documented By: RUDDY Mirtazapine (Mirtazapine 7.5 Mg Tablet) 7.5 mg PO BEDTIME KATHY Last Admin: 10/09/25 20:11 Dose: 7.5 mg Documented By: RUDDY Multivitamins/Vitamin C (Multivitamin Tablet) 1 tab PO DAILY REPLACED BY [facility] Last Admin: 10/10/25 10:43 Dose: 1 tab Documented By: MACY Senna (Sennosides 8.6 Mg Tablet) 17.2 mg PO BEDTIME REPLACED BY [facility] Last Admin: 10/09/25 20:11 Dose: 17.2 mg Documented By: RUDDY Simethicone (Simethicone 80 Mg Tab.Chew) 120 mg PO Q8H PRN PRN Reason: Gastrointestinal Spasms Or Cramping Last Admin: 10/09/25 20:11 Dose: 120 mg Documented By: RUDDY Sodium Chloride (0.9 % Sodium Chloride Flush 3 Ml Syringe) 3 ml IVFLUSH QSHIFT REPLACED BY [facility] Last Admin: 10/10/25 10:45 Dose: 3 ml Documented By: MACY Zinc Sulfate (Zinc Sulfate 220 Mg Capsule) 220 mg PO BID REPLACED BY [facility] Last Admin: 10/10/25 10:43 Dose: 220 mg Documented By: MACY Labs 10/06/25 08:39 10/10/25 06:29 Labs: Laboratory Results - last 24 hr 10/09/25 10/09/25 10/09/25 11:40 16:12 20:06 Anion Gap Estim Creat Clear Calc Estimated GFR POC Glucose 100 98 132 H Random Glucose Calcium 10/10/25 10/10/25 10/10/25 00:54 03:47 06:29 Anion Gap 22 H Estim Creat Clear Calc 54.6 Estimated GFR > 60 POC Glucose 80 108 Random Glucose 101 Calcium 11.2 H D 10/10/25 10/10/25 07:28 11:15 Anion Gap Estim Creat Clear Calc Estimated GFR POC Glucose 99 104 Random Glucose Calcium Assessment and Plan (1) Acute CHF: Status: Acute (2) Gallstones: Status: Acute (3) Acidosis, lactic: Status: Acute (4) Septic shock: Status: Acute Plan 84F PMH pafib, alzheimers dementia, history of PE, present with AF w/ RVR, and found to have septic navid with marked lactic acidosis, some confusion and in AFIB with RVR and was briefly admitted to the ICU Severe Sepsis d/t acute on chronic cholecystitis, previously deemed non-operative candidate septic shock treated with IVF and albumin, did not need pressores given Ceftriaxone in ED, continued on Zosyn since 10/03 Clinically responding to therapy Blood cultures from 03/10/25 1/2 staph species, 1 coag neg staph, 1 MSSA --should be covered by Zosyn but change to Kefzol for less frequent dosing, echo no vegetation Surgery following, no intervention at this time, MRCP defered at this time, unlikely to tolerated procedure, discussed with sons (they understand) Hold further IVF and monitor clinically AF with RVR, given Lopressor IV intermitte continue PO metoprolol and IV PRN, if resistant consider digoxin continue eliquis Acute on chronic diastolic heart failure/fluid overload Echo done result pending Continue IV Lasix and closely monitor Remains positive fluid Toxic metabolic encephalopathy d/t Spsis, waxes and wane, has underlying cognitive impairment Treat underlying infection. Sitter to prevent removing lines Malnutrition continue Tube feed through PEG and oral feed as tolerated and oral feed as recommended by TOP LIFT TRIMMER Hypoglycemia resolved. Acute lactic acidosis d/t sepsis and Hypotension, has trended down treatd with IVF History of PE Eliquis DNR/DNI Goals of discussion with 2 sons yesterday and they have agree to transition to hospice care dvt prophylaxis - eliquis Plan discussed with family at bedside Quality Stroke Does the patient have a stroke diagnosis?: No VTE Prior VTE?: No VTE Risk Level:: Medical - moderate - high VTE Device Contraindication: Treatment Not Indicated VTE Drug Contraindication: N/A - Med Ordered
--- NOTE | 2025-10-10 13:37 | MHC.SLORD ---
Speech Language Pathology Order Status: Patient attempted to be seen x2. Per RN, received Dilaudid and very sleepy. Patient unarousable this date. RN also reported poor oral intake. Possible hospice mentioned during rounds this date. Patient not seen thsi date. DIGITAL ARCHIVIST to continue to follow.
--- NOTE | 2025-10-10 14:22 | P.PNGS_ITS ---
Subjective Subjective Date of Service: 10/10/25 Interval history: As per nursing staff, patient seemed to be declining overall No oral intake Tolerating tube feeds Does not seem to complain of abdominal pain Physical Exam 2 Vital Signs: Vital Signs: Last Vital Signs Temp 98.6 F 10/10/25 11:14 Pulse 116 H 10/10/25 11:14 Resp 20 10/10/25 11:14 BP 113/56 L 10/10/25 11:14 Pulse Ox 95 10/10/25 11:14 O2 Del Method Room Air 10/10/25 11:14 O2 Flow Rate 1 10/04/25 09:00 FiO2 50 10/04/25 03:00 BMI result Body Mass Index 29.3 Const: Other: Drowsy, not communicative, some shortness of breath Resp: Effort & Inspection: normal respiratory effort Cardio: Rate: tachycardic GI: Other: No obvious tenderness, peg tube in place Palpation (GI): Soft to palpation, not firm and no guarding Objective Data Active Medications Acetaminophen (Acetaminophen 325 Mg Tablet) 650 mg PO Q6H PRN PRN Reason: Pain, Mild 1-3,fever,headache Last Admin: 10/09/25 20:11 Dose: 650 mg Documented By: RUDDY Apixaban (Apixaban 5 Mg Tablet) 5 mg PO BID [facility] Last Admin: 10/10/25 10:43 Dose: 5 mg Documented By: MACY Ascorbic Acid (Ascorbic Acid 500 Mg Tablet) 500 mg PO DAILY [facility] Last Admin: 10/10/25 10:43 Dose: 500 mg Documented By: MACY Bisacodyl (Bisacodyl 10 Mg Supp.Rect) 10 mg [place] DAILY PRN PRN Reason: Constipation Calcium Carbonate (Calcium Carbonate 750 Mg Tab.Chew) 750 mg PO Q4H PRN PRN Reason: Heartburn Dextrose (Dextrose 50 % 25 Gm/50 Ml Syringe) 25 gm IVPUSH Q15M PRN; Protocol PRN Reason: per Hypoglycemia Standing Ord. Last Admin: 10/04/25 20:28 Dose: 25 gm Documented By: RICA Dextrose (Dextrose 50 % 25 Gm/50 Ml Syringe) 25 gm IVPUSH Q15M PRN; Protocol PRN Reason: per Hypoglycemia Standing Ord. Glucose (Glucose Gel 15 Gm Gel..Gram.) 15 gm PO Q15M PRN; Protocol PRN Reason: per Hypoglycemia Standing Ord. Hydromorphone HCl (Hydromorphone Hcl 1 Mg/Ml Syringe) 0.25 mg IVPUSH Q4H PRN; Protocol PRN Reason: Pain, Severe (Pain Scale 7-10) Last Admin: 10/10/25 10:42 Dose: 0.25 mg Documented By: MACY Cefazolin Sodium/Dextrose (Ancef) 2 gm in 50 mls @ 100 mls/hr IV Q8H [facility] Last Infusion: 10/10/25 12:46 Dose: Infused Documented By: MACY Insulin Human Lispro (Insulin Lispro 100 Unit/Ml 3 Ml Vial) 0 unit SUBCUT QIDACHS [facility]; Protocol Last Admin: 10/10/25 11:33 Dose: Not Given Documented By: MACY Non-Admin Reason: No Insulin Coverage Magnesium Hydroxide (Milk Of Magnesia 30 Ml Oral.Susp) 30 ml PO DAILY PRN PRN Reason: Constipation Melatonin (Melatonin 3 Mg Tablet) 6 mg PO BEDTIME PRN PRN Reason: Insomnia Last Admin: 10/09/25 20:11 Dose: 6 mg Documented By: RUDDY Metoprolol Tartrate (Metoprolol Tartrate 50 Mg Tablet) 50 mg PO BID KATHY; Protocol Last Admin: 10/10/25 10:43 Dose: 50 mg Documented By: MACY Metoprolol Tartrate (Metoprolol Tartrate 5 Mg/5 Ml Vial) 2.5 mg IVPUSH Q6H PRN; Protocol PRN Reason: HR >110 Last Admin: 10/09/25 19:52 Dose: 2.5 mg Documented By: RUDDY Mirtazapine (Mirtazapine 7.5 Mg Tablet) 7.5 mg PO BEDTIME KATHY Last Admin: 10/09/25 20:11 Dose: 7.5 mg Documented By: RUDDY Multivitamins/Vitamin C (Multivitamin Tablet) 1 tab PO DAILY KATHY Last Admin: 10/10/25 10:43 Dose: 1 tab Documented By: MACY Senna (Sennosides 8.6 Mg Tablet) 17.2 mg PO BEDTIME KATHY Last Admin: 10/09/25 20:11 Dose: 17.2 mg Documented By: RUDDY Simethicone (Simethicone 80 Mg Tab.Chew) 120 mg PO Q8H PRN PRN Reason: Gastrointestinal Spasms Or Cramping Last Admin: 10/09/25 20:11 Dose: 120 mg Documented By: RUDDY Sodium Chloride (0.9 % Sodium Chloride Flush 3 Ml Syringe) 3 ml IVFLUSH QSHIFT [facility] Last Admin: 10/10/25 10:45 Dose: 3 ml Documented By: MACY Zinc Sulfate (Zinc Sulfate 220 Mg Capsule) 220 mg PO BID [facility] Last Admin: 10/10/25 10:43 Dose: 220 mg Documented By: MACY Labs 10/06/25 08:39 10/10/25 06:29 Labs: Laboratory Results - last 24 hr 10/09/25 10/09/25 10/10/25 16:12 20:06 00:54 Anion Gap Estim Creat Clear Calc Estimated GFR POC Glucose 98 132 H 80 Random Glucose Calcium 10/10/25 10/10/25 10/10/25 03:47 06:29 07:28 Anion Gap 22 H Estim Creat Clear Calc 54.6 Estimated GFR > 60 POC Glucose 108 99 Random Glucose 101 Calcium 11.2 H D 10/10/25 11:15 Anion Gap Estim Creat Clear Calc Estimated GFR POC Glucose 104 Random Glucose Calcium Procedures Date of Service Date of Service: 10/10/25 Progress Note: A&P Assessment and plan (1) Failure to thrive in adult: Status: Acute Assessment and Plan: Seems to be clinically declining No apparent tenderness Abdomen is soft Tolerating PEG feeds BUN rising - may benefit from additional fluids As per nursing staff, discussions about comfort care only with family ongoing No surgical intervention Time Spent With Patient Time: Total time managing care of this patient today ____ minutes. Quality Stroke Does the patient have a stroke diagnosis?: No VTE Prior VTE?: No VTE Risk Level:: Medical - moderate - high VTE Device Contraindication: Treatment Not Indicated VTE Drug Contraindication: N/A - Med Ordered
--- NOTE | 2025-10-10 15:27 | MHC.CM.PN ---
EMR REVIEWED, PT'S SON/HCP DICK AGREEABLE TO [facility], [facility] HAS NO BEDS, FACILITY REACHING OUT TO DICK TO ARRANGE PAYMENT. HCP REQUESTED AND RECEIVED FROM KAI RAPP/YELENA, COPY UPLOADED TO [facility] AND HARD COPY PLACED IN CHART.
[2025-10-10 16:18] LABS: Glucose, Whole Blood 85 mg/dL (60-115)
[2025-10-10 21:25] LABS: Glucose, Whole Blood 100 mg/dL (60-115)
[2025-10-11] VITALS: BP 120/57; PULSE 110; RESP 24; TEMP 37.1; O2SAT 92
[2025-10-11 01:27] LABS: Glucose, Whole Blood 112 mg/dL (60-115)
[2025-10-11 03:10] VITALS: BP 128/62; PULSE 104; RESP 20; TEMP 36.3; O2SAT 92
[2025-10-11 04:16] LABS: Glucose, Whole Blood 111 mg/dL (60-115)
[2025-10-11 06:00] VITALS: BMI 30.1
[2025-10-11 07:12] LABS: Glucose, Whole Blood 104 mg/dL (60-115)
[2025-10-11 07:17] VITALS: BP 120/56; PULSE 103; RESP 22; TEMP 36.1; O2SAT 93
--- NOTE | 2025-10-11 08:42 | MHC.SLORD ---
Speech Language Pathology Order Status: CLOTHES IRONER assessed x2, recommended on both assessments REGULAR texture solids and THIN liquids. Oral and pharyngeal phases deemed WFL, no overt difficulties noted at bedside.There appears to be a behavioral component/avoidance (i.e. spitting out food). Per Dr. Castelan, patient w/ no oral intake, tolerating tube feeds. 10/[address] Sanchez, decision was made to proceed with hospice. CLOTHES IRONER discussed case w/ Dr. Sanchez- Further ST intervention not indicated at this time. Please re-refer if needed.
--- NOTE | 2025-10-11 09:24 | MHC.CLN ---
F/U PO INTAKE REMAINS 25% OF ONE MEAL-POOR PO OVERALL PT NOTED TO SPIT OUT FOOD DISTRIBUTOR ADVERTISING MATERIAL RECOMMEND REGULAR TEXTURE PT RECEIVING REGULAR DIET AND TUBE FEEDING REVIEWED LABS TOLERATING TF PER NSG RECEIVING TF JEVITY 1.2 AT MAX GOAL RATE 60ML/HR WITH 240ML FREE WATER FLUSHES Q 8 HRS PROVIDES 1728KCALS (30KCALS/KG), 80G PROTEIN (1.4G/KG), 1882ML TOTAL FREE WATER FROM FORMULA AND FLUSHES (33ML/KG) RECOMMEND INCREASING WATER FLUSHES TO 240ML Q 6 HRS TO PROVIDE 2122ML TOTAL WATER FROM FORMULA AND FLUSH (37ML/KG BASED ON IBW) MONITOR TOLERANCE AND LYTES TF WILL PROMOTE WOUND HEALING PT POSSIBLY TRANSITIONING TO HOSPICE FOLLOWING WITH TEAM
--- NOTE | 2025-10-11 09:46 | P.PNIM_ITS ---
Subjective Subjective Date of Service: 10/11/25 Interval History: Patient looks much more frail and more confused, minimal taling and interaction Physical Exam 2 Vital Signs: Vital Signs: Last Vital Signs Temp 97.0 F 10/11/25 07:17 Pulse 103 H 10/11/25 07:17 Resp 22 H 10/11/25 07:17 BP 120/56 L 10/11/25 07:17 Pulse Ox 93 10/11/25 07:17 O2 Del Method Room Air 10/11/25 07:17 O2 Flow Rate 1 10/04/25 09:00 FiO2 50 10/04/25 03:00 BMI result Body Mass Index 30.1 Const: Other: General: very confused, not saying much, somnolent Resp: CTA bilateral CVS: S1,S2, iregullar iregular GI: +BS, NT, no distention Skin: No rash Neuro: motor grossly intact Psych: appropriate affect Objective Data Active Medications Acetaminophen (Acetaminophen 325 Mg Tablet) 650 mg PO Q6H PRN PRN Reason: Pain, Mild 1-3,fever,headache Last Admin: 10/09/25 20:11 Dose: 650 mg Documented By: RUDDY Apixaban (Apixaban 5 Mg Tablet) 5 mg PO BID [facility] Last Admin: 10/10/25 20:52 Dose: 5 mg Documented By: SULMA Ascorbic Acid (Ascorbic Acid 500 Mg Tablet) 500 mg PO DAILY [facility] Last Admin: 10/10/25 10:43 Dose: 500 mg Documented By: MACY Bisacodyl (Bisacodyl 10 Mg Supp.Rect) 10 mg [place] DAILY PRN PRN Reason: Constipation Calcium Carbonate (Calcium Carbonate 750 Mg Tab.Chew) 750 mg PO Q4H PRN PRN Reason: Heartburn Dextrose (Dextrose 50 % 25 Gm/50 Ml Syringe) 25 gm IVPUSH Q15M PRN; Protocol PRN Reason: per Hypoglycemia Standing Ord. Last Admin: 10/04/25 20:28 Dose: 25 gm Documented By: RICA Dextrose (Dextrose 50 % 25 Gm/50 Ml Syringe) 25 gm IVPUSH Q15M PRN; Protocol PRN Reason: per Hypoglycemia Standing Ord. Glucose (Glucose Gel 15 Gm Gel..Gram.) 15 gm PO Q15M PRN; Protocol PRN Reason: per Hypoglycemia Standing Ord. Hydromorphone HCl (Hydromorphone Hcl 1 Mg/Ml Syringe) 0.25 mg IVPUSH Q4H PRN; Protocol PRN Reason: Pain, Severe (Pain Scale 7-10) Last Admin: 10/11/25 05:51 Dose: 0.25 mg Documented By: SLUMA Cefazolin Sodium/Dextrose (Ancef) 2 gm in 50 mls @ 100 mls/hr IV Q8H [facility] Last Infusion: 10/11/25 05:18 Dose: Infused Documented By: SULMA Insulin Human Lispro (Insulin Lispro 100 Unit/Ml 3 Ml Vial) 0 unit SUBCUT QIDACHS [facility]; Protocol Last Admin: 10/11/25 07:17 Dose: Not Given Documented By: RIO Non-Admin Reason: No Insulin Coverage Magnesium Hydroxide (Milk Of Magnesia 30 Ml Oral.Susp) 30 ml PO DAILY PRN PRN Reason: Constipation Melatonin (Melatonin 3 Mg Tablet) 6 mg PO BEDTIME PRN PRN Reason: Insomnia Last Admin: 10/09/25 20:11 Dose: 6 mg Documented By: RUDDY Metoprolol Tartrate (Metoprolol Tartrate 50 Mg Tablet) 50 mg PO BID [facility]; Protocol Last Admin: 10/10/25 20:50 Dose: 50 mg Documented By: SULMA Metoprolol Tartrate (Metoprolol Tartrate 5 Mg/5 Ml Vial) 2.5 mg IVPUSH Q6H PRN; Protocol PRN Reason: HR >110 Last Admin: 10/09/25 19:52 Dose: 2.5 mg Documented By: RUDDY Mirtazapine (Mirtazapine 7.5 Mg Tablet) 7.5 mg PO BEDTIME [facility] Last Admin: 10/10/25 20:52 Dose: 7.5 mg Documented By: SULMA Multivitamins/Vitamin C (Multivitamin Tablet) 1 tab PO DAILY [facility] Last Admin: 10/10/25 10:43 Dose: 1 tab Documented By: MACY Senna (Sennosides 8.6 Mg Tablet) 17.2 mg PO BEDTIME [facility] Last Admin: 10/10/25 21:26 Dose: Not Given Documented By: SULMA Non-Admin Reason: loose stool Simethicone (Simethicone 80 Mg Tab.Chew) 120 mg PO Q8H PRN PRN Reason: Gastrointestinal Spasms Or Cramping Last Admin: 10/09/25 20:11 Dose: 120 mg Documented By: RUDDY Sodium Chloride (0.9 % Sodium Chloride Flush 3 Ml Syringe) 3 ml IVFLUSH QSHIFT [facility] Last Admin: 10/10/25 21:26 Dose: 3 ml Documented By: SULMA Zinc Sulfate (Zinc Sulfate 220 Mg Capsule) 220 mg PO BID [facility] Last Admin: 10/10/25 20:52 Dose: 220 mg Documented By: SULMA Labs 10/06/25 08:39 10/10/25 06:29 Labs: Laboratory Results - last 24 hr 10/10/25 10/10/25 10/10/25 11:15 16:14 21:21 POC Glucose 104 85 100 10/11/25 10/11/25 10/11/25 01:23 04:13 07:05 POC Glucose 112 111 104 Assessment and Plan (1) Acute CHF: Status: Acute (2) Gallstones: Status: Acute (3) Acidosis, lactic: Status: Acute (4) Septic shock: Status: Acute Plan 84F PMH pafib, alzheimers dementia, history of PE, present with AF w/ RVR, and found to have septic navid with marked lactic acidosis, some confusion and in AFIB with RVR and was briefly admitted to the ICU Overll seems to be continuing to decline, she is more confused, less responsive, less communicative and overall does't look good Severe Sepsis d/t acute on chronic cholecystitis, previously deemed non- operative candidate septic shock treated with IVF and albumin, did not need pressores given Ceftriaxone in ED, continued on Zosyn since 10/03 Clinically responding to therapy Blood cultures from 03/10/25 1/2 staph species, 1 coag neg staph, 1 MSSA --should be covered by Zosyn but change to Kefzol for less frequent dosing, echo no vegetation Surgery following, no intervention at this time, MRCP defered at this time, unlikely to tolerated procedure, discussed with sons (they understand) Hold further IVF and monitor clinically AF with RVR, given Lopressor IV intermitte continue PO metoprolol and IV PRN, if resistant consider digoxin continue eliquis Acute on chronic diastolic heart failure/fluid overload Echo done result pending Continue IV Lasix and closely monitor Remains positive fluid Toxic metabolic encephalopathy d/t Spsis, waxes and wane, has underlying cognitive impairment Treat underlying infection. Sitter to prevent removing lines Malnutrition continue Tube feed through PEG and oral feed as tolerated and oral feed as recommended by STITCH BONDING MACHINE TENDER HELPER Hypoglycemia resolved. Acute lactic acidosis d/t sepsis and Hypotension, has trended down treatd with IVF History of PE Hailey DNR/DNI Goals of discussion with 2 sons yesterday and they have agree to transition to hospice care dvt prophylaxis - hailey Family has agreed to hospice care and will discuss comfort care as well Quality Stroke Does the patient have a stroke diagnosis?: No VTE Prior VTE?: No VTE Risk Level:: Medical - moderate - high VTE Device Contraindication: Treatment Not Indicated VTE Drug Contraindication: N/A - Med Ordered
[2025-10-11] MEDS: 0.9 % Sodium Chloride Flush 3 ML SYRINGE IVFLUSH (10:42)
--- NOTE | 2025-10-11 11:30 | HO.WOUND ---
Wound Consult: Follow up 84 yr old female admitted to [facility] on 10/03/25- See progress notes and H&P for detailed history. Wound follow up for coccyx, PEG site. Patient agreeable to assessment and photo documentation. patient with recent admission and pressure injuries to coccyx and buttocks. 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 open Juliano wound: ? No Induration, Fluctuance or Warmth noted Pain: none Goals of Treatment: ? triad paste to provide an occlusive dressing for autolytic debridment, to allow moist wound healing with absorption of mild exudate, to minimize contamination of urine/stool or bacteria, and to soothe and protect juliano wound skin - cover with foam for offloading PEG site Etiology: MASD Wound Bed: wounding around tube with moist yellow/pink wound bed- surrounding skin intact and pink Drainage / Odor: small/moderate creamy serosanguineous Edges: ? open Juliano wound: ? No Induration, Fluctuance or Warmth noted Pain: none Goals of Treatment: ? durafiber ag for drainage absorption - antimicrobial effects bilateral heels are intact, pink and blanching- recommend offloading for prevention Recommendations: 1. Turn and Reposition every 2 hours and as needed for patient comfort. Use pillows or wedges to support off loading positions. 2. Off Load all bony prominences with use of pillows and heel boots if needed. Apply Preventative foams where needed. 3. Monitor for incontinence and moisture control, use barrier creams when needed for prevention and treatment. 4. Provide adequate and supplemental nutrition. 5. Order or Continue low air loss mattress. 6. When applicable maintain blood glucose levels per Providers order. PEG site: cleanse with saline, apply durafiber cut to fit around tube- cover with drain sponge, change daily and PRN Heels: offload pressure with pillows or boots Coccyx/buttocks: Off Load Pressure with Q2 hr turns and use of pillows - Cleanse with PH balance spray or wipes, pat dry. ?Apply thin layer of Triad to wound bed. Do not remove all of paste between applications as this may cause further skin damage.? Cover with foam dressing to aid in off loading and protection from friction. Change every 3 days and PRN. Re-consult wound care Nurse for wound deterioration or wound changes.
[2025-10-11 11:35] LABS: Glucose, Whole Blood 97 mg/dL (60-115)
[2025-10-11 11:36] VITALS: BP 119/55; PULSE 109; RESP 24; TEMP 36.6; O2SAT 94
--- NOTE | 2025-10-11 13:12 | MHC.CM.PN ---
HOSPITALIST APPROACHED CM REGARDING CHANGING PT TO MEDICAL STAFF MANAGER, HOSPITALIST AGREEABLE TO A GIP EVAL AND REPORTS PT IS IN A LOT OF PAIN, HOSPICE [facility]IFECARE UPDATED.
--- NOTE | 2025-10-11 13:26 | PM.EVENT ---
Event Note Date of Service: 10/11/25 Event Note: After further discussions with the patient?s sons and in light of the patient?s continued decline, the decision has been made to transition to comfort measures only. This includes discontinuation of tube feeding and all non-essential medications for comfort. No further testing or lab draws Time Spent With Patient Time: Total time managing care of this patient today ____ minutes.
--- NOTE | 2025-10-11 13:29 | HO.WOUND ---
Wound Consult: Follow up 84 yr old female admitted to [facility] [place] on 10/03/25- See progress notes and H&P for detailed history. Wound follow up for coccyx, PEG site. Patient agreeable to assessment and photo documentation. patient with recent admission and pressure injuries to coccyx and buttocks. 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 At time of assessment patient with groaning, unable to verbalize pain location, direct care RN at bedside. Coccyx buttocks 10/04/25 Coccyx/buttocks Etiology: Coccyx unstageable pressure injury Present on Admission - left buttock healed stage 2 pressure injury POA, Right buttock healing stage 3 pressure injury POA Measurements: 0.7cm x 0.5cm x 0.2cm Wound Bed: coccyx- small but full thickness wounding moist red/pink with scant yellow, left buttock intact pink blanching, right buttock superficial dry red bed surrounding blanching pink Drainage / Odor: none Edges: ? open Juliano wound: ? No Induration, Fluctuance or Warmth noted Pain: none Goals of Treatment: ? triad paste to provide an occlusive dressing for autolytic debridment, to allow moist wound healing with absorption of mild exudate, to minimize contamination of urine/stool or bacteria, and to soothe and protect juliano wound skin - cover with foam for offloading PEG site 10/04/25 PEG 10/11/25 Etiology: MASD Wound Bed: increased area of moist red skin, superifical skin loss Drainage / Odor: small/moderate creamy serosanguineous Edges: ? open Juliano wound: ? No Induration, Fluctuance or Warmth noted Pain: none Goals of Treatment: ?switch to triad paste and drain sponge for moisture barrier, absorption of mild exudate bilateral heels are intact, pink and blanching- recommend offloading for prevention Recommendations: 1. Turn and Reposition every 2 hours and as needed for patient comfort. Use pillows or wedges to support off loading positions. 2. Off Load all bony prominences with use of pillows and heel boots if needed. Apply Preventative foams where needed. 3. Monitor for incontinence and moisture control, use barrier creams when needed for prevention and treatment. 4. Provide adequate and supplemental nutrition. 5. Order or Continue low air loss mattress. 6. When applicable maintain blood glucose levels per Providers order. PEG site: cleanse with saline, thin layer of triad paste- cover with drain sponge, change daily and PRN Heels: offload pressure with pillows or boots Coccyx/buttocks: Off Load Pressure with Q2 hr turns and use of pillows - Cleanse with PH balance spray or wipes, pat dry. ?Apply thin layer of Triad to wound bed. Do not remove all of paste between applications as this may cause further skin damage.? Cover with foam dressing to aid in off loading and protection from friction. Change every 3 days and PRN. Re-consult wound care Nurse for wound deterioration or wound changes.
--- NOTE | 2025-10-11 15:09 | MHC.CM.PN ---
PT DISCHARGING TO [facility] [phone]
[2025-10-11 15:24] VITALS: RESP 15
--- NOTE | 2025-10-11 17:05 | PM.DS ---
DS: Providers Provider Date of Service: 10/11/25 Date of admission: 10/03/25 15:54 Date of discharge: 10/11/25 Primary care physician: Anoop Panchal MD DS: Diagnosis Discharge Diagnosis (1) Acute CHF: Status: Acute (2) Gallstones: Status: Acute (3) Acidosis, lactic: Status: Acute (4) Septic shock: Status: Acute DS: Summary Hospital Course Hospital Course: Admission hpi Chief Complaint: Hypotension 84-year-old female with past medical history of PE on Eliquis, dementia, hypertension, recent admission ( September 08 September 22) for altered mental status was found to have SIRS with gallbladder as possible sourc e was treated with IV Abx. Her nutritional was poor at that time also and had Gtube for supllmentatal nutriotion and DC to SNF. According to son, she had routine lab work today and notd to have elevated WBC, no other detail available and was brought to the ED wher4e she's found to have WBC of 18, LA of 7, CRP 7.31, Troponin 68.1 , Tprotein 5.6, Albumin 2.5, AST 104 and ALT 75, ALK P 309. Given IV fluid per sepsis protocol, IV Ceftriaxone. She was also noted to be in AFIB with RVR and give IV Lopressor wth imprved HR. US of abdomen, hepato cellular disease, ? cholecystitis d/t gallstone. Hospital course: 84F PMH pafib, alzheimers dementia, history of PE, present with AF w/ RVR, and found to have septic navid with marked lactic acidosis, some confusion and in AFIB with RVR and was briefly admitted to the ICU Overll seems to be continuing to decline, she is more confused, less responsive, less communicative and overall does't look good Severe Sepsis with septic shock d/t acute on chronic cholecystitis, previously deemed non-operative candidate septic shock treated with IVF and albumin, did not need pressors, was on broad spec Abx to cover MSSA bacteremia' AF with RVR, treated with Lopressor IV intermitte continue PO metoprolol and IV PRN, if resistant consider digoxin continue eliquis Acute on chronic diastolic heart failure/fluid overload Echo done result pending Continue IV Lasix and closely monitor Remains positive fluid Toxic metabolic encephalopathy d/t Spsis, waxes and wane, has underlying cognitive impairment Treat underlying infection. Sitter to prevent removing lines Moderate protein calory Malnutrition was on continue Tube feed through PEG and oral feed as tolerated and oral feed as recommended by SECOND FLOOR OPERATOR Hypoglycemia resolved. Acute lactic acidosis d/t sepsis and Hypotension, has trended down treatd with IVF History of PE Was on Eliquis Time Attestation Discharge Coordination Time (in mins): 45 Quality: Safe Use of Opioids Does Pt have an Active Cancer Diagnosis on the Problem List?: No Quality: Stroke Does the patient have a stroke diagnosis?: No Physical Exam Vital Signs: Vital Signs: Last Vital Signs Temp 97.8 F 10/11/25 11:36 Pulse 109 H 10/11/25 11:36 Resp 15 10/11/25 15:24 BP 119/55 L 10/11/25 11:36 Pulse Ox 94 10/11/25 11:36 O2 Del Method Room Air 10/11/25 11:36 O2 Flow Rate 1 10/04/25 09:00 FiO2 50 10/04/25 03:00 BMI result Body Mass Index 30.1 DS: Data Data Completed and Pending Labs on day of discharge: Laboratory Results - last 24 hr 10/10/25 10/11/25 10/11/25 21:21 01:23 04:13 POC Glucose 100 112 111 10/11/25 10/11/25 07:05 11:32 POC Glucose 104 97 Discharge Plan Discharge Anticipated Discharge Date/Time: 10/11/25 16:10 Patient Disposition: Hospice - Medical Facility Discharge Diagnosis: failure to thrive, bacteremia, metabolic encephalopathy Referrals: Anoop Panchal MD [Primary Care Provider, Internal Medicine] - 1 Week Discharge Medications: No Action metoprolol succinate 25 mg tablet extended release 24 hr 25 mg PO DAILY Discharge Orders: Discharge Order (Routine); Ordered 10/11/25 Ordered By: Papito Sanchez Diet: Advance to usual diet Activity on Discharge: As tolerated Stand Alone Forms: Patient Portal Discharge page Print Language: Gabonese Care Plan Goals: hospice gip Health Concerns: see yosef sotelo Plan of Treatment: comfort measures only Assessment: see above Discharge Date/Time: 10/11/25 16:14
[2025-10-17 12:19] LABS: Pioglitazone None Detected; Rosiglitazone None Detected
== END 2025-10-11 16:14 | disposition hospice, inpatient (51) | DRG 871 ==
LOC: HO.ED 14:26 → HO.EDOVER 16:23 → HO.ICU 18:02 → HO.IMC 10-04 14:00
PROVIDERS: Hospitalist; Internal Medicine Pulmonary Disease; Registered Nurse Community Health; Admitting Provider Internal Medicine; Emergency Provider Emergency Medicine; PCP Internal Medicine; Visit Provider Internal Medicine
DX: A41.9 Sepsis, unspecified organism (principal); G92.8 Other toxic encephalopathy; I50.33 Acute on chronic diastolic (congestive) heart failure; L89.313 Pressure ulcer of right buttock, stage 3; R65.21 Severe sepsis with septic shock; E44.0 Moderate protein-calorie malnutrition; K94.23 Gastrostomy malfunction; K80.12 Calculus of gallbladder with acute and chronic cholecystitis without obstruction; Z51.5 Encounter for palliative care; Z66 Do not resuscitate; I11.0 Hypertensive heart disease with heart failure; L89.150 Pressure ulcer of sacral region, unstageable; G30.9 Alzheimer's disease, unspecified; F02.80 Dementia in other diseases classified elsewhere, unspecified severity, without behavioral disturbance, psychotic disturbance, mood disturbance, and anxiety; D64.9 Anemia, unspecified; Z68.25 Body mass index [BMI] 25.0-25.9, adult; I48.0 Paroxysmal atrial fibrillation; Z20.822 Contact with and (suspected) exposure to COVID-19; Z87.891 Personal history of nicotine dependence; Z86.711 Personal history of pulmonary embolism; Z79.01 Long term (current) use of anticoagulants; Z79.899 Other long term (current) drug therapy
CPT/HCPCS: 36415; 71045; 74018; 76705; 80048; 80053; 80076; 80337; 81003; 82803; 82947; 83605; 83690; 83735; 83880; 84100; 84145; 84484; 85007; 85025; 85027; 85610; 86140; 87040; 87077; 87147; 87186; 87205; 87635; 92526; 92610; 93005; 93306; 99212; 99285; J0131; J0616; J0690; J0696; J1171; J1938; J2543; J7120; P9047; Q9957

== ENCOUNTER → 2025-10-03 12:39 | Outpatient (BNV) | payer MEDICARE, SELFPAY | PROVIDERS: Emergency Provider Emergency Medicine; PCP Internal Medicine; Visit Provider Radiology Diagnostic Radiology | DX: D72.829 Elevated white blood cell count, unspecified (principal); K80.20 Calculus of gallbladder without cholecystitis without obstruction | CPT/HCPCS: 71045; 76705 ==

== ENCOUNTER → 2025-10-03 12:39 | Outpatient (BNV) | payer MEDICARE, SELFPAY | PROVIDERS: Admitting Provider Internal Medicine; Emergency Provider Emergency Medicine; PCP Internal Medicine; Visit Provider Internal Medicine Cardiovascular Disease | DX: I48.91 Unspecified atrial fibrillation (principal) | CPT/HCPCS: 93010 ==

== ENCOUNTER 2025-10-03 15:54 | Outpatient (BNV) | payer MEDICARE, SELFPAY | END 2025-10-05 16:05 | PROVIDERS: Admitting Provider Internal Medicine; Emergency Provider Emergency Medicine; PCP Internal Medicine; Visit Provider Radiology Diagnostic Radiology | DX: Z93.1 Gastrostomy status (principal) | CPT/HCPCS: 74018 ==

== ENCOUNTER 2025-10-03 15:54 | Outpatient (BNV) | payer MEDICARE, SELFPAY | END 2025-10-05 07:00 | PROVIDERS: Admitting Provider Internal Medicine; Emergency Provider Emergency Medicine; PCP Internal Medicine; Visit Provider Internal Medicine Cardiovascular Disease | DX: I42.2 Other hypertrophic cardiomyopathy (principal); I51.89 Other ill-defined heart diseases | CPT/HCPCS: 93306 ==

== ENCOUNTER → 2025-10-03 15:54 | Outpatient (BNV) | payer MEDICARE, SELFPAY | PROVIDERS: Admitting Provider Internal Medicine; Emergency Provider Emergency Medicine; PCP Internal Medicine; Visit Provider Surgery | DX: K80.12 Calculus of gallbladder with acute and chronic cholecystitis without obstruction (principal) | CPT/HCPCS: 99222; 99232; 99499 ==

== ENCOUNTER → 2025-10-03 15:54 | Outpatient (BNV) | payer MEDICARE, SELFPAY | PROVIDERS: Admitting Provider Internal Medicine; Emergency Provider Emergency Medicine; PCP Internal Medicine; Visit Provider Internal Medicine Pulmonary Disease | DX: A41.9 Sepsis, unspecified organism (principal); R62.7 Adult failure to thrive; E87.20 Acidosis, unspecified; K80.12 Calculus of gallbladder with acute and chronic cholecystitis without obstruction | CPT/HCPCS: 99232 ==

== ENCOUNTER → 2025-10-03 15:54 | Outpatient (BNV) | payer MEDICARE, SELFPAY | PROVIDERS: Admitting Provider Internal Medicine; Emergency Provider Emergency Medicine; PCP Internal Medicine; Visit Provider Internal Medicine Cardiovascular Disease | DX: I50.9 Heart failure, unspecified (principal); I48.91 Unspecified atrial fibrillation | CPT/HCPCS: 99232; 99233 ==

== ENCOUNTER → 2025-10-03 15:54 | Outpatient (BNV) | payer MEDICARE, SELFPAY | PROVIDERS: Admitting Provider Internal Medicine; Emergency Provider Emergency Medicine; PCP Internal Medicine; Visit Provider Internal Medicine | DX: K80.20 Calculus of gallbladder without cholecystitis without obstruction (principal) | CPT/HCPCS: 99223; 99232; 99233; 99497 ==

== ENCOUNTER 2025-10-11 16:13 | Inpatient (IN) | payer OTHER, SELFPAY ==
--- OUTSIDE RECORDS SUMMARY | 2025-09-20 09:40 | XMS_ITS ---
Author Organization [facility] Address [address] [facility] [address] [place] [id number] Care Team Providers Care Marine Meteorologist Name Role Phone Anoop Panchal Primary Care Provider Luis Fernando Jin Unavailable [phone] Jun Wilburn Jr Unavailable REASON FOR VISIT dysphagia Encounters Encounter Location Date Provider Diagnosis [facility] Outpatient [address] [place] [id number] 09/20/2025 Jun Wilburn Jr Plan Of Treatment No Information Progress Notes * DEBORAH CABRALESDOB: (84 yo F)Acc No.[id number]:09/20/2025 EGD/MAC Patient: DEBORAH DONALD Provider: Jem Wilburn MD :[id number] A ge:84 Y S ex:Female Date:09/20/2025 Address:[address] [place], [place] [id number] Pcp:Anoop Panchal Subjective: * Chief Complaints: * 1 . Dysphagia. * Medical History: Objective: * Vitals: Assessment: Plan: * Treatment: * * The named appointment provid er may or may not be the originator of this progress note, and it is not deemed complete until electronically signed by the appointment provider. Sign off status: Pending * Provider: Jem Wilburn MD Date: Generated for Magali flores/Zac/Philippeitting on: 12/11/2024 07:00 PM EST
--- NOTE | 2025-10-11 16:14 | PM.IMHP ---
History of Present Illness Date of Service: 10/11/25 Chief Complaint: Comfort measure only 84F PMH pafib, alzheimers dementia, history of PE, present with AF w/ RVR, and found to have septic navid with marked lactic acidosis, some confusion and in AFIB with RVR and was briefly admitted to the ICU Overll seems to be continuing to decline, she is more confused, less responsive, less communicative and overall does't look good . She has been bacteremic with staph aureus and has had metablic encephalpathy. Despite standard treatment, she has continued to declined becoming less responsive, more confused and family opted to make her comfort care only on this day and now being transitioned to hospice GIP Review of Systems Review of Systems: Yes Unobtainable due to mental status PMFSH Medical History Gallstones Failure to thrive in adult Lactate blood increase Social History Household Members: Other Housing: Alf Housing Other:: Miky Sahu Do you presently have visiting nurse or other home services: Yes Patient Tobacco Use Status: Former Tobacco user Advance Directives: Yes Advance Directives on File: Yes Advance Directives Date on File: 09/09/25 service: No Meds Allergies Allergy/AdvReac Type Severity Reaction Status Date / Time No Known Allergies Allergy Verified 10/03/25 13:04 Physical Exam Const: Other: Confused, less responsive. CV iregular iregular lungs coarse sounds, no accesory muscle use ext no edema neuro nf Assessment and Plan (1) Acute hypotension: Status: Acute (2) Septic shock: Status: Acute (3) Atrial fibrillation with rapid ventricular response: Status: Acute (4) Metabolic encephalopathy: Status: Acute Plan 84F PMH pafib, alzheimers dementia, history of PE, present with AF w/ RVR, and found to have septic navid with marked lactic acidosis, some confusion and in AFIB with RVR and was briefly admitted to the ICU Overll seems to be continuing to decline, she is more confused, less responsive, less communicative and overall does't look good . She has been bacteremic with staph aureus and has had metablic encephalpathy. Despite standard treatment, she has continued to declined becoming less responsive, more confused and family opted to make her comfort care only on this day and now being transitioned to hospice GIP plan: Hospice GIP and comfort care for. Dilaudid IV PRP for pain and respiratory distress, Valium for anxiety, scopolamine patch for secretion. Quality Stroke Does the patient have a stroke diagnosis?: No VTE Prior VTE?: No VTE Risk Level:: Medical - moderate - high VTE Device Contraindication: Treatment Not Indicated VTE Drug Contraindication: Treatment Not Indicated
--- NOTE | 2025-10-11 17:17 | PHA.MEDREC ---
Addendum entered by Kishor Baron RPh 10/11/25 17:19: med rec reviewed Original Note: Pharmacy Consult ? Medication Reconciliation Pharmacy has completed the medication reconciliation. 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
--- OUTSIDE RECORDS SUMMARY | 2025-10-11 19:00 | XMS_ITS | Encounter Summary ---
Author Organization [facility] Address [address] [place] [address] Phone Care Team Providers Care Wash[place] Hand Name Role Phone Dara Sellers Primary Care Provider [phone] Encounter Details Date Type Department Care Team (Late st Contact Info) Description 08/16/2025 Procedure Pass [facility], Ct Scan - [facility] [address] [place] [address] Social History Tobacco Use Types Packs/Day Years [...] 5:00 PM EDT Reyna Arce RN * [place] Suicide Severity Rating Scale (Screener/Recent Self-Report) Question [...] on filedocumented in this encounter Care Teams Washhouse Hand Relationship Specialty Start Date End Date Dara Sellers PA [address] [place] [id number] PCP - General Physician Trim Operator 05/15/25 documented as of this encounter Additional Source Comments The information contained in this document represents components of the legal health record. It is not the complete legal health record.[facility]
--- OUTSIDE RECORDS SUMMARY | 2025-10-11 19:01 | XMS_ITS | Data Portability ---
Author Organization [facility], Telehealth Patient Home Address [address] [place] [address] Assessment Encounter Date Assessment Date Assessment LastModified by Organization Details LastModified Time 12/26/2022 12/26/2022 Patient agreed and verbally consents to this audio and video Telehealth appt via a secure platform [email or web address] Not available 12/26/2022 11:03:47 Plan of Treatment Reminders Order Date Submit Date Provider Last Modified By Organization Details Last Modified Time Details Appointments None recorded. Lab CMP, serum or plasma 2024 025 [facility], [place], [address], 5 01:08:20 lipid panel, serum 2024 025 [facility], [place], [address], 5 01:02:24 CBC w/ auto diff 2024 025 [facility], [place], [address], 5 23:25:13 hemoglobin A1c, QN, blood 2024 025 [facility], [place], [address], 5 04:43:11 CMP, serum or plasma 2021 022 [facility], [address] [place] [address], [address], 11:50:27 CBC w/ auto diff 2021 [facility], [address] [place] [address], [address], 11:50:27 lipid panel, serum 2021 [facility], [address] [place] [address], [address], 11:50:27 hemoglobin A1c, QN, blood 2021 [facility], [address] [place] [address], [address], 11:50:27 Referral None recorded. Procedures None recorded. Surgeries None recorded. Imaging holter monitor 2021 [facility], [address] [place] [address], [address], 3 12:59:06 US, bladder - [phone] (son's number) please call pt has a hx of a bladder sling, now experienci ng new onset urinary changes 2021 [facility], [address] [place] [address], [address], 3 10:47:38 Medication Orders metoprolol succinate ER 25 mg tablet,ext ended release 24 hr 2024 025 [id number], [address] [place], [place], [id number], 5 10:32:42 metoprolol succinate ER 25 mg tablet,ext ended release 24 hr 2022 023 [facility][id number], [address] [place] [address], [id number], 3 11:00:53 metoprolol succinate ER 25 mg tablet,ext ended release 24 hr 2021 022 [id number], [address] [place], [place], [id number], 11:52:05 Patient TargetsNo targets recorded. Patient InstructionsNo instructions recorded. Reason for Referral None Reported. Results Created Date Observation Date Name Description Value Unit Range Abnormal Flag Note LastModifiedBy Organization Detail LastModifiedTime 12/22/1912/22/2022 US, bladd er No observ ation record ed. [facility] (Medical Records) [address] [place], [address], 12/23/2022 18:28:49 12/24/1912/17/2022 liz r monit or No observ ation record ed. [facility] (Medical Records) [address] [place], [address], 12/24/2022 13:50:29 09/08/2009/08/2025 XR, chest , 2 view No observ ation record ed. [facility] (Medical Records) [address] [place], [address], 09/12/2025 08:35:56 09/08/2009/08/2025 CT, abdom en, w/o contr ast No observ ation record ed. [facility] (Medical Records) [address] [place], [address], 09/12/2025 08:35:14 09/08/2009/08/2025 CT, chest , w/o contr ast No observ ation record ed. [facility] (Medical Records) [address] [place], [address], 09/08/2025 16:28:47 09/08/20 25 09/08/2025 US, abdom en No observ ation record ed. [facility] (Medical Records) [address] [place] [address], 09/12/2025 08:34:10 09/08/20 25 09/08/2025 CT, abdom en + pelvi s, w/o contr ast No observ ation record ed. [facility] (Medical Records) [address] [place], [address], 09/12/2025 08:33:45 09/08/2009/08/2025 CT, chest , w/ contr ast No observ ation record ed. [facility] (Medical Records) [address] [place], [address], 09/09/2025 09:22:39 09/08/2009/08/2025 CT, chest , w/ contr ast No observ ation record ed. [facility] (Medical Records) [address] [place], [address], 09/09/2025 09:23:19 10/03/2010/03/2025 XR, chest , 2 view No observ ation record ed. [facility] (Medical Records) [address] [place], [address], 10/03/2025 15:17:02 10/03/2010/03/2025 US, abdom en No observ ation record ed. [facility] (Medical Records) [address] [place], [address], 10/03/2025 15:16:51 10/05/20 25 10/05/2025 XR, kidne y + urete r + bladd er No observ ation record ed. [facility] (Medical Records) [address] [place], [address], 10/06/2025 08:23:56 Result Notes None recorded. Problems Name Problem SNOMED Code Status Onset Date Resolution Date Notes Provider Name and Address Organization Details Recorded Time Hypertensi ve disorder 18358399 Active 2021 Jackie comer [facility] 2 10:49:04 Esophageal reflux finding 834108356 Active 2021 Jackie comer [facility] 2 10:49:18 Dysfunctio n of urinary bladder 08847475 Active 2021 ISAMAR LUCIO [address] [place] [address], [address], [facility] 2 11:41:12 Hemorrhoid s 61826841 Active 2021 ISAMAR LUCIO [address] [place] [address], [address], [facility] 2 11:42:42 Essential hypertensi on 95363382 Active 2021 ISAMAR LUCIO [address] [place] [address], [address], [facility] 2 11:44:12 Atrial fibrillati on 37121995 Active 2021 ISAMAR LUCIO [address] [place] [address], [address], [facility] 2 11:50:57 Weakness of bilateral lower limb Active 2024 ISAMAR LUCIO [address] [place] [address], [address], [facility] 5 11:17:42 Primary gonarthros is, bilateral 657576384 Active 2024 ISAMAR LUCIO [address] [place] [address], [address], [facility] 5 11:41:43 Problem Notes None recorded. Procedures Surgical History Date Name Laterality Status Provider Name and Address Organization Details Recorded Time repair of stress incontinence by suprapubic sling completed ISAMAR LUCIO [address] [place], [address], [facility] 11/27/2022 11:36:21 Imaging Results None recorded. Procedure Notes None recorded. Medical Equipment None Reported. Allergies No known drug allergies Medications Name Sig Start Date Stop Date Status Note LastModified by Organization Details LastModified Time ibuprofen 200 mg tablet Take 1 tablet every 6 hours by oral route. active Not Available Not Available No t Available omeprazole 20 mg capsule,del ayed release Take 1 capsule every day by oral route. active Not Available Not Available No t Available metoprolol succinate ER 25 mg tablet,exte nded release 24 hr TAKE 1 TABLET BY MOUTH EVERY DAY active Not Available Not Available No t Available Tylenol Extra Strength 500 mg tablet Take 2 tablets every 6 hours by oral route. active Not Available Not Available No t Available Vitamin C active Not Available Not Lisa ilable Not Available Vitamin D3 2000 units qd active Not Available Not Available No t Available multivitami n active Not Available Not Available Not Available [place] 3 Fish Oil active Not Available Not Available Not Available Vitamin B12 1000 qd active Not Available Not Available Not Available Azo Cranberry active Not Available Not Available No t Available BinaxNOW COVID-19 Ag Self Test kit TEST DIRECTED TODAY 11/27 completed Not Available Not Available Not Available Vitals Date Recorded Body height Body mass index (BMI) Body weight Heart rate Oxygen saturation Oxygen saturation in Arterial blood by Pulse oximetry Systolic And Diastolic Provider Name and Address Organization Details Last Updated DateTime 5 147.32 cm 42.2 kg/m2 89096.6 6 g 81 /min 96 % 96 % 130/70 mm[Hg] Moni Fuller [facility] 5 10:18:22 Date Recorded Body height Body mass index (BMI) Body weight Heart rate Oxygen saturation Oxygen saturation in Arterial blood by Pulse oximetry Systolic And Diastolic Provider Name and Address Organization Details Last Updated DateTime 2 147.32 cm 42.3 kg/m2 27209.7 4 g 97 /min 97 % 97 % 172/94 mm[Hg] Jackie Miller [facility] 2 11:09:56 Social History Question Answer Notes LastModified by Organizat ion Details LastModified Time Tobacco Smoking Status Former Smoker 5 to 10 years (off and on) ISAMAR LUCIO [address] [place], [address], [facility] 11/27/2022 11:35:33 Do You Have An Advance Directive? Yes Information not available 11/27/2022 Are You Blind Or Do You Have Difficulty Seeing? No Information not available 11/27/2022 What Is Your Level Of Caffeine Consumption? None Information not available 11/27/2022 In The 14 Days Before Symptom Onset, Have You Had Close Contact With A Laboratory-confir med COVID-19 While That Case Was Ill? No Information not available 12/26/2022 In The 14 Days Before Symptom Onset, Have You Had Close Contact With A Person Who Is Under Investigation For COVID-19 While That Person Was Ill? No Information not available 12/26/2022 Have You Been To An Area Known To Be High Risk For COVID-19? No Information not available 12/26/2022 Are You Deaf Or Do You Have Serious Difficulty Hearing? No Information not available 11/27/2022 What Type Of Diet Are You Following? REGULAR Information not available 11/27/2022 What Is The Highest Grade Or Level Of School You Have Completed Or The Highest Degree You Have Received? [id number] Information not available 11/27/2022 Are There Any Guns Present In Your Home? No Information not available 11/27/2022 What Was The Date Of Your Most Recent Tobacco Screening? 05/15/2025 [email or web address] Information not available 05/15/2025 How Many Children Do You Have? 3 Information not available 11/27/2022 Do You Use Your Seat Belt Or Car Seat Routinely? Yes Information not available 11/27/2022 Are You Sexually Active? No Information not available 11/27/2022 Do You Have Smoke And Carbon Monoxide Detectors In Your Home? Yes Information not available 11/27/2022 Are You Passively Exposed To Smoke? No Information no t available 11/27/2022 Do You Use Sunscreen Routinely? Yes Information not available 11/27/2022 How Many Years Have You Smoked Tobacco? 10 Information not available 11/27/2022 Do You Have Difficulty Walking Or Climbing Stairs? Yes Information not available 11/27/2022 Sex: Unknown Functional Status Question Answer Note LastModified by Organizat ion Details LastModified Time Do you use any illicit or recreational drugs? No Information not available 12/26/2022 Do you or have you ever used any other forms of tobacco or nicotine? No [email or web address] Information not available 05/15/2025 What is your level of alcohol consumption? None Information not available 11/27/2022 Are you currently employed? No retired Information not available 11/27/2022 Are you able to walk independently without assistance or assistive devices? YESASSIST cane and walker Information not available 11/27/2022 Do you have difficulty doing errands alone? No Information not available 11/27/2022 Are you able to care for yourself independently? Yes Information not available 11/27/2022 Do you have difficulty dressing, bathing, grooming, or toileting? No Information not available 11/27/2022 What is your exercise level? None Information not available 11/27/2022 Mental Status Question Answer Note LastModified by Organizat ion Details LastModified Time Do you feel stressed (tense, restless, nervous, or anxious, or unable to sleep at night)? [id number] Information not available 11/27/2022 Do you have difficulty concentrating, remembering or making decisions? No Information no t available 11/27/2022 Family History Relationship Description Onset Age of this Age Resolved Age Notes LastModified by Organization Details LastModified Time Mother Diabetes mellitus [email or web address] Not available 2021 11:06:47 Mother Malignant neoplasm of urinary bladder [email or web address] Not available 2022 09:09:02 Paternal Grandfather Carcinoma of prostate [email or web address] Not available 2022 09:09:02 Medical History No medical history recorded. Gynecological HistoryNo gynecological history recorded. Obstetrics History GPAL:G 0 P 0 0 0 0 Immunizations Vaccine Type Date Status Note Provider Nam e and Address Organization Details Recorded Time COVID-19, mRNA, LNP-S, bivalent, PF, 30 mcg/0.3 mL dose 01/10/2021 completed Jackie comer [facility] 11/27/2022 11:05:43 COVID-19, mRNA, LNP-S, bivalent, PF, 30 mcg/0.3 mL dose 02/01/2021 completed Jackie comer [facility] 11/27/2022 11:05:51 COVID-19, mRNA, LNP-S, bivalent, PF, 30 mcg/0.3 mL dose 10/08/2021 completed Jackie comer [facility] 11/27/2022 11:05:59 Past Encounters Encounter ID Performer Location Encounter Start Date Encounter Closed Date Diagnosis/Indication Diagnosis SNOMED-CT Code Diagnosis ICD10 Code Diagnosis IMO Codes Diagnosis Note [id number] Anoop Panchal [address],[place] [address] 11/27/2022 10:40:29 11/27/2022 12:05:38 Dysfunction of urinary bladder 41104910 R39.89 will check the integrity of the sling Hemorrhoids 60607849 K64 .1 uses OTC topical when needed Essential hypertension 93303198 I10 needs blood work re-checked Atrial fibrillation 4943 6004 I48.91 will set up with holter [id number] Anoop Panchal [facility] [address],[place] [address] 12/26/2022 09:08:37 12/29/2022 16:18:48 Essential hypertension 29010387 I10 BW is excellent Atrial fibrillation 4943 6004 I48.0 confirmed afibcontin ue on metoprolol no blood thinner given hx of bleedswill just monitor [id number] Anoop Panchal [facility] [address] [facility],[place] [address] 05/15/2025 09:25:59 05/15/2025 10:43:15 Depression screening 776243326 Z13.31 negative Essential hypertension 02914015 I10 BW is excellent Atrial fibrillation 4943 6004 I48.0 continue on the metoprolol [id number] Anoop Panchal DO [facility] [address] [facility],[place] [address] 08/01/2025 08:50:55 08/01/2025 12:04:18 Weakness of bilateral lower limb 0463010463 09983 R29.898 240234 may also consider cortisone injections Primary go narthrosis, bilateral 029338551 M17.0 [id number] has juana inj scheduledw ill help if she has the PT as well to strengthen her muscles Health Concerns Section Related Observation LastModified by Organization Detai ls LastModified Time None Recorded Concern Status LastModified by Organization Details LastModified Time None Recorded Advance Directives Directive Y: Payers Insurance Date Sequence Insurance Name Policy Number Policy Honeycutt Covered Member ID Honeycutt Member ID Guarantor Name 10/05/2025 1 MEDICARE [place]: [email or web address] Yara Andrea [id number] [place]ara [place] 08/29/2025 2 [employer] (MEDICARE SUPPLEMENT) Yara [place] [id number] Yara [place] 05/23/2025 2 [facility] Yara [place] [id number] Yara [place] Notes Date Note Type Note Provider Name a nd Address Organization Details Recorded Time 2 text/html NPV: allergies: no new allergiesthe patient has had anesthesia before with no known reaction PMH: anxiety: the patient has a h/x of anxietythe patient is sleeping okaya little anxious today at appointment due to new provider HTN: the patient has high BPthe patient does not take her BP at homethe patient was on metoprolol prior, not taking anything currently hemorrhoids: stable per patient needs labwork ISAMAR LUCIO [address] [facility], [place], [address], [facility] 11/27/2022 11:53:11 3 text/html ROS as noted in the HPI 1 mo f/u tele-med phone callpatient consents to phone call atrial fibrillation: holter confirmed diagnosiscontinue metoprolol as suggested bladder/frequency: the patient bladder US is normalthe patient reports that she is still having the incontinence and frequency the patient BW is excellentno significant changes will need be need the patient reports she will monitor the incontinencewill let me know ISAMAR LUCIO [address] [place], [address], [facility] 12/26/2022 11:03:59 5 text/html ROS as noted in the HPI f/u medication check HTN: today in the office the patient BP is 130/70 L arm sittingthe patient is doing well on the BP medication with no side effects and no adjustment of their medications needed today at the appointmentwell-contro lled on medicationdenies chest pain, sob, ankle swelling, orthopnea, palpitations HR is normal, normal rate and rhythmno palpitations or chest pain, denies the patient is overall doing the sameneeds handicap placard, uses walker and canewheelchair for long distances had patient fill out info we need and will submither son drives her, she doesn't try to drive anymore ISAMAR LUCIO [address] [place], [address], [facility] 05/15/2025 10:42:44 5 text/html ROS as noted in the HPI f/u kellie LE weakness The patient is participating in this appointment via telemedicine communication with a phone call (audio) only.The patient consents to use of these platforms in place of an in-person appointment due to either patient being acutely ill (being in office would put our staff and our other patients at risk) or unable to make an in-person appointment due to either lack of transportation, severe medical condition, immunocompromised, etc.The appointment took place over a phone call (audio) due to patient's inability to access or use an audio and visual platform. patient reports that she is okayshe is still having the bilateral leg weakness, difficulties, the patient has been having hearing issues, bilaterally, the patient has f/u with [facility] in mid Jul and Aug for kellie knee injections denies any fallsno numbness or tingling in the feetsome swelling in her feet the patient can't go up stairs, if she has to use them, she needs to be assisted by her sonsthe patient can do a very small step down but otherwise is not stable enough on her own to use stairs she is also having difficulties the patient is using a walker pretty consistently the patient tends to have a shuffled gait, difficulties lifting feet the patient would benefit from home PT, she can't drive herself to PT or leave the house without assistance, her son who helps her is having back problems so he hasn't been able to help a sig amount with mobility due to this ISAMAR LUCIO [address] [place], [address], [facility] 08/01/2025 11:43:58 OBGyn Episode No OBEpisode recorded.
--- OUTSIDE RECORDS SUMMARY | 2025-10-11 19:01 | XMS_ITS | Encounter Summary ---
Author Organization [facility] Address [address] [place] [address] Phone Care Team Providers Care Advertising Sales Assistant Name Role Phone Dara Sellers Primary Care Provider [phone] Encounter Details Date Type Department Care Team (Late st Contact Info) Description 08/16/2025 Procedure Pass [facility], Ct Scan - [facility] [address] [place] [address] Social History Tobacco Use Types Packs/Day Years [...] 5:00 PM EDT Reyna Arce RN * [place] Suicide Severity Rating Scale (Screener/Recent Self-Report) Question [...] on filedocumented in this encounter Care Teams Advertising Sales Assistant Relationship Specialty Start Date End Date Dara Sellers PA [address] [place] [id number] PCP - General Physician Animal Ride Manager 05/15/25 documented as of this encounter Additional Source Comments The information contained in this document represents components of the legal health record. It is not the complete legal health record.[facility]
--- OUTSIDE RECORDS SUMMARY | 2025-10-11 19:01 | XMS_ITS | Clinical Summary ---
Author Organization [facility] Address [address] [place] [address] Phone Care Team Providers Care Drilling Contractor Name Role Phone Dara Sellers Primary Care Provider [phone] Allergies No known active allergies Medications metoprolol [...] Department Care Team Description 5 Orders Only [facility] [address] [place] [phone] [facility], Chavo Espinoza MD 5 9:40 PM EDT Ancillary Procedure [address] [address] Alex Conway NP 5 7:08 PM EDT - 5 8:10 PM EDT Surgery [facility] Cardiovascular And Interventional Radiology [address] [place] [address] John Gonsales MD ABDOMINAL LIMITED WITH ULTRASOUND IR 5 Procedure Pass [facility] Cardiovascular And Interventional Radiology [address] [place] [address] 5 10:15 PM EDT Ancillary Procedure [address] [address] Sofia Cohen PA-C 5 3:16 PM EDT Anesthesia Event [facility] Endoscopy Admitting Dept Virtual Department [address] [place] [address] Nova Ortega MD Strebel, Joseph S, MD 5 1:59 PM EDT - 5 2:59 PM EDT Surgery [facility] Endoscopy Admitting Dept Virtual Department [address] [place] [address] Dick Eckert MD ENDOSCOPIC RETROGRADE CHOLANGIOPANCREATOGRAPHY 5 8:31 AM EDT - 5 4:30 PM EDT Hospital Encounter [facility] [address] [place] [address] Martinez Shrestha MD Steinberg, MD Clif Frederick, MD Mireille Yo, Marti Mae MD Discharge Disposition: [facility] 5 Procedure Pass [facility] Echo Lab [address] [place] [address] 5 Procedure Pass [address] [address] 5 Procedure Pass [facility] Endoscopy Admitting Dept Virtual Department [address] [place] [address] 5 Procedure Pass [address] [address] 5 Procedure Pass [address] [address] 5 Procedure Pass [address] [address] 5 Orders Only [facility] [address] [place] [phone] Homehealth, Interface ProviderMD from Last 3 [...] on patient's age to complete this topic IPV VACCINES Aged Out No longer eligi ble [...] included. SODIUM 143 133 - 146 mmol/L [facility] POTASSIUM 3.7 3.3 - 5.1 mmol/L [facility] CHLORIDE 112(H) 96 - 108 mmol/L [facility] CO2 22 21 - 35 mmol/L [facility] BUN 10 6 - 19 mg/dL [facility] CREATININE 0.30(L) 0.5 - 1.5 mg/dL [facility] GLUCOSE 80 70 - 99 mg/dL [facility] ALBUMIN 2.6(L) 3.9 - 4.8 g/dL [facility] TOTAL PROTEIN 5.3(L) 6.5 - 8.0 g/dL [facility] CALCIUM 7.9(L) 8.4 - 10.3 mg/dL [facility] ALKALINE PHOSPHATASE 253(H) 39 - 117 U/L [facility] TOTAL BILIRUBIN 3.0(H) 0.0 - 1.2 mg/dL [facility] AST 35 0 - 37 U/L [facility] ALT 33 0 - 40 U/L [facility] GLOBULIN 2.7 1 - 4.8 g/dL [facility] EGFR 105 >59 mL/min/1.7 3m2 [facility] Comment:Estimated glomerular filtration rate calculated using the CKD-EPI refit equation. ANION GAP 13 10 - 20 mmol/L [facility] Blood 08/19/2025 4:54 AM EDT 08/19/2025 5:21 AM EDT us Sancho Curiel Lb INJECTION MACHINE OPERATOR LAB BLOOD BKR ORDERABLES Final Result [address] [address] * (ABNORMAL) CBC and differential (08/19/2025 4:54 AM EDT) Only the most recent of5 resultswithin the time period is included. WBC 10.53 4.00 - 11.00 K/uL [facility] RBC 2.76(L) 4.00 - 5.20 M/uL [facility] HGB 9.5(L) 12.0 - 16.0 g/dL [facility] HCT 29.7(L) 36.0 - 46.0 % [facility] PLT 147(L) 150 - 450 K/uL [facility] MCV 107.6(H) 80.0 - 100.0 fL [facility] MCH 34.4(H) 27.0 - 31.0 pg [facility] MCHC 32.0 32.0 - 36.0 g/dL [facility] RDW 19.8(H) 11.5 - 14.5 % [facility] MPV 11.8 8.4 - 12.0 fL [facility] NRBC 0.00 0.00 /100 WBCs [facility] ABSOLUTE NRBC 0.00 0.00 K/uL [facility] DIFF METHOD Auto [facility] NEUTS 55.1 48.0 - 76.0 % [facility] LYMPHS 29.2 18.0 - 41.0 % [facility] Comment: Few Atypical Lymphs MONOS 12.2(H) 4.0 - 11.0 % [facility] EOS 2.5 0.0 - 5.0 % [facility] BASOS 0.3 0.0 - 1.5 % [facility] Granulocytes, immature (%) 0.7 0.0 - 0.9 % [facility] ABSOLUTE NEUTS 5.81 1.92 - 7.60 K/uL [facility] ABSOLUTE LYMPHS 3.08 0.72 - 4.10 K/uL [facility] ABSOLUTE MONOS 1.28(H) 0.16 - 1.10 K/uL [facility] ABSOLUTE EOS 0.26 0.00 - 0.50 K/uL [facility] ABSOLUTE BASOS 0.03 0.00 - 0.15 K/uL [facility] Granulocytes, immature 0.07 0.00 - 0.09 K/uL [facility] Blood 08/19/2025 4:54 AM EDT 08/19/2025 5:21 AM EDT Sancho Asher [facility] LAB BLOOD BKR ORDERABLES Final Result Performing Organization Address City/[facility] Co de Phone Number [address] [address] * (ABNORMAL) Phosphorus (08/19/2025 4:54 AM EDT) Only the most recent of4 resultswithin the time period is included. PHOSPHORUS 1.8(L) 2.7 - 4.5 mg/dL [facility] Blood 08/19/2025 4:54 AM EDT 08/19/2025 5:21 AM EDT Sancho Asher [facility] LAB BLOOD BKR ORDERABLES Final Result Performing Organization Address City/[facility]/ZIP Co de Phone Number [address] [address] * Magnesium (08/19/2025 4:54 AM EDT) Only the most recent of6 resultswithin the time period is included. MAGNESIUM 1.7 1.6 - 2.6 mg/dL [facility] Blood 08/19/2025 4:54 AM EDT 08/19/2025 5:21 AM EDT Sancho Asher [facility] LAB BLOOD BKR ORDERABLES Final Result [address] [address] * (ABNORMAL) Ionized calcium (08/19/2025 4:54 AM EDT) IONIZED CALCIUM 1.11(L) 1.14 - 1.37 mmol/L [facility] Blood 08/19/2025 4:54 AM EDT 08/19/2025 5:21 AM EDT us Sancho Asher [facility] LAB BLOOD BKR ORDERABLES Final Result Performing Organization Address [facility] Co de Phone Number [address] [address] * (ABNORMAL) LFTs (hepatic panel) (08/18/2025 5:35 AM EDT) Only the most recent of2 resultswithin the time period is included. ALKALINE PHOSPHATASE 290(H) 39 - 117 U/L [facility] TOTAL BILIRUBIN 3.6(H) 0.0 - 1.2 mg/dL [facility] DIRECT BILIRUBIN 2.5(H) 0.0 - 0.2 mg/dL [facility] Bilirubin (Indirect) 1.1 0 - 1.5 mg/dL [facility] AST 62(H) 0 - 37 U/L [facility] ALT 44(H) 0 - 40 U/L [facility] TOTAL PROTEIN 5.5(L) 6.5 - 8.0 g/dL [facility] ALBUMIN 2.6(L) 3.9 - 4.8 g/dL [facility] GLOBULIN 2.9 1 - 4.8 g/dL [facility] A/G Ratio 0.90(L) 1.00 - 4.80 RATIO [facility] Blood 08/18/2025 5:35 AM EDT 08/18/2025 5:49 AM EDT us Jesus Menezes MD LAB BLOOD BKR ORDERABL ES Final Result Performing Organization Address [facility] Co de Phone Number [address] [address] * (ABNORMAL) C-Reactive Protein (08/18/2025 5:35 AM EDT) Only the most recent of2 resultswithin the time period is included. C REACTIVE PROTEIN 65.0(H) 0.0 - 4.0 mg/L [facility] Blood 08/18/2025 5:35 AM EDT 08/18/2025 5:49 AM EDT us Jesus Menezes MD LAB BLOOD BKR ORDERABL ES Final Result Performing Organization Address [facility] de Phone Number [address] [address] * (ABNORMAL) Basic metabolic panel (08/18/2025 5:35 AM EDT) Only the most recent of4 resultswithin the time period is included. SODIUM 143 133 - 146 mmol/L [facility] CHLORIDE 110(H) 96 - 108 mmol/L [facility] POTASSIUM 3.4 3.3 - 5.1 mmol/L [facility] CO2 21 21 - 35 mmol/L [facility] BUN 10 6 - 19 mg/dL [facility] CREATININE 0.50 0.5 - 1.5 mg/dL [facility] GLUCOSE 77 70 - 99 mg/dL [facility] CALCIUM 8.0(L) 8.4 - 10.3 mg/dL [facility] EGFR 92 >59 mL/min/1.7 3m2 [facility] Comment:Estimated glomerular filtration rate calculated using the CKD-EPI refit equation. ANION GAP 15 10 - 20 mmol/L [facility] Blood 08/18/2025 5:35 AM EDT 08/18/2025 5:49 AM EDT us Jesus Menezes MD LAB BLOOD BKR ORDERABL ES Final Result [facility] [address] [place] [address] * US BEDSIDE (08/17/2025 9:38 PM EDT) Anatomical Region Laterality Modality Ultrasound Narrative 08/17/2025 9:38 PM EDT Alex Conwya NP 08/17/2025 9:38 PM Bedside Ultrasound Date/Time: 08/17/2025 9:38 PM Performed by: Alex Conway NP Authorized by: Alex Conway NP Exam Type: Procedural Guidance Procedural Guidance: Indication: Procedural Guidance Bedside Ultrasound was used to perform Peripheral IV Placement. Please see separately documented procedure note to see details of procedure. Accession Number: [id number] us Alex Conway NP IMG POINT OF [...] tube placement not performed. us Sancho Asher INJECTION MACHINE OPERATOR IMG IR Final Res ult * US Lower Extremity Veins Duplex Complete (Bilateral) (08/17/2025 4:00 PM EDT) MGB IMG ONLINE CONTENT DEVELOPER COMMENT Occlusive deep venous thrombosis of one of the paired right posterior tibial vein's at the ankle, and left popliteal vein. PENDING SALE TO [facility] Anatomical Region Laterality Modality Ultrasound 08/17/2025 4:14 PM EDT Impressions 08/17/2025 4:26 PM EDT * Occlusive deep venous thrombosis of one of the paired right posterior tibial vein's at the ankle, and left popliteal vein. A clinically significant result was initiated on 08/17/2025 4:23 PM, Message ID [id number]. Narrative 08/17/2025 4:26 PM EDT US LOWER [...] was initiated on 08/17/2025 4:23 PM,Message ID [id number]. us Sofia Cohen PA-C CV US VASCULAR Edited Result - Final * (ABNORMAL) Procalcitonin (08/17/2025 1:54 PM EDT) Procalcitonin 0.91(H) 0.00 - 0.25 ng/mL [facility] Comment: <=0.25 ng/mL: Bacterial pneumonia is [...] PM EDT Jesus Menezes MD LAB BLOOD BKR ORDERABL ES Final Result Performing Organization Address [facility] Co de Phone Number [address] [address] * Type and Screen (ABO,Rh,Antibody Screen) (08/17/2025 1:54 PM EDT) Pathologist [facility] ABO/Rh B Positive [facility] Antibody Screen Negative [facility] Expiration Date of Sample 08/20/2025,2 359 [facility] Resulting Agency [facility] Blood 08/17/2025 1:54 PM EDT 08/17/2025 2:09 PM EDT Jesus Menezes MD LAB BLOOD BANK TEST OR DERABLES Final Result Performing Organization Address [facility] Co de Phone Number [address] [address] * (ABNORMAL) Troponin (08/17/2025 1:54 PM EDT) Only the most recent of3 resultswithin the time period is included. Pathologist [facility] Troponin-T, HS Gen5 56(H) 0 - 9 ng/L [facility] Blood 08/17/2025 1:54 PM EDT 08/17/2025 2:10 PM EDT us Jesus Menezes MD LAB BLOOD BKR ORDERABL ES Final Result Performing Organization Address [facility]/ZIP Co de Phone Number [address] [address] * Lactate (08/17/2025 1:54 PM EDT) Only the most recent of4 resultswithin the time period is included. Pathologist [facility] LACTATE 1.80 0.50 - 2.20 mmol/L [facility] Blood 08/17/2025 1:54 PM EDT 08/17/2025 2:08 PM EDT us Jesus Menezes MD LAB BLOOD BKR ORDERABL ES Final Result Performing Organization Address [facility] Co de Phone Number [address] [address] * TTE COMPREHENSIVE (08/17/2025 8:28 AM EDT) Pathologist [facility] Body Surface Area 1.91 m2 Height 165 [...] Sofia Cohen PA-C CV ECHO ORDERABLES Katie vega Result * 2nd Type (New Sample) (08/17/2025 4:51 AM EDT) ABO/Rh B Positive [facility] Resulting Agency [facility] 08/17/2025 4:51 AM EDT 08/17/2025 2:12 PM EDT us Jesus Menezes MD LAB BLOOD BANK TEST OR DERABLES Final Result Performing Organization Address City/[facility]/ZIP Co de Phone Number [address] [address] * (ABNORMAL) NT-proBNP (08/17/2025 4:51 AM EDT) Only the most recent of2 resultswithin the time period is included. NT-PROBNP 10,900(H) 0 - 450 pg/mL [facility] 08/17/2025 4:51 AM EDT 08/17/2025 5:11 AM EDT us Sofia Cohen PA-C LAB BLOOD BKR ORDERABLE S Final Result Performing Organization Address [facility] Co de Phone Number [address] [address] * US BEDSIDE (08/16/2025 10:12 PM EDT) [...] to see details of procedure. Accession Number: [id number] us Sofia Cohen PA-C IMG POINT OF [...] PM EDT) MRSA PCR SCREEN Negative Negative [facility] Comment:The Xpert MRSA Assay is intended to aid in the prevention and control of MRSA infections in healthcare settings. The assay is not intended to diagnose nor to guide or monitor treatment for MRSA infections. Other (Nasal) 08/16/2025 6:4 8 PM EDT 08/16/2025 7:01 PM EDT Jesus Menezes MD LAB GENERAL ORDERABLES Final Result [facility] [address] [place] [address] * FL Fluoroscopy (08/16/2025 4:18 PM EDT) Narrative SYSTEMGENERATED, DOCUMENTATION - 08/16/2025 4:20 PM EDT Fluoroscopy was provided during this procedure. us Dick Eckert MD G FL MISC Final Result * ANES ETT DOUBLE LUMEN - AIRWAY LDA (08/16/2025 3:23 PM EDT) Narrative Nova Ortega MD - 08/16/2025 3:23 PM EDT Nova Ortega MD 08/16/2025 3:42 PM Airway Placement Procedure Note: Patient was not difficult to intubate. Procedure performed by: fellow/resident/SUPERVISOR HISTOLOGY Anesthesiologist: Nova Ortega MD Fellow/Resident/SUPERVISOR HISTOLOGY: Marybeth Almanzar CRNA Airway procedure initiated at:08/16/2025 [...] Complications observed? no us Nova Ortega MD [place] ANESTHESIA Final Result * ENDOSCOPY PROCEDURE (08/16/2025 2:44 PM EDT) Narrative Transcriptions Dick Eckert MD - 08/16/2025 2:44 PM EDT [employer] Patient Name: Yara Andrea Attending MD:: DICK ECKERT MD, Procedure Date: 08/16/2025 2:44 PM Date of : 1940 Age: 84 Admit Type: Emergency Department Gender: Female Room: [place] [address] Referring MD: Dara Sellers Exam Type: ERCP [...] complications. Estimated blood loss: Minimal. Findings: The electronic device monitor film was normal. The esophagus was successfully intubated under direct vision without detailed examination of the pharynx, larynx, and associated structures. A standard esophagogastroduodenoscopy scope was used for the examination of the upper gastrointestinal tract.The scope was passed under direct vision through theupper GI tract. Hematin (altered blood/qspqfk-skbvoa-nzuw material) was found in the gastric body [...] opacify c/w cholecystitis. Impression: - Hematin (altered blood/wmadhb-ypoqcm-ypdpwaruuclt) in the gastric body and in the [...] 2:44 PM Procedure Code(s): --- Professional --- 72385, Endoscopic retrograde cholangiopancreatography (ERCP); with removal of calculi/debris from biliary/pancreatic duct(s) 74274, Endoscopic retrograde cholangiopancreatography (ERCP); with sphincterotomy/papillotomy 07486, Endoscopic catheterization of the biliary ductal system, radiological supervision and interpretation --- Technical --- 02800, Endoscopic retrograde cholangiopancreatography (ERCP); with removal of calculi/debris from biliary/pancreatic duct(s) 30467, Endoscopic retrograde cholangiopancreatography (ERCP); with sphincterotomy/papillotomy 46297, Endoscopic catheterization of the biliary ductal system, [...] pain R17, Unspecified jaundice CPT copyright 2021 [employer]. All rights reserved. The codes documented in this report are preliminary and upon job hand reviewmay be revised to meet current compliance requirements. Procedure Date: 08/16/2025 2:44:[address] [place] [address] Dara PENN GI PROCEDURE ORDERABLES Fin al Result * ECG 12-LEAD (08/16/2025 1:47 PM EDT) Only the most recent of2 resultswithin the time period is included. Ventricular Rate EKG/MIN 120 BPM [facility] Atrial Rate 119 BPM [facility] QRS Duration 86 ms [facility] QT Interval 290 ms [facility] QTC Interval 409 ms [facility] R Wave [place] -24 degrees [facility] T Wave [place] 145 degrees [facility] 08/16/2025 1:47 PM EDT 08/16/2025 2:45 PM EDT Narrative [facility] - 08/16/2025 2:45 PM EDT Atrial fibrillation with rapid ventricular response Voltage criteria for left ventricular hypertrophy ST & T wave abnormality, consider lateral ischemia Abnormal ECG When compared with ECG of 16-Aug-2025 08:48, Atrial fibrillation has replaced Sinus rhythm Confirmed by Sixto Hernandez ([id number]) on 08/16/2025 2:45:40 PM Martinez Shrestha MD ECG ORDERABLES Final Result [...] (08/16/2025 10:36 AM EDT) PATH REVIEW FINAL [facility] Comment: Other cells are rare blast [...] BKR ORDERABLES Ed ited Result - Final [facility] [address] [place] [address] * Blood Culture, Routine (08/16/2025 10:36 AM EDT) Only the most recent of2 resultswithin the time period is included. Special Requests None 08/16/2025 8:53 AM EDT [facility] BLOOD CULTURE NO GROWTH 5 DAYS 08/21/2025 11:00 AM EDT [facility] Blood (Blood) 08/16/2025 10: 36 AM EDT 08/16/2025 10:49 AM EDT Vernell Reeves PA-C LAB MICROBIOLOGY CULTURE OR DERABLES Final Result Performing Organization Address City/[facility] Co de Phone Number [address] [address] * (ABNORMAL) PT-INR (08/16/2025 10:36 AM EDT) PT 17.5(H) 10.2 - 12.9 sec [facility] INR 1.4(H) 0.9 - 1.1 [facility] Comment:Therapeutic range fo r oral Vitamin K antagonists: 2.0-3.5 Blood 08/16/2025 10:3 6 AM EDT 08/16/2025 10:48 AM EDT Vernell Reeves PA-C LAB BLOOD BKR ORDERABLES Fi nal Result Performing Organization Address [facility] Co de Phone Number [address] [address] * Lipase (08/16/2025 10:36 AM EDT) LIPASE 18 16 - 63 U/L [facility] Blood 08/16/2025 10:3 6 AM EDT 08/16/2025 10:48 AM EDT Vernell Reeves PA-C LAB BLOOD BKR ORDERABLES Fi nal Result Performing Organization Address City/[facility]/ZIP Co de Phone Number [address] [address] * CT CERVICAL SPINE WITHOUT CONTRAST (08/16/2025 [...] clinician's provided indication for this examination in [facility]: * Head trauma, minor (Age >= 65y) [...] clinician's provided indication for this examination in [facility]: *Head trauma, minor (Age >= 65y) TECHNIQUE: [...] the cervical spine. us Martinez Shrestha MD IMG CT XSPECIALTY ORDERABLES [...] clinician's provided indication for this examination in [facility]: *Head trauma, minor (Age >= 65y) TECHNIQUE: [...] (08/16/2025 9:04 AM EDT) COLOR NICK(A) Yellow [facility] CLARITY Clear [facility] GLUCOSE Trace(A) Negative [facility] BILI 3+(A) Negative [facility] KETONES 1+(A) Negative [facility] SPECIFIC GRAVITY 1.025 1.005 - 1.030 [facility] BLOOD Negative Negative [facility] PH 5.5 5.0 - 8.0 [facility] Protein-UA Trace(A) Negative [facility] NITRITE Positive(A) Negative [facility] Leukocyte esterase, ur Negative Negative [facility] Urine (Urine) 08/16/2025 9:0 4 AM EDT 08/16/2025 11:15 AM EDT us Vernell Reeves PA-C LAB URINE ORDERABLES Final Result [address] [address] * (ABNORMAL) Urine sediment (08/16/2025 9:04 AM EDT) WBC 0-4(A) NONE SEEN /hpf [facility] RBC 0-2(A) NONE SEEN /hpf [facility] URINE EPITHELIAL 5-10(A) NONE SEEN [facility] MUCUS NONE SEEN NONE SEEN /hpf [facility] BACTERIA 3+(A) NONE SEEN /hpf [facility] CAST 3-5 [facility] Comment:HYALINE CAST 08/16/2025 9:04 AM EDT 08/16/2025 11:15 AM EDT us Vernell Reeves PA-C LAB URINE ORDERABLES Final Result [facility] [address] [place] [address] from Last 3 Months Insurance MEDICARE PART A & B [facility] MEDICARE SUPPLEMENT MEDICARE PART A & B MEDICARE SUPPLEMENT MEDICARE PART A & [place] [address] [place] [address] MEDICARE SUPPLEMENT MEDICARE PART A & B [facility] MEDICARE SUPPLEMENT MEDICARE PART A & B [facility] MEDICARE SUPPLEMENT MEDICARE PART A & [place] [facility] [address] Advance Directives For more information, please contact: [phone] (9AM - 5PM [place], Thursday-Thursday) Documents on File Type Date Recorded Patient Repairer Controller Tester Expl anation Healthcare Proxy 08/21/2025 4:05 PM * Full Code (Latest Code Status on File) Date Activated Date Inactivated Comments 08/16/2025 8:43 PM Question Answer Comments Code Status Confirmed With: PatientFamily Care Teams Drilling Contractor Relationship Specialty Start Date End Date Dara Sellers PA [address] [place] [address] PCP - General Physician Cafeteria Cashier 05/15/25 Additional Source Comments The information contained in this document represents components of the legal health record. It is not the complete legal health record.[facility]
--- OUTSIDE RECORDS SUMMARY | 2025-10-11 19:01 | XMS_ITS | Encounter Summary ---
Author Organization [facility] Address [address] [place] [address] Phone Care Team Providers Care Fire Investigation Manager Name Role Phone Dara Sellers Primary Care Provider [phone] Encounter Details Date Type Department Care Team ([facility] st Contact Info) Description 08/16/2025 Procedure Pass [facility] [address] [place] [address] Social History Tobacco Use Types Packs/Day Years [...] 5:00 PM EDT Reyna Arce RN * [place] Suicide Severity Rating Scale (Screener/Recent Self-Report) Question [...] on filedocumented in this encounter Care Teams Fire Investigation Manager Relationship Specialty Start Date End Date Dara Sellers PA [address] [place] [address] PCP - General Physician Bandage Winding Machine Operator 05/15/25 documented as of this encounter Additional Source Comments The information contained in this document represents components of the legal health record. It is not the complete legal health record.[facility]
--- OUTSIDE RECORDS SUMMARY | 2025-10-11 19:01 | XMS_ITS | Encounter Summary ---
Author Organization [facility] Address [address] [place] [address] Phone Care Team Providers Care Singing Teacher Name Role Phone Dara Sellers Primary Care Provider [phone]- [phone] Encounter Details Date Type Department Care Team (Latest Contact Info) Description 05/15/2025 Transcribe Orders [facility] Phle[address] [address] Dara Sellers PA [address] [facility] [place] [address] [place] [address] Hypertension, essential (Primary Dx) Social History Tobacco [...] HEMOGLOBIN A1C 4.9 4.3 - 5.8 % [facility] Blood 05/15/2025 11:3 0 AM EDT 05/15/2025 11:31 AM EDT us Dara PENN LAB BLOOD BKR ORDERABLES Fi nal Result [facility] [address] [place], [place] [id number] * (ABNORMAL) CBC and differential (05/15/2025 11:30 AM EDT) WBC 8.13 4.00 - 11.00 K/uL [facility] RBC 4.53 4.00 - 5.20 M/uL [facility] HGB 14.5 12.0 - 16.0 g/dL [facility] HCT 45.0 36.0 - 46.0 % [facility] PLT 256 150 - 450 K/uL [facility] MCV 99.3 80.0 - 100.0 fL [facility] MCH 32.0(H) 27.0 - 31.0 pg [facility] MCHC 32.2 32.0 - 36.0 g/dL [facility] RDW 13.2 11.5 - 14.5 % [facility] MPV 10.6 8.4 - 12.0 fL [facility] NRBC 0.00 0.00 /100 WBCs [facility] ABSOLUTE NRBC 0.00 0.00 K/uL [facility] DIFF METHOD Auto [facility] NEUTS 64.7 48.0 - 76.0 % [facility] LYMPHS 20.5 18.0 - 41.0 % [facility] MONOS 11.7(H) 4.0 - 11.0 % [facility] EOS 2.1 0.0 - 5.0 % [facility] BASOS 0.6 0.0 - 1.5 % [facility] Granulocytes, immature (%) 0.4 0.0 - 0.9 % [facility] ABSOLUTE NEUTS 5.26 1.92 - 7.60 K/uL [facility] ABSOLUTE LYMPHS 1.67 0.72 - 4.10 K/uL [facility] ABSOLUTE MONOS 0.95 0.16 - 1.10 K/uL [facility] ABSOLUTE EOS 0.17 0.00 - 0.50 K/uL [facility] ABSOLUTE BASOS 0.05 0.00 - 0.15 K/uL [facility] Granulocytes, immature 0.03 0.00 - 0.09 K/uL [facility] Blood 05/15/2025 11:3 0 AM EDT 05/15/2025 11:32 AM EDT Dara PENN LAB BLOOD BKR ORDERABLES Fi nal Result Performing Organization Address City/[facility]/ZIP Co de Phone Number [address] [address] * (ABNORMAL) Lipid panel (05/15/2025 11:30 AM EDT) HDL 62 mg/dL [facility] Comment: Interpretation <40 mg/dL: Low HDL cholesterol (major risk factor for CHD) Greater than or equal to 60 mg/dL: High HDL cholesterol ( negative risk factor for CHD) HDL - cholesterol is affected by a number of factors, e.g. smoking, excerise, hormones, sex and age. CHOLESTEROL 160 0 - 240 mg/dL [facility] TRIGLYCERIDES 85 30 - 160 mg/dL [facility] LDL 81 50 - 129 mg/dL [facility] Comment: LDL levels in terms of risk for coronary heart disease: <100 mg/dL: Optimal 100-129 mg/dL: Near or above optimal 130-159 mg/dL: Borderline high 160-189 mg/dL: High >190 mg/dL: Very High CARDIAC RISK RATIO 2.6(L) 3.3 - 4.4 C [facility] Blood 05/15/2025 11:3 0 AM EDT 05/15/2025 11:31 AM EDT Dara PENN LAB BLOOD BKR ORDERABLES Fi nal Result Performing Organization Address City/[facility]/ZIP Co de Phone Number [address] [address] * (ABNORMAL) Comprehensive metabolic panel (05/15/2025 11:30 AM EDT) SODIUM 144 133 - 146 mmol/L [facility] POTASSIUM 4.4 3.3 - 5.1 mmol/L [facility] CHLORIDE 107 96 - 108 mmol/L [facility] CO2 28 21 - 35 mmol/L [facility] BUN 16 6 - 19 mg/dL [facility] CREATININE 0.60 0.5 - 1.5 mg/dL [facility] GLUCOSE 104(H) 70 - 99 mg/dL [facility] ALBUMIN 4.0 3.9 - 4.8 g/dL [facility] TOTAL PROTEIN 7.3 6.5 - 8.0 g/dL [facility] CALCIUM 9.1 8.4 - 10.3 mg/dL [facility] ALKALINE PHOSPHATASE 91 39 - 117 U/L [facility] TOTAL BILIRUBIN 0.3 0.0 - 1.2 mg/dL [facility] AST 25 0 - 37 U/L [facility] ALT 20 0 - 40 U/L [facility] GLOBULIN 3.3 1 - 4.8 g/dL [facility] EGFR 88 >59 mL/min/1.7 3m2 [facility] Comment:Estimated glomerular filtration rate calculated using the CKD-EPI refit equation. ANION GAP 13 10 - 20 mmol/L [facility] Blood 05/15/2025 11:3 0 AM EDT 05/15/2025 11:32 AM EDT us Dara PENN LAB BLOOD BKR ORDERABLES Fi nal Result [address] [address] documented in this encounter Visit Diagnoses Diagnosis Hypertension, essential- Primary Unspecified essential hypertension documented in this encounter Care Teams Singing Teacher Relationship Specialty Start Date End Date Dara Sellers PA [address] [place] [id number] PCP - General Physician Community Health Educator 05/15/25 documented as of this encounter Additional Source Comments The information contained in this document represents components of the legal health record. It is not the complete legal health record.[facility]
--- OUTSIDE RECORDS SUMMARY | 2025-10-11 19:01 | XMS_ITS | Patient Health Record ---
Author Organization [facility] Address [address] [place] [address] Care Team Providers Care Licensed Clinical Social Worker Name Role Phone Anoop Panchal Primary Care Provider Luis Fernando Jin Unavailable [phone] Jun Wilburn Jr Unavailable [phone] Reason For Referral No Information Problems Problem Type SNOMED Code ICD Code Onset Dates Problem Status W/U Status Risk Notes Problem Dysphagia (64221727) Dysphagia (R13.10) Active confirmed Problem Gallstones (228104351) Gallstones (K80.20) Active confirmed Encounters Encounter Location Date Provider Diagnosis [facility] [address] [place] [address] 09/13/2025 Luis Fernando Colby Plan Of Treatment No Information Insurance Providers Payer Name Payer Address Payer Phone Subscriber Number Group Number Insured Name Patient Relationship to Insured Coverage Start Date Coverage End Date MEDICARE OF [place] [address] YOHANA HERNANDEZ [id number] DEBORAH CABRALES Self - patient is the insured [facility] SUPPLEMENTAL PLAN [address] [place] [address] [id number] KERON DEBORAH Self - patient is the insured
--- OUTSIDE RECORDS SUMMARY | 2025-10-11 19:01 | XMS_ITS | Encounter Summary ---
Author Organization [facility] Address [address] [place] [address] Phone Care Team Providers Care Fur Trimming Machine Operator Name Role Phone Dara Sellers Primary Care Provider [phone]- [phone] Encounter Details Date Type Department Care Team (Late st Contact Info) Description 08/16/2025 Procedure Pass [facility], Ct Scan - [facility] [address] [place] [address] Social History Tobacco Use Types Packs/Day Years [...] 5:00 PM EDT Reyna Arce RN * [place] Suicide Severity Rating Scale (Screener/Recent Self-Report) Question [...] on filedocumented in this encounter Care Teams Fur Trimming Machine Operator Relationship Specialty Start Date End Date Dara Sellers PA [address] [place] [phone] PCP - General Physician Bander Operator 05/15/25 documented as of this encounter Additional Source Comments The information contained in this document represents components of the legal health record. It is not the complete legal health record.[facility]
--- OUTSIDE RECORDS SUMMARY | 2025-10-11 19:01 | XMS_ITS | Encounter Summary ---
Author Organization [facility] Address [address] [place] [address] Phone Care Team Providers Care See Supervisor Name Role Phone Dara Sellers Primary Care Provider [phone]- [phone] Encounter Details Date Type Department Care Team ([facility] st Contact Info) Description 08/17/2025 Procedure Pass [facility] [address] [place] [address] Social History Tobacco Use Types Packs/Day Years [...] on filedocumented in this encounter Care Teams See Supervisor Relationship Specialty Start Date End Date Dara Sellers PA [address] [place] [address] PCP - General Physician Air Traffic Control Manager 05/15/25 documented as of this encounter Additional Source Comments The information contained in this document represents components of the legal health record. It is not the complete legal health record.[facility]
--- OUTSIDE RECORDS SUMMARY | 2025-10-11 19:01 | XMS_ITS | Encounter Summary ---
Author Organization [facility] Address [address] [place] [address] Phone Care Team Providers Care Mechanical Energy Engineer Name Role Phone Dara Sellers Primary Care Provider [phone]- [phone] Encounter Details Date Type Department Care Team (Late st Contact Info) Description 08/16/2025 Procedure Pass [facility], Ct Scan - [facility] [address] [place] [address] Social History Tobacco Use Types Packs/Day Years [...] 5:00 PM EDT Reyna Arce RN * [place] Suicide Severity Rating Scale (Screener/Recent Self-Report) Question [...] on filedocumented in this encounter Care Teams Mechanical Energy Engineer Relationship Specialty Start Date End Date Dara Sellers PA [address] [place] [address] PCP - General Physician Pcas 05/15/25 documented as of this encounter Additional Source Comments The information contained in this document represents components of the legal health record. It is not the complete legal health record.[facility]
--- OUTSIDE RECORDS SUMMARY | 2025-10-11 19:01 | XMS_ITS | Encounter Summary ---
Author Organization [facility] Address [address] [place] [address] Phone Care Team Providers Care Waxer Operator Name Role Phone Dara Sellers Primary Care Provider [phone]- [phone] Encounter Details Date Type Department Care Team ([facility] st Contact Info) Description 08/16/2025 Procedure Pass [facility] Endoscopy Admitting Dept Virtual Department [address] [place] [address] Social History Tobacco Use Types Packs/Day Years [...] 5:00 PM EDT Reyna Arce RN * [place] Suicide Severity Rating Scale (Screener/Recent Self-Report) Question [...] on filedocumented in this encounter Care Teams Waxer Operator Relationship Specialty Start Date End Date Dara Sellers PA [address] [place] [address] PCP - General Physician Sales Agent Financial Report Service 05/15/25 documented as of this encounter Additional Source Comments The information contained in this document represents components of the legal health record. It is not the complete legal health record.[facility]
--- NOTE | 2025-10-12 08:44 | MHC.CM.PN ---
Addendum entered by Madeline Whitten RN 10/12/25 15:22: PT LIKELY IMMINENT, NO PLAN FOR DC. Original Note: EMR REVIEWED, PT DC'D AND READMITTED TO [facility] ON 10/11/25, PT'S SON/HCP DICK HAS BEEN WORKING ON [employer] AND AWAITING CORPORATE APPROVAL AT PT'S BANK TO RELEASE FUNDS FOR ONE MONTH HOWEVER CM UNSURE AT THIS TIME IF PT WOULD MAKE TRANSFER FROM [facility] TO SNF. CM WILL CONT TO FOLLOW.
--- NOTE | 2025-10-12 09:50 | HO.PM.IMPN ---
Subjective Subjective Date of Service: 10/12/25 Interval History: Unresponsive, no distress, appear comfortable Objective Data Active Medications Diazepam (Diazepam 10 Mg/2 Ml Cartridge) 5 mg IVPUSH Q4H PRN PRN Reason: anxiey Hydromorphone HCl (Hydromorphone Hcl 1 Mg/Ml Syringe) 1 mg IVPUSH Q1H PRN PRN Reason: Discomfort/shortness of breath Last Admin: 10/12/25 06:18 Dose: 1 mg Documented By: PAULA Ondansetron HCl (Ondansetron Hcl 4 Mg/2 Ml Vial) 4 mg IVPUSH Q8H PRN PRN Reason: Nausea and Vomiting Scopolamine (Scopolamine 1.5 Mg Patch.Td.3) 1.5 mg TRANSDERMA Q72H KATHY Last Admin: 10/11/25 17:15 Dose: 1.5 mg Documented By: RIO Assessment and Plan (1) Septic shock: Status: Acute Plan 84F PMH pafib, alzheimers dementia, history of PE, present with AF w/ RVR, and found to have septic navid with marked lactic acidosis, some confusion and in AFIB with RVR and was briefly admitted to the ICU Overll seems to be continuing to decline, she is more confused, less responsive, less communicative and overall does't look good . She has been bacteremic with staph aureus and has had metablic encephalpathy. Despite standard treatment, she has continued to declined becoming less responsive, more confused and family opted to make her comfort care only on this day and now being transitioned to hospice GIP plan: Continue comfort measures only with Dilaudid IV for pain and respiratory distress, Valium for anxiety, scopolamine patch for secretion. Adjust med as needed Quality Stroke Does the patient have a stroke diagnosis?: No VTE Prior VTE?: No VTE Risk Level:: Medical - moderate - high VTE Device Contraindication: Treatment Not Indicated VTE Drug Contraindication: Treatment Not Indicated
--- NOTE | 2025-10-12 12:07 | HO.WOUND ---
Wound Consult: Follow up 84 yr old female admitted to [facility] on 10/03/25- See progress notes and H&P for detailed history. Patient now transition to [facility] hospice . Wound follow up for PEG site. patient with recent admission and pressure injuries to coccyx and buttocks. Patient appears comfortable at bedside. Seen with direct care RN. Recommend continue with Q2H turns for pressure injury prevention/comfort. Coccyx buttocks 10/04/25 Coccyx/buttocks 10/11/25 Etiology: Coccyx unstageable pressure injury Present on Admission - left buttock healed stage 2 pressure injury POA, Right buttock healing stage 3 pressure injury POA Measurements: 0.7cm x 0.5cm x 0.2cm Wound Bed: coccyx- small but full thickness wounding moist red/pink with scant yellow, left buttock intact pink blanching, right buttock superficial dry red bed surrounding blanching pink Drainage / Odor: none Edges: ? open Juliano wound: ? No Induration, Fluctuance or Warmth noted Pain: none Goals of Treatment: ? triad paste to provide an occlusive dressing for autolytic debridment, to allow moist wound healing with absorption of mild exudate, to minimize contamination of urine/stool or bacteria, and to soothe and protect juliano wound skin - cover with foam for offloading PEG site 10/04/25 PEG 10/11/25 PEG 10/12/25 Etiology: MASD Wound Bed: increased area of moist red skin, superifical skin loss Drainage / Odor: small/moderate creamy serosanguineous- bloody drainage from denuded skin- creamy drainage from tube site Edges: ? open Juliano wound: ? No Induration, Fluctuance or Warmth noted Pain: none Goals of Treatment: ?denuded area crusted today with stoma powder and skin prep may also use triad paste with durafiber and drain sponge for drainage absorption. bilateral heels are intact, pink and blanching- recommend offloading for prevention Recommendations: 1. Turn and Reposition every 2 hours and as needed for patient comfort. Use pillows or wedges to support off loading positions. 2. Off Load all bony prominences with use of pillows and heel boots if needed. Apply Preventative foams where needed. 3. Monitor for incontinence and moisture control, use barrier creams when needed for prevention and treatment. 4. Provide adequate and supplemental nutrition. 5. Order or Continue low air loss mattress. 6. When applicable maintain blood glucose levels per Providers order. PEG site: cleanse with saline, pat dry, apply stoma powder and skin prep x 2 to create crusting effect, OR apply triad paste, cover with durafiber ag and drain sponge for drainage absorption Heels: offload pressure with pillows or boots Coccyx/buttocks: Off Load Pressure with Q2 hr turns and use of pillows - Cleanse with PH balance spray or wipes, pat dry. ?Apply thin layer of Triad to wound bed. Do not remove all of paste between applications as this may cause further skin damage.? Cover with foam dressing to aid in off loading and protection from friction. Change every 3 days and PRN. Re-consult wound care Nurse for wound deterioration or wound changes.
--- NOTE | 2025-10-12 23:04 | PM.EVENT ---
Event Note Date of Service: 10/12/25 Event Note: Called to bedside for patient for unresponsive. Patient was not responsive to verbal stimuli or tactile stimulation. Pupils fixed and dilated, no heart sounds or pulses, no spontaneous respiration or corneal reflex. Time of : 10:23 pm Family at bedside. Time Spent With Patient Time: Total time managing care of this patient today ____ minutes.
--- NOTE | 2025-10-13 07:18 | PM.DDS ---
Discharge Sum: Prov Provider Primary care physician: Unknown Physician Discharge Sum: Diag PCOD Cause of : Septic shock Contributing Factors (1) Acute hypotension: (2) Acute CHF: (3) Atrial fibrillation with rapid ventricular response: (4) Elevated troponin: (5) Cholelithiasis: (6) Gallstones: Discharge Sum: Summary Date and Time Date of admission: 10/11/25 16:13 Date of : 10/12/25 Time of : 22:23 Summary Details: An 84-year-old female with a past medical history of paroxysmal atrial fibrillation, Alzheimer?s dementia, and prior pulmonary embolism presented with atrial fibrillation with rapid ventricular response (AFib with RVR). She was found to be in septic shock with marked lactic acidosis and some confusion. She was briefly admitted to the ICU for intravenous fluid resuscitation. Blood cultures were positive for MSSA bacteremia, and there was concern for acute cholecystitis; however, she was not considered a surgical candidate. She experienced recurrent episodes of AFib with RVR and was treated for heart failure. Although her blood pressure improved, atrial fibrillation was controlled, and heart failure was managed, her overall condition continued to decline. She became increasingly encephalopathic, more frail, stopped eating, and became dependent on tube feeding. After multiple discussions with her sons, the decision was made to transition her to GIP hospice care and comfort measures only. She on 10/12/25 at 10:23 pm. Final diagnoses Septic shock Acute cholecystitis MSSA bacteremia Elevated troponin I Metabolic encephalopathy Moderate protein malnutrition Atrial fibrilation with RVR Acute on chronic diastolic CHF Additional Data Attending physician: Papito Sanchez MD
== END 2025-10-12 22:23 | disposition expired | DRG 951 ==
PROVIDERS: Admitting Provider Internal Medicine; Visit Provider Internal Medicine
DX: Z51.5 Encounter for palliative care (principal); A41.9 Sepsis, unspecified organism; R65.21 Severe sepsis with septic shock; G93.41 Metabolic encephalopathy; I50.33 Acute on chronic diastolic (congestive) heart failure; E44.0 Moderate protein-calorie malnutrition; B95.61 Methicillin susceptible Staphylococcus aureus infection as the cause of diseases classified elsewhere; I48.0 Paroxysmal atrial fibrillation; G30.9 Alzheimer's disease, unspecified; F02.80 Dementia in other diseases classified elsewhere, unspecified severity, without behavioral disturbance, psychotic disturbance, mood disturbance, and anxiety; Z87.891 Personal history of nicotine dependence
CPT/HCPCS: J1171

== ENCOUNTER → 2025-10-11 16:13 | Outpatient (BNV) | payer OTHER, SELFPAY | PROVIDERS: Admitting Provider Internal Medicine; Visit Provider Internal Medicine | DX: A41.9 Sepsis, unspecified organism (principal); R65.21 Severe sepsis with septic shock | CPT/HCPCS: 99232; 99499 ==